=== PATIENT | female | born 1930 | race Caucasian/White ===

== ENCOUNTER 2017-06-03 09:17 | Observation (INO) | payer OTHER ==
[2017-06-03 09:20] VITALS: BMI 24.6
[2017-06-03] MEDS ORDERED: ONDANSETRON 4 MG/2 ML VIAL ONE (09:37)
[2017-06-03] MEDS ORDERED: SODIUM CHLORIDE 500 ML IV STA ×2 (09:49→12:35)
[2017-06-03] MEDS ORDERED: MECLIZINE HCL 25 MG TABLET (FP) PO ONE ×2 (09:49→12:35)
[2017-06-03] MEDS ORDERED: MECLIZINE HCL 25 MG TABLET (FP) ONE (09:54)
[2017-06-03 10:14] LABS: URINE APPEARANCE CLEAR; URINE BILIRUBIN NEGATIVE (NEGATIVE); URINE BLOOD 1+ (NEGATIVE); URINE COLOR STRAW; URINE GLUCOSE (UA) NEGATIVE (NEGATIVE); URINE KETONE NEGATIVE (NEGATIVE); URINE LEUK ESTERASE TRACE (NEGATIVE); URINE NITRITE NEGATIVE (NEGATIVE); URINE PROTEIN NEGATIVE (NEGATIVE); URINE UROBILINOGEN NEGATIVE mg/dL (0.2-1.0)
--- NOTE | 2017-06-03 10:23 | PDOC ---
History of Present Illness - General Chief Complaint: Lightheaded Stated Complaint: DIZZINESS Time Seen by Provider: 06/03/17 09:21 History Source: Patient Exam Limitations: No Limitations - History of Present Illness Initial Comments: 06/03/17 10:07 86-year-old female presents to the ED with complaints of dizziness upon awakening this morning. Patient states when she woke up she felt as if the room was spinning causing her to hold onto the wall while making it to the kitchen. Patient states found her son there who saw her in distress and immediately went to her side. as per son patient then almost fell and he assisted her to the ground and called EMS who arrived within 15 minutes. Patient has no complaints of visual changes, headache, chest pain or shortness of breath but does complain of nausea and states was given medication in the ambulance. Patient does have history of aortic valve replacement, pacemaker, hypertension, and dyslipidemia.Patient denies history of vertigo and denies any recent dental work recent ear infection or recent change in medications. Presenting Symptoms: Dizziness Timing/Duration: reports: intermittent Severity/Quality: reports: moderate Chest Pain Radiation: reports: no radiation Activities at Onset: reports: none Prior Chest Pain/Cardiac Workup: reports: No prior chest pain Past History - Travel Traveled outside of the country in the last 30 days: Yes - Past Medical History Allergies/Adverse Reactions: Allergies Allergy/AdvReac Type Severity Reaction Status Date / Time Iodinated Contrast- Oral and Allergy Severe Difficulty Verified 06/03/17 09:18 IV Dye Breathing [IV Dye, Iodine Containing Contrast ] iodine Allergy Severe Difficulty Verified 06/03/17 09:18 Breathing Home Medications: Ambulatory Orders Acetaminophen [Tylenol -] 1,000 mg PO Q6H PRN 06/01/16 Aspirin [ASA -] 81 mg PO DAILY 06/01/16 Clonazepam [Klonopin -] 0.5 mg PO BID 06/01/16 Escitalopram Oxalate [Lexapro -] 10 mg PO DAILY 06/01/16 Furosemide [Lasix -] 20 mg PO DAILY 06/01/16 Lisinopril [Prinivil] 20 mg PO BID 06/01/16 Mirtazapine [Remeron -] 15 mg PO DAILY 06/01/16 Omeprazole [Prilosec] 40 mg PO DAILY 06/01/16 Ondansetron [Zofran -] 4 mg PO TID PRN 06/01/16 Oxybutynin Chloride [Ditropan -] 10 mg PO DAILY 06/01/16 Anemia: No Asthma: No 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.) Cardiac Disorders: Yes (SOB,) CVA: No COPD: No Dementia: No Diabetes: No GI Disorders: No Disorders: No HTN: Yes Hypercholesterolemia: Yes Liver Disease: No Seizures: No Thyroid Disease: No Other medical history: vertigo - Surgical History Abdominal Surgery: No Appendectomy: Yes Cardiac Surgery: Yes (MECHANICAL AORTIC VALVE REPLACEMENT,Pacemaker) Cholecystectomy: Yes Lung Surgery: No Neurologic Surgery: No - Immunization History Immunization Up to Date: No - Psycho/Social/Smoking Cessation Hx Anxiety: Yes Suicidal Ideation: No Smoking Status: No Smoking History: Smoker current status UNK Have you smoked in the past 12 months: No Number of Cigarettes Smoked Daily: 0 Information on smoking cessation initiated: No Hx Alcohol Use: No Drug/Substance Use Hx: No Substance Use Type: None Hx Substance Use Treatment: No Patient Lives Alone: No Lives with/in: son Cardiac Specific PMH - Complaint Specific PMHX Pacemaker: Yes ([place]) Review of Systems - Review of Systems Able to Perform ROS?: Yes Constitutional: Yes: Weakness HEENTM: No: Symptoms Reported Respiratory: No: Symptoms reported Cardiac (ROS): Yes: Lightheadedness. No: Syncope, Chest Tightness ABD/GI: Yes: Nausea : No: Symptoms Reported Musculoskeletal: No: Symptoms Reported Integumentary: No: Symptoms Reported Neurological: Yes: Dizziness Hematologic/Lymphatic: No: Symptoms Reported *Physical Exam - Vital Signs Last Vital Signs Temp Pulse Resp BP Pulse Ox 98.7 F 80 16 170/70 96 06/03/17 14:40 06/03/17 15:26 06/03/17 15:26 06/03/17 15:26 06/03/17 15:26 - Physical Exam General Appearance: Yes: Nourished, Appropriately Dressed. No: Apparent Distress HEENT: positive: EOMI, JIM, Pharynx Normal (dry). negative: Pale Conjunctivae Neck: positive: Supple Respiratory/Chest: positive: Lungs Clear, Normal Breath Sounds. negative: Respiratory Distress, Accessory Muscle Use Cardiovascular: positive: Regular Rhythm, Regular Rate. negative: Murmur Gastrointestinal/Abdominal: positive: Soft. negative: Tenderness Extremity: positive: Normal Capillary Refill. negative: Pedal Edema Integumentary: positive: Normal Color, Warm, Moist Neurologic: positive: Normal Mood/Affect, Motor Strength 5/5, Other (+ hallpikes left/right) Heart Score/ECG Review - History History: Slightly suspicious - Electrocardiogram EKG: Normal - Age Age: >/= 65 - Risk Factors Risk Factors Heart Score: Yes Hx Hypercholesterolemia, Yes Hx Hypertension, Yes Positive family hx of cardiac disease Based on the list above the patient has:: >/=3 risk factors or Hx atherosclerotic disease - Troponin Troponin: </= normal limit - Score Heart Score - Total: 4 - ECG Intrepretation Rhythm: Regular Rhythm (rate 65. prolonged av conduction with prolonged a conduction w/ pvc) ED Treatment Course - LABORATORY CBC & Chemistry Diagram: 06/03/17 10:17 06/03/17 10:17 - ADDITIONAL ORDERS Additional order review: Laboratory Results 06/03/17 06/03/17 06/03/17 10:17 10:17 10:00 PT with INR 11.10 INR 1.01 D Sodium 144 Potassium 5.0 D Chloride 111 H Carbon Dioxide 24 Anion Gap 9 BUN 28 H Creatinine 1.1 H D Creat Clearance w eGFR 47.32 Random Glucose 105 Calcium 8.6 Total Bilirubin 0.4 AST 23 D ALT 20 Alkaline Phosphatase 88 Creatine Kinase 81 Troponin I 0.03 Total Protein 6.7 Albumin 3.3 L Urine Color Straw Urine Appearance Clear Urine pH 5.0 Ur Specific [place] 1.015 Urine Protein Negative Urine Glucose (UA) Negative Urine Ketones Negative Urine Blood 1+ H Urine Nitrite Negative Urine Bilirubin Negative Urine Urobilinogen Negative Urine RBC 1 Urine WBC 4 Hyaline Casts 1 Urine Mucus Rare 06/03/17 10:17 RBC 4.60 D MCV 89.0 MCHC 33.3 RDW 14.2 MPV 8.6 Neutrophils % 72.7 D Lymphocytes % 20.0 D Monocytes % 6.3 Eosinophils % 0.5 Basophils % 0.5 - RADIOLOGY Radiology Studies Ordered: Category Date Time Status HEAD CT WITHOUT CONTRAST [CT] Stat CT Scan 06/03/17 10:35 Completed - Medications Given in the ED: ED Medications Discontinued Medications Generic Name Dose Route Start Last Admin Trade Name Freq PRN Reason Stop Dose Admin Sodium Chloride 500 mls @ 500 mls/hr 06/03/17 09:49 06/03/17 10:19 Normal Saline - IV 06/03/17 10:48 500 mls/hr ASDIR STA Administration Sodium Chloride 500 mls @ 500 mls/hr 06/03/17 12:35 06/03/17 12:50 Normal Saline - IV 06/03/17 13:34 500 mls/hr ASDIR STA Administration Meclizine HCl 25 mg 06/03/17 09:49 06/03/17 10:19 Antivert - PO 06/03/17 09:50 25 mg ONCE ONE Administration Meclizine HCl 12.5 mg 06/03/17 12:35 06/03/17 12:50 Antivert - PO 06/03/17 12:36 12.5 mg ONCE ONE Administration Medical Decision Making - Medical Decision Making 06/03/17 10:07 Patient with episodic dizziness worsened with standing. Patient also complaint of nausea and weakness. Patient denies history of vertigo patient on exam was Hallpike's positive and was unable to perform orthostatic vital signs due to the complaint of the room spinning while sitting up. Patient ordered for cardiac workup, head CT, labs, urine, meclizine and IV fluids. Patient also ordered to be placed on machine coremaker 06/03/17 12:37 Laboratory Tests 06/03/17 06/03/17 06/03/17 10:00 10:17 10:17 WBC 7.9 Hgb 13.6 D Hct 40.9 D Neutrophils % 72.7 D Chloride 111 H Carbon Dioxide 24 Anion Gap 9 BUN 28 H Creatinine 1.1 H D ALT 20 Alkaline Phosphatase 88 Troponin I 0.03 Albumin 3.3 L Urine Blood 1+ H Urine Nitrite Negative Urine Urobilinogen Negative Urine WBC [address] negative for acute findings. Went to evaluate patient and states dizziness has return and unable to sit upright on the stretcher. Patient lowered to supine position, ordered meclizine 12.5 along with 500 mL of normal saline. Will consult neurologist on-call. 06/03/17 13:31 Case discussed with neurologist Dr. Wheat who will consult on patient. Case discussed with Dr. Brock. Dr. Bandar Raza to be notified of admission. 06/03/17 13:[address] Raza and states patient to be admitted to telemetry observation. Patient will also be seen by Dr. Rivers , patient's radio installer. *DC/Admit/Observation/Transfer Diagnosis at time of Disposition: Positional vertigo Qualifiers: Laterality: unspecified laterality Qualified Code(s): H81.10 - Benign paroxysmal vertigo, unspecified ear - Discharge Dispostion Admit: Yes
[2017-06-03 10:25] LABS: BASOPHIL 0.5 % (0-2.0); EOSINOPHIL 0.5 % (0-4.5); MCH 29.6 pg (25.7-33.7); MCHC 33.3 g/dl (32.0-36.0); MEAN PLT VOLUME 8.6 fl (7.5-11.1); NEUTROPHILS 72.7 % (42.8-82.8); PLATELET COUNT 234 K/MM3 (134-434); RDW 14.2 % (11.6-15.6); WHITE BLOOD COUNT 7.9 K/mm3 (4.0-10.0)
[2017-06-03 10:36] LABS: URINE HYALINE CAST 1 /lpf; URINE MUCUS RARE; URINE RBC 1 /hpf (0-3); URINE WBC 4 /hpf (3-5)
[2017-06-03 10:42] LABS: INR 1.01 (0.82-1.09); PROTHROMBIN TIME (PATIENT) 11.1 SEC (9.98-11.88)
[2017-06-03 10:44] LABS: ALBUMIN 3.3 g/dl (3.4-5.0); ANION GAP 9 (8-16); BILIRUBIN,TOTAL 0.4 mg/dL (0.2-1.0); CALCIUM 8.6 mg/dL (8.5-10.1); CO2 24 mmol/L (21-32); CREATININE 1.1 mg/dL (0.55-1.02); GLUCOSE,RANDOM 105 mg/dL (74-106); SGOT/AST 23 U/L (15-37); SGPT/ALT 20 U/L (12-78); TOT PROT 6.7 g/dl (6.4-8.2)
[2017-06-03 10:47] LABS: ALK PHOS 88 U/L (45-117); CPK 81 IU/L (26-192); TROPONIN I 0.03 ng/ml (0.00-0.05)
[2017-06-03] MEDS ORDERED: MECLIZINE HCL 12.5 MG TABLET ONE (12:37)
[2017-06-03] MEDS ORDERED: ACETAMINOPHEN 325 MG TABLET (FP) PO PRN (14:27)
[2017-06-03] MEDS ORDERED: MECLIZINE HCL 25 MG TABLET (FP) PO PRN (14:33)
--- NOTE | 2017-06-03 14:34 | HP ---
Admitting History and Physical - Primary Care Physician PCP: Javi Brock - Admission Chief Complaint: dizziness History of Present Illness: Pt 86-year-old female presents to the ED with complaints of dizziness upon awakening this morning. Patient states when she woke up she felt as if the room was spinning causing her to hold onto the wall while making it to the kitchen. Patient states found her son there who saw her in distress and immediately went to her side. as per son patient then almost fell and he assisted her to the ground and called EMS who arrived within 15 minutes. Patient has no complaints of visual changes, headache, chest pain or shortness of breath but does complain of nausea and states was given medication in the ambulance. Patient has -- history of aortic valve replacement---metallic --changed to bio in 2014-- now on asa , pacemaker, hypertension, and dyslipidemia. Patient denies history of vertigo and denies any recent dental work recent ear infection or recent change in medications. pts work up in er essentially -ve. including ct head ekg- paced. pt given zofron/ antivert and fluids in er. pt to admitted to [facility] for observation. pt seen in er by pr-- chart reviewed case discussed with ER physician . still feels dizzy. son at bedside. denies cp/sob/abd pain. no u/bowel trouble. History Source: Patient, Family Member Limitations to Obtaining History: No Limitations - Past Medical History Cardiovascular: Yes: Aortic Stenosis, CAD, HTN, Hyperlipdemia Psych: Yes: Depression - Past Surgical History Past Surgical History: Yes: Permanent Pacemaker, Valve Replacement - Smoking History Smoking history: Smoker current status UNK Have you smoked in the past 12 months: No Aproximately how many cigarettes per day: 0 - Alcohol/Substance Use Hx Alcohol Use: No Home Medications - Allergies Allergies/Adverse Reactions: Allergies Allergy/AdvReac Type Severity Reaction Status Date / Time Iodinated Contrast- Oral and Allergy Severe Difficulty Verified 06/03/17 09:18 IV Dye Breathing [IV Dye, Iodine Containing Contrast ] iodine Allergy Severe Difficulty Verified 06/03/17 09:18 Breathing - Home Medications Home Medications: Ambulatory Orders Acetaminophen [Tylenol -] 1,000 mg PO Q6H PRN 06/01/16 Aspirin [ASA -] 81 mg PO DAILY 06/01/16 Clonazepam [Klonopin -] 0.5 mg PO BID 06/01/16 Escitalopram Oxalate [Lexapro -] 10 mg PO DAILY 06/01/16 Furosemide [Lasix -] 20 mg PO DAILY 06/01/16 Lisinopril [Prinivil] 20 mg PO BID 06/01/16 Mirtazapine [Remeron -] 15 mg PO DAILY 06/01/16 Omeprazole [Prilosec] 40 mg PO DAILY 06/01/16 Ondansetron [Zofran -] 4 mg PO TID PRN 06/01/16 Oxybutynin Chloride [Ditropan -] 10 mg PO DAILY 06/01/16 Review of Systems - Review of Systems Constitutional: reports: Weakness Eyes: reports: No Symptoms HENT: reports: No Symptoms Neck: reports: No Symptoms Cardiovascular: reports: No Symptoms Respiratory: reports: No Symptoms Gastrointestinal: reports: Nausea Genitourinary: reports: No Symptoms Integumentary: reports: No Symptoms Neurological: reports: Dizziness Psychiatric: reports: Anxiety Physical Examination Vital Signs: Vital Signs Temperature 98.2 F 06/03/17 09:18 Pulse Rate 82 06/03/17 09:18 Respiratory Rate 20 06/03/17 09:18 Blood Pressure 179/84 06/03/17 09:18 O2 Sat by Pulse Oximetry (%) 94 L 06/03/17 09:18 Constitutional: Yes: No Distress, Anxious Eyes: Yes: Conjunctiva Clear, PERRL HENT: Yes: WNL Neck: Yes: Supple, Trachea Midline Cardiovascular: Yes: Regular Rate and Rhythm, Other (paced) Respiratory: Yes: CTA Bilaterally Gastrointestinal: Yes: Normal Bowel Sounds, Soft Edema: No Neurological: Yes: Alert, Cran Nerves II-XII Intact Psychiatric: Yes: Alert Labs: CBC, BMP 06/03/17 10:17 06/03/17 10:17 Imaging - Results Cat Scan: Report Reviewed EKG: Report Reviewed Problem List - Problems (1) Dizziness Assessment/Plan: monitor on tele due to extensive cardiac history cardiolgy/ neurology consults. u/s carotid. check tsh level. Code(s): R42 - DIZZINESS AND GIDDINESS (2) H/O aortic valve replacement Assessment/Plan: on asa Code(s): Z95.2 - PRESENCE OF PROSTHETIC HEART VALVE (3) CAD (coronary artery disease) Assessment/Plan: denies cp. echo if not done recently cardiology to follow Code(s): I25.10 - ATHSCL HEART DISEASE OF [place] CORONARY ARTERY W/O ANG PCTRS (4) Pacemaker Assessment/Plan: no active issues Code(s): Z95.0 - PRESENCE OF CARDIAC PACEMAKER (5) Hypertension Code(s): I10 - ESSENTIAL (PRIMARY) HYPERTENSION (6) Depression Assessment/Plan: on lexapro/clonipine Code(s): F32.9 - MAJOR DEPRESSIVE DISORDER, SINGLE EPISODE, UNSPECIFIED Assessment/Plan discussed with pts son/ pts pmd will follow. time spend 40 min in examining/ documenting and coordating care
--- NOTE | 2017-06-03 14:38 | PDOC ---
*Physical Exam - Vital Signs Last Vital Signs Temp Pulse Resp BP Pulse Ox 98.2 F 82 20 179/84 94 L 06/03/17 09:18 06/03/17 09:18 06/03/17 09:18 06/03/17 09:18 06/03/17 09:18 ED Treatment Course - LABORATORY CBC & Chemistry Diagram: 06/03/17 10:17 06/03/17 10:17 - ADDITIONAL ORDERS Additional order review: Laboratory Results 06/03/17 06/03/17 06/03/17 10:17 10:17 10:00 PT with INR 11.10 INR 1.01 D Sodium 144 Potassium 5.0 D Chloride 111 H Carbon Dioxide 24 Anion Gap 9 BUN 28 H Creatinine 1.1 H D Creat Clearance w eGFR 47.32 Random Glucose 105 Calcium 8.6 Total Bilirubin 0.4 AST 23 D ALT 20 Alkaline Phosphatase 88 Creatine Kinase 81 Troponin I 0.03 Total Protein 6.7 Albumin 3.3 L Urine Color Straw Urine Appearance Clear Urine pH 5.0 Urine Protein Negative Urine Glucose (UA) Negative Urine Ketones Negative Urine Blood 1+ H Urine Nitrite Negative Urine Bilirubin Negative Urine Urobilinogen Negative Urine RBC 1 Urine WBC 4 Hyaline Casts 1 Urine Mucus Rare 06/03/17 10:17 RBC 4.60 D MCV 89.0 MCHC 33.3 RDW 14.2 MPV 8.6 Neutrophils % 72.7 D Lymphocytes % 20.0 D Monocytes % 6.3 Eosinophils % 0.5 Basophils % 0.5 - Medications Given in the ED: ED Medications Discontinued Medications Generic Name Dose Route Start Last Admin Trade Name Freq PRN Reason Stop Dose Admin Sodium Chloride 500 mls @ 500 mls/hr 06/03/17 09:49 06/03/17 10:19 Normal Saline - IV 06/03/17 10:48 500 mls/hr ASDIR STA Administration Sodium Chloride 500 mls @ 500 mls/hr 06/03/17 12:35 06/03/17 12:50 Normal Saline - IV 06/03/17 13:34 500 mls/hr ASDIR STA Administration Meclizine HCl 25 mg 06/03/17 09:49 06/03/17 10:19 Antivert - PO 06/03/17 09:50 25 mg ONCE ONE Administration Meclizine HCl 12.5 mg 06/03/17 12:35 06/03/17 12:50 Antivert - PO 06/03/17 12:36 12.5 mg ONCE ONE Administration Medical Decision Making - Medical Decision Making 06/03/17 14:38 Pt seen by the Advanced Practice Provider under my direct supervision Ancillary studies reviewed I agree with plan as outlined by the Advanced Practice Provider *DC/Admit/Observation/Transfer Diagnosis at time of Disposition: Positional vertigo Qualifiers: Laterality: unspecified laterality Qualified Code(s): H81.10 - Benign paroxysmal vertigo, unspecified ear
[2017-06-03] MEDS: LISINOPRIL 20 MG TABLET (FP) PO SCH ×2 (16:13→23:04)
[2017-06-03] MEDS ORDERED: ONDANSETRON 4 MG/2 ML VIAL IVPB PRN (16:27)
[2017-06-03] MEDS ORDERED: FLU VACCINE QUAD 60 MCG/0.5 ML (MDV 17-18) IM ONE (17:06)
[2017-06-03] MEDS: clonazePAM 0.5 MG TABLET PO SCH ×2 (17:09→22:45)
[2017-06-03] MEDS: PANTOPRAZOLE 40 MG TABLET (FP) PO SCH (17:09)
[2017-06-03] MEDS: ASPIRIN 81 MG CHEWABLE TABLETS PO SCH (17:09)
[2017-06-03] MEDS: ESCITALOPRAM OXALATE 10 MG TABLET (FP) PO SCH (17:09)
[2017-06-03] MEDS: FUROSEMIDE 20 MG TABLET (FP) PO SCH (17:09)
[2017-06-03] MEDS ORDERED: NIFEdipine E.R. 30 MG TABLET (FP) PO ONE (19:30)
[2017-06-03] MEDS ORDERED: clonazePAM 0.5 MG TABLET PO SCH (22:00)
[2017-06-03] MEDS ORDERED: LISINOPRIL 20 MG TABLET (FP) PO SCH (22:00)
[2017-06-03] MEDS: HEPARIN NA (PORCINE) 5,000 UNITS/ML 1ML VIAL SQ SCH (22:43)
[2017-06-03] MEDS: MIRTAZAPINE 15 MG TABLET (FP) PO SCH (22:45)
[2017-06-04 07:32] LABS: BASOPHIL 0.7 % (0-2.0); EOSINOPHIL 1.4 % (0-4.5); MCH 29.9 pg (25.7-33.7); MCHC 33.6 g/dl (32.0-36.0); MEAN CELL VOLUME 88.9 fl (80-96); PLATELET COUNT 243 K/MM3 (134-434); RDW 14.3 % (11.6-15.6); WHITE BLOOD COUNT 8.7 K/mm3 (4.0-10.0)
[2017-06-04 07:57] LABS: ALBUMIN 3.2 g/dl (3.4-5.0); ANION GAP 6 (8-16); BILIRUBIN,TOTAL 0.6 mg/dL (0.2-1.0); CALCIUM 8.4 mg/dL (8.5-10.1); CO2 27 mmol/L (21-32); CREATININE 0.9 mg/dL (0.55-1.02); GLUCOSE,RANDOM 104 mg/dL (74-106); MAGNESIUM 2.3 mg/dL (1.8-2.4); SGOT/AST 29 U/L (15-37); SGPT/ALT 25 U/L (12-78); TOT PROT 6.7 g/dl (6.4-8.2)
[2017-06-04 07:58] LABS: ALK PHOS 84 U/L (45-117)
--- NOTE | 2017-06-04 08:26 | CON.CARD ---
Consult Consult Specialty:: cardio Referred by:: karon/nona Reason for Consultation:: dizzy - History of Present Illness Chief Complaint: same History of Present Illness: 86 yo female presented with dizziness. pt noted dizziness upon awakening on morning of DOA. Patient states when she woke up she felt as if the room was spinning causing her to hold onto the wall while trying to walk to the kitchen. Patient states found her son there who saw her in distress and immediately went to her side. as per son patient then almost fell and he assisted her to the ground and called EMS still feeling dizzy had similar "vertigo" years ago, given a pill and it went away admits to sob on 2-3 blocks walking outside--says chronic and stable since 2nd valve surgery 2014. denies orthopnea/PND denies cp last saw alex 05/05 and had echo then PMH: afib syst chf s/p AVR - Past Medical History Cardio/Vascular: Yes: Aortic Stenosis, CAD, HTN, Hyperlipdemia Psych: Yes: Depression - Past Surgical History Past Surgical History: Yes: Permanent Pacemaker, Valve Replacement - Alcohol/Substance Use Hx Alcohol Use: No - Smoking History Smoking history: Smoker current status UNK Have you smoked in the past 12 months: No Aproximately how many cigarettes per day: 0 Home Medications - Allergies Allergies/Adverse Reactions: Allergies Allergy/AdvReac Type Severity Reaction Status Date / Time Iodinated Contrast- Oral and Allergy Severe Difficulty Verified 06/03/17 09:18 IV Dye Breathing [IV Dye, Iodine Containing Contrast ] iodine Allergy Severe Difficulty Verified 06/03/17 09:18 Breathing - Home Medications Home Medications: Ambulatory Orders Acetaminophen [Tylenol -] 1,000 mg PO Q6H PRN 06/01/16 Aspirin [ASA -] 81 mg PO DAILY 06/01/16 Clonazepam [Klonopin -] 0.5 mg PO BID 06/01/16 Escitalopram Oxalate [Lexapro -] 10 mg PO DAILY 06/01/16 Furosemide [Lasix -] 20 mg PO DAILY 06/01/16 Lisinopril [Prinivil] 20 mg PO BID 06/01/16 Mirtazapine [Remeron -] 15 mg PO DAILY 06/01/16 Omeprazole [Prilosec] 40 mg PO DAILY 06/01/16 Ondansetron [Zofran -] 4 mg PO TID PRN 06/01/16 Oxybutynin Chloride [Ditropan -] 10 mg PO DAILY 06/01/16 Family Disease History - Family Disease History Family History: Denies (no cmp) Review of Systems - Review of Systems Constitutional: denies: Chills, Fever Eyes: denies: Eye Pain HENT: denies: Nasal Congestion Neck: denies: Stiffness Cardiovascular: denies: Palpitations Respiratory: denies: Orthopnea, PND Gastrointestinal: denies: Diarrhea, Rectal Bleeding Genitourinary: denies: Burning, Hematuria Musculoskeletal: denies: Muscle Pain Integumentary: denies: Rash Neurological: denies: Numbness, Seizure, Syncope Endocrine: denies: Excessive Sweating Hematology/Lymphatic: denies: Excessive Bleeding Vital Signs: Vital Signs Temperature 98.8 F 06/04/17 05:47 Pulse Rate 78 06/04/17 05:47 Respiratory Rate 20 06/04/17 05:47 Blood Pressure 142/74 06/04/17 05:47 O2 Sat by Pulse Oximetry (%) 95 06/04/17 05:47 Constitutional: Yes: Well Nourished, No Distress Eyes: No: Sclera Icterus HENT: No: Nasal Congestion Neck: No: Decreased ROM Respiratory: Yes: CTA Bilaterally. No: Accessory Muscle Use, Rales, Wheezes Gastrointestinal: Yes: Normal Bowel Sounds. No: Distention, Hepatomegaly, Palpable Mass, Tenderness Cardiovascular: Yes: Regular Rate and Rhythm JVD: No Carotid Bruit: No PMI: Non-Displaced Heart Sounds: Yes: S1, S2. No: Gallop Murmur: No: Systolic Murmur, Diastolic Murmur Musculoskeletal: Yes: Other (No kyphosis) Extremities: No: Cold, Cyanosis Edema: No Peripheral Pulses: 2+ Left Carotid, 2+ Right Carotid, 2+ Left Doralis Pedis, 2+ Right Dorsalis Pedis Integumentary: No: Jaundice Neurological: Yes: Alert, Oriented (x3) Psychiatric: No: Agitated - Other Data Labs, Other Data: CBC, BMP 06/04/17 05:48 06/04/17 05:48 INR, PTT INR 1.01 (0.82-1.09) D 06/03/17 10:17 Laboratory Tests 09/16/17 09/16/17 05:48 05:48 WBC 8.7 Hgb 14.7 Plt Count 243 Sodium 142 Potassium 4.3 BUN 18 D Creatinine 0.9 AST 29 D ALT 25 D Assessment/Plan Echo 07/2015: normal lv size, low nl lvef, septal WMA c/w prior open heart surgery, nl rv, mild mr, [facility] avr with mod-sev AR, no sig change from 07/2014 echo Echo 06/03/17: mod-sev decr LVSF, mild LVH; nl RVSF. TDS AVR--mod AI,no . mod- severe MR. mild TR. RVSP 30-40 CT head: chronic bilateral cerebellar infarcts, no acute path, no change vs 2012 ECG: NSR, V-paced, PVC (no change vs 06/04) dizziness: -description c/w vertigo--acute, sudden onset -? if prior h/o--of note are bilateral chronic cerebellar infarcts on CT--? central etiology vs BPPV -plan per neuro h/o valvular heart dz with prior [facility] avr failure s/p reop 2014, chronic syst CHF, mod to severe MR: -? type of reop AVR in 2014--will check office records -marked LV dysfunction here, ? post AVR reop baseline LVEF--will review office records -mod to severe MR here--? if new, will review office records--no murmur appreciated on exam -BNP 4K (2K in 2015) -CXR pending -chronic ARMAS sx's at home, stable--no volume on exam -says only rx'd lasix prn at home for swelling, hasn't needed--defer for now h/o rectal bleed 2015: -rpt FOC benign then; per GI etiology felt likely 2/2 retained blood post recent prior FOC -cleared to resume AC at that time per GI rec.s pafib: -in sinus -continue coreg -was on AC as of 2014 admit here ([facility] AVR then too)--no AC agent currently on home med list--will check office records CKD: -creat ranged 1.2-1.8 ppm: -routine office checks with alex as doing htn: -bp's very variable on HD #1, currently controlled this am -cont home meds, observe bp trend hld: -cont home statin
[2017-06-04] MEDS: ASPIRIN 81 MG CHEWABLE TABLETS PO SCH (09:37)
[2017-06-04] MEDS: LISINOPRIL 20 MG TABLET (FP) PO SCH ×2 (09:37→21:14)
[2017-06-04] MEDS: PANTOPRAZOLE 40 MG TABLET (FP) PO SCH (09:37)
[2017-06-04] MEDS: ESCITALOPRAM OXALATE 10 MG TABLET (FP) PO SCH (09:37)
[2017-06-04] MEDS: OXYBUTYNIN CHLORIDE 5 MG TABLET PO SCH (09:37)
[2017-06-04] MEDS: FUROSEMIDE 20 MG TABLET (FP) PO SCH (09:38)
[2017-06-04] MEDS: clonazePAM 0.5 MG TABLET PO SCH ×2 (09:38→21:14)
[2017-06-04] MEDS: HEPARIN NA (PORCINE) 5,000 UNITS/ML 1ML VIAL SQ SCH ×2 (09:38→21:15)
--- NOTE | 2017-06-04 09:40 | CONSULT ---
Consult - text type - Consultation Consultation Note: Neurology History of Present Illness 86-year-old female presents to the ED with complaints of dizziness and states when she woke up she felt as if the room was spinning causing her to hold onto the wall while making it to the kitchen. Reportedly, her son witnessed this and that she almost fell and he assisted her to the ground and called EMS who arrived within 15 minutes. Patient has no complaints of visual changes, headache , chest pain or shortness of breath but does complain of nausea and states was given medication in the ambulance. Patient does have history of aortic valve replacement, pacemaker, hypertension, and dyslipidemia.Patient denies history of vertigo and denies any recent dental work recent ear infection or recent change in medications. She completed CT head which demonstrated B/L cerebellar chronic infarcts. Cardiology consulted as well. Past History - Travel Traveled outside of the country in the last 30 days: Yes - Past Medical History Allergies/Adverse Reactions: Allergies Allergy/AdvReac Type Severity Reaction Status Date / Time Iodinated Contrast- Oral and Allergy Severe Difficulty Verified 06/03/17 09:18 IV Dye Breathing [IV Dye, Iodine Containing Contrast ] iodine Allergy Severe Difficulty Verified 06/03/17 09:18 Breathing Home Medications: Ambulatory Orders Acetaminophen [Tylenol -] 1,000 mg PO Q6H PRN 06/01/16 Aspirin [ASA -] 81 mg PO DAILY 06/01/16 Clonazepam [Klonopin -] 0.5 mg PO BID 06/01/16 Escitalopram Oxalate [Lexapro -] 10 mg PO DAILY 06/01/16 Furosemide [Lasix -] 20 mg PO DAILY 06/01/16 Lisinopril [Prinivil] 20 mg PO BID 06/01/16 Mirtazapine [Remeron -] 15 mg PO DAILY 06/01/16 Omeprazole [Prilosec] 40 mg PO DAILY 06/01/16 Ondansetron [Zofran -] 4 mg PO TID PRN 06/01/16 Oxybutynin Chloride [Ditropan -] 10 mg PO DAILY 06/01/16 Anemia: No Asthma: No Cardiac Disorders: Yes (SOB,) CVA: No COPD: No Dementia: No Diabetes: No GI Disorders: No Disorders: No HTN: Yes Hypercholesterolemia: Yes Liver Disease: No Seizures: No Thyroid Disease: No Other medical history: vertigo - Surgical History Abdominal Surgery: No Appendectomy: Yes Cardiac Surgery: Yes (MECHANICAL AORTIC VALVE REPLACEMENT,Pacemaker) Cholecystectomy: Yes Lung Surgery: No Neurologic Surgery: No - Immunization History Immunization Up to Date: No - Psycho/Social/Smoking Cessation Hx Anxiety: Yes Suicidal Ideation: No Smoking Status: No Smoking History: Smoker current status UNK Have you smoked in the past 12 months: No Number of Cigarettes Smoked Daily: 0 Information on smoking cessation initiated: No Hx Alcohol Use: No Drug/Substance Use Hx: No Substance Use Type: None Hx Substance Use Treatment: No Patient Lives Alone: No Lives with/in: son Cardiac Specific PMH - Complaint Specific PMHX Pacemaker: Yes ([email or web address]) Review of Systems - Review of Systems Able to Perform ROS?: Yes Constitutional: Yes: Weakness HEENTM: No: Symptoms Reported Respiratory: No: Symptoms reported Cardiac (ROS): Yes: Lightheadedness. No: Syncope, Chest Tightness ABD/GI: Yes: Nausea : No: Symptoms Reported Musculoskeletal: No: Symptoms Reported Integumentary: No: Symptoms Reported Neurological: Yes: Dizziness Hematologic/Lymphatic: No: Symptoms Reported *Physical Exam - Vital Signs Last Vital Signs Temp Pulse Resp BP Pulse Ox 98.7 F 80 16 170/70 96 06/03/17 14:40 06/03/17 15:26 06/03/17 15:26 06/03/17 15:26 06/03/17 15:26 - Physical Exam General Appearance: Yes: Nourished, Appropriately Dressed. No: Apparent Distress HEENT: positive: EOMI, JIM, Pharynx Normal (dry). negative: Pale Conjunctivae Neck: positive: Supple Respiratory/Chest: positive: Lungs Clear, Normal Breath Sounds. negative: Respiratory Distress, Accessory Muscle Use Cardiovascular: positive: Regular Rhythm, Regular Rate. negative: Murmur Gastrointestinal/Abdominal: positive: Soft. negative: Tenderness Extremity: positive: Normal Capillary Refill. negative: Pedal Edema Integumentary: positive: Normal Color, Warm, Moist Neurologic: CN intact, finger to nose without dysmetria, strength grossly symetric, sensory intact, gait deferred CBCD WBC 8.7 K/mm3 (4.0-10.0) 06/04/17 05:48 RBC 4.91 M/mm3 (3.60-5.2) 06/04/17 05:48 Hgb 14.7 GM/dL (10.7-15.3) 06/04/17 05:48 Hct 43.6 % (32.4-45.2) 06/04/17 05:48 MCV 88.9 fl (80-96) 06/04/17 05:48 MCHC 33.6 g/dl (32.0-36.0) 06/04/17 05:48 RDW 14.3 % (11.6-15.6) 06/04/17 05:48 Plt Count 243 K/MM3 (134-434) 06/04/17 05:48 MPV 9.0 fl (7.5-11.1) 06/04/17 05:48 CMP Sodium 142 mmol/L (136-145) 06/04/17 05:48 Potassium 4.3 mmol/L (3.5-5.1) 06/04/17 05:48 Chloride 109 mmol/L (98-107) H 06/04/17 05:48 Carbon Dioxide 27 mmol/L (21-32) 06/04/17 05:48 Anion Gap 6 (8-16) L 06/04/17 05:48 BUN 18 mg/dL (7-18) D 06/04/17 05:48 Creatinine 0.9 mg/dL (0.55-1.02) 06/04/17 05:48 Creat Clearance w eGFR 59.65 (>60) 06/04/17 05:48 Calcium 8.4 mg/dL (8.5-10.1) L 06/04/17 05:48 Total Bilirubin 0.6 mg/dL (0.2-1.0) D 06/04/17 05:48 AST 29 U/L (15-37) D 06/04/17 05:48 ALT 25 U/L (12-78) D 06/04/17 05:48 Alkaline Phosphatase 84 U/L (45-117) 06/04/17 05:48 Total Protein 6.7 g/dl (6.4-8.2) 06/04/17 05:48 Albumin 3.2 g/dl (3.4-5.0) L 06/04/17 05:48 Medical Decision Making 86-year-old female presents to the ED with complaints of dizziness and states when she woke up she felt as if the room was spinning causing her to hold onto the wall while making it to the kitchen. Reportedly, her son witnessed this and that she almost fell and he assisted her to the ground and called EMS who arrived within 15 minutes. Patient has no complaints of visual changes, headache , chest pain or shortness of breath but does complain of nausea and states was given medication in the ambulance. Patient does have history of aortic valve replacement, pacemaker, hypertension, and dyslipidemia.Patient denies history of vertigo and denies any recent dental work recent ear infection or recent change in medications. She completed CT head which demonstrated B/L cerebellar chronic infarcts. Some improvement this AM but given her history of cerebellar CVA and risk factor of HTN, would recommend rechecking imaging Has a PPM so cannot get MRI, will order repeat CT head for today On ASA 81mg and can continue On Lasix, continue BP control, ideally < 140/90 Meclezine PRN Hydration No sudden head movements Physical therapy Cardiology consulted as well, follow up rec'd
[2017-06-04] MEDS ORDERED: PANTOPRAZOLE 40 MG TABLET (FP) PO SCH (10:00)
[2017-06-04] MEDS ORDERED: ASPIRIN 81 MG CHEWABLE TABLETS PO SCH (10:00)
[2017-06-04] MEDS ORDERED: FUROSEMIDE 20 MG TABLET (FP) PO SCH (10:00)
--- NOTE | 2017-06-04 12:04 | PN ---
Progress Note (short form) - Note Progress Note: pt continue to feel dizzy anxious all f/u noted echo noted- moderate- sever lv dysfunction. denies cp. bp much better today. Vital Signs Temp 98.7 F 06/04/17 10:00 Pulse 70 06/04/17 10:00 Resp 20 06/04/17 10:00 BP 128/64 06/04/17 10:00 Pulse Ox 98 06/04/17 10:00 Intake & Output 06/03/17 06/04/17 06/04/17 23:59 11:59 23:59 Intake Total 200 200 Balance 200 200 Weight 122 lb Intake: Oral 200 200 Other: Voiding Method Bedpan Bedpan # Unmeasured Voids Void 3 3 Height 4 ft 11 in Body Mass Index (BMI) 24.6 Weight Measurement Method Stated by Patient Active Medications Acetaminophen (Tylenol -) 650 mg PO Q4H PRN PRN Reason: FEVER OR PAIN Last Admin: 06/03/17 17:08 Dose: 650 mg Aspirin (Asa -) 81 mg PO DAILY [facility] Last Admin: 06/04/17 09:37 Dose: 81 mg Clonazepam (Klonopin -) 0.5 mg PO BID [facility] Last Admin: 06/04/17 09:38 Dose: 0.5 mg Escitalopram Oxalate (Lexapro -) 10 mg PO DAILY [facility] Last Admin: 06/04/17 09:37 Dose: 10 mg Furosemide (Lasix -) 20 mg PO DAILY [facility] Last Admin: 06/04/17 09:38 Dose: 20 mg Heparin Sodium (Porcine) (Heparin -) 5,000 unit SQ BID [facility] Last Admin: 06/04/17 09:38 Dose: 5,000 unit Lisinopril (Prinivil) 20 mg PO BID [facility] Last Admin: 06/04/17 09:37 Dose: 20 mg Meclizine HCl (Antivert -) 25 mg PO Q6H PRN PRN Reason: NAUSEA Last Admin: 06/03/17 22:52 Dose: 25 mg Mirtazapine (Remeron -) 15 mg PO HS [facility] Last Admin: 06/03/17 22:45 Dose: 15 mg Ondansetron HCl (Zofran Injection) 4 mg IVPB Q8H PRN PRN Reason: NAUSEA AND/OR VOMITING Last Admin: 06/03/17 16:33 Dose: 4 mg Oxybutynin Chloride (Ditropan -) 10 mg PO DAILY [facility] Last Admin: 06/04/17 09:37 Dose: 10 mg Pantoprazole Sodium (Protonix -) 40 mg PO DAILY [facility] Last Admin: 06/04/17 09:37 Dose: 40 mg CBC, BMP 06/04/17 05:48 06/04/17 05:48 Microbiology 06/03/17 10:00 Urine Culture - Preliminary Urine - Urine Clean Catch Lactose Fermenting Neg Bacilli Physical Examination Constitutional: Yes: No Distress, Anxious. Eyes: Yes: Conjunctiva Clear, PERRL HEENT: Yes: WNL Neck: Yes: Supple, Trachea Midline Cardiovascular: Yes: Regular Rate and Rhythm, Other (paced) Respiratory: Yes: CTA Bilaterally Gastrointestinal: Yes: Normal Bowel Sounds, Soft, non tender. Edema: No Neurological: Yes: Alert, Cran Nerves II-XII Intact Psychiatric: Yes: Alert Imaging - Results Cat Scan: Report Reviewed EKG: Report Reviewed A/P still dizzy u/c +e-- start on abx. check u/s carotid. monitor bp. will follow. monitor on tele Problem List - Problems (1) Dizziness Code(s): R42 - DIZZINESS AND GIDDINESS (2) H/O aortic valve replacement Code(s): Z95.2 - PRESENCE OF PROSTHETIC HEART VALVE (3) CAD (coronary artery disease) Code(s): I25.10 - ATHSCL HEART DISEASE OF [place] CORONARY ARTERY W/O ANG PCTRS (4) Pacemaker Code(s): Z95.0 - PRESENCE OF CARDIAC PACEMAKER (5) Hypertension Code(s): I10 - ESSENTIAL (PRIMARY) HYPERTENSION (6) Depression Code(s): F32.9 - MAJOR DEPRESSIVE DISORDER, SINGLE EPISODE, UNSPECIFIED
[2017-06-04] MEDS: CEFTRIAXONE 1 GM in DEXTROSE 5%-WATER - 50 ML IVPB SCH (14:30)
[2017-06-04] MEDS ORDERED: cefTRIAXone SODIUM 1 GM VIAL ONE (14:43)
[2017-06-04] MEDS ORDERED: DEXTROSE 5%-WATER - 50 ML IVPB ONE (14:43)
[2017-06-04] MEDS: MIRTAZAPINE 15 MG TABLET (FP) PO SCH (21:15)
[2017-06-05] MEDS ORDERED: FUROSEMIDE 40 MG/4 ML INJECTABLE VIAL IVPUSH ONE (08:14)
--- NOTE | 2017-06-05 08:14 | PN ---
Progress Note, Physician Chief Complaint: dizzy History of Present Illness: dizziness much better after meclizine (resolved). seated comfortably in chair this am denies sob, orthopnea/PND no cp, palpit, leg swelling - Current Medication List Current Medications: Active Medications Acetaminophen (Tylenol -) 650 mg PO Q4H PRN PRN Reason: FEVER OR PAIN Last Admin: 06/03/17 17:08 Dose: 650 mg Aspirin (Asa -) 81 mg PO DAILY [facility] Last Admin: 06/04/17 09:37 Dose: 81 mg Clonazepam (Klonopin -) 0.5 mg PO BID [facility] Last Admin: 06/04/17 21:14 Dose: 0.5 mg Escitalopram Oxalate (Lexapro -) 10 mg PO DAILY [facility] Last Admin: 06/04/17 09:37 Dose: 10 mg Furosemide (Lasix -) 20 mg PO DAILY [facility] Last Admin: 06/04/17 09:38 Dose: 20 mg Heparin Sodium (Porcine) (Heparin -) 5,000 unit SQ BID [facility] Last Admin: 06/04/17 21:15 Dose: 5,000 unit Ceftriaxone Sodium 1 gm/ (Dextrose) 50 mls @ 100 mls/hr IVPB DAILY [facility] Last Admin: 06/04/17 14:30 Dose: 100 mls/hr Lisinopril (Prinivil) 20 mg PO BID [facility] Last Admin: 06/04/17 21:14 Dose: 20 mg Meclizine HCl (Antivert -) 25 mg PO Q6H PRN PRN Reason: NAUSEA Last Admin: 06/03/17 22:52 Dose: 25 mg Mirtazapine (Remeron -) 15 mg PO HS [facility] Last Admin: 06/04/17 21:15 Dose: 15 mg Ondansetron HCl (Zofran Injection) 4 mg IVPB Q8H PRN PRN Reason: NAUSEA AND/OR VOMITING Last Admin: 06/03/17 16:33 Dose: 4 mg Oxybutynin Chloride (Ditropan -) 10 mg PO DAILY [facility] Last Admin: 06/04/17 09:37 Dose: 10 mg Pantoprazole Sodium (Protonix -) 40 mg PO DAILY [facility] Last Admin: 06/04/17 09:37 Dose: 40 mg - Objective Vital Signs: Vital Signs Temperature 98.2 F 06/05/17 05:35 Pulse Rate 75 06/05/17 05:35 Respiratory Rate 18 06/05/17 05:35 Blood Pressure 127/67 06/05/17 05:35 O2 Sat by Pulse Oximetry (%) 95 06/05/17 05:31 Constitutional: Yes: Well Nourished, No Distress, Calm Cardiovascular: Yes: Regular Rate and Rhythm, S1, S2. No: Gallop, Murmur Respiratory: Yes: Regular, CTA Bilaterally. No: Accessory Muscle Use, Rales, Wheezes Extremities: No: Cold Edema: No Neurological: Yes: Alert, Oriented Psychiatric: No: Agitated Labs: CBC, BMP 06/04/17 05:48 06/04/17 05:48 INR, PTT INR 1.01 (0.82-1.09) D 06/03/17 10:17 - ....Imaging EKG: Other (tele: NSR, v-paced) Assessment/Plan Echo 04/04 (office): nl LV size, low-nl EF (50-55%). nl RV. nl bioAVR (trivial margy-prosthetic AI). trace MR Echo 06/03/17: mod-sev decr LVSF, mild LVH; nl RVSF. TDS AVR--mod AI,no . mod- severe MR. mild TR. RVSP 30-40 CT head: chronic bilateral cerebellar infarcts, no acute path, no change vs 2012 Carotids: mild, nonob plq ECG: NSR, V-paced, PVC (no change vs 06/04) dizziness: -description c/w vertigo--acute, sudden onset -? if prior h/o--of note are bilateral chronic cerebellar infarcts on CT--? 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 on at home)--6.25 bid -decr lisin to 10 bid to allow bp room for carvedilol -will need reassessment of echo as outpt once diuresed, and further w/u of worsening LV fxn with dr johnson--hope no hemodynamically significant AI from reop valve failure--this can be followed up as outpatient (will ask office to call her for f/u appt 2-4 wks) h/o rectal bleed 2014: -rpt FOC benign then; per GI etiology felt likely 2/2 retained blood post recent prior FOC -cleared to resume AC at that time per GI rec.s pafib: -in sinus here -dr johnson notes reviewed--pt with transient AF noted occasionally on prior PM checks, AC being deferred -continue coreg, ASA per home regimen ppm: -routine office checks with alex as doing htn: -bp's very variable on HD #1, currently controlled this am -cont home meds, observe bp trend hld: -cont home statin
[2017-06-05] MEDS ORDERED: DEXTROSE 5%-WATER - 50 ML IVPB ONE (08:39)
[2017-06-05] MEDS ORDERED: cefTRIAXone SODIUM 1 GM VIAL ONE (08:39)
[2017-06-05] MEDS: ESCITALOPRAM OXALATE 10 MG TABLET (FP) PO SCH (09:30)
[2017-06-05] MEDS: CARVEDILOL 6.25 MG TABLET (FP) PO SCH ×2 (09:30→21:40)
[2017-06-05] MEDS: clonazePAM 0.5 MG TABLET PO SCH ×2 (09:30→21:40)
[2017-06-05] MEDS: OXYBUTYNIN CHLORIDE 5 MG TABLET PO SCH (09:30)
[2017-06-05] MEDS: CEFTRIAXONE 1 GM in DEXTROSE 5%-WATER - 50 ML IVPB SCH (09:30)
[2017-06-05] MEDS: ASPIRIN 81 MG CHEWABLE TABLETS PO SCH (09:30)
[2017-06-05] MEDS: PANTOPRAZOLE 40 MG TABLET (FP) PO SCH (09:30)
[2017-06-05] MEDS: FUROSEMIDE 20 MG TABLET (FP) PO SCH (09:30)
[2017-06-05] MEDS: HEPARIN NA (PORCINE) 5,000 UNITS/ML 1ML VIAL SQ SCH ×2 (09:39→21:40)
[2017-06-05] MEDS: LISINOPRIL 20 MG TABLET (FP) PO SCH ×2 (09:39→21:39)
--- NOTE | 2017-06-05 11:06 | PN ---
Progress Note (short form) - Note Progress Note: Neurology History of Present Illness 86-year-old female presented to the ED with complaints of dizziness and states when she woke up she felt as if the room was spinning causing her to hold onto the wall while making it to the kitchen. Reportedly, her son witnessed this and that she almost fell and he assisted her to the ground and called EMS who arrived within [address] head which demonstrated B/L cerebellar chronic infarcts. Has a PPM and therefore could not have MRI, CT head repeated and again did not show acute changes. Meclezine started as needed for dizzyness and symptoms improved. Active Medications Acetaminophen (Tylenol -) 650 mg PO Q4H PRN PRN Reason: FEVER OR PAIN Last Admin: 06/03/17 17:08 Dose: 650 mg Aspirin (Asa -) 81 mg PO DAILY [facility] Last Admin: 06/05/17 09:30 Dose: 81 mg Carvedilol (Coreg -) 6.25 mg PO BID [facility] Last Admin: 06/05/17 09:30 Dose: 6.25 mg Clonazepam (Klonopin -) 0.5 mg PO BID [facility] Last Admin: 06/05/17 09:30 Dose: 0.5 mg Escitalopram Oxalate (Lexapro -) 10 mg PO DAILY [facility] Last Admin: 06/05/17 09:30 Dose: 10 mg Furosemide (Lasix -) 20 mg PO DAILY [facility] Last Admin: 06/05/17 09:30 Dose: 20 mg Heparin Sodium (Porcine) (Heparin -) 5,000 unit SQ BID [facility] Last Admin: 06/05/17 09:39 Dose: 5,000 unit Ceftriaxone Sodium 1 gm/ (Dextrose) 50 mls @ 100 mls/hr IVPB DAILY [facility] Last Admin: 06/05/17 09:30 Dose: 100 mls/hr Lisinopril (Prinivil) 10 mg PO BID [facility] Last Admin: 06/05/17 09:39 Dose: 10 mg Meclizine HCl (Antivert -) 25 mg PO Q6H PRN PRN Reason: NAUSEA Last Admin: 06/03/17 22:52 Dose: 25 mg Mirtazapine (Remeron -) 15 mg PO HS [facility] Last Admin: 06/04/17 21:15 Dose: 15 mg Ondansetron HCl (Zofran Injection) 4 mg IVPB Q8H PRN PRN Reason: NAUSEA AND/OR VOMITING Last Admin: 06/03/17 16:33 Dose: 4 mg Oxybutynin Chloride (Ditropan -) 10 mg PO DAILY [facility] Last Admin: 06/05/17 09:30 Dose: 10 mg Pantoprazole Sodium (Protonix -) 40 mg PO DAILY [facility] Last Admin: 06/05/17 09:30 Dose: 40 mg *Physical Exam Vital Signs Period Temp Pulse Resp BP Sys/Castro Pulse Ox Last 24 Hr 97.8 F-98.8 F 62-75 18-20 117-134/63-70 94-95 - Physical Exam General Appearance: Yes: Nourished, Appropriately Dressed. No: Apparent Distress HEENT: positive: EOMI, JIM, Pharynx Normal (dry). negative: Pale Conjunctivae Neck: positive: Supple Respiratory/Chest: positive: Lungs Clear, Normal Breath Sounds. negative: Respiratory Distress, Accessory Muscle Use Cardiovascular: positive: Regular Rhythm, Regular Rate. negative: Murmur Gastrointestinal/Abdominal: positive: Soft. negative: Tenderness Extremity: positive: Normal Capillary Refill. negative: Pedal Edema Integumentary: positive: Normal Color, Warm, Moist Neurologic: CN intact, finger to nose without dysmetria, strength grossly symetric, sensory intact, gait deferred Medical Decision Making 86-year-old female presents to the ED with complaints of dizziness and states when she woke up she felt as if the room was spinning causing her to hold onto the wall while making it to the kitchen. Reportedly, her son witnessed this and that she almost fell and he assisted her to the ground and called EMS who arrived within [address] head which demonstrated B/L cerebellar chronic infarcts. Repeat CT did not show acute changes On ASA 81mg and can continue On Lasix, continue BP control, ideally < 140/90 Meclezine PRN started and symptoms much improved Hydration as needed No sudden head movements Cardiology follow up
--- NOTE | 2017-06-05 12:51 | PN ---
Progress Note (short form) - Note Progress Note: Overall feels much better says dizziness decreased denies pain. feels weak but better Vital Signs Temp 98.2 F 06/05/17 05:35 Pulse 75 06/05/17 05:35 Resp 18 06/05/17 05:35 BP 127/67 06/05/17 05:35 Pulse Ox 95 06/05/17 05:31 Intake & Output 06/04/17 06/05/17 06/05/17 23:59 11:59 23:59 Intake Total 490 200 Balance 490 200 Intake: Oral 490 200 Other: Voiding Method Toilet Incontinent # Unmeasured Voids Void 1 2 Active Medications Acetaminophen (Tylenol -) 650 mg PO Q4H PRN PRN Reason: FEVER OR PAIN Last Admin: 06/03/17 17:08 Dose: 650 mg Aspirin (Asa -) 81 mg PO DAILY [facility] Last Admin: 06/05/17 09:30 Dose: 81 mg Carvedilol (Coreg -) 6.25 mg PO BID [facility] Last Admin: 06/05/17 09:30 Dose: 6.25 mg Clonazepam (Klonopin -) 0.5 mg PO BID [facility] Last Admin: 06/05/17 09:30 Dose: 0.5 mg Escitalopram Oxalate (Lexapro -) 10 mg PO DAILY [facility] Last Admin: 06/05/17 09:30 Dose: 10 mg Furosemide (Lasix -) 20 mg PO DAILY [facility] Last Admin: 06/05/17 09:30 Dose: 20 mg Heparin Sodium (Porcine) (Heparin -) 5,000 unit SQ BID [facility] Last Admin: 06/05/17 09:39 Dose: 5,000 unit Ceftriaxone Sodium 1 gm/ (Dextrose) 50 mls @ 100 mls/hr IVPB DAILY [facility] Last Admin: 06/05/17 09:30 Dose: 100 mls/hr Lisinopril (Prinivil) 10 mg PO BID [facility] Last Admin: 06/05/17 09:39 Dose: 10 mg Meclizine HCl (Antivert -) 25 mg PO Q6H PRN PRN Reason: NAUSEA Last Admin: 06/03/17 22:52 Dose: 25 mg Mirtazapine (Remeron -) 15 mg PO HS [facility] Last Admin: 06/04/17 21:15 Dose: 15 mg Ondansetron HCl (Zofran Injection) 4 mg IVPB Q8H PRN PRN Reason: NAUSEA AND/OR VOMITING Last Admin: 06/03/17 16:33 Dose: 4 mg Oxybutynin Chloride (Ditropan -) 10 mg PO DAILY [facility] Last Admin: 06/05/17 09:30 Dose: 10 mg Pantoprazole Sodium (Protonix -) 40 mg PO DAILY [facility] Last Admin: 06/05/17 09:30 Dose: 40 mg CBC, BMP 06/04/17 05:48 06/04/17 05:48 Microbiology 06/03/17 10:00 Urine Culture - Final Urine - Urine Clean Catch Escherichia Coli Physical Examination Constitutional: Yes: No Distress,comfortable. Eyes: Yes: Conjunctiva Clear, [place] HEENT: Yes: WNL Neck: Yes: Supple, Trachea Midline Cardiovascular: Yes: Regular Rate and Rhythm, Other (paced) Respiratory: Yes: CTA Bilaterally Gastrointestinal: Yes: Normal Bowel Sounds, Soft, non tender. Edema: No Neurological: Yes: Alert, Cran Nerves II-XII Intact Psychiatric: Yes: Alert Imaging - Results Cat Scan: Report Reviewed EKG: Report Reviewed A/P better u/s carotid ok abx d/c tele d/c planning -- likely tomorrow. Discussed with pts son-- who is at bedside. Problem List - Problems (1) Dizziness Code(s): R42 - DIZZINESS AND GIDDINESS (2) H/O aortic valve replacement Code(s): Z95.2 - PRESENCE OF PROSTHETIC HEART VALVE (3) CAD (coronary artery disease) Code(s): I25.10 - ATHSCL HEART DISEASE OF [place] CORONARY ARTERY W/O ANG PCTRS (4) Pacemaker Code(s): Z95.0 - PRESENCE OF CARDIAC PACEMAKER (5) Hypertension Code(s): I10 - ESSENTIAL (PRIMARY) HYPERTENSION (6) Depression Code(s): F32.9 - MAJOR DEPRESSIVE DISORDER, SINGLE EPISODE, UNSPECIFIED
[2017-06-05] MEDS: MIRTAZAPINE 15 MG TABLET (FP) PO SCH (21:40)
--- NOTE | 2017-06-06 08:20 | PN ---
Progress Note, Physician Chief Complaint: dizzy History of Present Illness: no more dizziness; no cp, sob/orthopnea, palpit, leg swelling no cigs - Current Medication List Current Medications: Active Medications Acetaminophen (Tylenol -) 650 mg PO Q4H PRN PRN Reason: FEVER OR PAIN Last Admin: 06/03/17 17:08 Dose: 650 mg Aspirin (Asa -) 81 mg PO DAILY [facility] Last Admin: 06/05/17 09:30 Dose: 81 mg Carvedilol (Coreg -) 6.25 mg PO BID [facility] Last Admin: 06/05/17 21:40 Dose: 6.25 mg Clonazepam (Klonopin -) 0.5 mg PO BID [facility] Last Admin: 06/05/17 21:40 Dose: 0.5 mg Escitalopram Oxalate (Lexapro -) 10 mg PO DAILY [facility] Last Admin: 06/05/17 09:30 Dose: 10 mg Furosemide (Lasix -) 20 mg PO DAILY [facility] Last Admin: 06/05/17 09:30 Dose: 20 mg Heparin Sodium (Porcine) (Heparin -) 5,000 unit SQ BID [facility] Last Admin: 06/05/17 21:40 Dose: 5,000 unit Ceftriaxone Sodium 1 gm/ (Dextrose) 50 mls @ 100 mls/hr IVPB DAILY [facility] Last Admin: 06/05/17 09:30 Dose: 100 mls/hr Lisinopril (Prinivil) 10 mg PO BID [facility] Last Admin: 06/05/17 21:39 Dose: 10 mg Meclizine HCl (Antivert -) 25 mg PO Q6H PRN PRN Reason: NAUSEA Last Admin: 06/03/17 22:52 Dose: 25 mg Mirtazapine (Remeron -) 15 mg PO HS [facility] Last Admin: 06/05/17 21:40 Dose: 15 mg Ondansetron HCl (Zofran Injection) 4 mg IVPB Q8H PRN PRN Reason: NAUSEA AND/OR VOMITING Last Admin: 06/03/17 16:33 Dose: 4 mg Oxybutynin Chloride (Ditropan -) 10 mg PO DAILY [facility] Last Admin: 06/05/17 09:30 Dose: 10 mg Pantoprazole Sodium (Protonix -) 40 mg PO DAILY [facility] Last Admin: 06/05/17 09:30 Dose: 40 mg - Objective Vital Signs: Vital Signs Temperature 97.2 F L 06/06/17 05:00 Pulse Rate 68 06/06/17 05:00 Respiratory Rate 18 06/06/17 05:00 Blood Pressure 127/52 06/06/17 05:00 O2 Sat by Pulse Oximetry (%) 96 06/06/17 05:55 Constitutional: Yes: Well Nourished, No Distress, Calm Cardiovascular: Yes: Regular Rate and Rhythm, S1, S2. No: Gallop, Murmur Respiratory: Yes: Regular, CTA Bilaterally. No: Accessory Muscle Use, Rales, Wheezes Extremities: No: Cold Edema: No Neurological: Yes: Alert, Oriented Labs: CBC, BMP 06/04/17 05:48 06/04/17 05:48 INR, PTT INR 1.01 (0.82-1.09) D 06/03/17 10:17 - ....Imaging EKG: Other (tele: NSR, v-paced; 9 beats NSVT) Assessment/Plan Echo 04/04 (office): nl LV size, low-nl EF (50-55%). nl RV. nl bioAVR (trivial margy-prosthetic AI). trace MR Echo 06/03/17: mod-sev decr LVSF, mild LVH; nl RVSF. TDS AVR--mod AI,no . mod- severe MR. mild TR. RVSP 30-40 CT head: chronic bilateral cerebellar infarcts, no acute path, no change vs 2012 Carotids: mild, nonob plq ECG: NSR, V-paced, PVC (no change vs 06/04) CXR: clear lungs/pleura dizziness: -description c/w vertigo--acute, sudden onset -? if prior h/o--of note are bilateral chronic cerebellar infarcts on CT--? 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 on at home)--6.25 bid -decr lisin to 10 bid to allow bp room for carvedilol -will need reassessment of echo as outpt once diuresed, and further w/u of worsening LV fxn with dr johnson--hope no hemodynamically significant AI from reop valve failure--this can be followed up as outpatient (will ask office to call her for f/u appt 2-4 wks) VTach: -NSVT on tele today -carvedilol started yesterday--cont same -EF mod-severely reduced on echo here, acute change vs 04/04 -d/w'd dr johnson--pt to have f/u with him in 2 wks -check K and Mag today and replete h/o rectal bleed 2014: -rpt FOC benign then; per GI etiology felt likely 2/2 retained blood post recent prior FOC -cleared to resume AC at that time per GI rec.s pafib: -in sinus here -dr johnson notes reviewed--pt with transient AF noted occasionally on prior PM checks, AC being deferred -continue coreg, ASA per home regimen ppm: -routine office checks with alex as doing htn: -bp's very variable on HD #1, currently controlled this am -cont home meds, observe bp trend hld: -cont home statin
[2017-06-06] MEDS ORDERED: cefTRIAXone SODIUM 1 GM VIAL ONE (09:37)
[2017-06-06] MEDS ORDERED: DEXTROSE 5%-WATER - 50 ML IVPB ONE (09:37)
--- NOTE | 2017-06-06 09:55 | PN ---
Progress Note (short form) - Note Progress Note: Neurology History of Present Illness 86-year-old female presented to the ED with complaints of dizziness and states when she woke up she felt as if the room was spinning causing her to hold onto the wall while making it to the kitchen. Reportedly, her son witnessed this and that she almost fell and he assisted her to the ground and called EMS who arrived within [address] head which demonstrated B/L cerebellar chronic infarcts. Has a PPM and therefore could not have MRI, CT head repeated to confirm no CVA and did not show acute changes. Meclezine started as needed for dizzyness and symptoms improved. She is ambulating with therapist on floor today. Doing well and had cardiac evaluation as well. Possible discharge planning today. Active Medications Acetaminophen (Tylenol -) 650 mg PO Q4H PRN PRN Reason: FEVER OR PAIN Last Admin: 06/03/17 17:08 Dose: 650 mg Aspirin (Asa -) 81 mg PO DAILY [facility] Last Admin: 06/05/17 09:30 Dose: 81 mg Carvedilol (Coreg -) 6.25 mg PO BID [facility] Last Admin: 06/05/17 21:40 Dose: 6.25 mg Clonazepam (Klonopin -) 0.5 mg PO BID [facility] Last Admin: 06/05/17 21:40 Dose: 0.5 mg Escitalopram Oxalate (Lexapro -) 10 mg PO DAILY [facility] Last Admin: 06/05/17 09:30 Dose: 10 mg Furosemide (Lasix -) 20 mg PO DAILY [facility] Last Admin: 06/05/17 09:30 Dose: 20 mg Heparin Sodium (Porcine) (Heparin -) 5,000 unit SQ BID [facility] Last Admin: 06/05/17 21:40 Dose: 5,000 unit Ceftriaxone Sodium 1 gm/ (Dextrose) 50 mls @ 100 mls/hr IVPB DAILY [facility] Last Admin: 06/05/17 09:30 Dose: 100 mls/hr Lisinopril (Prinivil) 10 mg PO BID [facility] Last Admin: 06/05/17 21:39 Dose: 10 mg Meclizine HCl (Antivert -) 25 mg PO Q6H PRN PRN Reason: NAUSEA Last Admin: 06/03/17 22:52 Dose: 25 mg Mirtazapine (Remeron -) 15 mg PO HS [facility] Last Admin: 06/05/17 21:40 Dose: 15 mg Ondansetron HCl (Zofran Injection) 4 mg IVPB Q8H PRN PRN Reason: NAUSEA AND/OR VOMITING Last Admin: 06/03/17 16:33 Dose: 4 mg Oxybutynin Chloride (Ditropan -) 10 mg PO DAILY [facility] Last Admin: 06/05/17 09:30 Dose: 10 mg Pantoprazole Sodium (Protonix -) 40 mg PO DAILY [facility] Last Admin: 06/05/17 09:30 Dose: 40 mg *Physical Exam Vital Signs Period Temp Pulse Resp BP Sys/Castro Pulse Ox Last 24 Hr 97.2 F-98.7 F 68-85 14-20 103-127/46-66 95-96 - Physical Exam General Appearance: Yes: Nourished, Appropriately Dressed. No: Apparent Distress HEENT: positive: EOMI, JIM, Pharynx Normal (dry). negative: Pale Conjunctivae Neck: positive: Supple Respiratory/Chest: positive: Lungs Clear, Normal Breath Sounds. negative: Respiratory Distress, Accessory Muscle Use Cardiovascular: positive: Regular Rhythm, Regular Rate. negative: Murmur Gastrointestinal/Abdominal: positive: Soft. negative: Tenderness Extremity: positive: Normal Capillary Refill. negative: Pedal Edema Integumentary: positive: Normal Color, Warm, Moist Neurologic: CN intact, finger to nose without dysmetria, strength grossly symetric, sensory intact, gait deferred Medical Decision Making 86-year-old female presents to the ED with complaints of dizziness and states when she woke up she felt as if the room was spinning causing her to hold onto the wall while making it to the kitchen. Reportedly, her son witnessed this and that she almost fell and he assisted her to the ground and called EMS who arrived within [address] head which demonstrated B/L cerebellar chronic infarcts. Repeat CT did not show acute changes On ASA 81mg and can continue On Lasix, continue BP control, ideally < 140/90 Meclezine PRN started and symptoms much improved Hydration as needed No sudden head movements Cardiology follow up Likely for discharge today
[2017-06-06] MEDS: LISINOPRIL 20 MG TABLET (FP) PO SCH (10:04)
[2017-06-06] MEDS: CEFTRIAXONE 1 GM in DEXTROSE 5%-WATER - 50 ML IVPB SCH (10:04)
[2017-06-06] MEDS: ESCITALOPRAM OXALATE 10 MG TABLET (FP) PO SCH (10:05)
[2017-06-06] MEDS: OXYBUTYNIN CHLORIDE 5 MG TABLET PO SCH (10:05)
[2017-06-06] MEDS: CARVEDILOL 6.25 MG TABLET (FP) PO SCH (10:05)
[2017-06-06] MEDS: PANTOPRAZOLE 40 MG TABLET (FP) PO SCH (10:05)
[2017-06-06] MEDS: ASPIRIN 81 MG CHEWABLE TABLETS PO SCH (10:05)
[2017-06-06] MEDS: FUROSEMIDE 20 MG TABLET (FP) PO SCH (10:05)
[2017-06-06] MEDS: HEPARIN NA (PORCINE) 5,000 UNITS/ML 1ML VIAL SQ SCH (10:09)
[2017-06-06] MEDS: clonazePAM 0.5 MG TABLET PO SCH (10:09)
[2017-06-06 10:34] LABS: ANION GAP 9 (8-16); CALCIUM 8.8 mg/dL (8.5-10.1); CO2 28 mmol/L (21-32); CREATININE 1.6 mg/dL (0.55-1.02); GLUCOSE,RANDOM 98 mg/dL (74-106); MAGNESIUM 2.5 mg/dL (1.8-2.4)
--- NOTE | 2017-06-06 10:49 | DS ---
Physical Examination Vital Signs: Vital Signs Temperature 98.2 F 06/06/17 09:00 Pulse Rate 74 06/06/17 09:00 Respiratory Rate 14 06/06/17 09:00 Blood Pressure 116/62 06/06/17 09:00 O2 Sat by Pulse Oximetry (%) 96 06/06/17 05:55 Findings/Remarks: pt feels well. no complains says much better walking in [place] denies cp/sob/abd pain no headche\ dizziness resolved Constitutional: Yes: No Distress, Calm Eyes: Yes: Conjunctiva Clear Neck: Yes: Supple Cardiovascular: Yes: Regular Rate and Rhythm Respiratory: Yes: CTA Bilaterally Gastrointestinal: Yes: Soft Edema: No Neurological: Yes: Alert Psychiatric: Yes: Alert Labs: CBC, BMP 06/04/17 05:48 06/06/17 09:39 Discharge Summary Reason For Visit: DIZZINESS Current Active Problems CAD (coronary artery disease) (Acute) Depression (Acute) Dizziness (Acute) Hypertension (Acute) Pacemaker (Acute) Positional vertigo (Acute) Rectal bleed (Acute) Hospital Course: admitted for dizziness/ vertigo much better work up -ve. +ve for uti noted run of non - sustained vf electrolytes to be checked today overall stable for discharge cleared for d/c by cardiology and neurology. will give 3 more days of abx and send with k. pt to follow with his pmd - in one week. Pt in agreement Also had discussed with pts son in detail yesterday discussed with nursing staff also. Time spend in preparing discharge/examining/ coordating care-- 40 min. Condition: Improved - Instructions Disposition: HOME - Home Medications Comprehensive Discharge Medication List: Ambulatory Orders Aspirin [ASA -] 81 mg PO DAILY 06/01/16 Clonazepam [Klonopin -] 0.5 mg PO BID 06/01/16 Escitalopram Oxalate [Lexapro -] 10 mg PO DAILY 06/01/16 Lisinopril [Prinivil] 20 mg PO BID 06/01/16 Mirtazapine [Remeron -] 15 mg PO DAILY 06/01/16 Omeprazole [Prilosec] 40 mg PO DAILY 06/01/16 Oxybutynin Chloride [Ditropan -] 10 mg PO DAILY 06/01/16 Acetaminophen [Tylenol .Regular Strength -] 650 mg PO Q4H PRN #0 tablet Carvedilol [Coreg -] 6.25 mg PO BID tablet 06/06/17 Furosemide [Lasix -] 20 mg PO DAILY tablet 06/06/17 Meclizine HCl [Antivert -] 25 mg PO Q6H PRN #30 tablet 06/06/17 Nitrofurantoin Monohyd/M-Cryst [Macrobid -] 100 mg PO BID #6 capsule 06/06/17 Potassium Chloride [K-Dur -] 10 meq PO DAILY #30 tab 06/06/17
[2017-06-06 15:47] VITALS: BP 97/56; PULSE 63; TEMP 98.3
--- NOTE | 2017-06-06 16:59 | EKG ---
Test Reason : Blood Pressure : / mmHG Vent. Rate : 065 BPM Atrial Rate : 065 BPM P-R Int : 232 ms QRS Dur : 190 ms QT Int : 504 ms P-R-T Axes : 090 -58 119 degrees QTc Int : 524 ms Atrial-sensed ventricular-paced rhythm with prolonged AV conduction WITH OCCASIONAL PREMATURE VENTRICULAR COMPLEXES ABNORMAL ECG WHEN COMPARED WITH ECG OF 01-JUN-2016 09:58, NO SIGNIFICANT CHANGE WAS FOUND Confirmed by JOAO VARMA, GEO ([id number]) on 06/06/2017 4:59:30 PM Referred By: Confirmed By:GEO SHEPHERD MD
[2017-06-07] MEDS ORDERED: POTASSIUM CHLORIDE TABS 10 MEQ TABLET.ER (FP) PO SCH (10:00)
== END 2017-06-06 14:05 | disposition home or self-care (01) ==
LOC: JER 09:17 → JERBED 13:49 → UNDOADMOB 14:40 → JERBED 14:40 → J4W 15:50
PROVIDERS: ADMIT Internal Medicine; ATTEND Internal Medicine
PROC: 3E0337Z Introduction of Electrolytic and Water Balance Substance into Peripheral Vein, Percutaneous Approach (ICD-10-PCS; principal; 2017-06-03)
PROC: 3E03329 Introduction of Other Anti-infective into Peripheral Vein, Percutaneous Approach (ICD-10-PCS; 2017-06-03)
PROC: 3E033GC Introduction of Other Therapeutic Substance into Peripheral Vein, Percutaneous Approach (ICD-10-PCS; 2017-06-03)
DX: H81.10 Benign paroxysmal vertigo, unspecified ear (principal); N39.0 Urinary tract infection, site not specified; I25.10 Atherosclerotic heart disease of native coronary artery without angina pectoris; I48.91 Unspecified atrial fibrillation; I50.22 Chronic systolic (congestive) heart failure; I10 Essential (primary) hypertension; E78.00 Pure hypercholesterolemia, unspecified; F32.9 Major depressive disorder, single episode, unspecified; K62.5 Hemorrhage of anus and rectum; Z95.2 Presence of prosthetic heart valve; Z95.0 Presence of cardiac pacemaker; Z90.49 Acquired absence of other specified parts of digestive tract
CPT/HCPCS: 36415; 70450-TC; 71010-TC; 80048; 80053; 81003; 81015; 83735; 83880; 84443; 84484; 85025; 85610; 87086; 87186; 93005; 93010; 93306-TC; 93880-TC; 97116-GP; 97161-GP; 99284-25; G0378; J1644

== ENCOUNTER 2017-06-30 10:26 | Inpatient (IN) | payer OTHER ==
[2017-06-30] MEDS ORDERED: MECLIZINE HCL 25 MG TABLET (FP) PO ONE (10:44)
[2017-06-30] MEDS ORDERED: ONDANSETRON 4 MG/2 ML VIAL IVPUSH ONE (10:45)
[2017-06-30 10:52] VITALS: BMI 24.4
--- NOTE | 2017-06-30 11:18 | PDOC ---
History of Present Illness - General Chief Complaint: Lightheaded Stated Complaint: DIZZY History Source: Patient Exam Limitations: No Limitations - History of Present Illness Initial Comments: 06/30/17 11:12 86 yo F with h/o vertigo. old cerebellar infarcts, afib, aortic valve replacement , pacer chf here wtih sudden onset vertigo today at 9 am. severe, also describes feeling lightheaded. did have nauseau , no vomiting. was unable to walk due to dizzines. no focal weakness, no speech change. described as spining sensation. no cp no sob. no f/c no other complaint. tPA Exclusion Checklist 0-3hr - Time Elapsed Date last known well: 06/30/17 Time last known well: 09:00 Elaspsed time: Day(s) and 5 Hour(s) and 27 Minutes - Thrombolytic Therapy Candidate Is the patient eligible for Thrombolytic Therapy?: No - Exclusion Criteria 0-3hr SBP greater than 185 or DBP greater than 110mmHg despite tx: No Recent IC/spinal surgery,head trauma or stroke w/in last 3mo: No Hx of previous IC hemorrhage, IC neoplasm, AVM or aneurysm: No Active internal bleeding: No Blding diathesis(low plt ct, inc PTT,INR>1.7 or use of NOAC): No Symptoms suggest subarachnoid hemorrhage: No CT demonstrates multilobar infarct(>1/3 cerebral hemiphere): No Arterial puncture at noncompressible site in previous 7 days: No Blood glucose concentration less than 50mg/dL (2.7mmol/L): No - Relative Exclusion Criteria 0-3h Life expectancy <1yr/severe co-morbid illness/[employer] INSURANCE on admit: No : No Patient/family refused: No Rapid improvement: No Stroke severity too mild: No Recent acute IN (w/in previous 3 months): No Seizure at onset with postictal residual neuro impairments: No Major surgery or serious trauma w/in previous 14 days: No Recent GI or hemorrhage (w/in previous 21 days): No - Ineligibility reason(s) Reasons No tPA given: See reason(s) noted above (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 evidnt on ?CT.) NIH Stroke Scale - Initial Evaluation Level of consciousness: Alert Ask patient the month and their age: Answers both correctly Ask patient to open & close eyes; make fist and let go: Obeys both correctly Best gaze (horizontal eye movement): Normal Visual field testing: No visual field loss Facial paresis (Show teeth/raise eyebrows/close eyes tight): Normal symmetrical movement Motor Function: Left Arm: Normal Motor Function: Right Arm: Normal (extends arm 90 (or 45) degrees for 10 seconds without drift Motor Function: Left Leg: Normal (extends leg 30 degrees for 5 seconds without drift) Motor Function: Right Leg: Normal (extends leg 30 degrees for 5 seconds without drift) Limb Ataxia: No ataxia Sensory(Use pinprick test arms,legs,trunk,face/side to side): Normal Best language (Describe picture, name items, read sentences): No Aphasia Dysarthria (read several words): Normal articulation Extinction and Inattention: No abnormality - Total Score NIH Stroke Scale Score: 0 Past History - Past Medical History Allergies/Adverse Reactions: Allergies Allergy/AdvReac Type Severity Reaction Status Date / Time Iodinated Contrast- Oral and Allergy Severe Difficulty Verified 06/30/17 10:27 IV Dye Breathing [IV Dye, Iodine Containing Contrast ] iodine Allergy Severe Difficulty Verified 06/30/17 10:27 Breathing lactose AdvReac Verified 06/30/17 10:27 Home Medications: Ambulatory Orders Aspirin [ASA -] 81 mg PO DAILY 06/01/16 Clonazepam [Klonopin -] 0.5 mg PO BID 06/01/16 Escitalopram Oxalate [Lexapro -] 10 mg PO DAILY 06/01/16 Mirtazapine [Remeron -] 15 mg PO DAILY 06/01/16 Omeprazole [Prilosec] 40 mg PO DAILY 06/01/16 Oxybutynin Chloride [Ditropan -] 10 mg PO DAILY 06/01/16 Furosemide [Lasix -] 20 mg PO DAILY tablet 06/06/17 Meclizine HCl [Antivert -] 25 mg PO Q6H PRN #30 tablet 06/06/17 Acetaminophen [Tylenol .Regular Strength -] 1,000 mg PO Q4H PRN 06/30/17 Lipase/Protease/Amylase [Creon Dr 36,000 Units Capsule] 1 each PO TID 06/30/17 Triamterene/Hydrochlorothiazid [Triamterene-Hctz 37.5-25 mg Tb] 1 each PO Valsartan 320 mg PO 06/30/17 Anemia: No Asthma: No Cancer: Yes (Tammy 09/2015.) Cardiac Disorders: Yes (SOB,) CVA: No COPD: No Dementia: No Diabetes: No GI Disorders: No Disorders: No HTN: Yes Hypercholesterolemia: Yes Liver Disease: No Seizures: No Thyroid Disease: No Other medical history: vertigo - Surgical History Abdominal Surgery: No Appendectomy: Yes Cardiac Surgery: Yes (MECHANICAL AORTIC VALVE REPLACEMENT,Pacemaker) Cholecystectomy: Yes Lung Surgery: No Neurologic Surgery: No - Immunization History Immunization Up to Date: No - Suicide/Smoking/Psychosocial Hx Smoking Status: No Smoking History: Former smoker Have you smoked in the past 12 months: No Number of Cigarettes Smoked Daily: 0 Information on smoking cessation initiated: No 'Breaking Loose' booklet given: 06/03/17 Hx Alcohol Use: No Drug/Substance Use Hx: No Substance Use Type: None Hx Substance Use Treatment: No Review of Systems - Review of Systems Constitutional: No: Chills, Diaphoresis, Fever HEENTM: No: Eye Pain, Blurred Vision Respiratory: No: Cough, Orthopnea, Shortness of Breath Cardiac (ROS): No: Chest Pain, Edema : No: Burning, Dysuria Musculoskeletal: No: Back Pain Neurological: Yes: Unsteady Gait, Ataxia, Dizziness Psychiatric: No: Frequent Crying, Stressors All Other Systems: Reviewed and Negative *Physical Exam - Vital Signs Last Vital Signs Temp Pulse Resp BP Pulse Ox 98.9 F 70 201 H 172/94 100 06/30/17 10:33 06/30/17 10:33 06/30/17 10:33 06/30/17 10:33 06/30/17 10:33 - Physical Exam General Appearance: Yes: Nourished, Appropriately Dressed HEENT: positive: Normal ENT Inspection Neck: positive: Trachea midline Respiratory/Chest: positive: Lungs Clear, Normal Breath Sounds. negative: Chest Tender Cardiovascular: positive: Regular Rhythm, Regular Rate, S1, S2 Gastrointestinal/Abdominal: positive: Normal Bowel Sounds, Flat, Soft. negative : Tender Extremity: positive: Normal Capillary Refill Integumentary: positive: Normal Color, Dry, Warm Neurologic: positive: Fully Oriented, Alert, Normal Mood/Affect, Motor Strength 5/5, Finger to Nose, Other (finger to nose,alt handmovement intact. visual field intact, strenth 5/5 all four ext. gait not tested unsteady). negative: EOM Palsy, Facial Droop Heart Score/ECG Review #1 General ECG Interpretation: Normal Rate, No acute ischemic changes Compared to previous ECG there are: Other 06/30/17 11:37 TwI I, AVL, paced , left axis - Vidalia Vidalia: Left Vidalia Deviation - QRS Widened: IVCD ED Treatment Course - LABORATORY CBC & Chemistry Diagram: 06/30/17 11:15 06/30/17 11:15 - RADIOLOGY Radiology Studies Ordered: Category Date Time Status HEAD CT (STROKE) [CT] Stat CT Scan 06/30/17 11:03 Ordered CHEST X-RAY PORTABLE* [RAD] Stat Radiology 06/30/17 11:04 Ordered Medical Decision Making - Medical Decision Making 06/30/17 11:38 86 yo F with multiple medical problems here with prior cerebellar stroke present with acute onset vertigo. differential cerebellar cva, recurrent sxs from prior cva, infection such as uti, hypoglemia ruled out sugar 127. plan ct head. code stroke initiated due to acuity of sxs. although pt not a tpa candidate likley due to chronicity of recurrent vertigo. plan valium, jessica d/w professional nursing assistant neurology who knows patient. 06/30/17 13:38 pt still with severe vertigo. unable to ambulate. d/w nuerology willl admit for repeat ct head. not tpa candidate as known vertigo. old cerebellar stroke. d/w dr. pinzon ( pcp ) updated. will admit to dr qureshi/ karon. *DC/Admit/Observation/Transfer Diagnosis at time of Disposition: Vertigo - Discharge Dispostion Admit: Yes
[2017-06-30] MEDS ORDERED: ONDANSETRON 4 MG/2 ML VIAL ONE (11:19)
[2017-06-30] MEDS ORDERED: diazePAM 2 MG TABLET PO ONE (11:21)
[2017-06-30 11:25] LABS: BASOPHIL 0.7 % (0-2.0); MCH 29.3 pg (25.7-33.7); MCHC 32.4 g/dl (32.0-36.0); MEAN CELL VOLUME 90.5 fl (80-96); MEAN PLT VOLUME 8.6 fl (7.5-11.1); NEUTROPHILS 68.3 % (42.8-82.8); PLATELET COUNT 254 K/MM3 (134-434); RDW 14.9 % (11.6-15.6)
[2017-06-30] MEDS ORDERED: diazePAM 2 MG TABLET ONE (11:25)
[2017-06-30 11:38] LABS: INR 1.02 (0.82-1.09); PROTHROMBIN TIME (PATIENT) 11.5 SEC (9.98-11.88)
[2017-06-30 11:55] LABS: ALBUMIN 3.7 g/dl (3.4-5.0); ANION GAP 9 (8-16); BILIRUBIN,TOTAL 0.3 mg/dL (0.2-1.0); CO2 22 mmol/L (21-32); CREATININE 1.6 mg/dL (0.55-1.02); GLUCOSE,RANDOM 129 mg/dL (74-106); SGOT/AST 22 U/L (15-37); SGPT/ALT 21 U/L (12-78); TOT PROT 7.5 g/dl (6.4-8.2)
[2017-06-30 11:58] LABS: ALK PHOS 91 U/L (45-117); CPK 96 IU/L (26-192); TROPONIN I 0.02 ng/ml (0.00-0.05)
[2017-06-30 12:50] LABS: URINE APPEARANCE CLEAR; URINE BILIRUBIN NEGATIVE (NEGATIVE); URINE BLOOD 1+ (NEGATIVE); URINE COLOR STRAW; URINE GLUCOSE (UA) NEGATIVE (NEGATIVE); URINE KETONE NEGATIVE (NEGATIVE); URINE NITRITE NEGATIVE (NEGATIVE); URINE PROTEIN NEGATIVE (NEGATIVE); URINE UROBILINOGEN NEGATIVE mg/dL (0.2-1.0)
[2017-06-30] MEDS ORDERED: SODIUM CHLORIDE 0.9% 1000 ML INFUS.BAG IV ONE (12:58)
[2017-06-30 13:21] LABS: URINE BACTERIA RARE /hpf (NONE SEEN); URINE MUCUS RARE; URINE RBC 1 /hpf (0-3); URINE WBC 1 /hpf (3-5)
[2017-06-30] MEDS ORDERED: SODIUM CHLORIDE 0.45% 1,000 ML IV SCH (14:00)
[2017-06-30 17:09] LABS: URINE LEUK ESTERASE Negative (NEGATIVE)
--- NOTE | 2017-06-30 17:25 | CONSULT ---
Consult - text type - Consultation Consultation Note: Neurology History of Present Illness 86 yo F with h/o vertigo, chronic bilateral cerebellar infarcts, afib, aortic valve replacement , pacer chf presented for sudden onset vertigo today at 9 am. She reported that her symptoms were severe, with room spinning sensation. She felt lightheaded and nauseous but no vomiting. No focal weakness, no speech change. CT head was completed and did not show acute change. Patient initally called as priscilla santana, contacted by ER, spoke to ER attending who reviewed prior admission and noted same presentation approximately 1 month ago and likely vertigo in context of underlying b/l cerebellar infarcts. Patient not a TPA candidate as out of window as well as NIHSS was 0. Admitted for further evaluation, seen by me, and continues to have symptoms. Was given Valium in the ER. Spoke to son at bedside in detail who was not aware of prior cerebellar CVA' s and explained to him in detail this was noted on prior admission. He verbalized understanding. Discussed getting repeat CT head in tomorrow to confirm no acute or new infarcts as initial CT may not demonstrate CVA, he was in agreement. Past History - Past Medical History Allergies/Adverse Reactions: Allergies Allergy/AdvReac Type Severity Reaction Status Date / Time Iodinated Contrast- Oral and Allergy Severe Difficulty Verified 06/30/17 10:27 IV Dye Breathing [IV Dye, Iodine Containing Contrast ] iodine Allergy Severe Difficulty Verified 06/30/17 10:27 Breathing lactose AdvReac Verified 06/30/17 10:27 Home Medications: Ambulatory Orders Aspirin [ASA -] 81 mg PO DAILY 06/01/16 Clonazepam [Klonopin -] 0.5 mg PO BID 06/01/16 Escitalopram Oxalate [Lexapro -] 10 mg PO DAILY 06/01/16 Mirtazapine [Remeron -] 15 mg PO DAILY 06/01/16 Omeprazole [Prilosec] 40 mg PO DAILY 06/01/16 Oxybutynin Chloride [Ditropan -] 10 mg PO DAILY 06/01/16 Furosemide [Lasix -] 20 mg PO DAILY tablet 06/06/17 Meclizine HCl [Antivert -] 25 mg PO Q6H PRN #30 tablet 06/06/17 Acetaminophen [Tylenol .Regular Strength -] 1,000 mg PO Q4H PRN 06/30/17 Lipase/Protease/Amylase [Creon Dr 36,000 Units Capsule] 1 each PO TID 06/30/17 Triamterene/Hydrochlorothiazid [Triamterene-Hctz 37.5-25 mg Tb] 1 each PO Valsartan 320 mg PO 06/30/17 Anemia: No Asthma: No Cancer: Yes ([place] 09/2015.) Cardiac Disorders: Yes (SOB,) CVA: No COPD: No Dementia: No Diabetes: No GI Disorders: No Disorders: No HTN: Yes Hypercholesterolemia: Yes Liver Disease: No Seizures: No Thyroid Disease: No Other medical history: vertigo - Surgical History Abdominal Surgery: No Appendectomy: Yes Cardiac Surgery: Yes (MECHANICAL AORTIC VALVE REPLACEMENT,Pacemaker) Cholecystectomy: Yes Lung Surgery: No Neurologic Surgery: No - Immunization History Immunization Up to Date: No - Suicide/Smoking/Psychosocial Hx Smoking Status: No Smoking History: Former smoker Have you smoked in the past 12 months: No Number of Cigarettes Smoked Daily: 0 Information on smoking cessation initiated: No 'Breaking Loose' booklet given: 06/03/17 Hx Alcohol Use: No Drug/Substance Use Hx: No Substance Use Type: None Hx Substance Use Treatment: No Review of Systems - Review of Systems Constitutional: No: Chills, Diaphoresis, Fever HEENTM: No: Eye Pain, Blurred Vision Respiratory: No: Cough, Orthopnea, Shortness of Breath Cardiac (ROS): No: Chest Pain, Edema : No: Burning, Dysuria Musculoskeletal: No: Back Pain Neurological: Yes: Unsteady Gait, Ataxia, Dizziness Psychiatric: No: Frequent Crying, Stressors All Other Systems: Reviewed and Negative *Physical Exam - Vital Signs Last Vital Signs Temp Pulse Resp BP Pulse Ox 98.9 F 70 201 H 172/94 100 06/30/17 10:33 06/30/17 10:33 06/30/17 10:33 06/30/17 10:33 06/30/17 10:33 - Physical Exam General Appearance: Yes: Nourished, Appropriately Dressed HEENT: positive: Normal ENT Inspection Neck: positive: Trachea midline Respiratory/Chest: positive: Lungs Clear, Normal Breath Sounds. negative: Chest Tender Cardiovascular: positive: Regular Rhythm, Regular Rate, S1, S2 Gastrointestinal/Abdominal: positive: Normal Bowel Sounds, Flat, Soft. negative : Tender Extremity: positive: Normal Capillary Refill Integumentary: positive: Normal Color, Dry, Warm Neurologic: positive: Fully Oriented, Alert, Normal Mood/Affect, CN intact, Motor Strength 5/5, Finger to Nose, gait deferred CBCD WBC 8.0 K/mm3 (4.0-10.0) 06/30/17 11:15 RBC 4.78 M/mm3 (3.60-5.2) 06/30/17 11:15 Hgb 14.0 GM/dL (10.7-15.3) 06/30/17 11:15 Hct 43.3 % (32.4-45.2) 06/30/17 11:15 MCV 90.5 fl (80-96) 06/30/17 11:15 MCHC 32.4 g/dl (32.0-36.0) 06/30/17 11:15 RDW 14.9 % (11.6-15.6) 06/30/17 11:15 Plt Count 254 K/MM3 (134-434) 06/30/17 11:15 MPV 8.6 fl (7.5-11.1) 06/30/17 11:15 CMP Sodium 141 mmol/L (136-145) 06/30/17 11:15 Potassium 5.0 mmol/L (3.5-5.1) D 06/30/17 11:15 Chloride 110 mmol/L (98-107) H 06/30/17 11:15 Carbon Dioxide 22 mmol/L (21-32) D 06/30/17 11:15 Anion Gap 9 (8-16) 06/30/17 11:15 BUN 54 mg/dL (7-18) H D 06/30/17 11:15 Creatinine 1.6 mg/dL (0.55-1.02) H 06/30/17 11:15 Creat Clearance w eGFR 30.71 (>60) 06/30/17 11:15 Calcium 9.0 mg/dL (8.5-10.1) 06/30/17 11:15 Total Bilirubin 0.3 mg/dL (0.2-1.0) D 06/30/17 11:15 AST 22 U/L (15-37) D 06/30/17 11:15 ALT 21 U/L (12-78) 06/30/17 11:15 Alkaline Phosphatase 91 U/L (45-117) 06/30/17 11:15 Total Protein 7.5 g/dl (6.4-8.2) 06/30/17 11:15 Albumin 3.7 g/dl (3.4-5.0) 06/30/17 11:15 - RADIOLOGY CT head reviewed Medical Decision Making 86 yo F with h/o vertigo, chronic bilateral cerebellar infarcts, afib, aortic valve replacement , pacer chf presented for sudden onset vertigo today at 9 am. She reported that her symptoms were severe, with room spinning sensation. She felt lightheaded and nauseous but no vomiting. No focal weakness, no speech change. CT head was completed and did not show acute change. Patient initally called as priscilla santana, contacted by ER, spoke to ER attending who reviewed prior admission and noted same presentation approximately 1 month ago and likely vertigo in context of underlying b/l cerebellar infarcts. Patient not a TPA candidate as out of window as well as NIHSS was 0. Admitted for further evaluation, seen by me, and continues to have symptoms. Was given Valium in the ER. Spoke to son at bedside in detail who was not aware of prior cerebellar CVA' s and explained to him in detail this was noted on prior admission. He verbalized understanding. Discussed getting repeat CT head in tomorrow to confirm no acute or new infarcts as initial CT may not demonstrate CVA, he was in agreement. -Continue Meclezine PRN -Can give low dose valium 2mg if needed -Will order repeat CT head for AM to confirm no acute changes -BP control, goal range <140/90, can continue valsartan -Continue ASA 81mg -IV/Po hydration -Avoid sudden head movements -Pt/OT/vestibular therapy -Fall precautions
[2017-06-30] MEDS: LIPASE/PROTEASE/AMYLASE 36,000 UNIT CAPSULE PO SCH (18:00)
[2017-06-30] MEDS: MECLIZINE HCL 25 MG TABLET (FP) PO PRN (18:00)
[2017-06-30] MEDS: MIRTAZAPINE 15 MG TABLET (FP) PO SCH (22:34)
[2017-06-30] MEDS: clonazePAM 0.5 MG TABLET PO SCH (22:34)
[2017-07-01] MEDS: LIPASE/PROTEASE/AMYLASE 36,000 UNIT CAPSULE PO SCH ×3 (09:06→16:52)
[2017-07-01] MEDS: VALSARTAN 160 MG TABLET (UD) PO SCH (09:07)
[2017-07-01] MEDS: OXYBUTYNIN CHLORIDE 5 MG TABLET PO SCH (09:07)
[2017-07-01] MEDS: PANTOPRAZOLE 40 MG TABLET (FP) PO SCH (09:08)
[2017-07-01] MEDS: clonazePAM 0.5 MG TABLET PO SCH ×2 (09:08→22:31)
[2017-07-01] MEDS: ESCITALOPRAM OXALATE 10 MG TABLET (FP) PO SCH (09:08)
[2017-07-01] MEDS: ASPIRIN 81 MG CHEWABLE TABLETS PO SCH (09:08)
--- NOTE | 2017-07-01 09:15 | EKG ---
Test Reason : Blood Pressure : / mmHG Vent. Rate : 068 BPM Atrial Rate : 068 BPM P-R Int : 260 ms QRS Dur : 194 ms QT Int : 488 ms P-R-T Axes : 044 -63 109 degrees QTc Int : 518 ms POOR DATA QUALITY, INTERPRETATION MAY BE ADVERSELY AFFECTED Atrial-sensed ventricular-paced rhythm with prolonged AV conduction ABNORMAL ECG WHEN COMPARED WITH ECG OF 03-JUN-2017 10:05, PREMATURE VENTRICULAR COMPLEXES ARE NO LONGER PRESENT VENT. RATE HAS INCREASED BY 3 BPM Confirmed by GINETTE GAGNON MD ([id number]) on 07/01/2017 9:14:59 AM Referred By: Confirmed By:GINETTE GAGNON MD
--- NOTE | 2017-07-01 09:49 | PN ---
Progress Note (short form) - Note Progress Note: [facility] *LIVE* Neurology History of Present Illness 86 yo F with h/o vertigo, chronic bilateral cerebellar infarcts, afib, aortic valve replacement , pacer chf presented for sudden onset vertigo. She reported that her symptoms were severe, with room spinning sensation. She felt lightheaded and nauseous but no vomiting. No focal weakness, no speech change. CT head was completed and did not show acute change. Patient initally called as priscilla santana, contacted by ER, spoke to ER attending who reviewed prior admission and noted same presentation approximately 1 month ago and likely vertigo in context of underlying b/l cerebellar infarcts. Patient not a TPA candidate as out of window as well as NIHSS was 0. Admitted for further evaluation, seen by me, and continues to have symptoms. Was given Valium in the ER. Spoke to son at bedside in detail on day of admission who was not aware of prior cerebellar CVA' s and explained to him in detail. He verbalized understanding. Discussed getting repeat CT head today to confirm no acute or new infarcts as initial CT may not demonstrate CVA, he was in agreement. Awaiting CT head today, no significant change. Patient emotional and reassurance provided. Active Medications Aspirin (Asa -) 81 mg PO DAILY [facility] Last Admin: 07/01/17 09:08 Dose: 81 mg Clonazepam (Klonopin -) 0.5 mg PO BID [facility] Last Admin: 07/01/17 09:08 Dose: 0.5 mg Escitalopram Oxalate (Lexapro -) 10 mg PO DAILY [facility] Last Admin: 07/01/17 09:08 Dose: 10 mg Sodium Chloride (1/2 Normal Saline) 1,000 mls @ 75 mls/hr IV ASDIR [facility] Last Admin: 06/30/17 16:54 Dose: Not Given Meclizine HCl (Antivert -) 25 mg PO Q6H PRN PRN Reason: NAUSEA Last Admin: 06/30/17 18:00 Dose: 25 mg Mirtazapine (Remeron -) 15 mg PO HS [facility] Last Admin: 06/30/17 22:34 Dose: 15 mg Oxybutynin Chloride (Ditropan -) 10 mg PO DAILY [facility] Last Admin: 07/01/17 09:07 Dose: 10 mg Pancrelipase (Creon Dr 36,000 Units Capsule) 1 cap PO TIDCM [facility] Last Admin: 07/01/17 09:06 Dose: 1 cap Pantoprazole Sodium (Protonix -) 40 mg PO DAILY [facility] Last Admin: 07/01/17 09:08 Dose: 40 mg Valsartan (Diovan -) 320 mg PO DAILY [facility] Last Admin: 07/01/17 09:07 Dose: 320 mg *Physical Exam Vital Signs Temperature 98.2 F 07/01/17 06:00 Pulse Rate 57 L 07/01/17 06:00 Respiratory Rate 20 07/01/17 06:00 Blood Pressure 136/59 07/01/17 06:00 O2 Sat by Pulse Oximetry (%) 96 06/30/17 21:00 - Physical Exam General Appearance: Yes: Nourished, Appropriately Dressed HEENT: positive: Normal ENT Inspection Neck: positive: Trachea midline Respiratory/Chest: positive: Lungs Clear, Normal Breath Sounds. negative: Chest Tender Cardiovascular: positive: Regular Rhythm, Regular Rate, S1, S2 Gastrointestinal/Abdominal: positive: Normal Bowel Sounds, Flat, Soft. negative : Tender Extremity: positive: Normal Capillary Refill Integumentary: positive: Normal Color, Dry, Warm Neurologic: positive: Fully Oriented, Alert, Normal Mood/Affect, CN intact, Motor Strength 5/5, Finger to Nose, gait deferred CBCD WBC 8.0 K/mm3 (4.0-10.0) 06/30/17 11:15 RBC 4.78 M/mm3 (3.60-5.2) 06/30/17 11:15 Hgb 14.0 GM/dL (10.7-15.3) 06/30/17 11:15 Hct 43.3 % (32.4-45.2) 06/30/17 11:15 MCV 90.5 fl (80-96) 06/30/17 11:15 MCHC 32.4 g/dl (32.0-36.0) 06/30/17 11:15 RDW 14.9 % (11.6-15.6) 06/30/17 11:15 Plt Count 254 K/MM3 (134-434) 06/30/17 11:15 MPV 8.6 fl (7.5-11.1) 06/30/17 11:15 CMP Sodium 141 mmol/L (136-145) 06/30/17 11:15 Potassium 5.0 mmol/L (3.5-5.1) D 06/30/17 11:15 Chloride 110 mmol/L (98-107) H 06/30/17 11:15 Carbon Dioxide 22 mmol/L (21-32) D 06/30/17 11:15 Anion Gap 9 (8-16) 06/30/17 11:15 BUN 54 mg/dL (7-18) H D 06/30/17 11:15 Creatinine 1.6 mg/dL (0.55-1.02) H 06/30/17 11:15 Creat Clearance w eGFR 30.71 (>60) 06/30/17 11:15 Calcium 9.0 mg/dL (8.5-10.1) 06/30/17 11:15 Total Bilirubin 0.3 mg/dL (0.2-1.0) D 06/30/17 11:15 AST 22 U/L (15-37) D 06/30/17 11:15 ALT 21 U/L (12-78) 06/30/17 11:15 Alkaline Phosphatase 91 U/L (45-117) 06/30/17 11:15 Total Protein 7.5 g/dl (6.4-8.2) 06/30/17 11:15 Albumin 3.7 g/dl (3.4-5.0) 06/30/17 11:15 - RADIOLOGY CT head reviewed Medical Decision Making 86 yo F with h/o vertigo, chronic bilateral cerebellar infarcts, afib, aortic valve replacement , pacer chf presented for sudden onset vertigo today at 9 am. She reported that her symptoms were severe, with room spinning sensation. She felt lightheaded and nauseous but no vomiting. No focal weakness, no speech change. CT head was completed and did not show acute change. Patient initally called as code esther, contacted by ER, spoke to ER attending who reviewed prior admission and noted same presentation approximately 1 month ago and likely vertigo in context of underlying b/l cerebellar infarcts. Patient not a TPA candidate as out of window as well as NIHSS was 0. Admitted for further evaluation, seen by me, and continues to have symptoms. Was given Valium in the ER. Spoke to son at bedside in detail who was not aware of prior cerebellar CVA' s and explained to him in detail this was noted on prior admission. He verbalized understanding. Discussed getting repeat CT head in tomorrow to confirm no acute or new infarcts as initial CT may not demonstrate CVA, he was in agreement. -Continue Meclezine PRN -Can give low dose valium 2mg if needed -Repeat CT head today confirm no acute changes -BP control, goal range <140/90, can continue valsartan -Continue ASA 81mg -IV/Po hydration -Avoid sudden head movements -Pt/OT/vestibular therapy -Fall precautions
[2017-07-01 12:11] LABS: BASOPHIL 0.5 % (0-2.0); EOSINOPHIL 0.6 % (0-4.5); MCH 29.6 pg (25.7-33.7); MCHC 32.7 g/dl (32.0-36.0); MEAN CELL VOLUME 90.3 fl (80-96); MEAN PLT VOLUME 8.4 fl (7.5-11.1); NEUTROPHILS 63.6 % (42.8-82.8); PLATELET COUNT 235 K/MM3 (134-434); RDW 14.9 % (11.6-15.6); WHITE BLOOD COUNT 8.2 K/mm3 (4.0-10.0)
[2017-07-01 12:40] LABS: ALBUMIN 3.2 g/dl (3.4-5.0); ALK PHOS 80 U/L (45-117); ANION GAP 9 (8-16); BILIRUBIN,TOTAL 0.3 mg/dL (0.2-1.0); CALCIUM 8.8 mg/dL (8.5-10.1); CO2 25 mmol/L (21-32); CREATININE 1.2 mg/dL (0.55-1.02); GLUCOSE,RANDOM 94 mg/dL (74-106); SGOT/AST 22 U/L (15-37); SGPT/ALT 19 U/L (12-78); TOT PROT 6.7 g/dl (6.4-8.2)
[2017-07-01] MEDS ORDERED: ACETAMINOPHEN 325 MG TABLET (FP) ONE (13:32)
[2017-07-01] MEDS: MECLIZINE HCL 25 MG TABLET (FP) PO PRN (16:52)
--- NOTE | 2017-07-01 17:29 | HP ---
Admitting History and Physical - Primary Care Physician PCP: Javi Brock - Admission Chief Complaint: dizziness History of Present Illness: 86 yo F with h/o vertigo. old cerebellar infarcts, afib, aortic valve replacement , pacer chf here wtih sudden onset vertigo today at 9 am. severe, also describes feeling lightheaded. did have nauseau , no vomiting. was unable to walk due to dizzines. no focal weakness, no speech change. described as spining sensation. pt well known to me from last admission recently for similar reasons admitted to tele work up -ve so far - except ct head - chronic infarcts- cerebellar regions chart reviewed pt seen / examined. still feels same denies cp/sob/abd pain. no headche denies loc no u/b trouble History Source: Patient Limitations to Obtaining History: No Limitations - Past Medical History Cardiovascular: Yes: Aortic Stenosis, CAD, HTN, Hyperlipdemia Psych: Yes: Depression - Past Surgical History Past Surgical History: Yes: Permanent Pacemaker, Valve Replacement - Smoking History Smoking history: Former smoker Have you smoked in the past 12 months: No Aproximately how many cigarettes per day: 0 - Alcohol/Substance Use Hx Alcohol Use: No Home Medications - Allergies Allergies/Adverse Reactions: Allergies Allergy/AdvReac Type Severity Reaction Status Date / Time Iodinated Contrast- Oral and Allergy Severe Difficulty Verified 06/30/17 10:27 IV Dye Breathing [IV Dye, Iodine Containing Contrast ] iodine Allergy Severe Difficulty Verified 06/30/17 10:27 Breathing lactose AdvReac Verified 06/30/17 10:27 - Home Medications Home Medications: Ambulatory Orders Aspirin [ASA -] 81 mg PO DAILY 06/01/16 Clonazepam [Klonopin -] 0.5 mg PO BID 06/01/16 Escitalopram Oxalate [Lexapro -] 10 mg PO DAILY 06/01/16 Mirtazapine [Remeron -] 15 mg PO DAILY 06/01/16 Omeprazole [Prilosec] 40 mg PO DAILY 06/01/16 Oxybutynin Chloride [Ditropan -] 10 mg PO DAILY 06/01/16 Furosemide [Lasix -] 20 mg PO DAILY tablet 06/06/17 Meclizine HCl [Antivert -] 25 mg PO Q6H PRN #30 tablet 06/06/17 Acetaminophen [Tylenol .Regular Strength -] 1,000 mg PO Q4H PRN 10/12/17 Lipase/Protease/Amylase [Creon Dr 36,000 Units Capsule] 1 each PO TID 06/30/17 Triamterene/Hydrochlorothiazid [Triamterene-Hctz 37.5-25 mg Tb] 1 each PO Valsartan 320 mg PO 06/30/17 Review of Systems - Review of Systems Constitutional: reports: No Symptoms Eyes: reports: No Symptoms HENT: reports: No Symptoms Neck: reports: No Symptoms Cardiovascular: reports: No Symptoms Respiratory: reports: No Symptoms Gastrointestinal: reports: No Symptoms Genitourinary: reports: No Symptoms Neurological: reports: Dizziness Psychiatric: reports: Anxiety Physical Examination Vital Signs: Vital Signs Temperature 99.1 F 07/01/17 15:00 Pulse Rate 64 07/01/17 15:00 Respiratory Rate 20 07/01/17 15:00 Blood Pressure 134/70 07/01/17 15:00 O2 Sat by Pulse Oximetry (%) 95 07/01/17 09:00 Constitutional: Yes: No Distress Eyes: Yes: WNL HENT: Yes: WNL Neck: Yes: WNL Cardiovascular: Yes: Regular Rate and Rhythm Respiratory: Yes: CTA Bilaterally Gastrointestinal: Yes: Normal Bowel Sounds, Soft Edema: No Neurological: Yes: WNL, Alert, Cran Nerves II-XII Intact Psychiatric: Yes: Alert Labs: CBC, BMP 07/01/17 11:55 07/01/17 12:01 Imaging - Results Chest X-ray: Report Reviewed Cat Scan: Report Reviewed EKG: Report Reviewed Problem List - Problems (1) Vertigo Code(s): R42 - DIZZINESS AND GIDDINESS (2) Afib Code(s): I48.91 - UNSPECIFIED ATRIAL FIBRILLATION (3) CAD (coronary artery disease) Code(s): I25.10 - ATHSCL HEART DISEASE OF [place] CORONARY ARTERY W/O ANG PCTRS (4) Dizziness Code(s): R42 - DIZZINESS AND GIDDINESS (5) H/O aortic valve replacement Code(s): Z95.2 - PRESENCE OF PROSTHETIC HEART VALVE (6) Hypertension Code(s): I10 - ESSENTIAL (PRIMARY) HYPERTENSION (7) Pacemaker Code(s): Z95.0 - PRESENCE OF CARDIAC PACEMAKER (8) CVA (cerebral vascular accident) Code(s): I63.9 - CEREBRAL INFARCTION, UNSPECIFIED Assessment/Plan monitor tele meds reviewed neurology consult antivert will follow.
[2017-07-01] MEDS: MIRTAZAPINE 15 MG TABLET (FP) PO SCH (22:31)
[2017-07-01] MEDS: HEPARIN NA (PORCINE) 5,000 UNITS/ML 1ML VIAL SQ SCH (22:32)
[2017-07-02] MEDS: LIPASE/PROTEASE/AMYLASE 36,000 UNIT CAPSULE PO SCH ×3 (08:00→18:29)
[2017-07-02] MEDS: PANTOPRAZOLE 40 MG TABLET (FP) PO SCH (09:37)
[2017-07-02] MEDS: ASPIRIN 81 MG CHEWABLE TABLETS PO SCH (09:37)
[2017-07-02] MEDS: OXYBUTYNIN CHLORIDE 5 MG TABLET PO SCH (09:37)
[2017-07-02] MEDS: HEPARIN NA (PORCINE) 5,000 UNITS/ML 1ML VIAL SQ SCH ×2 (09:38→22:10)
[2017-07-02] MEDS: clonazePAM 0.5 MG TABLET PO SCH ×2 (09:38→22:10)
[2017-07-02] MEDS: MECLIZINE HCL 25 MG TABLET (FP) PO PRN (09:38)
[2017-07-02] MEDS: VALSARTAN 160 MG TABLET (UD) PO SCH (09:38)
[2017-07-02] MEDS: ESCITALOPRAM OXALATE 10 MG TABLET (FP) PO SCH (09:38)
--- NOTE | 2017-07-02 13:19 | PN ---
Progress Note (short form) - Note Progress Note: Neurology History of Present Illness 86 yo F with h/o vertigo, chronic bilateral cerebellar infarcts, afib, aortic valve replacement , pacer chf presented for sudden onset vertigo. She reported that her symptoms were severe, with room spinning sensation. She felt lightheaded and nauseous but no vomiting. No focal weakness, no speech change. CT head was completed and did not show acute change. Patient initally called as priscilla santana, contacted by ER, spoke to ER attending who reviewed prior admission and noted same presentation approximately 1 month ago and likely vertigo in context of underlying b/l cerebellar infarcts. Patient not a TPA candidate as out of window as well as NIHSS was 0. Admitted for further evaluation, seen by me, and continues to have symptoms. Was given Valium in the ER. REpeat CT head reviewed and without acute changes. Patient reports feeling better today. No new events overnight and says she's less dizzy but can have episodes with head movements. Active Medications Aspirin (Asa -) 81 mg PO DAILY [facility] Last Admin: 07/02/17 09:37 Dose: 81 mg Clonazepam (Klonopin -) 0.5 mg PO BID [facility] Last Admin: 07/02/17 09:38 Dose: 0.5 mg Escitalopram Oxalate (Lexapro -) 10 mg PO DAILY [facility] Last Admin: 07/02/17 09:38 Dose: 10 mg Heparin Sodium (Porcine) (Heparin -) 5,000 unit SQ BID [facility] Last Admin: 07/02/17 09:38 Dose: Not Given Sodium Chloride (1/2 Normal Saline) 1,000 mls @ 75 mls/hr IV ASDIR [facility] Last Admin: 06/30/17 16:54 Dose: Not Given Meclizine HCl (Antivert -) 25 mg PO Q6H PRN PRN Reason: NAUSEA Last Admin: 07/02/17 09:38 Dose: 25 mg Mirtazapine (Remeron -) 15 mg PO HS [facility] Last Admin: 07/01/17 22:31 Dose: 15 mg Oxybutynin Chloride (Ditropan -) 10 mg PO DAILY [facility] Last Admin: 07/02/17 09:37 Dose: 10 mg Pancrelipase (Creon Dr 36,000 Units Capsule) 1 cap PO TIDCM [facility] Last Admin: 07/02/17 12:01 Dose: 1 cap Pantoprazole Sodium (Protonix -) 40 mg PO DAILY [facility] Last Admin: 07/02/17 09:37 Dose: 40 mg Valsartan (Diovan -) 320 mg PO DAILY [facility] Last Admin: 07/02/17 09:38 Dose: 320 mg *Physical Exam Vital Signs Temperature 98.3 F 07/02/17 10:00 Pulse Rate 70 07/02/17 10:00 Respiratory Rate 18 07/02/17 10:00 Blood Pressure 113/70 07/02/17 10:00 O2 Sat by Pulse Oximetry (%) 95 07/01/17 21:00 - Physical Exam General Appearance: Yes: Nourished, Appropriately Dressed HEENT: positive: Normal ENT Inspection Neck: positive: Trachea midline Respiratory/Chest: positive: Lungs Clear, Normal Breath Sounds. negative: Chest Tender Cardiovascular: positive: Regular Rhythm, Regular Rate, S1, S2 Gastrointestinal/Abdominal: positive: Normal Bowel Sounds, Flat, Soft. negative : Tender Extremity: positive: Normal Capillary Refill Integumentary: positive: Normal Color, Dry, Warm Neurologic: positive: Fully Oriented, Alert, Normal Mood/Affect, CN intact, Motor Strength 5/5, Finger to Nose, gait deferred CBCD WBC 8.2 K/mm3 (4.0-10.0) 07/01/17 11:55 RBC 4.55 M/mm3 (3.60-5.2) 07/01/17 11:55 Hgb 13.4 GM/dL (10.7-15.3) 07/01/17 11:55 Hct 41.0 % (32.4-45.2) 07/01/17 11:55 MCV 90.3 fl (80-96) 07/01/17 11:55 MCHC 32.7 g/dl (32.0-36.0) 07/01/17 11:55 RDW 14.9 % (11.6-15.6) 07/01/17 11:55 Plt Count 235 K/MM3 (134-434) 07/01/17 11:55 MPV 8.4 fl (7.5-11.1) 07/01/17 11:55 CMP Sodium 143 mmol/L (136-145) 07/01/17 11:55 Potassium 5.5 mmol/L (3.5-5.1) H 07/01/17 11:55 Chloride 109 mmol/L (98-107) H 07/01/17 11:55 Carbon Dioxide 25 mmol/L (21-32) 07/01/17 11:55 Anion Gap 9 (8-16) 07/01/17 11:55 BUN 35 mg/dL (7-18) H D 07/01/17 11:55 Creatinine 1.2 mg/dL (0.55-1.02) H D 07/01/17 11:55 Creat Clearance w eGFR 42.80 (>60) 07/01/17 11:55 Calcium 8.8 mg/dL (8.5-10.1) 07/01/17 11:55 Total Bilirubin 0.3 mg/dL (0.2-1.0) 07/01/17 11:55 AST 22 U/L (15-37) 07/01/17 11:55 ALT 19 U/L (12-78) 07/01/17 11:55 Alkaline Phosphatase 80 U/L (45-117) 07/01/17 11:55 Total Protein 6.7 g/dl (6.4-8.2) 07/01/17 11:55 Albumin 3.2 g/dl (3.4-5.0) L 07/01/17 11:55 - RADIOLOGY CT head reviewed Medical Decision Making 86 yo F with h/o vertigo, chronic bilateral cerebellar infarcts, afib, aortic valve replacement , pacer chf presented for sudden onset vertigo today at 9 am. She reported that her symptoms were severe, with room spinning sensation. She felt lightheaded and nauseous but no vomiting. No focal weakness, no speech change. CT head was completed and did not show acute change. Patient initally called as priscilla esther, contacted by ER, spoke to ER attending who reviewed prior admission and noted same presentation approximately 1 month ago and likely vertigo in context of underlying b/l cerebellar infarcts. Patient not a TPA candidate as out of window as well as NIHSS was 0. Admitted for further evaluation, seen by me, and continues to have symptoms. Was given Valium in the ER. Spoke to son at bedside in detail who was not aware of prior cerebellar CVA' s and explained to him in detail this was noted on prior admission. He verbalized understanding. Discussed getting repeat CT head in tomorrow to confirm no acute or new infarcts as initial CT may not demonstrate CVA, he was in agreement. -Continue Meclezine PRN -Can give low dose valium 2mg if needed -Repeat CT head stable -BP control, goal range <140/90, can continue valsartan -Continue ASA 81mg -IV/Po hydration -Avoid sudden head movements, improvement dizzyness today -Pt/OT/vestibular therapy -Fall precautions
--- NOTE | 2017-07-02 14:15 | PN ---
Progress Note (short form) - Note Progress Note: continue to feel same daughter at bedside dizziness + denies cp/sob/abd pain no headche denies ear ache Vital Signs Temp 98.3 F 07/02/17 10:00 Pulse 70 07/02/17 10:00 Resp 18 07/02/17 10:00 BP 113/70 07/02/17 10:00 Pulse Ox 95 07/01/17 21:00 Intake & Output 07/01/17 07/02/17 07/02/17 23:59 11:59 23:59 Intake Total 500 Output Total 200 Balance 500 -200 Weight 121 lb Intake: Oral 500 Output: Urine 200 Void 200 Other: Voiding Method Bedpan Bedpan Bowel Movement No Weight Measurement Method Standing Scale Active Medications Aspirin (Asa -) 81 mg PO DAILY [facility] Last Admin: 07/02/17 09:37 Dose: 81 mg Clonazepam (Klonopin -) 0.5 mg PO BID [facility] Last Admin: 07/02/17 09:38 Dose: 0.5 mg Escitalopram Oxalate (Lexapro -) 10 mg PO DAILY [facility] Last Admin: 07/02/17 09:38 Dose: 10 mg Heparin Sodium (Porcine) (Heparin -) 5,000 unit SQ BID [facility] Last Admin: 07/02/17 09:38 Dose: Not Given Meclizine HCl (Antivert -) 25 mg PO TID [facility] Mirtazapine (Remeron -) 15 mg PO HS [facility] Last Admin: 07/01/17 22:31 Dose: 15 mg Oxybutynin Chloride (Ditropan -) 10 mg PO DAILY [facility] Last Admin: 07/02/17 09:37 Dose: 10 mg Pancrelipase (Creon Dr 36,000 Units Capsule) 1 cap PO TIDCM [facility] Last Admin: 07/02/17 12:01 Dose: 1 cap Pantoprazole Sodium (Protonix -) 40 mg PO DAILY [facility] Last Admin: 07/02/17 09:37 Dose: 40 mg Valsartan (Diovan -) 320 mg PO DAILY [facility] Last Admin: 07/02/17 09:38 Dose: 320 mg CBC, BMP 07/01/17 11:55 07/01/17 12:01 Physical Examination Constitutional: Yes: No Distress/ anxious Eyes: Yes: WNL HENT: Yes: WNL Neck: Yes: WNL Cardiovascular: Yes: Regular Rate and Rhythm Respiratory: Yes: CTA Bilaterally Gastrointestinal: Yes: Normal Bowel Sounds, Soft Edema: No Neurological: Yes: WNL, Alert, Cran Nerves II-XII Intact Psychiatric: Yes: Alert Assessment/Plan monitor tele meds reviewed neurology consult noted possible due to old strokes/ anxiety contributing. antivert cardiology consult pt daily oob- chair fall precautions. discussed will follow.
[2017-07-02] MEDS: MECLIZINE HCL 25 MG TABLET (FP) PO SCH ×2 (15:22→22:10)
[2017-07-02] MEDS ORDERED: PT OWN MED DRAWER 7, Y5N ONE (18:45)
[2017-07-02] MEDS: MIRTAZAPINE 15 MG TABLET (FP) PO SCH (22:10)
[2017-07-03] MEDS: MECLIZINE HCL 25 MG TABLET (FP) PO SCH ×3 (06:54→21:50)
[2017-07-03] MEDS: LIPASE/PROTEASE/AMYLASE 36,000 UNIT CAPSULE PO SCH ×3 (08:28→18:12)
--- NOTE | 2017-07-03 10:30 | CON.CARD ---
Cardiology Consult (text) - Consultation Consultation Note: Chief Complaint: same History of Present Illness: 86 yo female presented with dizziness. Recent admit here for the same, thought to be vertigo then. Same type sxs now. Was taking meclizine prn but still had frequent episodes of room spinning sensation that occurred when changing positions in bed or if she were to turn her head quickly. Some episodes were severe and caused her to fall. No cp, sob, palps, loc, pnd, orthopnea le edema. PMH: afib syst chf s/p AVR - Past Medical History Cardio/Vascular: Yes: Aortic Stenosis, CAD, HTN, Hyperlipdemia Psych: Yes: Depression - Past Surgical History Past Surgical History: Yes: Permanent Pacemaker, Valve Replacement - Alcohol/Substance Use Hx Alcohol Use: No - Smoking History no tob Home Medications - Allergies Allergies/Adverse Reactions: Allergies Allergy/AdvReac Type Severity Reaction Status Date / Time Iodinated Contrast- Oral and Allergy Severe Difficulty Verified 06/30/17 10:27 IV Dye Breathing [IV Dye, Iodine Containing Contrast ] iodine Allergy Severe Difficulty Verified 06/30/17 10:27 Breathing lactose AdvReac Verified 06/30/17 10:27 - Home Medications Home Medications: Ambulatory Orders Home Medications Medication Instructions Recorded Aspirin [ASA -] 81 mg PO DAILY 06/01/16 Clonazepam [Klonopin -] 0.5 mg PO BID 06/01/16 Escitalopram Oxalate [Lexapro -] 10 mg PO DAILY 06/01/16 Mirtazapine [Remeron -] 15 mg PO DAILY 06/01/16 Omeprazole [Prilosec] 40 mg PO DAILY 06/01/16 Oxybutynin Chloride [Ditropan -] 10 mg PO DAILY 06/01/16 Furosemide [Lasix -] 20 mg PO DAILY tablet 06/06/17 Meclizine HCl [Antivert -] 25 mg PO Q6H PRN #30 tablet 06/06/17 Acetaminophen [Tylenol .Regular 1,000 mg PO Q4H PRN 06/30/17 Strength -] Lipase/Protease/Amylase [Creon Dr 1 each PO TID 06/30/17 36,000 Units Capsule] Triamterene/Hydrochlorothiazid 1 each PO 06/30/17 [Triamterene-Hctz 37.5-25 mg Tb] Valsartan 320 mg PO 06/30/17 Family Disease History - Family Disease History Family History: Denies (no cmp) Review of Systems - Review of Systems Constitutional: denies: Chills, Fever Eyes: denies: Eye Pain HENT: denies: Nasal Congestion Neck: denies: Stiffness Cardiovascular: denies: Palpitations Respiratory: denies: Orthopnea, PND Gastrointestinal: denies: Diarrhea, Rectal Bleeding Genitourinary: denies: Burning, Hematuria Musculoskeletal: denies: Muscle Pain Integumentary: denies: Rash Neurological: denies: Numbness, Seizure, Syncope Endocrine: denies: Excessive Sweating Hematology/Lymphatic: denies: Excessive Bleeding Vital Signs: Vital Signs Period Temp Pulse Resp BP Sys/Castro Pulse Ox Last 24 Hr 97.9 F-99.2 F 64-73 16-20 96-129/56-72 95 Constitutional: Yes: Well Nourished, No Distress Eyes: No: Sclera Icterus HENT: No: Nasal Congestion Neck: No: Decreased ROM Respiratory: Yes: CTA Bilaterally. No: Accessory Muscle Use, Rales, Wheezes Gastrointestinal: Yes: Normal Bowel Sounds. No: Distention, Hepatomegaly, Palpable Mass, Tenderness Cardiovascular: Yes: Regular Rate and Rhythm JVD: No Carotid Bruit: No PMI: Non-Displaced Heart Sounds: Yes: S1, S2. No: Gallop Murmur: No: Systolic Murmur, Diastolic Murmur Extremities: No: Cold, Cyanosis Edema: No Peripheral Pulses: 2+ Left Carotid, 2+ Right Carotid, 2+ Left Doralis Pedis, 2+ Right Dorsalis Pedis Integumentary: No: Jaundice diaphoresis Neurological: Yes: Alert, Oriented (x3) Psychiatric: No: Agitated - Other Data Labs, Other Data: Laboratory Last Values WBC 8.2 K/mm3 (4.0-10.0) 07/01/17 11:55 RBC 4.55 M/mm3 (3.60-5.2) 07/01/17 11:55 Hgb 13.4 GM/dL (10.7-15.3) 07/01/17 11:55 Hct 41.0 % (32.4-45.2) 07/01/17 11:55 MCV 90.3 fl (80-96) 07/01/17 11:55 MCH 29.6 pg (25.7-33.7) 07/01/17 11:55 MCHC 32.7 g/dl (32.0-36.0) 07/01/17 11:55 RDW 14.9 % (11.6-15.6) 07/01/17 11:55 Plt Count 235 K/MM3 (134-434) 07/01/17 11:55 MPV 8.4 fl (7.5-11.1) 07/01/17 11:55 Neutrophils % 63.6 % (42.8-82.8) 07/01/17 11:55 Lymphocytes % 28.3 % (8-40) 07/01/17 11:55 Monocytes % 7.0 % (3.8-10.2) 07/01/17 11:55 Eosinophils % 0.6 % (0-4.5) 07/01/17 11:55 Basophils % 0.5 % (0-2.0) 07/01/17 11:55 PT with INR 11.50 SEC (9.98-11.88) 06/30/17 11:15 INR 1.02 (0.82-1.09) 06/30/17 11:15 Sodium 143 mmol/L (136-145) 07/01/17 11:55 Potassium 5.5 mmol/L (3.5-5.1) H 07/01/17 11:55 Chloride 109 mmol/L (98-107) H 07/01/17 11:55 Carbon Dioxide 25 mmol/L (21-32) 07/01/17 11:55 Anion Gap 9 (8-16) 07/01/17 11:55 BUN 35 mg/dL (7-18) H D 07/01/17 11:55 Creatinine 1.2 mg/dL (0.55-1.02) H D 07/01/17 11:55 Creat Clearance w eGFR 42.80 (>60) 07/01/17 11:55 POC Glucometer 127.77544 UNITS (()) 06/30/17 11:06 Random Glucose 94 mg/dL (74-106) D 07/01/17 11:55 Calcium 8.8 mg/dL (8.5-10.1) 07/01/17 11:55 Total Bilirubin 0.3 mg/dL (0.2-1.0) 07/01/17 11:55 AST 22 U/L (15-37) 07/01/17 11:55 ALT 19 U/L (12-78) 07/01/17 11:55 Alkaline Phosphatase 80 U/L (45-117) 07/01/17 11:55 Creatine Kinase 96 IU/L (26-192) 06/30/17 11:15 Troponin I 0.02 ng/ml (0.00-0.05) 06/30/17 11:15 Total Protein 6.7 g/dl (6.4-8.2) 07/01/17 11:55 Albumin 3.2 g/dl (3.4-5.0) L 07/01/17 11:55 Urine Color Straw 06/30/17 12:36 Urine Appearance Clear 06/30/17 12:36 Urine pH 5.0 (5.0-8.0) 06/30/17 12:36 Ur Specific [place] 1.010 (1.005-1.025) 06/30/17 12:36 Urine Protein Negative (NEGATIVE) 06/30/17 12:36 Urine Glucose (UA) Negative (NEGATIVE) 06/30/17 12:36 Urine Ketones Negative (NEGATIVE) 06/30/17 12:36 Urine Blood 1+ (NEGATIVE) H 06/30/17 12:36 Urine Nitrite Negative (NEGATIVE) 06/30/17 12:36 Urine Bilirubin Negative (NEGATIVE) 06/30/17 12:36 Urine Urobilinogen Negative mg/dL (0.2-1.0) 06/30/17 12:36 Ur Leukocyte Esterase Negative (NEGATIVE) 06/30/17 12:36 Urine RBC 1 /hpf (0-3) 06/30/17 12:36 Urine WBC 1 /hpf (3-5) 06/30/17 12:36 Ur Epithelial Cells Rare /hpf (FEW) 06/30/17 12:36 Urine Bacteria Rare /hpf (NONE SEEN) 06/30/17 12:36 Urine Mucus Rare 06/30/17 12:36 Blood Type O POSITIVE 06/30/17 10:55 Antibody Screen Positive H 06/30/17 10:55 Antibody Identification TNP Anti-K 06/30/17 10:55 Antibody Identification TNP Anti-K 06/30/17 10:55 Antigen Identification E Antigen - NEGATIVE K Antigen - NEGATIVE c Antigen - NEGATIVE 06/30/17 10:55 Antigen Identification E Antigen - NEGATIVE K Antigen - NEGATIVE c Antigen - NEGATIVE 06/30/17 10:55 Antigen Identification E Antigen - NEGATIVE K Antigen - NEGATIVE c Antigen - NEGATIVE 06/30/17 10:55 Echo 04/04 (office): nl LV size, low-nl EF (50-55%). nl RV. nl bioAVR (trivial margy-prosthetic AI). trace MR Echo 06/03/17: mod-sev decr LVSF, mild LVH; nl RVSF. TDS AVR--mod AI,no . mod- severe MR. mild TR. RVSP 30-40 Carotids: mild, nonob plq ecg 06/30/17: sr, [employer] tele: sr, [employer] CXR: clear lungs a/p: dizziness, vertigo: -description c/w vertigo, no suggestion of cardiac etiology -of note are bilateral chronic cerebellar infarcts on CT--? central etiology vs BPPV -sx improved with standing meclizine -plan per neuro jose enrique: -cr a little above baseline on admit, improved with ivfs -was on lasix 20 at home, can dc for now h/o valvular heart dz with prior [facility] avr failure s/p reop 2014, chronic syst CHF, mod to severe MR: -prior [facility] AVR which failed, then bioAVR 2014 -echo here 05/2017 with several marked changes from office study 2 mo ago: mod- sev LV dysfunction, prosthetic AV regurg (was trivial), mod-severe MR (was trivial) -CXR clear, no signs chf -will need reassessment of echo and further w/u if worsening LV fxn persists, will order echo now while here VTach: -NSVT on tele on admit 05/2017 -no vt seen here thus far -EF mod-severely reduced on echo here 05/2017, acute change vs 04/04 -will check updated here h/o rectal bleed 2014: -rpt FOC benign then; per GI etiology felt likely 2/2 retained blood post recent prior FOC -cleared to resume AC at that time per GI recs pafib: -in sinus here -pt with transient AF noted occasionally on prior PM checks, AC being deferred -continue ASA per home regimen ppm: -nl fcn on tele here, continue routine office checks htn: -cont current meds hld: -cont home statin
[2017-07-03] MEDS: ASPIRIN 81 MG CHEWABLE TABLETS PO SCH (10:59)
[2017-07-03] MEDS: HEPARIN NA (PORCINE) 5,000 UNITS/ML 1ML VIAL SQ SCH ×2 (10:59→21:50)
[2017-07-03] MEDS: OXYBUTYNIN CHLORIDE 5 MG TABLET PO SCH (10:59)
[2017-07-03] MEDS: VALSARTAN 160 MG TABLET (UD) PO SCH (10:59)
[2017-07-03] MEDS: ESCITALOPRAM OXALATE 10 MG TABLET (FP) PO SCH (10:59)
[2017-07-03] MEDS: clonazePAM 0.5 MG TABLET PO SCH ×2 (10:59→21:50)
[2017-07-03] MEDS: PANTOPRAZOLE 40 MG TABLET (FP) PO SCH (10:59)
[2017-07-03 11:38] LABS: ALBUMIN 3.3 g/dl (3.4-5.0); ALK PHOS 80 U/L (45-117); ANION GAP 7 (8-16); BILIRUBIN,TOTAL 0.3 mg/dL (0.2-1.0); CALCIUM 8.6 mg/dL (8.5-10.1); CO2 24 mmol/L (21-32); CREATININE 1.5 mg/dL (0.55-1.02); GLUCOSE,RANDOM 139 mg/dL (74-106); SGOT/AST 29 U/L (15-37); SGPT/ALT 20 U/L (12-78); TOT PROT 6.7 g/dl (6.4-8.2)
--- NOTE | 2017-07-03 13:08 | PN ---
Progress Note (short form) - Note Progress Note: feels better today - after taking antivert on regular basis cardiology consult noted / appreciated walked a little today denies cp/sob/abd pain no headche no u/b trouble Vital Signs Temp 98.3 F 07/03/17 10:00 Pulse 72 07/03/17 10:00 Resp 18 07/03/17 10:00 BP 108/72 07/03/17 10:00 Pulse Ox 95 07/03/17 09:00 Intake & Output 07/02/17 07/03/17 07/03/17 23:59 11:59 23:59 Intake Total 300 Balance 300 Weight 121 lb 6.4 oz Intake: Oral 300 Other: Voiding Method Bedpan Toilet # Unmeasured Voids Void 1 1 Weight Measurement Method Standing Scale Active Medications Aspirin (Asa -) 81 mg PO DAILY [facility] Last Admin: 07/03/17 10:59 Dose: 81 mg Clonazepam (Klonopin -) 0.5 mg PO BID [facility] Last Admin: 07/03/17 10:59 Dose: 0.5 mg Escitalopram Oxalate (Lexapro -) 10 mg PO DAILY [facility] Last Admin: 07/03/17 10:59 Dose: 10 mg Heparin Sodium (Porcine) (Heparin -) 5,000 unit SQ BID [facility] Last Admin: 07/03/17 10:59 Dose: Not Given Meclizine HCl (Antivert -) 25 mg PO TID [facility] Last Admin: 07/03/17 06:54 Dose: 25 mg Mirtazapine (Remeron -) 15 mg PO HS [facility] Last Admin: 07/02/17 22:10 Dose: 15 mg Oxybutynin Chloride (Ditropan -) 10 mg PO DAILY [facility] Last Admin: 07/03/17 10:59 Dose: 10 mg Pancrelipase (Creon Dr 36,000 Units Capsule) 1 cap PO TIDCM [facility] Last Admin: 07/03/17 12:17 Dose: 1 cap Pantoprazole Sodium (Protonix -) 40 mg PO DAILY [facility] Last Admin: 07/03/17 10:59 Dose: 40 mg Valsartan (Diovan -) 320 mg PO DAILY [facility] Last Admin: 07/03/17 10:59 Dose: 320 mg CBC, BMP 07/01/17 11:55 07/03/17 10:55 Physical Examination Constitutional: Yes: No Distress/ calm. Eyes: Yes: WNL HENT: Yes: WNL Neck: Yes: WNL Cardiovascular: Yes: Regular Rate and Rhythm Respiratory: Yes: CTA Bilaterally Gastrointestinal: Yes: Normal Bowel Sounds, Soft Edema: No Neurological: Yes: WNL, Alert, Cran Nerves II-XII Intact Psychiatric: Yes: Alert. Problem List - Problems (1) Vertigo Code(s): R42 - DIZZINESS AND GIDDINESS (2) Afib Code(s): I48.91 - UNSPECIFIED ATRIAL FIBRILLATION (3) CAD (coronary artery disease) Code(s): I25.10 - ATHSCL HEART DISEASE OF [place] CORONARY ARTERY W/O ANG PCTRS (4) Dizziness Code(s): R42 - DIZZINESS AND GIDDINESS (5) H/O aortic valve replacement Code(s): Z95.2 - PRESENCE OF PROSTHETIC HEART VALVE (6) Hypertension Code(s): I10 - ESSENTIAL (PRIMARY) HYPERTENSION (7) Pacemaker Code(s): Z95.0 - PRESENCE OF CARDIAC PACEMAKER (8) CVA (cerebral vascular accident) Code(s): I63.9 - CEREBRAL INFARCTION, UNSPECIFIED Assessment/Plan better antivert pt daily oob- chair fall precautions. d/c tele- if ok with cardio d/c planing- if better- likely tomorrow. will follow
[2017-07-03] MEDS: MIRTAZAPINE 15 MG TABLET (FP) PO SCH (21:50)
[2017-07-04] MEDS: MECLIZINE HCL 25 MG TABLET (FP) PO SCH ×3 (06:16→21:46)
--- NOTE | 2017-07-04 09:04 | PN ---
Progress Note, Physician Chief Complaint: dizzy History of Present Illness: no more dizzy/vertigo, thinks the med changes are working no sob, orthopnea/PND no leg swelling no palpitations/cp ex cigs - Current Medication List Current Medications: Active Medications Aspirin (Asa -) 81 mg PO DAILY [facility] Last Admin: 07/03/17 10:59 Dose: 81 mg Clonazepam (Klonopin -) 0.5 mg PO BID [facility] Last Admin: 07/03/17 21:50 Dose: 0.5 mg Escitalopram Oxalate (Lexapro -) 10 mg PO DAILY [facility] Last Admin: 07/03/17 10:59 Dose: 10 mg Heparin Sodium (Porcine) (Heparin -) 5,000 unit SQ BID [facility] Last Admin: 07/03/17 21:50 Dose: Not Given Meclizine HCl (Antivert -) 25 mg PO TID [facility] Last Admin: 07/04/17 06:16 Dose: 25 mg Mirtazapine (Remeron -) 15 mg PO HS [facility] Last Admin: 07/03/17 21:50 Dose: 15 mg Oxybutynin Chloride (Ditropan -) 10 mg PO DAILY [facility] Last Admin: 07/03/17 10:59 Dose: 10 mg Pancrelipase (Creon Dr 36,000 Units Capsule) 1 cap PO TIDCM [facility] Last Admin: 07/03/17 18:12 Dose: 1 cap Pantoprazole Sodium (Protonix -) 40 mg PO DAILY [facility] Last Admin: 07/03/17 10:59 Dose: 40 mg Valsartan (Diovan -) 320 mg PO DAILY [facility] Last Admin: 07/03/17 10:59 Dose: 320 mg - Objective Vital Signs: Vital Signs Temperature 98.4 F 07/04/17 06:00 Pulse Rate 72 07/04/17 06:00 Respiratory Rate 18 07/04/17 06:00 Blood Pressure 120/67 07/04/17 06:00 O2 Sat by Pulse Oximetry (%) 96 07/03/17 21:00 Constitutional: Yes: No Distress, Calm Eyes: No: Sclera Icterus HENT: No: Nasal Congestion Cardiovascular: Yes: Regular Rate and Rhythm, Murmur (2/6 early peak JOSE lusb, no diast murmur), S1, S2, Other (PMI non diplaced). No: Gallop Respiratory: Yes: CTA Bilaterally. No: Accessory Muscle Use, Rales, Wheezes Gastrointestinal: Yes: Normal Bowel Sounds, Soft. No: Tenderness Musculoskeletal: Yes: Other (No kyphosis) Extremities: No: Cold Edema: No Integumentary: No: Jaundice Neurological: Yes: Alert, Oriented (x3) Psychiatric: No: Agitated Labs: CBC, BMP 07/03/17 10:55 INR, PTT INR 1.02 (0.82-1.09) 06/30/17 11:15 - ....Imaging EKG: Other (tele: NSR, V-p (no VT)) Assessment/Plan Echo 04/04 (office): nl LV size, low-nl EF (50-55%). nl RV. nl bioAVR (trivial margy-prosthetic AI). trace MR Echo 06/03/17: mod-sev decr LVSF, mild LVH; nl RVSF. TDS AVR--mod AI,no . mod- severe MR. mild TR. RVSP 30-40 Carotids: mild, nonob plq ecg 06/30/17: sr, [employer] tele: sr, [employer] CXR: clear lungs a/p: dizziness, vertigo: -description c/w vertigo, no suggestion of cardiac etiology -of note are bilateral chronic cerebellar infarcts on CT--? central etiology vs BPPV -sx improved markedly with standing meclizine when here 06/05 -plan per neuro (following) -sx's not suggestive of arrhythmic etiology h/o valvular heart dz [facility], chronic syst CHF, mod to severe MR: -[facility], then bioAVR 2014 -echo here 05/2017 with several marked changes from office study 2 mo ago: mod- sev LV dysfunction, moderate prosthetic AV regurg (was trivial on prior study), mod-severe MR (was trivial) -CXR clear, no signs chf -doubt severe AI underestimated visually, given normal pulse pressure -repeat echo ordered here--if at least moderate AI again seen and this is confirmed new vs 04/04 office study, will need to consider that her bioAVR is now failing and consider echo/[facility] at [facility] to more accurately assess AI severity (+/- w/u for other causes of nonisch CMP) -last time here carvedilol 6.25 bid started (also for NSVT) and lisin decr'd 20 bid to 10 bid for bp room for B-B--meds corrected here to return to that regimen VTach: -NSVT on tele during 06/05 admit -no vt seen here thus far -EF mod-severely reduced on echo here 05/2017, acute change vs 04/04 -will check updated EF while here -cont coreg as above pafib: -in sinus here -pt with brief, transient AF noted occasionally on prior PM checks, AC being deferred per dr johnson office notes -continue ASA per home regimen ppm: -nl fcn on tele here, continue routine office checks CKD: -prior creatinines range 0.9-1.6 -states she has not been taking lasix at home b/c it is prn only for edema which she has not had -renal fxn stable here, observe trend h/o rectal bleed 2014: -rpt FOC benign then; per GI etiology felt likely 2/2 retained blood post recent prior FOC (felt safe for anti-thrombotic meds per GI at that time) htn: -cont current meds hld: -cont home statin
[2017-07-04] MEDS: OXYBUTYNIN CHLORIDE 5 MG TABLET PO SCH (09:30)
[2017-07-04] MEDS: LIPASE/PROTEASE/AMYLASE 36,000 UNIT CAPSULE PO SCH ×3 (09:30→17:09)
[2017-07-04] MEDS: clonazePAM 0.5 MG TABLET PO SCH ×2 (09:31→21:47)
[2017-07-04] MEDS: PANTOPRAZOLE 40 MG TABLET (FP) PO SCH (09:31)
[2017-07-04] MEDS: ESCITALOPRAM OXALATE 10 MG TABLET (FP) PO SCH (09:31)
[2017-07-04] MEDS: VALSARTAN 160 MG TABLET (UD) PO SCH (09:31)
[2017-07-04] MEDS: ASPIRIN 81 MG CHEWABLE TABLETS PO SCH (09:31)
[2017-07-04] MEDS: HEPARIN NA (PORCINE) 5,000 UNITS/ML 1ML VIAL SQ SCH ×2 (09:32→21:47)
--- NOTE | 2017-07-04 09:57 | PN ---
Progress Note (short form) - Note Progress Note: Neurology History of Present Illness 86 yo F with h/o vertigo, chronic bilateral cerebellar infarcts, afib, aortic valve replacement , pacer chf presented for sudden onset vertigo. She reported that her symptoms were severe, with room spinning sensation. She felt lightheaded and nauseous but no vomiting. No focal weakness, no speech change. CT head was completed and did not show acute change. Patient initally called as priscilla santana, contacted by ER, spoke to ER attending who reviewed prior admission and noted same presentation approximately 1 month ago and likely vertigo in context of underlying b/l cerebellar infarcts. Patient not a TPA candidate as out of window as well as NIHSS was 0. Admitted for further evaluation, seen by me, and continues to have symptoms. Was given Valium in the ER. REpeat CT head reviewed and without acute changes. Is doing better, out of bed in chair and not dizzy. Has been getting therapy with relief. Meclezine also has been helpful. Active Medications Aspirin (Asa -) 81 mg PO DAILY [facility] Last Admin: 07/04/17 09:31 Dose: 81 mg Clonazepam (Klonopin -) 0.5 mg PO BID [facility] Last Admin: 07/04/17 09:31 Dose: 0.5 mg Escitalopram Oxalate (Lexapro -) 10 mg PO DAILY [facility] Last Admin: 07/04/17 09:31 Dose: 10 mg Heparin Sodium (Porcine) (Heparin -) 5,000 unit SQ BID [facility] Last Admin: 07/04/17 09:32 Dose: Not Given Meclizine HCl (Antivert -) 25 mg PO TID [facility] Last Admin: 07/04/17 06:16 Dose: 25 mg Mirtazapine (Remeron -) 15 mg PO HS [facility] Last Admin: 07/03/17 21:50 Dose: 15 mg Oxybutynin Chloride (Ditropan -) 10 mg PO DAILY [facility] Last Admin: 07/04/17 09:30 Dose: 10 mg Pancrelipase (Creon Dr 36,000 Units Capsule) 1 cap PO TIDCM [facility] Last Admin: 07/04/17 09:30 Dose: 1 cap Pantoprazole Sodium (Protonix -) 40 mg PO DAILY [facility] Last Admin: 07/04/17 09:31 Dose: 40 mg Valsartan (Diovan -) 320 mg PO DAILY [facility] Last Admin: 07/04/17 09:31 Dose: 320 mg *Physical Exam Vital Signs Period Temp Pulse Resp BP Sys/Castro Pulse Ox Last 24 Hr 97.8 F-98.7 F 70-77 18-20 106-130/52-72 96 - Physical Exam General Appearance: Yes: Nourished, Appropriately Dressed HEENT: positive: Normal ENT Inspection Neck: positive: Trachea midline Respiratory/Chest: positive: Lungs Clear, Normal Breath Sounds. negative: Chest Tender Cardiovascular: positive: Regular Rhythm, Regular Rate, S1, S2 Gastrointestinal/Abdominal: positive: Normal Bowel Sounds, Flat, Soft. negative : Tender Extremity: positive: Normal Capillary Refill Integumentary: positive: Normal Color, Dry, Warm Neurologic: positive: Fully Oriented, Alert, Normal Mood/Affect, CN intact, Motor Strength 5/5, Finger to Nose, gait deferred CBCD WBC 8.2 K/mm3 (4.0-10.0) 07/01/17 11:55 RBC 4.55 M/mm3 (3.60-5.2) 07/01/17 11:55 Hgb 13.4 GM/dL (10.7-15.3) 07/01/17 11:55 Hct 41.0 % (32.4-45.2) 07/01/17 11:55 MCV 90.3 fl (80-96) 07/01/17 11:55 MCHC 32.7 g/dl (32.0-36.0) 07/01/17 11:55 RDW 14.9 % (11.6-15.6) 07/01/17 11:55 Plt Count 235 K/MM3 (134-434) 07/01/17 11:55 MPV 8.4 fl (7.5-11.1) 07/01/17 11:55 CMP Sodium 140 mmol/L (136-145) 07/03/17 10:55 Potassium 5.1 mmol/L (3.5-5.1) 07/03/17 10:55 Chloride 109 mmol/L (98-107) H 07/03/17 10:55 Carbon Dioxide 24 mmol/L (21-32) 07/03/17 10:55 Anion Gap 7 (8-16) L 07/03/17 10:55 BUN 36 mg/dL (7-18) H 07/03/17 10:55 Creatinine 1.5 mg/dL (0.55-1.02) H D 07/03/17 10:55 Creat Clearance w eGFR 33.08 (>60) 07/03/17 10:55 Calcium 8.6 mg/dL (8.5-10.1) 07/03/17 10:55 Total Bilirubin 0.3 mg/dL (0.2-1.0) 07/03/17 10:55 AST 29 U/L (15-37) D 07/03/17 10:55 ALT 20 U/L (12-78) 07/03/17 10:55 Alkaline Phosphatase 80 U/L (45-117) 07/03/17 10:55 Total Protein 6.7 g/dl (6.4-8.2) 07/03/17 10:55 Albumin 3.3 g/dl (3.4-5.0) L 07/03/17 10:55 - RADIOLOGY CT head reviewed X 2 Medical Decision Making 86 yo F with h/o vertigo, chronic bilateral cerebellar infarcts, afib, aortic valve replacement , pacer chf presented for sudden onset vertigo today at 9 am. She reported that her symptoms were severe, with room spinning sensation. She felt lightheaded and nauseous but no vomiting. No focal weakness, no speech change. CT head was completed and did not show acute change. Patient initally called as priscilla santana, contacted by ER, spoke to ER attending who reviewed prior admission and noted same presentation approximately 1 month ago and likely vertigo in context of underlying b/l cerebellar infarcts. -Continue Meclezine, has been getting three times daily with good relief. -Can give low dose valium 2mg if needed -Repeat CT head stable -BP control, goal range <140/90, can continue valsartan -Continue ASA 81mg -IV/Po hydration -Avoid sudden head movements, improvement dizzyness today -Pt/OT/vestibular therapy -Fall precautions
[2017-07-04] MEDS ORDERED: CARVEDILOL 3.125 MG TABLET (FP) PO SCH (11:30)
[2017-07-04] MEDS: CARVEDILOL 6.25 MG TABLET (FP) PO SCH ×2 (11:57→21:47)
--- NOTE | 2017-07-04 13:04 | PN ---
Progress Note (short form) - Note Progress Note: feels better today continue to improve sitting in chair cardiology f/u noted denies cp/sob/abd pain no headche no u/b trouble Vital Signs Temp 98 F 07/04/17 10:00 Pulse 74 07/04/17 10:00 Resp 20 07/04/17 10:00 BP 133/70 07/04/17 10:00 Pulse Ox 98 07/04/17 09:00 Intake & Output 07/03/17 07/04/17 07/04/17 23:59 11:59 23:59 Intake Total 610 310 Balance 610 310 Weight 120 lb 6.4 oz Intake: IV 10 10 right hand 10 10 Oral 600 300 Other: Voiding Method Toilet Toilet # Unmeasured Voids Void 2 2 Bowel Movement No No Weight Measurement Method Standing Scale Active Medications Aspirin (Asa -) [address] [facility] Last Admin: 07/04/17 09:31 Dose: 81 mg Carvedilol (Coreg -) 6.[address] [facility] Last Admin: 07/04/17 11:57 Dose: 6.25 mg Clonazepam (Klonopin -) 0.[address] [facility] Last Admin: 07/04/17 09:31 Dose: 0.5 mg Escitalopram Oxalate (Lexapro -) [address] [facility] Last Admin: 07/04/17 09:31 Dose: 10 mg Heparin Sodium (Porcine) (Heparin -) 5,[address] [facility] Last Admin: 07/04/17 09:32 Dose: Not Given Lisinopril (Prinivil) [address] [facility] Meclizine HCl (Antivert -) [address] [facility] Last Admin: 07/04/17 06:16 Dose: 25 mg Mirtazapine (Remeron -) [address] [facility] Last Admin: 07/03/17 21:50 Dose: 15 mg Oxybutynin Chloride (Ditropan -) [address] [facility] Last Admin: 07/04/17 09:30 Dose: 10 mg Pancrelipase (Creon Dr 36,000 Units Capsule) [address] [facility] Last Admin: 07/04/17 11:57 Dose: 1 cap Pantoprazole Sodium (Protonix -) [address] [facility] Last Admin: 07/04/17 09:31 Dose: 40 mg CBC, BMP 07/01/17 11:55 07/03/17 10:55 Physical Examination Constitutional: Yes: No Distress/ calm. Eyes: Yes: WNL HENT: Yes: WNL Neck: Yes: WNL Cardiovascular: Yes: Regular Rate and Rhythm Respiratory: Yes: CTA Bilaterally Gastrointestinal: Yes: Normal Bowel Sounds, Soft Edema: No Neurological: Yes: WNL, Alert, Cran Nerves II-XII Intact Psychiatric: Yes: Alert. Problem List - Problems (1) Vertigo Code(s): R42 - DIZZINESS AND GIDDINESS (2) Afib Code(s): I48.91 - UNSPECIFIED ATRIAL FIBRILLATION (3) CAD (coronary artery disease) Code(s): I25.10 - ATHSCL HEART DISEASE OF [place] CORONARY ARTERY W/O ANG PCTRS (4) Dizziness Code(s): R42 - DIZZINESS AND GIDDINESS (5) H/O aortic valve replacement Code(s): Z95.2 - PRESENCE OF PROSTHETIC HEART VALVE (6) Hypertension Code(s): I10 - ESSENTIAL (PRIMARY) HYPERTENSION (7) Pacemaker Code(s): Z95.0 - PRESENCE OF CARDIAC PACEMAKER (8) CVA (cerebral vascular accident) Code(s): I63.9 - CEREBRAL INFARCTION, UNSPECIFIED Assessment/Plan better antivert pt daily oob- chair fall precautions. echo today-- d/c planing- if better- likely tomorrow. will follow. Problem List - Problems (1) Vertigo Code(s): R42 - DIZZINESS AND GIDDINESS (2) Afib Code(s): I48.91 - UNSPECIFIED ATRIAL FIBRILLATION (3) CAD (coronary artery disease) Code(s): I25.10 - ATHSCL HEART DISEASE OF [place] CORONARY ARTERY W/O ANG PCTRS (4) Dizziness Code(s): R42 - DIZZINESS AND GIDDINESS (5) H/O aortic valve replacement Code(s): Z95.2 - PRESENCE OF PROSTHETIC HEART VALVE (6) Hypertension Code(s): I10 - ESSENTIAL (PRIMARY) HYPERTENSION (7) Pacemaker Code(s): Z95.0 - PRESENCE OF CARDIAC PACEMAKER (8) CVA (cerebral vascular accident) Code(s): I63.9 - CEREBRAL INFARCTION, UNSPECIFIED
[2017-07-04] MEDS: MIRTAZAPINE 15 MG TABLET (FP) PO SCH (21:47)
[2017-07-05] MEDS: MECLIZINE HCL 25 MG TABLET (FP) PO SCH ×3 (06:45→21:57)
[2017-07-05] MEDS: LIPASE/PROTEASE/AMYLASE 36,000 UNIT CAPSULE PO SCH ×3 (08:07→17:30)
[2017-07-05] MEDS: CARVEDILOL 6.25 MG TABLET (FP) PO SCH ×2 (09:37→21:57)
[2017-07-05] MEDS: ESCITALOPRAM OXALATE 10 MG TABLET (FP) PO SCH (09:37)
[2017-07-05] MEDS: PANTOPRAZOLE 40 MG TABLET (FP) PO SCH (09:37)
[2017-07-05] MEDS: OXYBUTYNIN CHLORIDE 5 MG TABLET PO SCH (09:37)
[2017-07-05] MEDS: ASPIRIN 81 MG CHEWABLE TABLETS PO SCH (09:37)
[2017-07-05] MEDS: clonazePAM 0.5 MG TABLET PO SCH ×2 (09:37→21:57)
[2017-07-05] MEDS: HEPARIN NA (PORCINE) 5,000 UNITS/ML 1ML VIAL SQ SCH ×2 (09:37→22:02)
[2017-07-05] MEDS: LISINOPRIL 10 MG TABLET (FP) PO SCH ×2 (09:38→21:57)
--- NOTE | 2017-07-05 09:56 | PN ---
Progress Note (short form) - Note Progress Note: Neurology History of Present Illness 86 yo F with h/o vertigo, chronic bilateral cerebellar infarcts, afib, aortic valve replacement , pacer chf presented for sudden onset vertigo. She reported that her symptoms were severe, with room spinning sensation. She felt lightheaded and nauseous but no vomiting. No focal weakness, no speech change. CT head was completed and did not show acute change. Patient initally called as priscilla santana, contacted by ER, spoke to ER attending who reviewed prior admission and noted same presentation approximately 1 month ago and likely vertigo in context of underlying b/l cerebellar infarcts. Patient not a TPA candidate as out of window as well as NIHSS was 0. Admitted for further evaluation, seen by me, and continues to have symptoms. Was given Valium in the ER. REpeat CT head reviewed and without acute changes. This morning was complaining of dizzyness, lying in bed. Developed on waking. Meclezine also has been helpful but she does have episodes. Active Medications Aspirin (Asa -) 81 mg PO DAILY [facility] Last Admin: 07/05/17 09:37 Dose: 81 mg Carvedilol (Coreg -) 6.25 mg PO BID [facility] Last Admin: 07/05/17 09:37 Dose: 6.25 mg Clonazepam (Klonopin -) 0.5 mg PO BID [facility] Last Admin: 07/05/17 09:37 Dose: 0.5 mg Escitalopram Oxalate (Lexapro -) 10 mg PO DAILY [facility] Last Admin: 07/05/17 09:37 Dose: 10 mg Heparin Sodium (Porcine) (Heparin -) 5,000 unit SQ BID [facility] Last Admin: 07/05/17 09:37 Dose: 5,000 unit Lisinopril (Prinivil) 10 mg PO BID [facility] Last Admin: 07/05/17 09:38 Dose: 10 mg Meclizine HCl (Antivert -) 25 mg PO TID [facility] Last Admin: 07/05/17 06:45 Dose: 25 mg Mirtazapine (Remeron -) 15 mg PO HS [facility] Last Admin: 07/04/17 21:47 Dose: 15 mg Oxybutynin Chloride (Ditropan -) 10 mg PO DAILY [facility] Last Admin: 07/05/17 09:37 Dose: 10 mg Pancrelipase (Creon Dr 36,000 Units Capsule) 1 cap PO TIDCM [facility] Last Admin: 07/05/17 08:07 Dose: 1 cap Pantoprazole Sodium (Protonix -) 40 mg PO DAILY [facility] Last Admin: 07/05/17 09:37 Dose: 40 mg *Physical Exam Vital Signs Temperature 98.3 F 07/05/17 06:00 Pulse Rate 60 07/05/17 06:00 Respiratory Rate 18 07/05/17 06:00 Blood Pressure 117/59 07/05/17 06:00 O2 Sat by Pulse Oximetry (%) 97 07/04/17 21:00 - Physical Exam General Appearance: Yes: Nourished, Appropriately Dressed HEENT: positive: Normal ENT Inspection Neck: positive: Trachea midline Respiratory/Chest: positive: Lungs Clear, Normal Breath Sounds. negative: Chest Tender Cardiovascular: positive: Regular Rhythm, Regular Rate, S1, S2 Gastrointestinal/Abdominal: positive: Normal Bowel Sounds, Flat, Soft. negative : Tender Extremity: positive: Normal Capillary Refill Integumentary: positive: Normal Color, Dry, Warm Neurologic: positive: Fully Oriented, Alert, Normal Mood/Affect, CN intact, Motor Strength 5/5, Finger to Nose, gait deferred CBCD WBC 8.2 K/mm3 (4.0-10.0) 07/01/17 11:55 RBC 4.55 M/mm3 (3.60-5.2) 07/01/17 11:55 Hgb 13.4 GM/dL (10.7-15.3) 07/01/17 11:55 Hct 41.0 % (32.4-45.2) 07/01/17 11:55 MCV 90.3 fl (80-96) 07/01/17 11:55 MCHC 32.7 g/dl (32.0-36.0) 07/01/17 11:55 RDW 14.9 % (11.6-15.6) 07/01/17 11:55 Plt Count 235 K/MM3 (134-434) 07/01/17 11:55 MPV 8.4 fl (7.5-11.1) 07/01/17 11:55 CMP Sodium 140 mmol/L (136-145) 07/03/17 10:55 Potassium 5.1 mmol/L (3.5-5.1) 07/03/17 10:55 Chloride 109 mmol/L (98-107) H 07/03/17 10:55 Carbon Dioxide 24 mmol/L (21-32) 07/03/17 10:55 Anion Gap 7 (8-16) L 07/03/17 10:55 BUN 36 mg/dL (7-18) H 07/03/17 10:55 Creatinine 1.5 mg/dL (0.55-1.02) H D 07/03/17 10:55 Creat Clearance w eGFR 33.08 (>60) 07/03/17 10:55 Calcium 8.6 mg/dL (8.5-10.1) 07/03/17 10:55 Total Bilirubin 0.3 mg/dL (0.2-1.0) 07/03/17 10:55 AST 29 U/L (15-37) D 07/03/17 10:55 ALT 20 U/L (12-78) 07/03/17 10:55 Alkaline Phosphatase 80 U/L (45-117) 07/03/17 10:55 Total Protein 6.7 g/dl (6.4-8.2) 07/03/17 10:55 Albumin 3.3 g/dl (3.4-5.0) L 07/03/17 10:55 - RADIOLOGY CT head reviewed X 2 Medical Decision Making 86 yo F with h/o vertigo, chronic bilateral cerebellar infarcts, afib, aortic valve replacement , pacer chf presented for sudden onset vertigo today at 9 am. She reported that her symptoms were severe, with room spinning sensation. She felt lightheaded and nauseous but no vomiting. No focal weakness, no speech change. CT head was completed and did not show acute change. Patient initally called as priscilla santana, contacted by ER, spoke to ER attending who reviewed prior admission and noted same presentation approximately 1 month ago and likely vertigo in context of underlying b/l cerebellar infarcts. -Continue Meclezine, has been getting three times daily with good relief. -Can give low dose valium 2mg if needed -Repeat CT head stable -BP control, goal range <140/90, can continue valsartan -Continue ASA 81mg -IV/Po hydration -Avoid sudden head movements, improvement dizzyness today -Pt/OT/vestibular therapy -Fall precautions
--- NOTE | 2017-07-05 10:22 | PN ---
Progress Note (short form) - Note Progress Note: Chief Complaint: dizzy History of Present Illness: turned her head this morning --> onset of severe vertigo symptoms. no sob, orthopnea/PND no leg swelling no palpitations/cp ex cigs Current Medications Aspirin (Asa -) 81 mg PO DAILY [facility] Last Admin: 07/05/17 09:37 Dose: 81 mg Carvedilol (Coreg -) 6.25 mg PO BID [facility] Last Admin: 07/05/17 09:37 Dose: 6.25 mg Clonazepam (Klonopin -) 0.5 mg PO BID [facility] Last Admin: 07/05/17 09:37 Dose: 0.5 mg Escitalopram Oxalate (Lexapro -) 10 mg PO DAILY [facility] Last Admin: 07/05/17 09:37 Dose: 10 mg Heparin Sodium (Porcine) (Heparin -) 5,000 unit SQ BID [facility] Last Admin: 07/05/17 09:37 Dose: 5,000 unit Lisinopril (Prinivil) 10 mg PO BID [facility] Last Admin: 07/05/17 09:38 Dose: 10 mg Meclizine HCl (Antivert -) 25 mg PO TID [facility] Last Admin: 07/05/17 06:45 Dose: 25 mg Mirtazapine (Remeron -) 15 mg PO HS [facility] Last Admin: 07/04/17 21:47 Dose: 15 mg Oxybutynin Chloride (Ditropan -) 10 mg PO DAILY [facility] Last Admin: 07/05/17 09:37 Dose: 10 mg Pancrelipase (Creon Dr 36,000 Units Capsule) 1 cap PO TIDCM [facility] Last Admin: 07/05/17 08:07 Dose: 1 cap Pantoprazole Sodium (Protonix -) 40 mg PO DAILY [facility] Last Admin: 07/05/17 09:37 Dose: 40 mg Vital Signs - 24 hr 07/04/17 07/04/17 07/05/17 14:03 21:00 02:00 Temperature 97.9 F 98.6 F 97.1 F L Pulse Rate 90 61 71 Respiratory 20 18 20 Rate Blood Pressure 127/72 115/69 129/70 O2 Sat by Pulse 97 Oximetry (%) 07/05/17 06:00 Temperature 98.3 F Pulse Rate 60 Respiratory 18 Rate Blood Pressure 117/59 O2 Sat by Pulse Oximetry (%) Intake & Output 07/03/17 07/04/17 07/05/17 07/06/17 07:59 07:59 07:59 07:59 Intake Total 300 920 250 Balance 300 920 250 Weight 121 lb 6.4 oz 120 lb 6.4 oz 120 lb 8 oz Constitutional: Yes: No Distress, Calm Eyes: No: Sclera Icterus HENT: No: Nasal Congestion Cardiovascular: Yes: Regular Rate and Rhythm, Murmur (2/6 early peak JOSE lusb, no diast murmur), S1, S2, Other (PMI non diplaced). No: Gallop Respiratory: Yes: CTA Bilaterally. No: Accessory Muscle Use, Rales, Wheezes Gastrointestinal: Yes: Normal Bowel Sounds, Soft. No: Tenderness Musculoskeletal: Yes: Other (No kyphosis) Extremities: No: Cold Edema: No Integumentary: No: Jaundice Neurological: Yes: Alert, Oriented (x3) Psychiatric: No: Agitated Labs: no CBC, BMP - ....Imaging EKG: Other (tele: NSR, V-p (no VT)) Assessment/Plan Echo 06/2017: nl lv/rv. 1+ mac. mild-mod mr. bio AVR well seated. MG 5.5. trace-mild AR. Echo 04/04 (office): nl LV size, low-nl EF (50-55%). nl RV. nl bioAVR (trivial margy-prosthetic AI). trace MR Echo 06/03/17: mod-sev decr LVSF, mild LVH; nl RVSF. TDS AVR--mod AI,no . mod- severe MR. mild TR. RVSP 30-40 Carotids: mild, nonob plq ecg 06/30/17: sr, [employer] tele: sr, [employer] marketing with intermittent wrangell beats vs. pvc's. HR 50s-60s CXR: clear lungs a/p: dizziness, vertigo: -description c/w vertigo, no suggestion of cardiac etiology -of note are bilateral chronic cerebellar infarcts on CT--? central etiology vs BPPV -sx improved markedly with standing meclizine when here 06/05, but today 07/05 with recurrence despite receiving meclizine. -plan per neuro (following) -sx's not suggestive of arrhythmic etiology. tele unremarkable thus far. 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, chronic syst CHF, mod to severe MR: -prior [facility] AVR which failed, then bioAVR 2014 -echo here 05/2017 with several marked changes from office study 2 mo ago: mod- sev LV dysfunction, moderate prosthetic AV regurg (was trivial on prior study), mod-severe MR (was trivial) --> no sig valvular ab on repeat 07/04 -CXR clear, no signs chf -last time here carvedilol 6.25 bid started (also for NSVT) and lisin decr'd 20 bid to 10 bid for bp room for B-B--meds corrected here to return to that regimen VTach: -NSVT on tele during 06/05 admit -no vt seen here thus far -EF mod-severely reduced on echo here 05/2017, now normalized. -cont coreg as above pafib: -in sinus here -pt with brief, transient AF noted occasionally on prior PM checks, AC being deferred per dr johnson office notes -continue ASA per home regimen ppm: -nl fcn on tele here, continue routine office checks CKD: -prior creatinines range 0.9-1.6 -states she has not been taking lasix at home b/c it is prn only for edema which she has not had -renal fxn stable here, observe trend. h/o rectal bleed 2015: -rpt FOC benign then; per GI etiology felt likely 2/2 retained blood post recent prior FOC (felt safe for anti-thrombotic meds per GI at that time) htn: -monitor with med changes above. Today bp running on low end. may need to downtitrate regimen and decrease lisinopril dose from 10 mg bid to 5 mg bid hld: -cont home statin
--- NOTE | 2017-07-05 13:08 | PN ---
Progress Note (short form) - Note Progress Note: has dizziness this AM no chest pain no palpitations Vital Signs - 24 hr 07/04/17 07/04/17 07/05/17 14:03 21:00 02:00 Temperature 97.9 F 98.6 F 97.1 F L Pulse Rate 90 61 71 Respiratory 20 18 20 Rate Blood Pressure 127/72 115/69 129/70 O2 Sat by Pulse 97 Oximetry (%) 07/05/17 07/05/17 07/05/17 06:00 09:00 10:00 Temperature 98.3 F 98 F Pulse Rate 60 64 Respiratory 18 18 Rate Blood Pressure 117/59 174/80 O2 Sat by Pulse 100 Oximetry (%) Current Medications Generic Name Dose Route Start Last Admin Trade Name Freq PRN Reason Stop Dose Admin Aspirin 81 mg 07/01/17 10:00 07/05/17 09:37 Asa - PO 81 mg DAILY [facility] Administration Carvedilol 6.25 mg 07/04/17 11:45 07/05/17 09:37 Coreg - PO 6.25 mg BID [facility] Administration Clonazepam 0.5 mg 06/30/17 22:00 07/05/17 09:37 Klonopin - PO 0.5 mg BID [facility] Administration Escitalopram Oxalate 10 mg 07/01/17 10:00 07/05/17 09:37 Lexapro - PO 10 mg DAILY [facility] Administration Heparin Sodium (Porcine) 5,000 unit 07/01/17 22:00 07/05/17 09:37 Heparin - SQ 5,000 unit BID [facility] Administration Lisinopril 10 mg 07/05/17 10:00 07/05/17 09:38 Prinivil PO 10 mg BID [facility] Administration Meclizine HCl 25 mg 07/02/17 14:00 07/05/17 06:45 Antivert - PO 25 mg TID [facility] Administration Mirtazapine 15 mg 06/30/17 22:00 07/04/17 21:47 Remeron - PO 15 mg HS [facility] Administration Oxybutynin Chloride 10 mg 07/01/17 10:00 07/05/17 09:37 Ditropan - PO 10 mg DAILY [facility] Administration Pancrelipase 1 cap 06/30/17 17:30 07/05/17 12:[address] 36,000 Units Capsule PO 1 cap TIDCM [facility] Administration Pantoprazole Sodium 40 mg 07/01/17 10:00 07/05/17 09:37 Protonix - PO 40 mg DAILY [facility] Administration S1 S2 RRR Lungs clear Abd- soft, NT No edema PLAN Meclizine as needed PT eval will need VNS, home PT upon discharge CT head - negative Cardiac gross ok dc planning for AM Problem List - Problems (1) Vertigo Code(s): R42 - DIZZINESS AND GIDDINESS (2) Afib Code(s): I48.91 - UNSPECIFIED ATRIAL FIBRILLATION (3) H/O aortic valve replacement Code(s): Z95.2 - PRESENCE OF PROSTHETIC HEART VALVE
[2017-07-05] MEDS: MIRTAZAPINE 15 MG TABLET (FP) PO SCH (21:57)
[2017-07-06] MEDS: MECLIZINE HCL 25 MG TABLET (FP) PO SCH ×2 (05:51→13:03)
[2017-07-06] MEDS: LIPASE/PROTEASE/AMYLASE 36,000 UNIT CAPSULE PO SCH ×2 (09:58→12:45)
[2017-07-06] MEDS: ESCITALOPRAM OXALATE 10 MG TABLET (FP) PO SCH (09:58)
[2017-07-06] MEDS: clonazePAM 0.5 MG TABLET PO SCH (09:58)
[2017-07-06] MEDS: ASPIRIN 81 MG CHEWABLE TABLETS PO SCH (09:58)
[2017-07-06] MEDS: OXYBUTYNIN CHLORIDE 5 MG TABLET PO SCH (09:59)
[2017-07-06] MEDS: CARVEDILOL 6.25 MG TABLET (FP) PO SCH (09:59)
[2017-07-06] MEDS: PANTOPRAZOLE 40 MG TABLET (FP) PO SCH (09:59)
[2017-07-06] MEDS ORDERED: LISINOPRIL 5 MG TABLET (FP) PO SCH (10:00)
[2017-07-06] MEDS: HEPARIN NA (PORCINE) 5,000 UNITS/ML 1ML VIAL SQ SCH (10:03)
--- NOTE | 2017-07-06 10:06 | PN ---
Progress Note (short form) - Note Progress Note: Neurology History of Present Illness 86 yo F with h/o vertigo, chronic bilateral cerebellar infarcts, afib, aortic valve replacement , pacer chf presented for sudden onset vertigo. She reported that her symptoms were severe, with room spinning sensation. She felt lightheaded and nauseous but no vomiting. No focal weakness, no speech change. CT head was completed and did not show acute change. Patient initally called as priscilla santana, contacted by ER, spoke to ER attending who reviewed prior admission and noted same presentation approximately 1 month ago and likely vertigo in context of underlying b/l cerebellar infarcts. Patient not a TPA candidate as out of window as well as NIHSS was 0. Admitted for further evaluation, seen by me, and continues to have symptoms. Repeat CT head reviewed and without acute changes. Feels better this AM, is anxious about going home. Explained to her she may have recurrence but not to be nervous. Limit head movements, bed rest, medications would likely help. Explained she does have cerebellar chronic CVA therefore dizzyness may occur. May be for discharge today. Active Medications Aspirin (Asa -) 81 mg PO DAILY [facility] Last Admin: 07/06/17 09:58 Dose: 81 mg Carvedilol (Coreg -) 6.25 mg PO BID [facility] Last Admin: 07/06/17 09:59 Dose: 6.25 mg Clonazepam (Klonopin -) 0.5 mg PO BID [facility] Last Admin: 07/06/17 09:58 Dose: 0.5 mg Escitalopram Oxalate (Lexapro -) 10 mg PO DAILY [facility] Last Admin: 07/06/17 09:58 Dose: 10 mg Heparin Sodium (Porcine) (Heparin -) 5,000 unit SQ BID [facility] Last Admin: 07/06/17 10:03 Dose: Not Given Lisinopril (Prinivil) 5 mg PO BID [facility] Last Admin: 07/06/17 09:59 Dose: 5 mg Meclizine HCl (Antivert -) 25 mg PO TID [facility] Last Admin: 07/06/17 05:51 Dose: 25 mg Mirtazapine (Remeron -) 15 mg PO HS [facility] Last Admin: 07/05/17 21:57 Dose: 15 mg Oxybutynin Chloride (Ditropan -) 10 mg PO DAILY [facility] Last Admin: 07/06/17 09:59 Dose: 10 mg Pancrelipase (Scott Jc 36,000 Units Capsule) 1 cap PO TIDCM [facility] Last Admin: 07/06/17 09:58 Dose: 1 cap Pantoprazole Sodium (Protonix -) 40 mg PO DAILY [facility] Last Admin: 07/06/17 09:59 Dose: 40 mg *Physical Exam Vital Signs Temperature 98.2 F 07/06/17 09:00 Pulse Rate 62 07/06/17 09:00 Respiratory Rate 14 07/06/17 09:00 Blood Pressure 136/64 07/06/17 09:00 O2 Sat by Pulse Oximetry (%) 96 07/05/17 21:00 - Physical Exam General Appearance: Yes: Nourished, Appropriately Dressed HEENT: positive: Normal ENT Inspection Neck: positive: Trachea midline Respiratory/Chest: positive: Lungs Clear, Normal Breath Sounds. negative: Chest Tender Cardiovascular: positive: Regular Rhythm, Regular Rate, S1, S2 Gastrointestinal/Abdominal: positive: Normal Bowel Sounds, Flat, Soft. negative : Tender Extremity: positive: Normal Capillary Refill Integumentary: positive: Normal Color, Dry, Warm Neurologic: positive: Fully Oriented, Alert, Normal Mood/Affect, CN intact, Motor Strength 5/5, Finger to Nose, gait deferred CBCD WBC 8.2 K/mm3 (4.0-10.0) 07/01/17 11:55 RBC 4.55 M/mm3 (3.60-5.2) 07/01/17 11:55 Hgb 13.4 GM/dL (10.7-15.3) 07/01/17 11:55 Hct 41.0 % (32.4-45.2) 07/01/17 11:55 MCV 90.3 fl (80-96) 07/01/17 11:55 MCHC 32.7 g/dl (32.0-36.0) 07/01/17 11:55 RDW 14.9 % (11.6-15.6) 07/01/17 11:55 Plt Count 235 K/MM3 (134-434) 07/01/17 11:55 MPV 8.4 fl (7.5-11.1) 07/01/17 11:55 CMP Sodium 140 mmol/L (136-145) 07/03/17 10:55 Potassium 5.1 mmol/L (3.5-5.1) 07/03/17 10:55 Chloride 109 mmol/L (98-107) H 07/03/17 10:55 Carbon Dioxide 24 mmol/L (21-32) 07/03/17 10:55 Anion Gap 7 (8-16) L 07/03/17 10:55 BUN 36 mg/dL (7-18) H 07/03/17 10:55 Creatinine 1.5 mg/dL (0.55-1.02) H D 07/03/17 10:55 Creat Clearance w eGFR 33.08 (>60) 07/03/17 10:55 Calcium 8.6 mg/dL (8.5-10.1) 07/03/17 10:55 Total Bilirubin 0.3 mg/dL (0.2-1.0) 07/03/17 10:55 AST 29 U/L (15-37) D 07/03/17 10:55 ALT 20 U/L (12-78) 07/03/17 10:55 Alkaline Phosphatase 80 U/L (45-117) 07/03/17 10:55 Total Protein 6.7 g/dl (6.4-8.2) 07/03/17 10:55 Albumin 3.3 g/dl (3.4-5.0) L 07/03/17 10:55 - RADIOLOGY CT head reviewed X 2 Medical Decision Making 86 yo F with h/o vertigo, chronic bilateral cerebellar infarcts, afib, aortic valve replacement , pacer chf presented for sudden onset vertigo today at 9 am. She reported that her symptoms were severe, with room spinning sensation. She felt lightheaded and nauseous but no vomiting. No focal weakness, no speech change. CT head was completed and did not show acute change. Patient initally called as priscilla santana, contacted by ER, spoke to ER attending who reviewed prior admission and noted same presentation approximately 1 month ago and likely vertigo in context of underlying b/l cerebellar infarcts. -Continue Meclezine, has been getting three times daily with good relief. -Can give low dose valium 2mg if needed -Repeat CT head stable -BP control, goal range <140/90, can continue valsartan -Continue ASA 81mg -IV/Po hydration -Avoid sudden head movements, improvement dizzyness today -Extensive conversation about condition and care occured in anticipation of discharge -Neurologically stable
--- NOTE | 2017-07-06 10:33 | PN ---
Progress Note (short form) - Note Progress Note: s: no cp sob palps; no dizzy/vertigo this AM o: Vital Signs Period Temp Pulse Resp BP Sys/Castro Pulse Ox Last 24 Hr 98.1 F-98.6 F 56-71 14-20 94-136/41-78 96 Constitutional: Yes: Well Nourished, No Distress Eyes: No: Sclera Icterus HENT: No: Nasal Congestion Neck: No: Decreased ROM Respiratory: Yes: CTA Bilaterally. No: Accessory Muscle Use, Rales, Wheezes Gastrointestinal: Yes: Normal Bowel Sounds. No: Distention, Hepatomegaly, Palpable Mass, Tenderness Cardiovascular: Yes: Regular Rate and Rhythm JVD: No Heart Sounds: Yes: S1, S2. No: Gallop Murmur: No: Systolic Murmur, Diastolic Murmur Extremities: No: Cold, Cyanosis Edema: No Integumentary: No: Jaundice diaphoresis Neurological: Yes: Alert, Oriented (x3) Psychiatric: No: Agitated Current Medications Generic Name Dose Route Start Last Admin Trade Name Mayo PRN Reason Stop Dose Admin Aspirin 81 mg 07/01/17 10:00 07/06/17 09:58 Asa - PO 81 mg DAILY ANITRA Administration Carvedilol 6.25 mg 07/04/17 11:45 07/06/17 09:59 Coreg - PO 6.25 mg BID ANITRA Administration Clonazepam 0.5 mg 06/30/17 22:00 07/06/17 09:58 Klonopin - PO 0.5 mg BID ANITRA Administration Escitalopram Oxalate 10 mg 07/01/17 10:00 07/06/17 09:58 Lexapro - PO 10 mg DAILY ANITRA Administration Heparin Sodium (Porcine) 5,000 unit 07/01/17 22:00 07/06/17 10:03 Heparin - SQ Not Given BID ANITRA Lisinopril 5 mg 07/06/17 10:00 07/06/17 09:59 Prinivil PO 5 mg BID ANITRA Administration Meclizine HCl 25 mg 07/02/17 14:00 07/06/17 05:51 Antivert - PO 25 mg TID ANITRA Administration Mirtazapine 15 mg 06/30/17 22:00 07/05/17 21:57 Remeron - PO 15 mg HS ANITRA Administration Oxybutynin Chloride 10 mg 07/01/17 10:00 07/06/17 09:59 Ditropan - PO 10 mg DAILY ANITRA Administration Pancrelipase 1 cap 06/30/17 17:30 07/06/17 09:58 Scott Jc 36,000 Units Capsule PO 1 cap TIDCM ANITRA Administration Pantoprazole Sodium 40 mg 07/01/17 10:00 07/06/17 09:59 Protonix - PO 40 mg DAILY ANITRA Administration CBC, BMP 07/01/17 11:55 07/03/17 10:55 Echo 06/2017: nl lv/rv. 1+ mac. mild-mod mr. bio AVR well seated. MG 5.5. trace-mild AR. Echo 04/04 (office): nl LV size, low-nl EF (50-55%). nl RV. nl bioAVR (trivial margy-prosthetic AI). trace MR Echo 06/03/17: mod-sev decr LVSF, mild LVH; nl RVSF. TDS AVR--mod AI,no . mod- severe MR. mild TR. RVSP 30-40 Carotids: mild, nonob plq ecg 06/30/17: sr, as-svp of digital tele: sr, as-svp of digital CXR: clear lungs a/p: dizziness, vertigo: -description c/w vertigo, no suggestion of cardiac etiology -of note are bilateral chronic cerebellar infarcts on CT--? central etiology vs BPPV -sx improved markedly with standing meclizine when here 06/05, but today 07/05 with recurrence despite receiving meclizine. -plan per neuro (following) -sx's not suggestive of arrhythmic etiology. 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, chronic syst CHF, mod to severe MR: -prior mech AVR which failed, then bioAVR 2014 -echo here 05/2017 with several marked changes from office study 2 mo ago: mod- sev LV dysfunction, moderate prosthetic AV regurg (was trivial on prior study), mod-severe MR (was trivial) --> no sig valvular ab on repeat 07/04/17 -CXR clear, no signs chf -last time here carvedilol 6.25 bid started (also for NSVT) and lisin decr'd 20 bid to 10 bid for bp room for B-B--meds corrected here to return to that regimen VTach: -NSVT on tele during 06/05 admit -no vt seen here thus far -EF mod-severely reduced on echo here 05/2017, now normalized. -cont coreg as above pafib: -in sinus here -pt with brief, transient AF noted occasionally on prior PM checks, AC being deferred per dr johnson office notes -continue ASA per home regimen ppm: -nl fcn on tele here, continue routine office checks CKD: -prior creatinines range 0.9-1.6 -states she has not been taking lasix at home b/c it is prn only for edema which she has not had -renal fxn stable here, observe trend. h/o rectal bleed 2014: -rpt FOC benign then; per GI etiology felt likely 2/2 retained blood post recent prior FOC (felt safe for anti-thrombotic meds per GI at that time) htn: -monitor with med changes above. Today bp running on low end. may need to downtitrate regimen and decrease lisinopril dose from 10 mg bid to 5 mg bid hld: -cont home statin cardiac gross stable for dc
--- NOTE | 2017-07-06 11:23 | DS ---
Physical Examination Vital Signs: Vital Signs Temperature 98.2 F 07/06/17 09:00 Pulse Rate 62 07/06/17 09:00 Respiratory Rate 14 07/06/17 09:00 Blood Pressure 136/64 07/06/17 09:00 O2 Sat by Pulse Oximetry (%) 96 07/05/17 21:00 Constitutional: Yes: No Distress, Calm Cardiovascular: Yes: Regular Rate and Rhythm Respiratory: Yes: CTA Bilaterally Gastrointestinal: Yes: Normal Bowel Sounds, Soft. No: Tenderness Edema: No Labs: CBC, BMP 07/03/17 10:55 Discharge Summary Reason For Visit: VERTIGO Current Active Problems CVA (cerebral vascular accident) (Acute) Rectal bleed (Acute) Vertigo (Acute) Hospital Course: admitted for dizziness Pt lives alone and is a rsik for fall-- she was admitted for severe dizziness Seen by CArdiology and Neurology CT head x 2 -- unremarkable Cardiac enzymes negative Telemetry normal continue with meds including Antivert VNS ordered as she is a fall risk mental health case manager on the case to ensure safe discharge stable for dc home Condition: Good - Instructions Referrals: Javi Brock MD [Staff Physician] - Disposition: HOME - Home Medications Comprehensive Discharge Medication List: Ambulatory Orders Aspirin [ASA -] 81 mg PO DAILY 06/01/16 Clonazepam [Klonopin -] 0.5 mg PO BID 06/01/16 Escitalopram Oxalate [Lexapro -] 10 mg PO DAILY 06/01/16 Mirtazapine [Remeron -] 15 mg PO DAILY 06/01/16 Omeprazole [Prilosec] 40 mg PO DAILY 06/01/16 Oxybutynin Chloride [Ditropan -] 10 mg PO DAILY 06/01/16 Meclizine HCl [Antivert -] 25 mg PO Q6H PRN #30 tablet 06/06/17 Acetaminophen [Tylenol .Regular Strength -] 1,000 mg PO Q4H PRN 06/30/17 Lipase/Protease/Amylase [Creon Dr 36,000 Units Capsule] 1 each PO TID 06/30/17 Valsartan 320 mg PO 06/30/17 Carvedilol [Coreg -] 6.25 mg PO BID #60 tablet 07/05/17
[2017-07-06 15:13] VITALS: BP 90/47; PULSE 56; TEMP 98.4
== END 2017-07-06 17:45 | disposition home or self-care (01) | DRG 149 ==
LOC: JER 10:26 → JERBED 14:28 → J4W 16:15 → OBSVTOIN 07-01 17:31
PROVIDERS: ADMIT Internal Medicine; ATTEND Internal Medicine
DX: R42 Dizziness and giddiness (principal); I50.22 Chronic systolic (congestive) heart failure; I47.2 Ventricular tachycardia; N17.9 Acute kidney failure, unspecified; I13.0 Hypertensive heart and chronic kidney disease with heart failure and stage 1 through stage 4 chronic kidney disease, or unspecified chronic kidney disease; I48.0 Paroxysmal atrial fibrillation; N18.9 Chronic kidney disease, unspecified; Z79.01 Long term (current) use of anticoagulants; Z95.0 Presence of cardiac pacemaker; I25.10 Atherosclerotic heart disease of native coronary artery without angina pectoris; Z86.73 Personal history of transient ischemic attack (TIA), and cerebral infarction without residual deficits; E78.00 Pure hypercholesterolemia, unspecified; Z87.891 Personal history of nicotine dependence; F32.9 Major depressive disorder, single episode, unspecified; I34.0 Nonrheumatic mitral (valve) insufficiency; Z95.2 Presence of prosthetic heart valve
CPT/HCPCS: 36415; 70450-TC; 71010-TC; 80053; 81003; 81015; 82550; 84484; 85025; 85610; 86850; 86870; 86900; 86901; 86902; 93005; 93010; 93306-TC; 97116-GP; 97161-GP; 99285-25; G0378; J1644

== ENCOUNTER 2017-09-13 12:28 | Observation (INO) | payer OTHER ==
[2017-09-13 12:55] VITALS: BMI 23.0
--- NOTE | 2017-09-13 12:58 | PDOC ---
History of Present Illness - General Chief Complaint: Lightheaded Stated Complaint: headache Time Seen by Provider: 09/13/17 12:52 History Source: Patient, Family Exam Limitations: No Limitations - History of Present Illness Initial Comments: 87 yo F history vertigo, TIA presents with vertiginous symptoms x1 day. She has had the same symptoms in the past, but today they did not respond to her meclizine. No CARLSON, fever, LOC, weakness, numbness. She has been vomiting. She notes that she is having crampy muscle pains. NIH Stroke Scale - Last Known Well Date/Time & Onset Date Last Known Well: 09/13/17 Time Last Known Well: 09:00 - Initial Evaluation Level of consciousness: Alert Ask patient the month and their age: Answers both correctly Ask patient to open & close eyes; make fist and let go: Obeys both correctly Best gaze (horizontal eye movement): Normal Visual field testing: No visual field loss Facial paresis (Show teeth/raise eyebrows/close eyes tight): Normal symmetrical movement Motor Function: Left Arm: Normal Motor Function: Right Arm: Normal (extends arm 90 (or 45) degrees for 10 seconds without drift Motor Function: Left Leg: Normal (extends leg 30 degrees for 5 seconds without drift) Motor Function: Right Leg: Normal (extends leg 30 degrees for 5 seconds without drift) Limb Ataxia: Present in one limb Sensory(Use pinprick test arms,legs,trunk,face/side to side): Normal Best language (Describe picture, name items, read sentences): No Aphasia Dysarthria (read several words): Normal articulation Extinction and Inattention: No abnormality - Total Score NIH Stroke Scale Score: 1 Past History - Past Medical History Allergies/Adverse Reactions: Allergies Allergy/AdvReac Type Severity Reaction Status Date / Time Iodinated Contrast- Oral and Allergy Severe Difficulty Verified 09/13/17 12:45 IV Dye Breathing [IV Dye, Iodine Containing Contrast ] iodine Allergy Severe Difficulty Verified 09/13/17 12:45 Breathing lactose AdvReac Verified 09/13/17 12:45 Home Medications: Ambulatory Orders Aspirin [ASA -] 81 mg PO DAILY 06/01/16 Escitalopram Oxalate [Lexapro -] 10 mg PO DAILY 06/01/16 Mirtazapine [Remeron -] 15 mg PO HS 06/01/16 Omeprazole [Prilosec] 40 mg PO DAILY PRN 06/01/16 Oxybutynin Chloride [Ditropan -] 10 mg PO DAILY 06/01/16 Valsartan 320 mg PO DAILY 06/30/17 Clonazepam [Klonopin -] 0.5 mg PO BID #20 tab MDD 2 07/06/17 Lipase/Protease/Amylase [Scott Jc 36,000 Units Capsule] 1 cap PO TIDCM 09/13/17 Triamterene/Hydrochlorothiazid [Triamterene-Hctz 37.5-25 mg Cp] 1 each PO DAILY 09/13/17 Acetaminophen [Pain Relief] 500 mg PO Q4H PRN 09/14/17 Furosemide [Lasix] 20 mg PO DAILY PRN 09/14/17 Meclizine HCl 25 mg PO Q8H PRN 09/14/17 Anemia: No Asthma: No Cancer: Yes (Ventricular Pacemaker - 2016, MAV replacement) Cardiac Disorders: Yes (SOB,) CVA: No COPD: No Dementia: No Diabetes: No GI Disorders: No Disorders: No HTN: Yes Hypercholesterolemia: Yes Liver Disease: No Seizures: No Thyroid Disease: No Other medical history: vertigo - Surgical History Abdominal Surgery: No Appendectomy: Yes Cardiac Surgery: Yes (MAV replacement, Ventricular Pacemaker) Cholecystectomy: Yes Lung Surgery: No Neurologic Surgery: No - Immunization History Immunization Up to Date: No - Suicide/Smoking/Psychosocial Hx Smoking Status: No Smoking History: Former smoker Have you smoked in the past 12 months: No Number of Cigarettes Smoked Daily: 0 Information on smoking cessation initiated: No 'Breaking Loose' booklet given: 06/03/17 Hx Alcohol Use: No Drug/Substance Use Hx: No Substance Use Type: None Hx Substance Use Treatment: No Review of Systems - Review of Systems Able to Perform ROS?: Yes Comments:: GENERAL/CONSTITUTIONAL: No fever or chills. No weakness. HEAD, EYES, EARS, NOSE AND THROAT: No change in vision. No ear pain or discharge. No sore throat. CARDIOVASCULAR: No chest pain or shortness of breath. RESPIRATORY: No cough, wheezing, or hemoptysis. GASTROINTESTINAL: No nausea, vomiting, diarrhea or constipation. GENITOURINARY: No dysuria, frequency, or change in urination. MUSCULOSKELETAL: No joint or muscle swelling or pain. No neck or back pain. SKIN: No rash NEUROLOGIC: No headache, loss of consciousness, or change in strength/ sensation. +Vertigo ENDOCRINE: No increased thirst. No abnormal weight change. HEMATOLOGIC/LYMPHATIC: No anemia, easy bleeding, or history of blood clots. ALLERGIC/IMMUNOLOGIC: No hives or skin allergy. *Physical Exam - Vital Signs Last Vital Signs Temp Pulse Resp BP Pulse Ox 98.3 F 63 20 157/75 100 09/13/17 12:45 09/13/17 12:45 09/13/17 12:45 09/13/17 12:45 09/13/17 12:45 - Physical Exam Comments: GENERAL: Awake, alert, and fully oriented, in no acute distress HEAD: No signs of trauma EYES: PERRLA, EOMI, sclera anicteric, conjunctiva clear ENT: Auricles normal inspection, hearing grossly normal, nares patent, oropharynx clear without exudates. Moist mucosa NECK: Normal ROM, supple, no lymphadenopathy, JVD, or masses LUNGS: Breath sounds equal, clear to auscultation bilaterally. No wheezes, and no crackles HEART: Regular rate and rhythm, normal S1 and S2, no murmurs, rubs or gallops ABDOMEN: Soft, nontender, normoactive bowel sounds. No guarding, no rebound. No masses EXTREMITIES: Normal range of motion, no edema. No clubbing or cyanosis. No cords, erythema, or tenderness NEUROLOGICAL: Cranial nerves II through XII grossly intact. Normal speech, normal gait. Motor and sensation intact. SKIN: Warm, Dry, normal turgor, no rashes or lesions noted. ED Treatment Course - LABORATORY CBC & Chemistry Diagram: 09/14/17 06:55 09/14/17 06:55 Medical Decision Making - Medical Decision Making I discussed with Dr. Raza. I do not suspect CVA at this time, as she has the same symptoms as residual from previous stroke. She did not respond to meclizine at home, and did not improve with valium in ED (was unable to sit up in stretcher without dizziness). Will admit for further management. *DC/Admit/Observation/Transfer Diagnosis at time of Disposition: Vertigo - Discharge Dispostion Condition at time of disposition: Stable Admit: Yes - Referrals - Patient Instructions - Post Discharge Activity
[2017-09-13] MEDS ORDERED: SODIUM CHLORIDE 1,000 ML IV STA (13:03)
[2017-09-13 13:19] LABS: BASO % 0.4 % (0-2.0); EOS % 0.5 % (0-4.5); LYMPH # 2.6 (8-40); MCH 29.1 pg (25.7-33.7); MCHC 32.1 g/dl (32.0-36.0); MEAN CELL VOLUME 90.6 fl (80-96); MEAN PLT VOLUME 8.7 fl (7.5-11.1); MONO # 0.6 # (3.8-10.2); NEUT # 6.8 # (42.8-82.8); PLATELET COUNT 234 K/MM3 (134-434); RDW 14.3 % (11.6-15.6); WHITE BLOOD COUNT 10.1 K/mm3 (4.0-10.0)
[2017-09-13 13:49] LABS: ALBUMIN 3.8 g/dl (3.4-5.0); ALK PHOS 90 U/L (45-117); ANION GAP 10 (8-16); BILIRUBIN,TOTAL 0.3 mg/dL (0.2-1.0); CALCIUM 9.3 mg/dL (8.5-10.1); CO2 20 mmol/L (21-32); CREATININE 1.9 mg/dL (0.55-1.02); GLUCOSE,RANDOM 90 mg/dL (74-106); SGOT/AST 35 U/L (15-37); SGPT/ALT 39 U/L (12-78); TOT PROT 7.5 g/dl (6.4-8.2)
[2017-09-13] MEDS ORDERED: SODIUM CHLORIDE 2,000 ML IV STA (14:28)
[2017-09-13] MEDS ORDERED: diazePAM 5 MG TABLET PO ONE (15:15)
[2017-09-13] MEDS ORDERED: diazePAM 5 MG TABLET ONE (15:45)
--- NOTE | 2017-09-13 17:30 | HP ---
CHIEF COMPLAINT: worsening dizziness, PCP: Ry Hayden MD HISTORY OF PRESENT ILLNESS: Patient is an 87 year old female with a significant past medical history of vertigo, TIA, hypertension, hyperlipidemia, aortic insufficiency ( s/p mechanical aortic valve replacement 1988 ), CHF, atrial fibrillation and rectal bleeding. She presents to the ED today with worsening dizziness for 1 day. She reports that she has had these symptoms in the past but responded to meclazine which she takes around the clock, but this time the dizziness dis not resolved. She denies any headaches, fever, loss of consiousness or falls. States she has been vomiting at home but this has since resolved. She denies any chest pain, shortness of breath, fever or chills. ER course was notable for: (1) K. 5.3 (2) bun/creat 61/1.9 (3) head ct: generalized age volume loss with mild microvascular isch. changes Recent Travel: PAST MEDICAL HISTORY: vertigo, TIA, hypertension, hyperlipidemia, aortic insufficiency ( s/p mechanical aortic valve replacement 1988 ), CHF, atrial fibrillation and rectal bleeding PAST SURGICAL HISTORY: Social History: Smoking: none Alcohol: none Drugs: none Family History: Allergies Iodinated Contrast- Oral and IV Dye [IV Dye, Iodine Containing Contrast ] Allergy (Severe, Verified 09/13/17 12:45) Difficulty Breathing DIFFICULTY BREATHING/HTN iodine Allergy (Severe, Verified 09/13/17 12:45) Difficulty Breathing THROAT CLOSES, HTN lactose Adverse Reaction (Verified 09/13/17 12:45) HOME MEDICATIONS: Home Medications Medication Instructions Recorded Aspirin [ASA -] 81 mg PO DAILY 06/01/16 Escitalopram Oxalate [Lexapro -] 10 mg PO DAILY 06/01/16 Mirtazapine [Remeron -] 15 mg PO DAILY 06/01/16 Omeprazole [Prilosec] 40 mg PO DAILY 06/01/16 Oxybutynin Chloride [Ditropan -] 10 mg PO DAILY 06/01/16 Acetaminophen [Tylenol .Regular 1,000 mg PO Q4H PRN 06/30/17 Strength -] Lipase/Protease/Amylase [Creon Dr 1 each PO TID 06/30/17 36,000 Units Capsule] Valsartan 320 mg PO 06/30/17 Carvedilol [Coreg -] 6.25 mg PO BID #60 tablet 07/05/17 Clonazepam [Klonopin -] 0.5 mg PO BID #20 tab MDD 2 07/06/17 Meclizine HCl [Antivert -] 25 mg PO TID PRN #90 tablet 07/06/17 Lipase/Protease/Amylase [Creon Dr 1 cap PO TID 09/13/17 36,000 Units Capsule] Triamterene/Hydrochlorothiazid 1 each PO DAILY 09/13/17 [Triamterene-Hctz 37.5-25 mg Cp] REVIEW OF SYSTEMS CONSTITUTIONAL: Absent: fever, chills, diaphoresis, generalized weakness, malaise, loss of appetite, weight change HEENT: Absent: rhinorrhea, throat pain, throat swelling, difficulty swallowing, mouth swelling, ear pain, eye pain, visual changes CARDIOVASCULAR: Absent: chest pain, syncope, palpitations, irregular heart rate, peripheral edema RESPIRATORY: Absent: cough, shortness of breath, dyspnea with exertion, orthopnea, wheezing, stridor, hemoptysis GASTROINTESTINAL: Absent: abdominal pain, abdominal distension, nausea, vomiting, diarrhea, constipation, melena, hematochezia GENITOURINARY: Absent: dysuria, frequency, urgency, hesitancy, hematuria, flank pain, genital pain MUSCULOSKELETAL: Absent: myalgia, arthralgia, joint swelling, back pain, neck pain SKIN: Absent: rash, itching, pallor HEMATOLOGIC/IMMUNOLOGIC: Absent: easy bleeding, easy bruising, lymphadenopathy, frequent infections ENDOCRINE: Absent: unexplained weight gain, unexplained weight loss, heat intolerance, cold intolerance NEUROLOGIC: Absent: headache, focal weakness or paresthesias, dizziness, unsteady gait, seizure, mental status changes, bladder or bowel incontinence PSYCHIATRIC: Absent: anxiety, depression, suicidal or homicidal ideation, hallucinations. PHYSICAL EXAMINATION Vital Signs - 24 hr 09/13/17 12:45 Temperature 98.3 F Pulse Rate 63 Respiratory 20 Rate Blood Pressure 157/75 O2 Sat by Pulse 100 Oximetry (%) GENERAL: Awake, alert, and fully oriented, in no acute distress. HEAD: Normal with no signs of trauma. EYES: Pupils equal, round and reactive to light, extraocular movements intact, sclera anicteric, conjunctiva clear. No lid lag. EARS, NOSE, THROAT: + congestions, nasal dripping, sinus congestion for a few days NECK: Normal range of motion, supple without lymphadenopathy, JVD, or masses. LUNGS: Breath sounds equal, clear to auscultation bilaterally. No wheezes, and no crackles. No accessory muscle use. HEART: rrr ABDOMEN: Soft, nontender, MUSCULOSKELETAL: Normal range of motion at all joints. No bony deformities or tenderness. No CVA tenderness. UPPER EXTREMITIES: 2+ pulses, warm, well-perfused. No cyanosis. No clubbing. No peripheral edema. LOWER EXTREMITIES: 2+ pulses, warm, well-perfused. No calf tenderness. No peripheral edema. NEUROLOGICAL: Normal speech. PSYCHIATRIC: Cooperative. Good eye contact. Appropriate mood and affect. SKIN: Warm, dry, normal turgor, no rashes or lesions noted, normal capillary refill. Laboratory Results - last 24 hr 09/13/17 09/13/17 13:05 13:05 WBC 10.1 H RBC 4.62 Hgb 13.5 Hct 41.9 MCV 90.6 MCH 29.1 MCHC 32.1 RDW 14.3 Plt Count 234 MPV 8.7 Neutrophils % 67.0 Lymphocytes % 26.0 Monocytes % 6.1 Eosinophils % 0.5 Basophils % 0.4 Sodium 142 Potassium 5.3 H Chloride 112 H Carbon Dioxide 20 L Anion Gap 10 BUN 61 H D Creatinine 1.9 H D Creat Clearance w eGFR 25.12 Random Glucose 90 D Calcium 9.3 Total Bilirubin 0.3 AST 35 D ALT 39 D Alkaline Phosphatase 90 Total Protein 7.5 Albumin 3.8 ASSESSMENT/PLAN: Patient is an 87 year old female with a significant past medical history of vertigo, TIA, hypertension, hyperlipidemia, aortic insufficiency ( s/p mechanical aortic valve replacement 1988 ), CHF, atrial fibrillation and rectal bleeding. She presents to the ED today with worsening dizziness for 1 day. She reports that she has had these symptoms in the past but responded to meclazine which she takes around the clock, but this time the dizziness dis not resolved. She denies any headaches, fever, loss of consiousness or falls. States she has been vomiting at home but this has since resolved. She denies any sick contacts, or recent travel. She denies any chest pain, shortness of breath, fever or chills. Neurology Dizziness/Vertigo: TIA vs. cardiac component Ct scan no acute process On Antivert without relief at home Fall precautions Neurology consult Cardiology Rule out ACS/cardiac cause of dizziness Trend troponins, cardiac history noted above, therefore should be monitored on tele Monitor on telemonitoring EKG now Denies any chest pain, shortness of breath Cardiology consult Atrial fibrillation, chronic Monitor on tele On Xarelto Cardiology consult Renal ROLANDO, creat 1.9 on NS x 1 bag with caution for fluid overload Monitor kidney function F.E.N. Fluids: gentle hydration with NS x 1 Electrolytes: monitor Nutrition: sodium controlled Prophylaxis: DVT: Xarelton GI: Protonix
[2017-09-13] MEDS ORDERED: MECLIZINE HCL 25 MG TABLET (FP) PO PRN (18:21)
[2017-09-13] MEDS ORDERED: ACETAMINOPHEN 325 MG TABLET (FP) PO PRN (18:21)
[2017-09-13] MEDS ORDERED: ACETAMINOPHEN 500 MG TABLET (FP) PO PRN (18:28)
[2017-09-13] MEDS ORDERED: LIPASE/PROTEASE/AMYLASE 36,000 UNIT CAPSULE PO SCH ×2 (18:45→22:00)
[2017-09-13] MEDS ORDERED: MECLIZINE HCL 25 MG TABLET (FP) PO STA (19:27)
[2017-09-13] MEDS ORDERED: MECLIZINE HCL 25 MG TABLET (FP) ONE (20:20)
[2017-09-13] MEDS: MECLIZINE HCL 25 MG TABLET (FP) PO SCH (22:34)
[2017-09-13] MEDS: CARVEDILOL 6.25 MG TABLET (FP) PO SCH (23:39)
[2017-09-13] MEDS: clonazePAM 0.5 MG TABLET PO SCH (23:39)
[2017-09-13] MEDS: MIRTAZAPINE 15 MG TABLET (FP) PO SCH (23:40)
[2017-09-14] MEDS ORDERED: MECLIZINE HCL 25 MG TABLET (FP) ONE ×2 (06:41→14:08)
[2017-09-14] MEDS: MECLIZINE HCL 25 MG TABLET (FP) PO SCH ×3 (06:44→21:43)
[2017-09-14 07:37] LABS: BASO % 0.3 % (0-2.0); EOS # 0.1 # (0-4.5); EOS % 0.7 % (0-4.5); LYMPH # 1.8 (8-40); MCH 29.3 pg (25.7-33.7); MEAN CELL VOLUME 91.4 fl (80-96); MEAN PLT VOLUME 9.2 fl (7.5-11.1); MONO # 0.5 # (3.8-10.2); NEUT # 6.9 # (42.8-82.8); NEUT % 74.1 % (42.8-82.8); PLATELET COUNT 220 K/MM3 (134-434); RDW 14.1 % (11.6-15.6); WHITE BLOOD COUNT 9.4 K/mm3 (4.0-10.0)
[2017-09-14 08:05] LABS: ALBUMIN 3.2 g/dl (3.4-5.0); ANION GAP 9 (8-16); CALCIUM 8.7 mg/dL (8.5-10.1); CO2 21 mmol/L (21-32); GLUCOSE,RANDOM 105 mg/dL (74-106); MAGNESIUM 2.5 mg/dL (1.8-2.4); SGOT/AST 29 U/L (15-37); SGPT/ALT 35 U/L (12-78)
[2017-09-14 08:07] LABS: ALK PHOS 73 U/L (45-117); BILIRUBIN,TOTAL 0.4 mg/dL (0.2-1.0); CREATININE 1.6 mg/dL (0.55-1.02); TOT PROT 6.6 g/dl (6.4-8.2)
[2017-09-14 08:27] LABS: CHOLESTEROL 169 mg/dL (50-200)
[2017-09-14] MEDS: LIPASE/PROTEASE/AMYLASE 36,000 UNIT CAPSULE PO SCH ×3 (09:00→18:00)
[2017-09-14 10:09] LABS: URINE APPEARANCE CLOUDY; URINE BILIRUBIN NEGATIVE (NEGATIVE); URINE BLOOD 2+ (NEGATIVE); URINE COLOR YELLOW; URINE GLUCOSE (UA) NEGATIVE (NEGATIVE); URINE KETONE NEGATIVE (NEGATIVE); URINE NITRITE NEGATIVE (NEGATIVE); URINE PROTEIN NEGATIVE (NEGATIVE); URINE UROBILINOGEN NEGATIVE mg/dL (0.2-1.0)
[2017-09-14] MEDS ORDERED: clonazePAM 0.5 MG TABLET ONE (10:16)
[2017-09-14 10:29] LABS: URINE LEUK ESTERASE 2+ (NEGATIVE)
[2017-09-14] MEDS: clonazePAM 0.5 MG TABLET PO SCH ×2 (10:30→21:43)
[2017-09-14] MEDS: VALSARTAN 160 MG TABLET (UD) PO SCH (10:30)
[2017-09-14] MEDS: CARVEDILOL 6.25 MG TABLET (FP) PO SCH ×2 (10:30→21:43)
[2017-09-14] MEDS: ASPIRIN 81 MG CHEWABLE TABLETS PO SCH (10:30)
[2017-09-14] MEDS: OXYBUTYNIN CHLORIDE 5 MG TABLET PO SCH (10:30)
[2017-09-14] MEDS: ESCITALOPRAM OXALATE 10 MG TABLET (FP) PO SCH (10:30)
[2017-09-14 11:32] LABS: URINE BACTERIA MANY /hpf (NONE SEEN); URINE HYALINE CAST 4 /lpf; URINE RBC 13 /hpf (0-3); URINE WBC 6 /hpf (3-5)
--- NOTE | 2017-09-14 11:42 | CONSULT ---
Consult - text type - Consultation Consultation Note: Went to see and examine the patient in the ER. Patient and patient son stating dr. Ocampo is her nut cracker. Please change the consultation to dr. Rivers
--- NOTE | 2017-09-14 13:24 | EKG ---
Test Reason : Blood Pressure : / mmHG Vent. Rate : 061 BPM Atrial Rate : 061 BPM P-R Int : 266 ms QRS Dur : 194 ms QT Int : 516 ms P-R-T Axes : 039 -57 111 degrees QTc Int : 519 ms Atrial-sensed ventricular-paced rhythm with prolonged AV conduction ABNORMAL ECG WHEN COMPARED WITH ECG OF 30-JUN-2017 11:06, VENT. RATE HAS DECREASED BY 7 BPM Confirmed by JOHN VARMA, CLYDE ([id number]) on 09/14/2017 1:23:54 PM Referred By: Confirmed By:CLYDE LOPEZ MD
--- NOTE | 2017-09-14 17:36 | PN ---
Progress Note (short form) - Note Progress Note: patient with extensive past medical history--admitted again due to dizziness Chart reviewed Patient of Dr. Brock. Past medical history includes 87 yo h/o mild systolic chf, mech avr (1988) with severe AR requiring re-op with bio avr 08/2015, cad, htn, hl, s/p ppm ([employer] for [place]), per report - rare episodes of afib seen, prior chronic bilateral cerebellar infarcts with residual vertigo sx's, ckd who p/w dizziness refractory to meclizine. recently admitted for same also. Seen by me in the emergency room--- still waiting for bed Anxious. Reports gets dizzy when he gets out of bed Denies chest pain or shortness of breath no abdominal pain Denies headache Denies blurring of vision Vital Signs 98.6 F 09/14/17 03:23 Pulse 57 L 09/14/17 10:30 Resp 16 09/14/17 10:30 BP 144/67 09/14/17 10:30 Pulse Ox 98 09/14/17 10:30 Intake & Output 09/13/17 09/14/17 09/14/17 23:59 11:59 23:59 Weight 114 lb 114 lb Other: Height 4 ft 11 in 4 ft 11 in Body Mass Index (BMI) 23.0 23.0 Weight Measurement Method Stated by Patient Weight Measurement Method Est/Stated by Patient Active Medications Acetaminophen (Tylenol -) 1,000 mg PO Q4H PRN PRN Reason: FEVER OR PAIN Aspirin (Asa -) 81 mg PO DAILY [facility] Last Admin: 09/14/17 10:30 Dose: 81 mg Carvedilol (Coreg -) 6.25 mg PO BID [facility] Last Admin: 09/14/17 10:30 Dose: 6.25 mg Clonazepam (Klonopin -) 0.5 mg PO BID [facility] Last Admin: 09/14/17 10:30 Dose: 0.5 mg Escitalopram Oxalate (Lexapro -) 10 mg PO DAILY [facility] Last Admin: 09/14/17 10:30 Dose: 10 mg Meclizine HCl (Antivert -) 25 mg PO TID [facility] Last Admin: 09/14/17 14:00 Dose: 25 mg Mirtazapine (Remeron -) 15 mg PO HS [facility] Last Admin: 09/13/17 23:40 Dose: 15 mg Oxybutynin Chloride (Ditropan -) 10 mg PO DAILY [facility] Last Admin: 09/14/17 10:30 Dose: 10 mg Pancrelipase (Creon Dr 36,000 Units Capsule) 1 cap PO TIDCM [facility] Last Admin: 09/14/17 13:13 Dose: 1 cap Valsartan (Diovan -) 320 mg PO DAILY [facility] Last Admin: 09/14/17 10:30 Dose: 320 mg CBC, BMP 09/14/17 06:55 09/14/17 06:55 physical exam Alert and awake--- Lungs--clear Mucosa--slightly dry CVS--S1 and S2 regular scar present in midline Neck--- supple--- no carotid bruit Trachea midline Abdomen--soft Extremities--no edema neuro--alert and oriented 3--- nonfocal exam Psych--anxiety present Assessment and plan Chronic dizziness--- recent worsening of symptoms--- with extensive past medical history as above Discussed with patient Medications reviewed Continue same Drink fluids Hold diuretics Kayexalate Monitor lites Monitor on telemetry Cardiology as well as neurology eval Will follow. Problem List - Problems (1) CAD (coronary artery disease) Code(s): I25.10 - ATHSCL HEART DISEASE OF [place] CORONARY ARTERY W/O ANG PCTRS (2) Dizziness Code(s): R42 - DIZZINESS AND GIDDINESS (3) H/O aortic valve replacement Code(s): Z95.2 - PRESENCE OF PROSTHETIC HEART VALVE (4) Hypertension Code(s): I10 - ESSENTIAL (PRIMARY) HYPERTENSION (5) Pacemaker Code(s): Z95.0 - PRESENCE OF CARDIAC PACEMAKER
[2017-09-14] MEDS ORDERED: SODIUM POLYSTYRENE SULFONATE 15 GM/60 ML BOTTLE PO ONE (17:45)
--- NOTE | 2017-09-14 18:13 | CON.CARD ---
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 Recent admit here for the same, thought to be vertigo then. Same type sxs now. Was taking meclizine prn but still had frequent episodes of room spinning and nausea/vomiting. States she is unable to walk. States she was recently started on triamterene-hctz about one month ago. Has not been taking prn lasix. + progressive decreased po intake for the past 1-2 months with associated weight loss. Was scheduled to see Dr. Perez this week. No cp, sob, palps, loc, pnd, orthopnea le edema. + nasal congestion noted have jose enrique and hyperkalemia here. s/p IVF. PMH/pshx: per hpi, also Depression Social hx: no Hx Alcohol Use . no tob Family History: Denies (no cmp) ROS: per hpi. no f/c/s, runny nose, cough, h/a, rash, visual disturbances. Ambulatory Orders Aspirin [ASA -] 81 mg PO DAILY 06/01/16 Escitalopram Oxalate [Lexapro -] 10 mg PO DAILY 06/01/16 Mirtazapine [Remeron -] 15 mg PO HS 06/01/16 Omeprazole [Prilosec] 40 mg PO DAILY PRN 06/01/16 Oxybutynin Chloride [Ditropan -] 10 mg PO DAILY 06/01/16 Valsartan 320 mg PO DAILY 06/30/17 Clonazepam [Klonopin -] 0.5 mg PO BID #20 tab MDD 2 07/06/17 Lipase/Protease/Amylase [Scott Jc 36,000 Units Capsule] 1 cap PO TIDCM 09/13/17 Triamterene/Hydrochlorothiazid [Triamterene-Hctz 37.5-25 mg Cp] 1 each PO DAILY 09/13/17 Acetaminophen [Pain Relief] 500 mg PO Q4H PRN 09/14/17 Furosemide [Lasix] 20 mg PO DAILY PRN 09/14/17 Meclizine HCl 25 mg PO Q8H PRN 09/14/17 Current Medications Acetaminophen (Tylenol -) 1,000 mg PO Q4H PRN PRN Reason: FEVER OR PAIN Aspirin (Asa -) 81 mg PO DAILY [facility] Last Admin: 09/14/17 10:30 Dose: 81 mg Carvedilol (Coreg -) 6.25 mg PO BID [facility] Last Admin: 09/14/17 10:30 Dose: 6.25 mg Clonazepam (Klonopin -) 0.5 mg PO BID [facility] Last Admin: 09/14/17 10:30 Dose: 0.5 mg Escitalopram Oxalate (Lexapro -) 10 mg PO DAILY [facility] Last Admin: 09/14/17 10:30 Dose: 10 mg Heparin Sodium (Porcine) (Heparin -) 5,000 unit SQ BID [facility] Meclizine HCl (Antivert -) 25 mg PO TID [facility] Last Admin: 09/14/17 14:00 Dose: 25 mg Mirtazapine (Remeron -) 15 mg PO HS [facility] Last Admin: 09/13/17 23:40 Dose: 15 mg Oxybutynin Chloride (Ditropan -) 10 mg PO DAILY [facility] Last Admin: 09/14/17 10:30 Dose: 10 mg Pancrelipase (Creon Dr 36,000 Units Capsule) 1 cap PO TIDCM [facility] Last Admin: 09/14/17 13:13 Dose: 1 cap Valsartan (Diovan -) 320 mg PO DAILY [facility] Last Admin: 09/14/17 10:30 Dose: 320 mg Vital Signs - 24 hr 09/14/17 09/14/17 03:23 10:30 Temperature 98.6 F Pulse Rate [ 70 57 L Apical] Respiratory 18 16 Rate Blood Pressure 112/55 144/67 [Left] O2 Sat by Pulse 95 98 Oximetry (%) Intake & Output 09/12/17 09/13/17 09/14/17 09/15/17 07:59 07:59 07:59 07:59 Weight 114 lb 114 lb Constitutional: Yes: Well Nourished, uncomfortable Eyes: No: Sclera Icterus HENT: No: Nasal Congestion Neck: No: Decreased ROM Respiratory: Yes: CTA Bilaterally. No: Accessory Muscle Use, Rales, Wheezes Gastrointestinal: Yes: Normal Bowel Sounds. No: Distention, Hepatomegaly, Palpable Mass, Tenderness Cardiovascular: Yes: Regular Rate and Rhythm JVD: No Carotid Bruit: No PMI: Non-Displaced Heart Sounds: Yes: S1, S2. No: Gallop Murmur: No: Systolic Murmur, Diastolic Murmur Extremities: No: Cold, Cyanosis Edema: No Peripheral Pulses: 2+ Left Carotid, 2+ Right Carotid, 2+ Left Doralis Pedis, 2+ Right Dorsalis Pedis Integumentary: No: Jaundice diaphoresis Neurological: Yes: Alert, Oriented (x3) Psychiatric: No: Agitated CBC, BMP 09/14/17 06:55 09/14/17 06:55 Laboratory Tests 09/13/17 09/13/17 09/14/17 13:05 21:55 06:03 Potassium 5.3 H Creatinine 1.9 H D Hemoglobin A1c % Magnesium Total Bilirubin AST ALT Alkaline Phosphatase Troponin I 0.03 0.03 Albumin Triglycerides Cholesterol Total LDL Cholesterol HDL Cholesterol 09/14/17 09/14/17 09/14/17 06:55 06:55 06:55 Potassium Creatinine Hemoglobin A1c % Magnesium 2.5 H Total Bilirubin 0.4 D AST 29 ALT 35 Alkaline Phosphatase 73 Troponin I 0.03 Albumin 3.2 L Triglycerides 147 Cholesterol 169 Total LDL Cholesterol 100 HDL Cholesterol 44 D 09/14/17 06:55 Potassium Creatinine Hemoglobin A1c % 6.3 H Magnesium Total Bilirubin AST ALT Alkaline Phosphatase Troponin I Albumin Triglycerides Cholesterol Total LDL Cholesterol HDL Cholesterol ekg: a-sensed, v-paced tele: a-sensed, v-paced echo 08/2017: mildly reduced lv fn. tds for rwma. rv not well seen. severe mr. 1+ tr. poorly visualized bioavr. mild perivalvular ar. echo 06/2017 ([facility]): nl lv/rv. 1+ mac. mild-mod mr. bio AVR well seated. MG 5.5. trace-mild AR. preop cath 08/2015: normal cors.eg 08/[address]: report reveiwed. no sig change from priors. + chronic sinusitis. 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 dizziness, vertigo: -description c/w vertigo, no suggestion of cardiac etiology -on past admits vertigo thought to be residual sx 2/2 bilateral chronic cerebellar infarcts. managed with meclizine. - patient with poor po intake recently may be exacerbating sx's. would hold diuretics. - also with chronic sinusitis, defer to pmd regarding whether this could be contributing to vertigo sx's. - tele monitoring. h/o valvular heart dz with prior mech avr failure s/p reop 2014, chronic syst CHF, mod to severe MR: -prior mech AVR which failed, then bioAVR 2014 -echo here 05/2017 with several marked changes from office study 2 mo ago: mod- sev LV dysfunction, moderate prosthetic AV regurg (was trivial on prior study), mod-severe MR (was trivial) --> no sig valvular ab on repeat 07/04/17. Here again with report of severe MR --> will have to review images. - no signs chf -con't coreg. consider decreasing dose of diovan while hyperkalemic. h/o nsvt -cont coreg as above - no recurrence on tele thus far. correction of lyte abnormalities as doing. pafib: -in sinus here -pt with brief, transient AF noted occasionally on prior PM checks, AC being deferred per dr johnson office notes -continue ASA per home regimen. If concern for recurrent infarct can readdress need for AC. Will check most recent remote monitoring for any AF burden. 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 Will clarify with outpatient jar capper. CKD with jose enrique: -prior creatinines range 0.9-1.6 -improved s/p IVF. hold diuretics for now. s/p kayexalate for hyperkalemia. diovan dosing as above. h/o rectal bleed 2014: -rpt FOC benign then; per GI etiology felt likely 2/2 retained blood post recent prior FOC (felt safe for anti-thrombotic meds per GI at that time) htn: -monitor with med changes above. hld: -cont home statin
[2017-09-14] MEDS ORDERED: SODIUM POLYSTYRENE SULFONATE 15 GM/60 ML BOTTLE ONE (18:15)
[2017-09-14 18:50] LABS: URINE LEUK ESTERASE 1+ (NEGATIVE)
[2017-09-14] MEDS: MIRTAZAPINE 15 MG TABLET (FP) PO SCH (21:43)
[2017-09-14] MEDS: HEPARIN NA (PORCINE) 5,000 UNITS/ML 1ML VIAL SQ SCH (21:43)
[2017-09-15] MEDS: MECLIZINE HCL 25 MG TABLET (FP) PO SCH ×3 (05:23→22:14)
[2017-09-15 07:22] LABS: BASO % 0.5 % (0-2.0); EOS # 0.1 #; EOS % 0.8 % (0-4.5); LYMPH # 2.3; MCH 29.7 pg (25.7-33.7); MCHC 32.9 g/dl (32.0-36.0); MEAN CELL VOLUME 90.2 fl (80-96); MEAN PLT VOLUME 9.6 fl (7.5-11.1); MONO # 0.5 #; NEUT # 5.3 #; NEUT % 64.4 % (42.8-82.8); PLATELET COUNT 218 K/MM3 (134-434); RDW 13.9 % (11.6-15.6); WHITE BLOOD COUNT 8.3 K/mm3 (4.0-10.0)
[2017-09-15 07:24] LABS: ALK PHOS 78 U/L (45-117); ANION GAP 7 (8-16); BILIRUBIN,TOTAL 0.5 mg/dL (0.2-1.0); CALCIUM 8.1 mg/dL (8.5-10.1); CO2 20 mmol/L (21-32); CREATININE 1.5 mg/dL (0.55-1.02); GLUCOSE,RANDOM 105 mg/dL (74-106); SGPT/ALT 36 U/L (12-78); TOT PROT 6.4 g/dl (6.4-8.2)
[2017-09-15 07:28] LABS: SGOT/AST 34 U/L (15-37)
[2017-09-15] MEDS ORDERED: PT OWN MED DRAWER 7, Y5N ONE (08:09)
[2017-09-15] MEDS: OXYBUTYNIN CHLORIDE 5 MG TABLET PO SCH (09:47)
[2017-09-15] MEDS: ASPIRIN 81 MG CHEWABLE TABLETS PO SCH (09:47)
[2017-09-15] MEDS: HEPARIN NA (PORCINE) 5,000 UNITS/ML 1ML VIAL SQ SCH ×2 (09:47→22:14)
[2017-09-15] MEDS: VALSARTAN 160 MG TABLET (UD) PO SCH (09:47)
[2017-09-15] MEDS: CARVEDILOL 6.25 MG TABLET (FP) PO SCH ×2 (09:48→22:14)
[2017-09-15] MEDS: ESCITALOPRAM OXALATE 10 MG TABLET (FP) PO SCH (09:48)
[2017-09-15] MEDS: clonazePAM 0.5 MG TABLET PO SCH ×2 (09:48→22:14)
[2017-09-15] MEDS: LIPASE/PROTEASE/AMYLASE 36,000 UNIT CAPSULE PO SCH ×3 (09:52→18:06)
--- NOTE | 2017-09-15 11:06 | PN ---
Progress Note (short form) - Note Progress Note: patient seen and examined in telemetry. Feels much better Sitting in chair Son at bedside All the follow-ups are noted Dizziness is much improved. Vital Signs Temp 99.0 F 09/15/17 08:16 Pulse 85 09/15/17 08:16 Resp 18 09/15/17 08:19 BP 139/85 09/15/17 08:16 Pulse Ox 99 09/15/17 08:19 Intake & Output 09/14/17 09/14/17 09/15/17 11:59 23:59 11:59 Intake Total 240 120 Balance 240 120 Weight 114 lb Intake: Oral 240 120 Other: Voiding Method Bedpan Bedpan # Unmeasured Voids Void 2 2 Height 4 ft 11 in Body Mass Index (BMI) 23.0 Weight Measurement Method Stated by Patient Active Medications Acetaminophen (Tylenol -) 1,000 mg PO Q4H PRN PRN Reason: FEVER OR PAIN Aspirin (Asa -) 81 mg PO DAILY [facility] Last Admin: 09/15/17 09:47 Dose: 81 mg Carvedilol (Coreg -) 6.25 mg PO BID [facility] Last Admin: 09/15/17 09:48 Dose: 6.25 mg Clonazepam (Klonopin -) 0.5 mg PO BID [facility] Last Admin: 09/15/17 09:48 Dose: 0.5 mg Escitalopram Oxalate (Lexapro -) 10 mg PO DAILY [facility] Last Admin: 09/15/17 09:48 Dose: 10 mg Heparin Sodium (Porcine) (Heparin -) 5,000 unit SQ BID [facility] Last Admin: 09/15/17 09:47 Dose: 5,000 unit Meclizine HCl (Antivert -) 25 mg PO TID [facility] Last Admin: 09/15/17 05:23 Dose: 25 mg Mirtazapine (Remeron -) 15 mg PO HS [facility] Last Admin: 09/14/17 21:43 Dose: 15 mg Oxybutynin Chloride (Ditropan -) 10 mg PO DAILY [facility] Last Admin: 09/15/17 09:47 Dose: 10 mg Pancrelipase (Creon Dr 36,000 Units Capsule) 1 cap PO TIDCM [facility] Last Admin: 09/15/17 09:52 Dose: 1 cap Valsartan (Diovan -) 320 mg PO DAILY [facility] Last Admin: 09/15/17 09:47 Dose: 320 mg CBC, BMP 09/15/17 05:05 09/15/17 05:05 physical exam Alert and awake Lungs--clear Mucosa--moist CVS--S1 and S2 regular scar present in midline Neck--- supple--- no carotid bruit Trachea midline Abdomen--soft Extremities--no edema neuro--alert and oriented 3--- non focal exam Psych--calm Assessment and plan Chronic dizziness--- recent worsening of symptoms--- with extensive past medical history as above Discussed with patient Medications reviewed Continue same Drink fluids Hold diuretics continue present care Neurology to follow cardiology consult noted and appreciated Physical therapy Will follow. Discussed with patient's son also.
--- NOTE | 2017-09-15 11:57 | PN ---
Progress Note (short form) - Note Progress Note: s: no cp sob palps dizzy o: Vital Signs Period Temp Pulse Resp BP Sys/Castro Pulse Ox Last 24 Hr 97.6 F-99.3 F 54-86 16-20 133-158/78-85 99-100 Constitutional: Yes: Well Nourished, uncomfortable Eyes: No: Sclera Icterus Respiratory: Yes: CTA Bilaterally. No: Accessory Muscle Use, Rales, Wheezes Gastrointestinal: Yes: Normal Bowel Sounds. No: Distention, Hepatomegaly, Palpable Mass, Tenderness Cardiovascular: Yes: Regular Rate and Rhythm JVD: No Heart Sounds: Yes: S1, S2. No: Gallop Murmur: No: Systolic Murmur, Diastolic Murmur Extremities: No: Cold, Cyanosis Edema: No Peripheral Pulses: 2+ Left Carotid, 2+ Right Carotid, 2+ Left Doralis Pedis, 2+ Right Dorsalis Pedis Integumentary: No: Jaundice diaphoresis Neurological: Yes: Alert, Oriented (x3) Psychiatric: No: Agitated Current Medications Generic Name Dose Route Start Last Admin Trade Name Freq PRN Reason Stop Dose Admin Acetaminophen 1,000 mg 09/13/17 18:28 Tylenol - PO Q4H PRN FEVER OR PAIN Aspirin 81 mg 09/14/17 10:00 09/15/17 09:47 Asa - PO 81 mg DAILY [facility] Administration Carvedilol 6.25 mg 09/13/17 22:00 09/15/17 09:48 Coreg - PO 6.25 mg BID [facility] Administration Clonazepam 0.5 mg 09/13/17 22:00 09/15/17 09:48 Klonopin - PO 0.5 mg BID [facility] Administration Escitalopram Oxalate 10 mg 09/14/17 10:00 09/15/17 09:48 Lexapro - PO 10 mg DAILY [facility] Administration Heparin Sodium (Porcine) 5,000 unit 09/14/17 22:00 09/15/17 09:47 Heparin - SQ 5,000 unit BID [facility] Administration Meclizine HCl 25 mg 09/13/17 19:04 09/15/17 05:23 Antivert - PO 25 mg TID [facility] Administration Mirtazapine 15 mg 09/13/17 22:00 09/14/17 21:43 Remeron - PO 15 mg HS [facility] Administration Oxybutynin Chloride 10 mg 09/14/17 10:00 09/15/17 09:47 Ditropan - PO 10 mg DAILY [facility] Administration Pancrelipase 1 cap 09/14/17 08:00 09/15/17 09:52 Scott Jc 36,000 Units Capsule PO 1 cap TIDCM [facility] Administration Valsartan 320 mg 09/14/17 10:00 09/15/17 09:47 Diovan - PO 320 mg DAILY [facility] Administration CBC, BMP 09/15/17 05:05 09/15/17 05:05 ekg: a-sensed, v-paced tele: sr, a-sensed, v-paced echo 08/2017: mildly reduced lv fn. tds for rwma. rv not well seen. severe mr. 1+ tr. poorly visualized bioavr. mild perivalvular ar. echo 06/2017 ([facility]): nl lv/rv. 1+ mac. mild-mod mr. bio AVR well seated. MG 5.5. trace-mild AR. preop cath 08/2015: normal cors.eg 08/[address]: report reveiwed. no sig change from priors. + chronic sinusitis. 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 dizziness, vertigo: -description c/w vertigo, no suggestion of cardiac etiology -on past admits vertigo thought to be residual sx 2/2 bilateral chronic cerebellar infarcts. managed with meclizine. -patient with poor po intake recently may be exacerbating sx's. -also with chronic sinusitis, defer to pmd regarding whether this could be contributing to vertigo sx's. -tele benign h/o valvular heart dz with prior mech avr failure s/p reop 2014, chronic syst CHF, mod to severe MR: -prior mech AVR which failed, then bioAVR 2014 -echo here 05/2017 with several marked changes from office study 2 mo ago: mod- sev LV dysfunction, moderate prosthetic AV regurg (was trivial on prior study), mod-severe MR (was trivial) --> no sig valvular ab on repeat 07/04/17. Here again with report of severe MR --> will have to review images. - no signs chf -con't coreg. consider decreasing dose of diovan while hyperkalemic. h/o nsvt -cont coreg as above -no recurrence on tele thus far. correction of lyte abnormalities as doing. pafib: -in sinus here -pt with brief, transient AF noted occasionally on prior PM checks, AC being deferred per dr johnson office notes -continue ASA per home regimen. If concern for recurrent infarct can readdress need for AC. Will check most recent remote monitoring for any AF burden. ppm: -nl fcn on tele here, continue routine office checks CKD with jose enrique: -prior creatinines range 0.9-1.6 -improved s/p IVF. h/o rectal bleed 2015: -rpt FOC benign then; per GI etiology felt likely 2/2 retained blood post recent prior FOC (felt safe for anti-thrombotic meds per GI at that time) htn: -monitor with med changes above. hld: -cont home statin
[2017-09-15] MEDS: MIRTAZAPINE 15 MG TABLET (FP) PO SCH (22:14)
[2017-09-16] MEDS: MECLIZINE HCL 25 MG TABLET (FP) PO SCH ×2 (05:46→13:42)
[2017-09-16] MEDS ORDERED: PT OWN MED DRAWER 7, Y5N ONE (09:13)
[2017-09-16] MEDS: ASPIRIN 81 MG CHEWABLE TABLETS PO SCH (09:25)
[2017-09-16] MEDS: clonazePAM 0.5 MG TABLET PO SCH (09:25)
[2017-09-16] MEDS: OXYBUTYNIN CHLORIDE 5 MG TABLET PO SCH (09:25)
[2017-09-16] MEDS: CARVEDILOL 6.25 MG TABLET (FP) PO SCH (09:25)
[2017-09-16] MEDS: VALSARTAN 160 MG TABLET (UD) PO SCH (09:25)
[2017-09-16] MEDS: LIPASE/PROTEASE/AMYLASE 36,000 UNIT CAPSULE PO SCH ×2 (09:26→13:42)
[2017-09-16] MEDS: HEPARIN NA (PORCINE) 5,000 UNITS/ML 1ML VIAL SQ SCH (09:26)
[2017-09-16] MEDS: ESCITALOPRAM OXALATE 10 MG TABLET (FP) PO SCH (09:26)
--- NOTE | 2017-09-16 10:30 | DS ---
Physical Examination Vital Signs: Vital Signs Temperature 98.5 F 09/16/17 02:00 Pulse Rate 60 09/16/17 02:00 Respiratory Rate 20 09/16/17 02:00 Blood Pressure 94/54 09/16/17 02:00 O2 Sat by Pulse Oximetry (%) 99 09/15/17 16:15 Findings/Remarks: feels well. no complains wants to go home denies cp/sob/ abd pain no headche patient reports dizziness is resolved Constitutional: Yes: No Distress Eyes: Yes: Conjunctiva Clear Neck: Yes: Supple, Trachea Midline Cardiovascular: Yes: Regular Rate and Rhythm Respiratory: Yes: CTA Bilaterally Gastrointestinal: Yes: Normal Bowel Sounds, Soft Edema: No Neurological: Yes: WNL, Cran Nerves II-XII Intact Psychiatric: Yes: Alert Labs: CBC, BMP 09/15/17 05:05 09/15/17 05:05 Discharge Summary Reason For Visit: POSTURAL VERTIGO Current Active Problems Vertigo (Acute) Hospital Course: Patient is an 87 year old female with a significant past medical history of vertigo, TIA, hypertension, hyperlipidemia, aortic insufficiency ( s/p mechanical aortic valve replacement 1988 ), CHF, atrial fibrillation and rectal bleeding. She presents to the ED today with worsening dizziness for 1 day. She reports that she has had these symptoms in the past but responded to meclazine which she takes around the clock, but this time the dizziness dis not resolved. She denies any headaches, fever, loss of consiousness or falls. States she has been vomiting at home but this has since resolved. She denies any chest pain, shortness of breath, fever or chills. ER course was notable for: (1) K. 5.3 (2) bun/creat 61/1.9 (3) head ct: generalized age volume loss with mild microvascular isch. changes patient admitted to telemetry Patient appeared dry Diuretics held Patient now much better blood pressure running on the low side We will decrease Diovan to 160 mg dose urine culture also shows Escherichia coli will treat pt advised to drink fluids' stable for discharge Medications reconciled/updated and prescribed as needed Discussed with nursing staff also. Patient to follow with PMD next week Patient in agreement Discharge time--- 30 minutes--- documenting examining as well as coordinating care. Condition: Stable - Instructions Referrals: Javi Brock MD [Primary Care Provider] - Disposition: HOME - Home Medications Comprehensive Discharge Medication List: Ambulatory Orders Aspirin [ASA -] 81 mg PO DAILY 06/01/16 Escitalopram Oxalate [Lexapro -] 10 mg PO DAILY 06/01/16 Mirtazapine [Remeron -] 15 mg PO HS 06/01/16 Omeprazole [Prilosec] 40 mg PO DAILY PRN 06/01/16 Oxybutynin Chloride [Ditropan -] 10 mg PO DAILY 06/01/16 Clonazepam [Klonopin -] 0.5 mg PO BID #20 tab MDD 2 07/06/17 Lipase/Protease/Amylase [Scott Jc 36,000 Units Capsule] 1 cap PO TIDCM 09/13/17 Acetaminophen [Pain Relief] 500 mg PO Q4H PRN 09/14/17 Meclizine HCl 25 mg PO Q8H PRN 09/14/17 Carvedilol [Coreg -] 6.25 mg PO BID tablet 09/16/17 Nitrofurantoin Macrocrystal [Macrodantin -] 50 mg PO Q6HPO 5 Days #20 capsule Valsartan [Diovan] 160 mg PO DAILY 30 Days #30 tablet 09/16/17
[2017-09-16 11:55] VITALS: BP 112/64; PULSE 65; TEMP 99
[2017-09-16] MEDS ORDERED: NITROFURANTOIN MACROCRYSTAL 50 MG CAPSULE (FP) PO ONE (13:00)
--- NOTE | 2017-09-16 13:03 | PN ---
Progress Note (short form) - Note Progress Note: s: no cp sob palps dizzy o: Vital Signs Period Temp Pulse Resp BP Sys/Castro Pulse Ox Last 24 Hr 97.9 F-99.0 F 60-65 18-20 94-112/43-64 99-99 Constitutional: Yes: Well Nourished, uncomfortable Eyes: No: Sclera Icterus Respiratory: Yes: CTA Bilaterally. No: Accessory Muscle Use, Rales, Wheezes Gastrointestinal: Yes: Normal Bowel Sounds. No: Distention, Hepatomegaly, Palpable Mass, Tenderness Cardiovascular: Yes: Regular Rate and Rhythm JVD: No Heart Sounds: Yes: S1, S2. No: Gallop Murmur: No: Systolic Murmur, Diastolic Murmur Extremities: No: Cold, Cyanosis Edema: No Peripheral Pulses: 2+ Left Carotid, 2+ Right Carotid, 2+ Left Doralis Pedis, 2+ Right Dorsalis Pedis Integumentary: No: Jaundice diaphoresis Neurological: Yes: Alert, Oriented (x3) Psychiatric: No: Agitated Current Medications Acetaminophen (Tylenol -) 1,000 mg PO Q4H PRN PRN Reason: FEVER OR PAIN Aspirin (Asa -) 81 mg PO DAILY [facility] Last Admin: 09/16/17 09:25 Dose: 81 mg Carvedilol (Coreg -) 6.25 mg PO BID [facility] Last Admin: 09/16/17 09:25 Dose: 6.25 mg Clonazepam (Klonopin -) 0.5 mg PO BID [facility] Last Admin: 09/16/17 09:25 Dose: 0.5 mg Escitalopram Oxalate (Lexapro -) 10 mg PO DAILY [facility] Last Admin: 09/16/17 09:26 Dose: 10 mg Heparin Sodium (Porcine) (Heparin -) 5,000 unit SQ BID [facility] Last Admin: 09/16/17 09:26 Dose: 5,000 unit Meclizine HCl (Antivert -) 25 mg PO TID [facility] Last Admin: 09/16/17 05:46 Dose: 25 mg Mirtazapine (Remeron -) 15 mg PO HS [facility] Last Admin: 09/15/17 22:14 Dose: 15 mg Oxybutynin Chloride (Ditropan -) 10 mg PO DAILY [facility] Last Admin: 09/16/17 09:25 Dose: 10 mg Pancrelipase (Creon Dr 36,000 Units Capsule) 1 cap PO TIDCM [facility] Last Admin: 09/16/17 09:26 Dose: 1 cap Valsartan (Diovan -) 320 mg PO DAILY [facility] Last Admin: 09/16/17 09:25 Dose: 320 mg CBC, BMP 09/15/17 05:05 09/15/17 05:05 ekg: a-sensed, v-paced tele: sr, a-sensed, v-paced echo 08/2017: mildly reduced lv fn. tds for rwma. rv not well seen. severe mr. 1+ tr. poorly visualized bioavr. mild perivalvular ar. echo 06/2017 ([facility]): nl lv/rv. 1+ mac. mild-mod mr. bio AVR well seated. MG 5.5. trace-mild AR. preop cath 08/2015: normal cors.eg 08/[address]: report reveiwed. no sig change from priors. + chronic sinusitis. 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 dizziness, vertigo: -description c/w vertigo, no suggestion of cardiac etiology -on past admits vertigo thought to be residual sx 2/2 bilateral chronic cerebellar infarcts. managed with meclizine. -patient with poor po intake recently may be exacerbating sx's. -also with chronic sinusitis, defer to pmd regarding whether this could be contributing to vertigo sx's. -tele benign h/o valvular heart dz with prior mech avr failure s/p reop 2014, chronic syst CHF, mod to severe MR: -prior mech AVR which failed, then bioAVR 2014 -echo here 05/2017 with several marked changes from office study 2 mo ago: mod- sev LV dysfunction, moderate prosthetic AV regurg (was trivial on prior study), mod-severe MR (was trivial) --> no sig valvular ab on repeat 07/04/17. Here again with report of severe MR --> will have to review images. - no signs chf -con't coreg. consider decreasing dose of diovan while hyperkalemic. h/o nsvt -cont coreg as above -no recurrence on tele thus far. correction of lyte abnormalities as doing. pafib: -in sinus here -pt with brief, transient AF noted occasionally on prior PM checks, AC being deferred per dr johnson office notes -continue ASA per home regimen. If concern for recurrent infarct can readdress need for AC. Will check most recent remote monitoring for any AF burden. ppm: -nl fcn on tele here, continue routine office checks CKD with jose enrique: -prior creatinines range 0.9-1.6 -improved s/p IVF. h/o rectal bleed 2015: -rpt FOC benign then; per GI etiology felt likely 2/2 retained blood post recent prior FOC (felt safe for anti-thrombotic meds per GI at that time) htn: -monitor with med changes above. hld: -cont home statin cardiac gross stable for dc
== END 2017-09-16 14:04 | disposition home or self-care (01) ==
LOC: JER 12:28 → JERBED 16:37 → INTOOBSV 16:37 → J4W 09-14 18:30
PROVIDERS: ADMIT Internal Medicine; ATTEND Internal Medicine
PROC: 3E0337Z Introduction of Electrolytic and Water Balance Substance into Peripheral Vein, Percutaneous Approach (ICD-10-PCS; principal; 2017-09-13)
PROC: 3E013GC Introduction of Other Therapeutic Substance into Subcutaneous Tissue, Percutaneous Approach (ICD-10-PCS; 2017-09-13)
DX: H81.10 Benign paroxysmal vertigo, unspecified ear (principal); I12.9 Hypertensive chronic kidney disease with stage 1 through stage 4 chronic kidney disease, or unspecified chronic kidney disease; N18.9 Chronic kidney disease, unspecified; I50.22 Chronic systolic (congestive) heart failure; I48.0 Paroxysmal atrial fibrillation; E78.5 Hyperlipidemia, unspecified; N17.9 Acute kidney failure, unspecified; Z95.2 Presence of prosthetic heart valve; Z95.0 Presence of cardiac pacemaker; Z86.73 Personal history of transient ischemic attack (TIA), and cerebral infarction without residual deficits; Z79.82 Long term (current) use of aspirin; Z91.048 Other nonmedicinal substance allergy status; Z91.041 Radiographic dye allergy status; Z87.891 Personal history of nicotine dependence
CPT/HCPCS: 36415; 70450-TC; 80053; 80061; 81003; 81015; 83036; 83721; 83735; 84484; 85025; 87040; 87086; 87186; 87804; 93005; 93010; 93306-TC; 97116-GP; 97161-GP; 99283-25; G0378; J1644

== ENCOUNTER 2017-09-20 13:20 | Observation (INO) | payer OTHER ==
[2017-09-20 13:36] VITALS: BMI 22.6
--- NOTE | 2017-09-20 14:24 | PDOC ---
History of Present Illness - General History Source: Patient Exam Limitations: No Limitations - History of Present Illness Initial Comments: 09/20/17 15:00 The patient is a 87 year old female, with a significant past medical history of vertigo, TIA, HTN, and hypercholesterolemia who presents to the emergency department s/p mechanical fall. The patient reports standing up feeling dizzy/ lightheaded, and as a result she reports tripping and hitting the back of head on her coffee table. She arrives with complaints of headaches. The patient reports being admitted about 3 days ago, and reports never feeling her baseline since being discharged. She denies recent fevers, chills, or dizziness. She denies recent nausea, vomit, diarrhea or constipation. Allergies: NKDA Past surgical history: See HPI Social history: Nonsmoker. Denies EtOH use and recreational drug use. Primary Care Physician: <Selvin Ramirez - Last Filed: 09/20/17 15:06> <Grazyna Owen - Last Filed: 09/24/17 10:39> - General Chief Complaint: Injury Stated Complaint: DIZZINESS Time Seen by Provider: 09/20/17 14:24 Past History <Selvin Ramirez - Last Filed: 09/20/17 15:06> - Past Medical History Anemia: No Asthma: No Cancer: Yes (Ventricular Pacemaker - 2016, MAV replacement) Cardiac Disorders: Yes (SOB,) CVA: No COPD: No Dementia: No Diabetes: No GI Disorders: No Disorders: No HTN: Yes Hypercholesterolemia: Yes Liver Disease: No Seizures: No Thyroid Disease: No - Surgical History Abdominal Surgery: No Appendectomy: Yes Cardiac Surgery: Yes (MAV replacement, Ventricular Pacemaker) Cholecystectomy: Yes Lung Surgery: No Neurologic Surgery: No - Immunization History Immunization Up to Date: No - Suicide/Smoking/Psychosocial Hx Smoking Status: No Smoking History: Former smoker Have you smoked in the past 12 months: No Number of Cigarettes Smoked Daily: 0 Information on smoking cessation initiated: No 'Breaking Loose' booklet given: 06/03/17 Hx Alcohol Use: No Drug/Substance Use Hx: No Substance Use Type: None Hx Substance Use Treatment: No <Grazyna Owen - Last Filed: 09/24/17 10:39> - Past Medical History Allergies/Adverse Reactions: Allergies Allergy/AdvReac Type Severity Reaction Status Date / Time Iodinated Contrast- Oral and Allergy Severe Difficulty Verified 09/20/17 13:27 IV Dye Breathing [IV Dye, Iodine Containing Contrast ] iodine Allergy Severe Difficulty Verified 09/20/17 13:27 Breathing lactose AdvReac Verified 09/20/17 13:27 Home Medications: Ambulatory Orders Aspirin [ASA -] 81 mg PO DAILY 06/01/16 Escitalopram Oxalate [Lexapro -] 10 mg PO DAILY 06/01/16 Mirtazapine [Remeron -] 15 mg PO HS 06/01/16 Omeprazole [Prilosec] 40 mg PO DAILY PRN 06/01/16 Oxybutynin Chloride [Ditropan -] 10 mg PO DAILY 06/01/16 Lipase/Protease/Amylase [Scott Jc 36,000 Units Capsule] 1 cap PO TIDCM 09/13/17 Acetaminophen [Pain Relief] 500 mg PO Q4H PRN 09/14/17 Meclizine HCl 25 mg PO Q8H PRN 09/14/17 Carvedilol [Coreg -] 3.125 mg PO BID tablet 09/23/17 Diazepam [Valium] 2 mg PO BID PRN #0 tablet MDD 2 09/23/17 Enoxaparin [Lovenox -] 30 mg SQ DAILY disp.syrin 09/23/17 Review of Systems - Review of Systems Able to Perform ROS?: Yes Comments:: 09/20/17 15:00 GENERAL/CONSTITUTIONAL: No fever or chills. No weakness. HEAD, EYES, EARS, NOSE AND THROAT: No change in vision. No ear pain or discharge. No sore throat. CARDIOVASCULAR: No chest pain or shortness of breath. RESPIRATORY: No cough, wheezing, or hemoptysis. GASTROINTESTINAL: No nausea, vomiting, diarrhea or constipation. GENITOURINARY: No dysuria, frequency, or change in urination. MUSCULOSKELETAL: +head trauma. No joint or muscle swelling or pain. No neck or back pain. SKIN: No rash NEUROLOGIC: +vertigo. No loss of consciousness, or change in strength/sensation. ENDOCRINE: No increased thirst. No abnormal weight change. HEMATOLOGIC/LYMPHATIC: No anemia, easy bleeding, or history of blood clots. ALLERGIC/IMMUNOLOGIC: No hives or skin allergy. <Selvin Ramirez - Last Filed: 09/20/17 15:06> *Physical Exam - Vital Signs Last Vital Signs Temp Pulse Resp BP Pulse Ox 97.9 F 74 18 138/76 100 09/20/17 13:27 09/20/17 13:27 09/20/17 13:27 09/20/17 13:27 09/20/17 13:27 - Physical Exam Comments: 09/20/17 15:06 GENERAL: Awake, alert, and fully oriented, in no acute distress HEAD: No signs of trauma EYES: PERRLA, EOMI, sclera anicteric, conjunctiva clear ENT: Auricles normal inspection, hearing grossly normal, nares patent, oropharynx clear without exudates. Dry mucosa NECK: Normal ROM, supple, no lymphadenopathy, JVD, or masses LUNGS: Breath sounds equal, clear to auscultation bilaterally. No wheezes, and no crackles HEART: Regular rate and rhythm, normal S1 and S2, no murmurs, rubs or gallops ABDOMEN: Soft, nontender, normoactive bowel sounds. No guarding, no rebound. No masses EXTREMITIES: Normal range of motion, no edema. No clubbing or cyanosis. No cords, erythema, or tenderness NEUROLOGICAL: Cranial nerves II through XII grossly intact. Normal speech, normal gait SKIN: Warm, Dry, normal turgor, no rashes or lesions noted. <Selvin Ramirez - Last Filed: 09/20/17 15:06> - Vital Signs Last Vital Signs Temp Pulse Resp BP Pulse Ox 97.9 F 74 18 138/76 100 09/20/17 13:27 09/20/17 13:27 09/20/17 13:27 09/20/17 13:27 09/20/17 13:27 <Grazyna Owen - Last Filed: 09/24/17 10:39> ED Treatment Course - LABORATORY CBC & Chemistry Diagram: 09/22/17 06:05 09/22/17 06:05 <Grazyna Owen - Last Filed: 09/24/17 10:39> Medical Decision Making - Medical Decision Making 09/20/17 19:[address] Galindo at shift change. No acute findings on CTH. However , patient was not responding to meclizine at home for vertigo. She was recently admitted for the same. Pending labs, then admit to hospitalist service, covering for Dr. Raza this evening. Attempted to contact Dr. Wheat for more information, as he has seen this patient in the past, however, he is being covered by Dr. Hernandez, who is not familiar with the patient. <Grazyna Owen - Last Filed: 09/24/17 10:39> *DC/Admit/Observation/Transfer - Attestations Scribe Attestion: 09/20/17 15:01 Documentation prepared by Selvin Ramirez, acting as manager medical device for Grazyna Owen MD. <Selvin Ramirez - Last Filed: 09/20/17 15:06> <Grazyna Owen - Last Filed: 09/24/17 10:39> Diagnosis at time of Disposition: Vertigo, Status post fall - Discharge Dispostion Disposition: ALF FACILITY Condition at time of disposition: Improved
[2017-09-20] MEDS ORDERED: SODIUM CHLORIDE 1,000 ML IV STA (17:20)
[2017-09-20] MEDS ORDERED: MECLIZINE HCL 25 MG TABLET (FP) PO ONE (18:12)
[2017-09-20] MEDS ORDERED: MECLIZINE HCL 25 MG TABLET (FP) ONE (19:17)
[2017-09-20 19:32] LABS: BASO % 0.5 % (0-2.0); EOS % 0.8 % (0-4.5); HEMATOCRIT 40.2 % (32.4-45.2); HEMOGLOBIN 13.1 GM/dL (10.7-15.3); LYMPH % 24.9 % (8-40); MCH 29.6 pg (25.7-33.7); MCHC 32.6 g/dl (32.0-36.0); MEAN CELL VOLUME 90.8 fl (80-96); MONO % 6.7 % (3.8-10.2); NEUT % 67.1 % (42.8-82.8); PLATELET COUNT 279 K/MM3 (134-434); RBC 4.42 M/mm3 (3.60-5.2); RDW 13.3 % (11.6-15.6); WHITE BLOOD COUNT 13.3 K/mm3 (4.0-10.0)
[2017-09-20 19:56] LABS: ALBUMIN 3.6 g/dl (3.4-5.0); ANION GAP 11 (8-16); BILIRUBIN,TOTAL 0.5 mg/dL (0.2-1.0); BLOOD UREA NITROGEN 45 mg/dL (7-18); CALCIUM 9.1 mg/dL (8.5-10.1); CHLORIDE 108 mmol/L (98-107); CO2 22 mmol/L (21-32); CREATININE 1.9 mg/dL (0.55-1.02); GLUCOSE,RANDOM 151 mg/dL (74-106); POTASSIUM 4.2 mmol/L (3.5-5.1); SGOT/AST 36 U/L (15-37); SGPT/ALT 36 U/L (12-78); SODIUM 141 mmol/L (136-145); TOT PROT 7.5 g/dl (6.4-8.2)
[2017-09-20 19:59] LABS: ALK PHOS 94 U/L (45-117)
--- NOTE | 2017-09-20 20:35 | PDOC ---
*Physical Exam - Vital Signs Last Vital Signs Temp Pulse Resp BP Pulse Ox 97.9 F 74 18 138/76 100 09/20/17 13:27 09/20/17 13:27 09/20/17 13:27 09/20/17 13:27 09/20/17 14:59 ED Treatment Course - LABORATORY CBC & Chemistry Diagram: 09/20/17 19:15 09/20/17 19:15 - ADDITIONAL ORDERS Additional order review: Laboratory Results 09/20/17 19:15 Sodium 141 Potassium 4.2 Chloride 108 H Carbon Dioxide 22 Anion Gap 11 BUN 45 H Creatinine 1.9 H D Creat Clearance w eGFR 25.12 Random Glucose 151 H D Calcium 9.1 Total Bilirubin 0.5 AST 36 ALT 36 Alkaline Phosphatase 94 D Creatine Kinase 116 Troponin I 0.05 Total Protein 7.5 Albumin 3.6 09/20/17 19:15 RBC 4.42 MCV 90.8 MCHC 32.6 RDW 13.3 MPV 9.0 Neutrophils % 67.1 Lymphocytes % 24.9 Monocytes % 6.7 Eosinophils % 0.8 Basophils % 0.5 - RADIOLOGY Radiology Studies Ordered: Category Date Time Status CHEST X-RAY PORTABLE* [RAD] Stat Radiology 09/20/17 20:25 Ordered - Medications Given in the ED: ED Medications Discontinued Medications Generic Name Dose Route Start Last Admin Trade Name Freq PRN Reason Stop Dose Admin Sodium Chloride 1,000 mls @ 1,000 mls/hr 09/20/17 17:20 09/20/17 19:17 Normal Saline - IV 09/20/17 18:19 1,000 mls/hr ASDIR STA Administration Meclizine HCl 25 mg 09/20/17 18:12 09/20/17 19:17 Antivert - PO 09/20/17 18:13 25 mg ONCE ONE Administration Medical Decision Making - Medical Decision Making 09/20/17 20:44 Pt to be admitted to Obs Tele as pt is still unsteady and has difficulty walking *DC/Admit/Observation/Transfer Diagnosis at time of Disposition: Vertigo, Status post fall - Discharge Dispostion Condition at time of disposition: Stable Admit: Yes - Referrals Referrals: Javi Brock MD [Primary Care Provider] - - Patient Instructions - Post Discharge Activity
--- NOTE | 2017-09-20 20:45 | PN ---
Teaching Attending Note Name of Resident: Gerardo Sullivan ATTENDING PHYSICIAN STATEMENT I saw and evaluated the patient. I reviewed the resident's note and discussed the case with the resident. I agree with the resident's findings and plan as documented. SUBJECTIVE: 87 yo F with pmhx of Vertigo, TIA, HTN, HLD, and AI (s/p [facility]. 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 When she stood up she felt lightheaded and notes she tripped and hit back of her on hter coffee table. No fevers or chills. OBJECTIVE: Physical: VS: Vital Signs Period Temp Pulse Resp BP Sys/Castro Pulse Ox Last 24 Hr 97.9 F 74 18 138/76 100-100 GEN:NAD, Resting in bed, AA0X3 HEENT: NCAT, PERRL, Throat without erythema or exudates CARD: RRR S1, S2 RESP: CTAB ABD: BSx4, NTD to palpation EXT: - C/C/E CBCD WBC 13.3 K/mm3 (4.0-10.0) H D 09/20/17 19:15 RBC 4.42 M/mm3 (3.60-5.2) 09/20/17 19:15 Hgb 13.1 GM/dL (10.7-15.3) 09/20/17 19:15 Hct 40.2 % (32.4-45.2) 09/20/17 19:15 MCV 90.8 fl (80-96) 09/20/17 19:15 MCHC 32.6 g/dl (32.0-36.0) 09/20/17 19:15 RDW 13.3 % (11.6-15.6) 09/20/17 19:15 Plt Count 279 K/MM3 (134-434) D 09/20/17 19:15 MPV 9.0 fl (7.5-11.1) 09/20/17 19:15 CMP Sodium 141 mmol/L (136-145) 09/20/17 19:15 Potassium 4.2 mmol/L (3.5-5.1) 09/20/17 19:15 Chloride 108 mmol/L (98-107) H 09/20/17 19:15 Carbon Dioxide 22 mmol/L (21-32) 09/20/17 19:15 Anion Gap 11 (8-16) 09/20/17 19:15 BUN 45 mg/dL (7-18) H 09/20/17 19:15 Creatinine 1.9 mg/dL (0.55-1.02) H D 09/20/17 19:15 Creat Clearance w eGFR 25.12 (>60) 09/20/17 19:15 Random Glucose 151 mg/dL (74-106) H D 09/20/17 19:15 Calcium 9.1 mg/dL (8.5-10.1) 09/20/17 19:15 Total Bilirubin 0.5 mg/dL (0.2-1.0) 09/20/17 19:15 AST 36 U/L (15-37) 09/20/17 19:15 ALT 36 U/L (12-78) 09/20/17 19:15 Alkaline Phosphatase 94 U/L (45-117) D 09/20/17 19:15 Total Protein 7.5 g/dl (6.4-8.2) 09/20/17 19:15 Albumin 3.6 g/dl (3.4-5.0) 09/20/17 19:15 CARDIAC ENZYMES Creatine Kinase 116 IU/L (26-192) 09/20/17 19:15 Troponin I 0.05 ng/ml (0.00-0.05) 09/20/17 19:15 EKG:NSR CXR- No acute process ASSESSMENT AND PLAN: 87 yo F with pmhx of Vertigo, TIA, HTN, HLD, and AI (s/p mech. 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 orthostatic hypotension vs. cardiac etiology - Possibly residual from chronic cerebellar infarcts - C/W Meclizine - Orhtostatic VS - Trend Trop/EKG - Recent Echo 09/04- with EF 48 %, Sev MR, mild TR, Bio AVR, mild AR, - gentle Ivf 2.) CAD/ - RO ACS- Trend Trop/Ekg - Hx. of Valv. Heart dx - Bio AVR - Sev. MR - C/W home meds - Trend Trop/ekg 3.) Hx. Of Afib -C/W COreg - Not on A/C as per last d/c meds- And cardio notes - C/W ASA 4.) ROLANDO on CKD - Base Cr - 1.6 - Chk. U lytes - Gentle IVF avoid Nephrotoxins 5.) Leukocytosis - May be reactive - Chk. UA, Ucx, CXR 6.) Dvt Ppx - Heparin 5000 q 8 Obs Tele
--- NOTE | 2017-09-20 21:00 | HP ---
CHIEF COMPLAINT: fall down and hit her head. PCP: DR.Ranjan Godfrey HISTORY OF PRESENT ILLNESS: 87 year old female with PMH of vertigo, HTN, HLD, S CHF, AFIB, ,AI (s/p [facility]. 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 patient was preparing her food around 12.30 when she felt dizzy(the room spinning ), lightheaded and fell down on her back and hit her head with coffee machine, patient denies any loss of consciousness, or any seizure symptoms, she call her daughter who call the ambulance. patient reports headache / , radiating to her neck, she denies any fever, chills, N/V/D/C. She denies any chest pain , palpitation, sob, abdominal pain. she reports recent UTI last week treated with Nitrofurantoin as out patient. she was recently discharged from the hospital for same symptoms. patient live by her self at first floor and her son live in 2nd floor. ER course was notable for: (1) Head CT negative for intracranial bleeding or Fx (2) CBC, CMP significant for Leucocytosis and ROLANDO (wbc 13.3, BUN/Cr 45/1.9) (3) IV fluids 1L NS bolus , orthostatics BP negative Recent Travel:denies PAST MEDICAL HISTORY: Vertigo, TIA, HTN, HLD, MVR,S CHF, AFIB, rectal bleeding, cardiac pacemaker PAST SURGICAL HISTORY: cholecystectomy, appendectomy Social History: Smoking:denies Alcohol:denies Drugs: denies Family History: Allergies Iodinated Contrast- Oral and IV Dye [IV Dye, Iodine Containing Contrast ] Allergy (Severe, Verified 09/20/17 13:27) Difficulty Breathing DIFFICULTY BREATHING/HTN iodine Allergy (Severe, Verified 09/20/17 13:27) Difficulty Breathing THROAT CLOSES, HTN lactose Adverse Reaction (Verified 09/20/17 13:27) HOME MEDICATIONS: Home Medications Medication Instructions Recorded Aspirin [ASA -] 81 mg PO DAILY 06/01/16 Escitalopram Oxalate [Lexapro -] 10 mg PO DAILY 06/01/16 Mirtazapine [Remeron -] 15 mg PO HS 06/01/16 Omeprazole [Prilosec] 40 mg PO DAILY PRN 06/01/16 Oxybutynin Chloride [Ditropan -] 10 mg PO DAILY 06/01/16 Clonazepam [Klonopin -] 0.5 mg PO BID #20 tab MDD 2 07/06/17 Lipase/Protease/Amylase [Creon Dr 1 cap PO TIDCM 09/13/17 36,000 Units Capsule] Acetaminophen [Pain Relief] 500 mg PO Q4H PRN 09/14/17 Meclizine HCl 25 mg PO Q8H PRN 09/14/17 Carvedilol [Coreg -] 6.25 mg PO BID tablet 09/16/17 Nitrofurantoin Macrocrystal 50 mg PO Q6HPO 5 Days #20 capsule 09/16/17 [Macrodantin -] Valsartan [Diovan] 160 mg PO DAILY 30 Days #30 tablet 09/16/17 REVIEW OF SYSTEMS CONSTITUTIONAL: Absent: fever, chills, diaphoresis, generalized weakness, malaise, loss of appetite, weight change HEENT: Absent: rhinorrhea, nasal congestion, throat pain, throat swelling, difficulty swallowing, mouth swelling, ear pain, eye pain, visual changes CARDIOVASCULAR: Absent: chest pain, syncope, palpitations, irregular heart rate, lightheadedness , peripheral edema RESPIRATORY: Absent: cough, shortness of breath, dyspnea with exertion, wheezing, stridor, GASTROINTESTINAL: Absent: abdominal pain, abdominal distension, nausea, vomiting, diarrhea, constipation, melena, hematochezia GENITOURINARY: Absent: dysuria, frequency, urgency, hesitancy, hematuria, flank pain, genital pain MUSCULOSKELETAL: Absent: myalgia, arthralgia, joint swelling, back pain, neck pain SKIN: Absent: rash, itching, pallor HEMATOLOGIC/IMMUNOLOGIC: Absent: easy bleeding, easy bruising, lymphadenopathy, frequent infections ENDOCRINE: Absent: unexplained weight gain, unexplained weight loss, heat intolerance, cold intolerance NEUROLOGIC: Absent: headache, focal weakness or paresthesias, dizziness, unsteady gait, seizure, mental status changes, bladder or bowel incontinence PSYCHIATRIC: Absent: anxiety, depression, suicidal or homicidal ideation, hallucinations. PHYSICAL EXAMINATION Vital Signs - 24 hr 09/20/17 09/20/17 13:27 14:59 Temperature 97.9 F Pulse Rate 74 Respiratory 18 Rate Blood Pressure 138/76 O2 Sat by Pulse 100 100 Oximetry (%) GENERAL: Awake, alert, and fully oriented, in no acute distress. HEAD: Normal with no signs of trauma. EYES: Pupils equal, round and reactive to light, extraocular movements intact, sclera anicteric, conjunctiva clear. EARS, NOSE, THROAT:dry mucous membranes. NECK: Normal range of motion, supple without lymphadenopathy, JVD, LUNGS: Breath sounds equal, clear to auscultation bilaterally. No wheezes, and no crackles. No accessory muscle use. HEART: Regular rate and rhythm, normal S1 and S2 without murmur, rub or gallop. ABDOMEN: Soft, nontender, distended, normoactive bowel sounds, no guarding, no rebound, diffuse echymosis 2/2 heparin injection MUSCULOSKELETAL: Normal range of motion at all joints. No bony deformities or tenderness. No CVA tenderness. LOWER EXTREMITIES: 2+ pulses, warm, well-perfused. No calf tenderness. trace peripheral edema. NEUROLOGICAL: Cranial nerves II-XII intact. Normal speech. gait was not observed PSYCHIATRIC: Cooperative. Good eye contact. Appropriate mood and affect. SKIN: Warm, dry, no rashes or lesions noted, normal capillary refill. Laboratory Results - last 24 hr 09/20/17 09/20/17 19:15 19:15 WBC 13.3 H D RBC 4.42 Hgb 13.1 Hct 40.2 MCV 90.8 MCH 29.6 MCHC 32.6 RDW 13.3 Plt Count 279 D MPV 9.0 Neutrophils % 67.1 Lymphocytes % 24.9 Monocytes % 6.7 Eosinophils % 0.8 Basophils % 0.5 Sodium 141 Potassium 4.2 Chloride 108 H Carbon Dioxide 22 Anion Gap 11 BUN 45 H Creatinine 1.9 H D Creat Clearance w eGFR 25.12 Random Glucose 151 H D Calcium 9.1 Total Bilirubin 0.5 AST 36 ALT 36 Alkaline Phosphatase 94 D Creatine Kinase 116 Troponin I 0.05 Total Protein 7.5 Albumin 3.6 CBC, BMP 09/20/17 19:15 09/20/17 19:15 Active Medications Generic Name Dose Route Start Last Admin Trade Name Freq PRN Reason Stop Dose Admin Acetaminophen 650 mg 09/20/17 23:31 09/21/17 00:47 Tylenol - PO 650 mg Q6H PRN Administration FEVER OR PAIN Aspirin 81 mg 09/21/17 10:00 Asa - PO DAILY [facility] Carvedilol 6.25 mg 09/20/17 22:30 09/21/17 00:45 Coreg - PO 6.25 mg BID ANITRA Administration Escitalopram Oxalate 10 mg 09/21/17 10:00 Lexapro - PO DAILY ANITRA Sodium Chloride 1,000 mls @ 83 mls/hr 09/20/17 22:30 09/21/17 00:47 Normal Saline - IV 83 mls/hr ASDIR ANITRA Administration Meclizine HCl 25 mg 09/20/17 22:23 09/21/17 00:45 Antivert - PO 25 mg Q8H PRN Administration DIZZINESS Mirtazapine 15 mg 09/21/17 22:00 Remeron - PO HS ANITRA Oxybutynin Chloride 10 mg 09/21/17 10:00 Ditropan - PO DAILY ANITRA Pancrelipase 1 cap 09/21/17 08:00 Creon 36,000 Units Capsule PO TIDCM ANITRA Pantoprazole Sodium 40 mg 09/20/17 22:23 Protonix - PO DAILY PRN DYSPEPSIA Valsartan 160 mg 09/21/17 10:00 Diovan - PO DAILY ANITRA ASSESSMENT/PLAN: 87 year old female with PMH of vertigo, HTN, HLD, S CHF, Afib, AI (s/p [facility]. 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 patient was preparing her food around 12.30 when she felt dizzy(the room spinning around her ), lightheaded and fell down on her back and hit her head with coffee table,was admitted for further treatment and evaluation. # Dizziness, likely 2/2 vertigo 2/2 chronic cerebellar infarct vs ACS vs orthostatics vs PPV vs Psyncopy * Continue meclizine 25 mg PO Q 8hr titrate dose if needed , * EKG,Trend Trop * IV fluids NS @ 83 CC/hr * Orthostatics BP negative * PT when stable * fall precautions * Tylenol 650 Q6 hr for pain # Leukocytosis * WBC 13.3 ,Afebrile * R/O infection /UTI * likely REACTION * REPEAT cbc WTH DIFF IN AM # ROLANDO on CKD * likely 2/2 low oral intake * Cr base line 0.9-1.6 * IV fluids * urine lytes * avoid nephrotoxi genic * I&O # AFIB, * stable in no acute episode * continue coreg 6.25 PO BID * ASA 81 mg PO daily # HTN * controlled * continue home meds Valsartan 160 mg PO daily # mild S CHF * Recent Echo 09/04 EF 48% * continue home meds # CAD * R/O ACS :Trend Trop, EKG * Continue home meds * recent carotid US negative * recent echo with EF 48 % # H/O urinary retention * UA, urine cx * Continue Oxybutynin 10 mg PO HS # Depression , chronic * continue Mirtzapin 15 mg PO daily # FEN * F: NS @ 83 CC/hr * E: Monitor * N: low sodium diet # Proph * DVT, SCDs both legs * GI : continue home meds Protonix 40 mg PO daily # Dispo * Admit to obs- tele * Day team please verify home meds (included Valsartan dose) Visit type - Emergency Visit Emergency Visit: Yes ED Registration Date: 09/20/17 Care time: The patient presented to the Emergency Department on the above date and was hospitalized for further evaluation of their emergent condition. - New Patient This patient is new to me today: Yes Date on this admission: 09/20/17 - Critical Care Critical Care patient: No
[2017-09-20 21:23] LABS: URINE APPEARANCE CLEAR; URINE BILIRUBIN NEGATIVE (NEGATIVE); URINE BLOOD NEGATIVE (NEGATIVE); URINE COLOR LTYELLOW; URINE GLUCOSE (UA) NEGATIVE (NEGATIVE); URINE KETONE NEGATIVE (NEGATIVE); URINE LEUK ESTERASE 3+ (NEGATIVE); URINE NITRITE NEGATIVE (NEGATIVE); URINE PROTEIN NEGATIVE (NEGATIVE); URINE UROBILINOGEN NEGATIVE mg/dL (0.2-1.0)
[2017-09-20 21:51] LABS: EPI CELLS RARE /HPF (FEW); URINE BACTERIA RARE /hpf (NONE SEEN); URINE MUCUS RARE
[2017-09-20] MEDS ORDERED: PANTOPRAZOLE 40 MG TABLET (FP) PO PRN (22:23)
[2017-09-20] MEDS ORDERED: ACETAMINOPHEN 325 MG TABLET (FP) PO PRN (23:31)
[2017-09-21] MEDS ORDERED: CARVEDILOL 3.125 MG TABLET (FP) ONE (00:36)
[2017-09-21] MEDS ORDERED: ACETAMINOPHEN 325 MG TABLET (FP) ONE (00:36)
[2017-09-21] MEDS ORDERED: MECLIZINE HCL 25 MG TABLET (FP) ONE ×3 (00:42→15:44)
[2017-09-21] MEDS: MECLIZINE HCL 25 MG TABLET (FP) PO PRN ×2 (00:45→15:42)
[2017-09-21] MEDS: CARVEDILOL 6.25 MG TABLET (FP) PO SCH ×2 (00:45→10:39)
[2017-09-21] MEDS: SODIUM CHLORIDE 1,000 ML IV SCH ×2 (00:47→23:08)
[2017-09-21 08:54] LABS: INR 1.05 (0.82-1.09); PROTHROMBIN TIME (PATIENT) 11.9 SEC (9.98-11.88)
[2017-09-21 08:56] LABS: ACTIVATED PTT 26.4 SECONDS (26.9-34.4)
[2017-09-21 08:59] LABS: CHLORIDE 111 mmol/L (98-107); SODIUM 141 mmol/L (136-145)
[2017-09-21] MEDS ORDERED: NITROFURANTOIN MACROCRYSTAL 50 MG CAPSULE (FP) PO SCH (09:00)
[2017-09-21 09:10] LABS: ALK PHOS 76 U/L (45-117); ANION GAP 10 (8-16); BILIRUBIN,TOTAL 0.4 mg/dL (0.2-1.0); BLOOD UREA NITROGEN 47 mg/dL (7-18); CALCIUM 7.9 mg/dL (8.5-10.1); CO2 20 mmol/L (21-32); GLUCOSE,RANDOM 94 mg/dL (74-106); SGOT/AST 39 U/L (15-37); SGPT/ALT 33 U/L (12-78); TOT PROT 6.2 g/dl (6.4-8.2)
--- NOTE | 2017-09-21 09:16 | EKG ---
Test Reason : Blood Pressure : / mmHG Vent. Rate : 069 BPM Atrial Rate : 069 BPM P-R Int : 252 ms QRS Dur : 190 ms QT Int : 512 ms P-R-T Axes : 050 -70 113 degrees QTc Int : 548 ms Atrial-sensed ventricular-paced rhythm with prolonged AV conduction ABNORMAL ECG WHEN COMPARED WITH ECG OF 13-SEP-2017 13:31, VENT. RATE HAS INCREASED BY 8 BPM Confirmed by MD Jas, Tato ([id number]) on 09/21/2017 9:16:00 AM Referred By: Confirmed By:Tato Mark MD
[2017-09-21] MEDS ORDERED: VALSARTAN 160 MG TABLET (UD) PO SCH ×2 (10:00)
--- NOTE | 2017-09-21 10:05 | PN ---
Progress Note (short form) - Note Progress Note: patient seen and examined in the emergency room well-known to me from recent admission comes with similar Symptoms Patient is anxious Denies chest pain or shortness of breath Denies headache Chart reviewed Vital Signs Temp 98.0 F 09/21/17 07:18 Pulse 70 09/21/17 07:18 Resp 14 09/21/17 07:18 BP 103/56 09/21/17 07:18 Pulse Ox 97 09/21/17 07:18 Intake & Output 09/20/17 09/20/17 09/21/17 11:59 23:59 11:59 Weight 112 lb Other: Voiding Method Toilet Height 4 ft 11 in Body Mass Index (BMI) 22.6 Weight Measurement Method Est/Stated by Patient Active Medications Acetaminophen (Tylenol -) 650 mg PO Q6H PRN PRN Reason: FEVER OR PAIN Last Admin: 09/21/17 00:47 Dose: 650 mg Aspirin (Asa -) 81 mg PO DAILY [facility] Carvedilol (Coreg -) 6.25 mg PO BID [facility] Last Admin: 09/21/17 00:45 Dose: 6.25 mg Escitalopram Oxalate (Lexapro -) 10 mg PO DAILY [facility] Sodium Chloride (Normal Saline -) 1,000 mls @ 83 mls/hr IV ASDIR [facility] Last Admin: 09/21/17 00:47 Dose: 83 mls/hr Ceftriaxone Sodium 1 gm/ (Dextrose) 100 mls @ 200 mls/hr IVPB DAILY [facility] Meclizine HCl (Antivert -) 25 mg PO Q8H PRN PRN Reason: DIZZINESS Last Admin: 09/21/17 00:45 Dose: 25 mg Mirtazapine (Remeron -) 15 mg PO HS [facility] Oxybutynin Chloride (Ditropan -) 10 mg PO DAILY [facility] Pancrelipase (Creon Dr 36,000 Units Capsule) 1 cap PO TIDCM [facility] Pantoprazole Sodium (Protonix -) 40 mg PO DAILY PRN PRN Reason: DYSPEPSIA Valsartan (Diovan -) 80 mg PO DAILY [facility] CBC, BMP 09/21/17 08:00 09/21/17 08:00 u/c - pending physical exam Awake and comfortable Neck supple]/ No JVD Trachea midline No carotid bruit Lungs--clear to auscultation CVS--S1 and S2 regular abdomen--soft, nontender Extremities--- no edema neuro--- Alert and oriented 3[[[-nonfocal exam-- Cranial nerves are intact Moves all extremities PERRLA ' Psych--- anxiety present Assessment and plan Frequent episodes of dizziness Compounded by anxiety Monitor blood pressure Patient lives alone Emperic antibiotics--as urinalysis showed positive UTI Urine culture is pending. decrease dose of Diovan Neurology consult as well as cardiac consult DVT prophylaxis Will follow.
[2017-09-21] MEDS ORDERED: CEFTRIAXONE 1 GM in DEXTROSE 5%-WATER - 100 ML IVPB SCH (10:15)
[2017-09-21] MEDS: LIPASE/PROTEASE/AMYLASE 36,000 UNIT CAPSULE PO SCH ×3 (10:40→23:08)
[2017-09-21] MEDS: ESCITALOPRAM OXALATE 10 MG TABLET (FP) PO SCH (10:40)
[2017-09-21] MEDS: OXYBUTYNIN CHLORIDE 5 MG TABLET PO SCH (10:41)
[2017-09-21] MEDS: ASPIRIN 81 MG CHEWABLE TABLETS PO SCH (10:42)
--- NOTE | 2017-09-21 10:43 | CONSULT ---
Consult - text type - Consultation Consultation Note: Neurology History of Present Illness The patient is a 87 year old female, with a significant past medical history of vertigo, TIA, HTN, and hypercholesterolemia who presents to the emergency department s/p mechanical fall. The patient reports standing up feeling dizzy/ lightheaded, and as a result she reports tripping and hitting the back of head on her coffee table. She arrived with complaints of dizzyness and difficulty with balance. She has presented with similar symptoms in the past. She denies recent nausea, vomit, diarrhea or constipation. 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 Past History - Past Medical History Anemia: No Asthma: No Cancer: Yes (Ventricular Pacemaker - 2016, MAV replacement) Cardiac Disorders: Yes (SOB,) CVA: No COPD: No Dementia: No Diabetes: No GI Disorders: No Disorders: No HTN: Yes Hypercholesterolemia: Yes Liver Disease: No Seizures: No Thyroid Disease: No - Surgical History Abdominal Surgery: No Appendectomy: Yes Cardiac Surgery: Yes (MAV replacement, Ventricular Pacemaker) Cholecystectomy: Yes Lung Surgery: No Neurologic Surgery: No - Immunization History Immunization Up to Date: No - Suicide/Smoking/Psychosocial Hx Smoking Status: No Smoking History: Former smoker Have you smoked in the past 12 months: No Number of Cigarettes Smoked Daily: 0 Information on smoking cessation initiated: No 'Breaking Loose' booklet given: 06/03/17 Hx Alcohol Use: No Drug/Substance Use Hx: No Substance Use Type: None Hx Substance Use Treatment: No - Past Medical History Allergies/Adverse Reactions: Allergies Allergy/AdvReac Type Severity Reaction Status Date / Time Iodinated Contrast- Oral and Allergy Severe Difficulty Verified 09/20/17 13:27 IV Dye Breathing [IV Dye, Iodine Containing Contrast ] iodine Allergy Severe Difficulty Verified 09/20/17 13:27 Breathing lactose AdvReac Verified 09/20/17 13:27 Home Medications: Ambulatory Orders Aspirin [ASA -] 81 mg PO DAILY 06/01/16 Escitalopram Oxalate [Lexapro -] 10 mg PO DAILY 06/01/16 Mirtazapine [Remeron -] 15 mg PO HS 06/01/16 Omeprazole [Prilosec] 40 mg PO DAILY PRN 06/01/16 Oxybutynin Chloride [Ditropan -] 10 mg PO DAILY 06/01/16 Clonazepam [Klonopin -] 0.5 mg PO BID #20 tab MDD 2 07/06/17 Lipase/Protease/Amylase [Scott Jc 36,000 Units Capsule] 1 cap PO TIDCM 09/13/17 Acetaminophen [Pain Relief] 500 mg PO Q4H PRN 09/14/17 Meclizine HCl 25 mg PO Q8H PRN 09/14/17 Carvedilol [Coreg -] 6.25 mg PO BID tablet 09/16/17 Nitrofurantoin Macrocrystal [Macrodantin -] 50 mg PO Q6HPO 5 Days #20 capsule Valsartan [Diovan] 160 mg PO DAILY 30 Days #30 tablet 09/16/17 Review of Systems GENERAL/CONSTITUTIONAL: No fever or chills. No weakness. HEAD, EYES, EARS, NOSE AND THROAT: No change in vision. No ear pain or discharge. No sore throat. CARDIOVASCULAR: No chest pain or shortness of breath. RESPIRATORY: No cough, wheezing, or hemoptysis. GASTROINTESTINAL: No nausea, vomiting, diarrhea or constipation. GENITOURINARY: No dysuria, frequency, or change in urination. MUSCULOSKELETAL: +head trauma. No joint or muscle swelling or pain. No neck or back pain. SKIN: No rash NEUROLOGIC: +vertigo. No loss of consciousness, or change in strength/sensation. ENDOCRINE: No increased thirst. No abnormal weight change. HEMATOLOGIC/LYMPHATIC: No anemia, easy bleeding, or history of blood clots. ALLERGIC/IMMUNOLOGIC: No hives or skin allergy. *Physical Exam Last Vital Signs Temp Pulse Resp BP Pulse Ox 98.0 F 70 14 103/56 97 09/21/17 07:18 09/21/17 07:18 09/21/17 07:18 09/21/17 07:18 09/21/17 07:18 09/20/17 15:06 GENERAL: Awake, alert, and fully oriented, in no acute distress HEAD: No signs of trauma EYES: PERRLA, EOMI, sclera anicteric, conjunctiva clear ENT: Auricles normal inspection, hearing grossly normal, nares patent, oropharynx clear without exudates. Dry mucosa NECK: Normal ROM, supple, no lymphadenopathy, JVD, or masses LUNGS: Breath sounds equal, clear to auscultation bilaterally. No wheezes, and no crackles HEART: Regular rate and rhythm, normal S1 and S2, no murmurs, rubs or gallops ABDOMEN: Soft, nontender, normoactive bowel sounds. No guarding, no rebound. No masses EXTREMITIES: Normal range of motion, no edema. No clubbing or cyanosis. No cords, erythema, or tenderness NEUROLOGICAL: Cranial nerves II through XII grossly intact. Normal speech, strength intact and without deficits, sensory normal, gait deferred SKIN: Warm, Dry, normal turgor, no rashes or lesions noted. CT head reviewed Plan: 87 year old female, with a significant past medical history of vertigo, TIA, HTN , and hypercholesterolemia who presents to the emergency department s/p mechanical fall. The patient reports standing up feeling dizzy/lightheaded, and as a result she reports tripping and hitting the back of head on her coffee table. She arrived with complaints of dizzyness and difficulty with balance. She has presented with similar symptoms in the past. She denies recent nausea, vomit, diarrhea or constipation. 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 IV fluids/hydration recommended. Mecelzine as needed , if not effective valium can be considered at low dose, 2mg. Physcial therapy, may benefit from short term rehab with repeated admissions for similar condition. Monitor bp, maintain normotensive range. Continue Statin for HLD. Continue ASA for CVA prevention. Fall precautions recomended.
[2017-09-21] MEDS ORDERED: CEFTRIAXONE 1 GM/50 ML BAG ONE (10:44)
[2017-09-21] MEDS: ENOXAPARIN NA (PORCINE) 30 MG/0.3 ML DISP.SYRIN SQ SCH (10:45)
[2017-09-21] MEDS ORDERED: CEFTRIAXONE 1 G/50 ML PREMIX 50 ML IVPB SCH (11:02)
--- NOTE | 2017-09-21 14:10 | CON.CARD ---
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 Recent admit here for the same, thought to be vertigo 2/2 cerebellar infarcts. Same type sxs now. Taking meclizine prn but still had frequent episodes of room spinning. Now s/p fall. No LOC. Noted to have UTI here. No recent decreased po intake. No cp, sob, palps, loc, pnd, orthopnea le edema. + nasal congestion PMH/pshx: per hpi, also Depression Social hx: no Hx Alcohol Use . no tob Family History: Denies (no cmp) ROS: per hpi. no f/c/s, runny nose, cough, h/a, rash, visual disturbances. Ambulatory Orders Aspirin [ASA -] 81 mg PO DAILY 06/01/16 Escitalopram Oxalate [Lexapro -] 10 mg PO DAILY 06/01/16 Mirtazapine [Remeron -] 15 mg PO HS 06/01/16 Omeprazole [Prilosec] 40 mg PO DAILY PRN 06/01/16 Oxybutynin Chloride [Ditropan -] 10 mg PO DAILY 06/01/16 Clonazepam [Klonopin -] 0.5 mg PO BID #20 tab MDD 2 07/06/17 Lipase/Protease/Amylase [Scott Jc 36,000 Units Capsule] 1 cap PO TIDCM 09/13/17 Acetaminophen [Pain Relief] 500 mg PO Q4H PRN 09/14/17 Meclizine HCl 25 mg PO Q8H PRN 09/14/17 Carvedilol [Coreg -] 6.25 mg PO BID tablet 09/16/17 Nitrofurantoin Macrocrystal [Macrodantin -] 50 mg PO Q6HPO 5 Days #20 capsule Valsartan [Diovan] 160 mg PO DAILY 30 Days #30 tablet 09/16/17 Current Medications Acetaminophen (Tylenol -) 650 mg PO Q6H PRN PRN Reason: FEVER OR PAIN Last Admin: 09/21/17 00:47 Dose: 650 mg Aspirin (Asa -) 81 mg PO DAILY [facility] Last Admin: 09/21/17 10:42 Dose: 81 mg Carvedilol (Coreg -) 6.25 mg PO BID [facility] Last Admin: 09/21/17 10:39 Dose: 6.25 mg Enoxaparin Sodium (Lovenox -) 30 mg SQ DAILY [facility] Last Admin: 09/21/17 10:45 Dose: 30 mg Escitalopram Oxalate (Lexapro -) 10 mg PO DAILY [facility] Last Admin: 09/21/17 10:40 Dose: 10 mg Sodium Chloride (Normal Saline -) 1,000 mls @ 83 mls/hr IV ASDIR [facility] Last Admin: 09/21/17 00:47 Dose: 83 mls/hr CEFTRIAXONE 1 G/50 ML PREMIX (Ceftriaxone 1 Gm-D5w Bag) 50 mls @ 200 mls/hr IVPB DAILY [facility] Meclizine HCl (Antivert -) 25 mg PO Q8H PRN PRN Reason: DIZZINESS Last Admin: 09/21/17 00:45 Dose: 25 mg Mirtazapine (Remeron -) 15 mg PO HS [facility] Oxybutynin Chloride (Ditropan -) 10 mg PO DAILY [facility] Last Admin: 09/21/17 10:41 Dose: 10 mg Pancrelipase (Creon Dr 36,000 Units Capsule) 1 cap PO TIDCM [facility] Last Admin: 09/21/17 10:40 Dose: 1 cap Pantoprazole Sodium (Protonix -) 40 mg PO DAILY PRN PRN Reason: DYSPEPSIA Valsartan (Diovan -) 80 mg PO DAILY [facility] Vital Signs - 24 hr 09/20/17 09/20/17 09/21/17 14:59 21:27 03:20 Temperature Pulse Rate [ 76 Right side Sitting] Pulse Rate [ 77 Right side Standing] Pulse Rate [ 74 Right side Supine] Pulse Rate [ 77 Right] Respiratory 20 Rate Blood Pressure 110/65 [Right Arm] Blood Pressure 113/67 [Right side Sitting] Blood Pressure 122/76 [Right side Standing] Blood Pressure 110/60 [Right side Supine] O2 Sat by Pulse 100 99 Oximetry (%) 09/21/17 09/21/17 09/21/17 06:58 07:18 08:00 Temperature 98.0 F Pulse Rate [ Right side Sitting] Pulse Rate [ Right side Standing] Pulse Rate [ Right side Supine] Pulse Rate [ 75 70 65 Right] Respiratory 20 14 17 Rate Blood Pressure 112/67 103/56 123/54 [Right Arm] Blood Pressure [Right side Sitting] Blood Pressure [Right side Standing] Blood Pressure [Right side Supine] O2 Sat by Pulse 100 97 95 Oximetry (%) Intake & Output 09/19/17 09/20/17 09/21/17 09/22/17 07:59 07:59 07:59 07:59 Weight 112 lb Constitutional: Yes: Well Nourished, uncomfortable Eyes: No: Sclera Icterus HENT: No: Nasal Congestion Neck: No: Decreased ROM Respiratory: Yes: CTA Bilaterally. No: Accessory Muscle Use, Rales, Wheezes Gastrointestinal: Yes: Normal Bowel Sounds. No: Distention, Hepatomegaly, Palpable Mass, Tenderness Cardiovascular: Yes: Regular Rate and Rhythm JVD: No Carotid Bruit: No PMI: Non-Displaced Heart Sounds: Yes: S1, S2. No: Gallop Murmur: No: Systolic Murmur, Diastolic Murmur Extremities: No: Cold, Cyanosis Edema: No Peripheral Pulses: 2+ Left Carotid, 2+ Right Carotid, 2+ Left Doralis Pedis, 2+ Right Dorsalis Pedis Integumentary: No: Jaundice diaphoresis Neurological: Yes: Alert, Oriented (x3) Psychiatric: No: Agitated CBC, BMP 09/21/17 08:00 09/21/17 08:00 Laboratory Tests 09/20/17 09/20/17 09/21/17 19:15 23:24 08:00 Total Bilirubin AST ALT Alkaline Phosphatase Troponin I 0.05 0.05 Albumin 3.6 TSH 2.08 D 09/21/17 09/21/17 08:00 08:00 Total Bilirubin 0.4 AST 39 H ALT 33 Alkaline Phosphatase 76 Troponin I 0.05 Albumin 3.0 L TSH ekg: a-sensed, v-paced tele: sr, a-sensed, v-paced head ct: report reveiwed. no sig change from priors. cxr: wnl echo 08/2017: mildly reduced lv fn. tds for rwma. rv not well seen. severe mr. 1+ tr. poorly visualized bioavr. mild perivalvular ar. echo 06/2017 ([facility]): nl lv/rv. 1+ mac. mild-mod mr. bio AVR well seated. MG 5.5. trace-mild AR. 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 dizziness, vertigo, prior cerebellar infarct: -description c/w vertigo, no suggestion of cardiac etiology. ce's neg x 3 -on past admits vertigo thought to be residual sx 2/2 bilateral chronic cerebellar infarcts. managed with meclizine. -patientt noted to have uti here with low bp trend, may be exacerbating sx's. -tele benign, con't to monitor h/o valvular heart dz with prior mech avr failure s/p reop 2014, chronic syst CHF, mod to severe MR: -prior mech AVR which failed, then bioAVR 2014 -echo 05/2017 with several changes from office study 2 mo prior: mod-sev LV dysfunction, moderate prosthetic AV regurg (was trivial on prior study), mod- severe MR (was trivial) --> no sig valvular ab on repeat 07/04/17. --> 08/2017 with report of severe MR --> I reviewed images, only moderate MR on my review. - no signs chf. no need for diuretics. -coreg, diovan dosing as mentioned below. htn: -hold diovan in setting of hypotension and ROLANDO. hold evening coreg dose, decreased dose to 3.125 mg for tomorrow, may need to be held if hypotension persists overnight. 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 correction of lyte abnormalities as doing. tele monitoring. pafib: -in sinus here -pt with brief, transient AF noted on prior PM checks, no recent recurrence. -- > not thought to be significant enough to warrant AC per dr johnson office notes -continue ASA per home regimen. If concern for recurrent infarct can readdress need for AC. Will check most recent remote monitoring for any AF burden. ppm: -nl fcn on tele here, continue routine office checks CKD with rolando: -prior creatinines range 0.9-1.6. Monitor on IVF h/o rectal bleed 2015: -rpt FOC benign then; per GI etiology felt likely 2/2 retained blood post recent prior FOC (felt safe for anti-thrombotic meds per GI at that time) hld: -cont home statin
[2017-09-21] MEDS: MIRTAZAPINE 15 MG TABLET (FP) PO SCH (23:08)
[2017-09-22 06:51] LABS: BASO % 0.6 % (0-2.0); EOS % 1.5 % (0-4.5); HEMATOCRIT 34.9 % (32.4-45.2); HEMOGLOBIN 11.3 GM/dL (10.7-15.3); LYMPH % 32.3 % (8-40); MCH 29.5 pg (25.7-33.7); MCHC 32.4 g/dl (32.0-36.0); MEAN CELL VOLUME 91.3 fl (80-96); MEAN PLT VOLUME 9.1 fl (7.5-11.1); MONO % 7.8 % (3.8-10.2); NEUT % 57.8 % (42.8-82.8); PLATELET COUNT 224 K/MM3 (134-434); RBC 3.82 M/mm3 (3.60-5.2); RDW 13.6 % (11.6-15.6)
[2017-09-22 07:09] LABS: ALBUMIN 2.9 g/dl (3.4-5.0); ANION GAP 8 (8-16); BLOOD UREA NITROGEN 37 mg/dL (7-18); CALCIUM 8.3 mg/dL (8.5-10.1); CHLORIDE 113 mmol/L (98-107); CO2 22 mmol/L (21-32); GLUCOSE,RANDOM 90 mg/dL (74-106); POTASSIUM 4.7 mmol/L (3.5-5.1); SGOT/AST 31 U/L (15-37); SGPT/ALT 32 U/L (12-78); SODIUM 143 mmol/L (136-145)
[2017-09-22 07:11] LABS: ALK PHOS 72 U/L (45-117); BILIRUBIN,TOTAL 0.3 mg/dL (0.2-1.0); CREATININE 1.6 mg/dL (0.55-1.02); TOT PROT 5.9 g/dl (6.4-8.2)
[2017-09-22] MEDS: LIPASE/PROTEASE/AMYLASE 36,000 UNIT CAPSULE PO SCH ×3 (08:45→17:59)
--- NOTE | 2017-09-22 09:17 | PN ---
Progress Note (short form) - Note Progress Note: Neurology History of Present Illness The patient is a 87 year old female, with a significant past medical history of vertigo, TIA, HTN, and hypercholesterolemia who presents to the emergency department s/p mechanical fall. The patient reports standing up feeling dizzy/ lightheaded, and as a result she reports tripping and hitting the back of head on her coffee table. She arrived with complaints of dizzyness and difficulty with balance. She has presented with similar symptoms in the past. She denies recent nausea, vomit, diarrhea or constipation. 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 Her dizzyness is better today. She said she does not want to go to rehab but discussed with her that this would provide continued treatment and should help prevent recurrent admissions. Remains hesitant. Active Medications Acetaminophen (Tylenol -) 650 mg PO Q6H PRN PRN Reason: FEVER OR PAIN Last Admin: 09/21/17 00:47 Dose: 650 mg Aspirin (Asa -) 81 mg PO DAILY [facility] Last Admin: 09/21/17 10:42 Dose: 81 mg Carvedilol (Coreg -) 3.125 mg PO BID [facility] Enoxaparin Sodium (Lovenox -) 30 mg SQ DAILY [facility] Last Admin: 09/21/17 10:45 Dose: 30 mg Escitalopram Oxalate (Lexapro -) 10 mg PO DAILY [facility] Last Admin: 09/21/17 10:40 Dose: 10 mg Sodium Chloride (Normal Saline -) 1,000 mls @ 83 mls/hr IV ASDIR [facility] Last Admin: 09/21/17 23:08 Dose: 83 mls/hr CEFTRIAXONE 1 G/50 ML PREMIX (Ceftriaxone 1 Gm-D5w Bag) 50 mls @ 200 mls/hr IVPB DAILY [facility] Meclizine HCl (Antivert -) 25 mg PO Q8H PRN PRN Reason: DIZZINESS Last Admin: 09/21/17 15:42 Dose: 25 mg Mirtazapine (Remeron -) 15 mg PO HS [facility] Last Admin: 09/21/17 23:08 Dose: 15 mg Oxybutynin Chloride (Ditropan -) 10 mg PO DAILY [facility] Last Admin: 09/21/17 10:41 Dose: 10 mg Pancrelipase (Creon Dr 36,000 Units Capsule) 1 cap PO TIDCM [facility] Last Admin: 09/21/17 23:08 Dose: Not Given Pantoprazole Sodium (Protonix -) 40 mg PO DAILY PRN PRN Reason: DYSPEPSIA *Physical Exam Vital Signs Temperature 97.2 F L 09/22/17 02:00 Pulse Rate 72 09/22/17 06:00 Respiratory Rate 20 09/22/17 06:00 Blood Pressure 115/67 09/22/17 06:00 O2 Sat by Pulse Oximetry (%) 94 L 09/21/17 19:30 09/20/17 15:06 GENERAL: Awake, alert, and fully oriented, in no acute distress HEAD: No signs of trauma EYES: PERRLA, EOMI, sclera anicteric, conjunctiva clear ENT: Auricles normal inspection, hearing grossly normal, nares patent, oropharynx clear without exudates. Dry mucosa NECK: Normal ROM, supple, no lymphadenopathy, JVD, or masses LUNGS: Breath sounds equal, clear to auscultation bilaterally. No wheezes, and no crackles HEART: Regular rate and rhythm, normal S1 and S2, no murmurs, rubs or gallops ABDOMEN: Soft, nontender, normoactive bowel sounds. No guarding, no rebound. No masses EXTREMITIES: Normal range of motion, no edema. No clubbing or cyanosis. No cords, erythema, or tenderness NEUROLOGICAL: Cranial nerves II through XII grossly intact. Normal speech, strength intact and without deficits, sensory normal, gait deferred SKIN: Warm, Dry, normal turgor, no rashes or lesions noted. CT head reviewed Plan: 87 year old female, with a significant past medical history of vertigo, TIA, HTN , and hypercholesterolemia who presents to the emergency department s/p mechanical fall. The patient reports standing up feeling dizzy/lightheaded, and as a result she reports tripping and hitting the back of head on her coffee table. She arrived with complaints of dizzyness and difficulty with balance. She has presented with similar symptoms in the past. She denies recent nausea, vomit, diarrhea or constipation. 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 IV fluids/hydration recommended. Mecelzine as needed , if not effective valium can be considered at low dose, 2mg. Physcial therapy, may benefit from short term rehab with repeated admissions for similar condition. Monitor bp, maintain normotensive range. Continue Statin for HLD. Continue ASA for CVA prevention. Fall precautions recomended. Would likely benefit from rehab but is hesitant. Dizzyness is better and encouraged her to think about this option more.
[2017-09-22] MEDS ORDERED: VALSARTAN 80 MG TABLET (UD) PO SCH (10:00)
[2017-09-22] MEDS: ENOXAPARIN NA (PORCINE) 30 MG/0.3 ML DISP.SYRIN SQ SCH (10:43)
[2017-09-22] MEDS: OXYBUTYNIN CHLORIDE 5 MG TABLET PO SCH (10:44)
[2017-09-22] MEDS: CARVEDILOL 3.125 MG TABLET (FP) PO SCH ×2 (10:44→21:39)
[2017-09-22] MEDS: ASPIRIN 81 MG CHEWABLE TABLETS PO SCH (10:44)
[2017-09-22] MEDS: ESCITALOPRAM OXALATE 10 MG TABLET (FP) PO SCH (10:44)
--- NOTE | 2017-09-22 11:29 | PN ---
Progress Note (short form) - Note Progress Note: s: no cp sob palps dizzy Current Medications Generic Name Dose Route Start Last Admin Trade Name Freq PRN Reason Stop Dose Admin Acetaminophen 650 mg 09/20/17 23:31 09/21/17 00:47 Tylenol - PO 650 mg Q6H PRN Administration FEVER OR PAIN Aspirin 81 mg 09/21/17 10:00 09/22/17 10:44 Asa - PO 81 mg DAILY [facility] Administration Carvedilol 3.125 mg 09/22/17 10:00 09/22/17 10:44 Coreg - PO 3.125 mg BID [facility] Administration Enoxaparin Sodium 30 mg 09/21/17 10:15 09/22/17 10:43 Lovenox - SQ 30 mg DAILY [facility] Administration Escitalopram Oxalate 10 mg 09/21/17 10:00 09/22/17 10:44 Lexapro - PO 10 mg DAILY [facility] Administration Sodium Chloride 1,000 mls @ 83 mls/hr 09/20/17 22:30 09/21/17 23:08 Normal Saline - IV 83 mls/hr ASDIR [facility] Administration CEFTRIAXONE 1 G/50 ML PREMIX 50 mls @ 200 mls/hr 09/21/17 11:02 09/22/17 10: 44 Ceftriaxone 1 Gm-D5w Bag IVPB 200 mls/hr DAILY [facility] Administration Meclizine HCl 25 mg 09/20/17 22:23 09/21/17 15:42 Antivert - PO 25 mg Q8H PRN Administration DIZZINESS Mirtazapine 15 mg 09/21/17 22:00 09/21/17 23:08 Remeron - PO 15 mg HS [facility] Administration Oxybutynin Chloride 10 mg 09/21/17 10:00 09/22/17 10:44 Ditropan - PO 10 mg DAILY [facility] Administration Pancrelipase 1 cap 09/21/17 08:00 09/22/17 08:45 Creon 36,000 Units Capsule PO 1 cap TIDCM [facility] Administration Pantoprazole Sodium 40 mg 09/20/17 22:23 Protonix - PO DAILY PRN DYSPEPSIA Vital Signs Period Temp Pulse Resp BP Sys/Castro Pulse Ox Last 24 Hr 97.2 F-98.8 F 65-74 16-20 85-123/49-67 94-96 Constitutional: Yes: Well Nourished, uncomfortable Eyes: No: Sclera Icterus Respiratory: Yes: CTA Bilaterally. No: Accessory Muscle Use, Rales, Wheezes Gastrointestinal: Yes: Normal Bowel Sounds. No: Distention, Hepatomegaly, Palpable Mass, Tenderness Cardiovascular: Yes: Regular Rate and Rhythm JVD: No Heart Sounds: Yes: S1, S2. No: Gallop Murmur: No: Systolic Murmur, Diastolic Murmur Extremities: No: Cold, Cyanosis Edema: No Integumentary: No: Jaundice diaphoresis Neurological: Yes: Alert, Oriented (x3) Psychiatric: No: Agitated CBC, BMP 09/22/17 06:05 09/22/17 06:05 ekg: a-sensed, v-paced tele: sr, a-sensed, v-paced head ct: report reveiwed. no sig change from priors. cxr: wnl echo 08/2017: mildly reduced lv fn. tds for rwma. rv not well seen. severe mr. 1+ tr. poorly visualized bioavr. mild perivalvular ar. echo 06/2017 ([facility]): nl lv/rv. 1+ mac. mild-mod mr. bio AVR well seated. MG 5.5. trace-mild AR. 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 dizziness, vertigo, prior cerebellar infarct: -description c/w vertigo, no suggestion of cardiac etiology. ce's neg -on past admits vertigo thought to be residual sx 2/2 bilateral chronic cerebellar infarcts. managed with meclizine. -patient noted to have uti here with low bp trend, may be exacerbating sx's. -tele benign -per neuro can possibly try valium as well to manage her vertigo sxs h/o valvular heart dz with prior mech avr failure s/p reop 2014, chronic syst CHF, mod to severe MR: -prior mech AVR which failed, then bioAVR 2014 -echo 05/2017 with several changes from office study 2 mo prior: mod-sev LV dysfunction, moderate prosthetic AV regurg (was trivial on prior study), mod- severe MR (was trivial) --> no sig valvular ab on repeat 07/04/17. --> 08/2017 with report of severe MR --> I reviewed images, only moderate MR on my review. - no signs chf. no need for diuretics. -coreg, diovan dosing as mentioned below. htn: -hold diovan in setting of hypotension and ROLANDO. 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 correction of lyte abnormalities as doing. tele monitoring. pafib: -in sinus here -pt with brief, transient AF noted on prior PM checks, no recent recurrence. -- > not thought to be significant enough to warrant AC per dr johnson office notes -continue ASA per home regimen. If concern for recurrent infarct can readdress need for AC. Will check most recent remote monitoring for any AF burden. ppm: -nl fcn on tele here, continue routine office checks CKD with [place]lando: -prior creatinines range 0.9-1.6. Monitor on IVF h/o rectal bleed 2015: -rpt FOC benign then; per GI etiology felt likely 2/2 retained blood post recent prior FOC (felt safe for anti-thrombotic meds per GI at that time) hld: -cont home statin
[2017-09-22] MEDS ORDERED: clonazePAM 0.5 MG TABLET PO PRN (11:36)
--- NOTE | 2017-09-22 12:41 | PN ---
Progress Note (short form) - Note Progress Note: pt seen/ examined all f/u noted pt anxious. Vital Signs Temp 97.8 F 09/22/17 10:00 Pulse 69 09/22/17 10:00 Resp 20 09/22/17 10:00 BP 123/69 09/22/17 10:00 Pulse Ox 94 L 09/21/17 19:30 Intake & Output 09/21/17 09/22/17 09/22/17 23:59 11:59 23:59 Intake Total 50 996 240 Balance 50 996 240 Weight 112 lb Intake: IV 996 Normal Saline - 1,000 ml 996 @ 83 mls/hr IV ASDIR [facility] Rx#:[id number] IVPB 50 Oral 240 Other: Voiding Method Toilet Bedside Commode # Unmeasured Voids Void 2 Bowel Movement Yes: Small # Bowel Movements 1 Height 4 ft 11 in Body Mass Index (BMI) 22.6 Weight Measurement Method Stated by Patient Active Medications Acetaminophen (Tylenol -) 650 mg PO Q6H PRN PRN Reason: FEVER OR PAIN Last Admin: 09/21/17 00:47 Dose: 650 mg Aspirin (Asa -) 81 mg PO DAILY [facility] Last Admin: 09/22/17 10:44 Dose: 81 mg Carvedilol (Coreg -) 3.125 mg PO BID [facility] Last Admin: 09/22/17 10:44 Dose: 3.125 mg Clonazepam (Klonopin -) 0.5 mg PO BID PRN PRN Reason: ANXIETY Enoxaparin Sodium (Lovenox -) 30 mg SQ DAILY [facility] Last Admin: 09/22/17 10:43 Dose: 30 mg Escitalopram Oxalate (Lexapro -) 10 mg PO DAILY [facility] Last Admin: 09/22/17 10:44 Dose: 10 mg Sodium Chloride (Normal Saline -) 1,000 mls @ 83 mls/hr IV ASDIR [facility] Last Admin: 09/21/17 23:08 Dose: 83 mls/hr CEFTRIAXONE 1 G/50 ML PREMIX (Ceftriaxone 1 Gm-D5w Bag) 50 mls @ 200 mls/hr IVPB DAILY [facility] Last Admin: 09/22/17 10:44 Dose: 200 mls/hr Meclizine HCl (Antivert -) 25 mg PO Q8H PRN PRN Reason: DIZZINESS Last Admin: 01/03/18 15:42 Dose: 25 mg Mirtazapine (Remeron -) 15 mg PO HS [facility] Last Admin: 09/21/17 23:08 Dose: 15 mg Oxybutynin Chloride (Ditropan -) 10 mg PO DAILY [facility] Last Admin: 09/22/17 10:44 Dose: 10 mg Pancrelipase (Creon Dr 36,000 Units Capsule) 1 cap PO TIDCM [facility] Last Admin: 09/22/17 08:45 Dose: 1 cap Pantoprazole Sodium (Protonix -) 40 mg PO DAILY PRN PRN Reason: DYSPEPSIA CBC, BMP 09/22/17 06:05 09/22/17 06:05 Microbiology 09/20/17 21:00 Urine Culture - Final Urine - Urine Clean Catch NO GROWTH OBTAINED physical exam Awake, comfortable. anxious Neck supple/No JVD Trachea midline No carotid bruit Lungs--clear to auscultation CVS--S1 and S2 regular abdomen--soft, non tender Extremities--- no edema neuro--- Alert and oriented 3 -nonfocal exam-- Psych--- anxious Assessment and plan Frequent episodes of dizziness Compounded by anxiety discussed should benefit from rehab lives alone pt reluctant Monitor blood pressure continue mild hydration hold diovan u/c -ve pt has no urinary symptoms d/c abx DVT prophylaxis Will follow.
[2017-09-22] MEDS: MECLIZINE HCL 25 MG TABLET (FP) PO PRN (16:03)
[2017-09-22] MEDS: MIRTAZAPINE 15 MG TABLET (FP) PO SCH (21:39)
[2017-09-22] MEDS: diazePAM 2 MG TABLET PO SCH (21:39)
[2017-09-23] MEDS ORDERED: PT OWN MED DRAWER 7, Y5N ONE (08:34)
[2017-09-23] MEDS: LIPASE/PROTEASE/AMYLASE 36,000 UNIT CAPSULE PO SCH ×2 (08:57→12:00)
--- NOTE | 2017-09-23 09:33 | PN ---
Progress Note (short form) - Note Progress Note: Neurology History of Present Illness The patient is a 87 year old female, with a significant past medical history of vertigo, TIA, HTN, and hypercholesterolemia who presents to the emergency department s/p mechanical fall. The patient reports standing up feeling dizzy/ lightheaded, and as a result she reports tripping and hitting the back of head on her coffee table. She arrived with complaints of dizzyness and difficulty with balance. She has presented with similar symptoms in the past. She denies recent nausea, vomit, diarrhea or constipation. 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 Her dizzyness is much better today. This may also be due to her underlying anxiety and reports valium was helpful for her. She is in agreement with rehab placement at this time. Active Medications Acetaminophen (Tylenol -) 650 mg PO Q6H PRN PRN Reason: FEVER OR PAIN Last Admin: 09/21/17 00:47 Dose: 650 mg Aspirin (Asa -) 81 mg PO DAILY [facility] Last Admin: 09/22/17 10:44 Dose: 81 mg Carvedilol (Coreg -) 3.125 mg PO BID [facility] Last Admin: 09/22/17 21:39 Dose: 3.125 mg Diazepam (Valium -) 2 mg PO BID [facility] Last Admin: 09/22/17 21:39 Dose: 2 mg Enoxaparin Sodium (Lovenox -) 30 mg SQ DAILY [facility] Last Admin: 09/22/17 10:43 Dose: 30 mg Escitalopram Oxalate (Lexapro -) 10 mg PO DAILY [facility] Last Admin: 09/22/17 10:44 Dose: 10 mg Sodium Chloride (Normal Saline -) 1,000 mls @ 83 mls/hr IV ASDIR [facility] Last Admin: 09/21/17 23:08 Dose: 83 mls/hr Meclizine HCl (Antivert -) 25 mg PO Q8H PRN PRN Reason: DIZZINESS Last Admin: 09/22/17 16:03 Dose: 25 mg Mirtazapine (Remeron -) 15 mg PO HS [facility] Last Admin: 09/22/17 21:39 Dose: 15 mg Oxybutynin Chloride (Ditropan -) 10 mg PO DAILY [facility] Last Admin: 09/22/17 10:44 Dose: 10 mg Pancrelipase (Creon Dr 36,000 Units Capsule) 1 cap PO TIDCM [facility] Last Admin: 09/23/17 08:57 Dose: 1 cap Pantoprazole Sodium (Protonix -) 40 mg PO DAILY PRN PRN Reason: DYSPEPSIA *Physical Exam Vital Signs Temperature 98.5 F 09/23/17 05:46 Pulse Rate 66 09/23/17 05:46 Respiratory Rate 18 09/23/17 05:46 Blood Pressure 130/70 09/23/17 05:46 O2 Sat by Pulse Oximetry (%) 94 L 09/22/17 20:26 09/20/17 15:06 GENERAL: Awake, alert, and fully oriented, in no acute distress HEAD: No signs of trauma EYES: PERRLA, EOMI, sclera anicteric, conjunctiva clear ENT: Auricles normal inspection, hearing grossly normal, nares patent, oropharynx clear without exudates. Dry mucosa NECK: Normal ROM, supple, no lymphadenopathy, JVD, or masses LUNGS: Breath sounds equal, clear to auscultation bilaterally. No wheezes, and no crackles HEART: Regular rate and rhythm, normal S1 and S2, no murmurs, rubs or gallops ABDOMEN: Soft, nontender, normoactive bowel sounds. No guarding, no rebound. No masses EXTREMITIES: Normal range of motion, no edema. No clubbing or cyanosis. No cords, erythema, or tenderness NEUROLOGICAL: Cranial nerves II through XII grossly intact. Normal speech, strength intact and without deficits, sensory normal, gait deferred SKIN: Warm, Dry, normal turgor, no rashes or lesions noted. CT head reviewed Plan: 87 year old female, with a significant past medical history of vertigo, TIA, HTN , and hypercholesterolemia who presents to the emergency department s/p mechanical fall. The patient reports standing up feeling dizzy/lightheaded, and as a result she reports tripping and hitting the back of head on her coffee table. She arrived with complaints of dizzyness and difficulty with balance. She has presented with similar symptoms in the past. She denies recent nausea, vomit, diarrhea or constipation. 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 IV fluids/hydration recommended. Mecelzine as needed , if not effective valium can be considered at low dose, 2mg. Physcial therapy, may benefit from short term rehab with repeated admissions for similar condition. Monitor bp, maintain normotensive range. Continue Statin for HLD. Continue ASA for CVA prevention. Fall precautions recomended. In agreement for rehab placement. Dizzyness is better and if bed available, no further rec'd at this time. Can take valium, low dose, as needed for acute vertigo if needed
[2017-09-23] MEDS: OXYBUTYNIN CHLORIDE 5 MG TABLET PO SCH (10:33)
[2017-09-23] MEDS: ASPIRIN 81 MG CHEWABLE TABLETS PO SCH (10:33)
[2017-09-23] MEDS: CARVEDILOL 3.125 MG TABLET (FP) PO SCH (10:33)
[2017-09-23] MEDS: ESCITALOPRAM OXALATE 10 MG TABLET (FP) PO SCH (10:33)
[2017-09-23] MEDS: diazePAM 2 MG TABLET PO SCH (10:33)
[2017-09-23] MEDS: ENOXAPARIN NA (PORCINE) 30 MG/0.3 ML DISP.SYRIN SQ SCH (10:35)
--- NOTE | 2017-09-23 10:36 | PN ---
Progress Note (short form) - Note Progress Note: Vital Signs Temp 98.5 F 09/23/17 05:46 Pulse 66 09/23/17 05:46 Resp 18 09/23/17 05:46 BP 130/70 09/23/17 05:46 Pulse Ox 94 L 09/22/17 20:26 Intake & Output 09/22/17 09/22/17 09/23/17 11:59 23:59 11:59 Intake Total 996 1336 581 Output Total 400 Balance 996 936 581 Intake: IV 996 996 581 Normal Saline - 1,000 ml 996 996 581 @ 83 mls/hr IV ASDIR [facility] Rx#:[id number] IVPB 100 Oral 240 Output: Urine 400 Void 400 Other: Voiding Method Bedside Commode # Unmeasured Voids Void 2 2 Active Medications Acetaminophen (Tylenol -) 650 mg PO Q6H PRN PRN Reason: FEVER OR PAIN Last Admin: 09/21/17 00:47 Dose: 650 mg Aspirin (Asa -) 81 mg PO DAILY [facility] Last Admin: 09/22/17 10:44 Dose: 81 mg Carvedilol (Coreg -) 3.125 mg PO BID [facility] Last Admin: 09/22/17 21:39 Dose: 3.125 mg Diazepam (Valium -) 2 mg PO BID [facility] Last Admin: 09/22/17 21:39 Dose: 2 mg Enoxaparin Sodium (Lovenox -) 30 mg SQ DAILY [facility] Last Admin: 09/22/17 10:43 Dose: 30 mg Escitalopram Oxalate (Lexapro -) 10 mg PO DAILY [facility] Last Admin: 09/22/17 10:44 Dose: 10 mg Sodium Chloride (Normal Saline -) 1,000 mls @ 83 mls/hr IV ASDIR [facility] Last Admin: 09/21/17 23:08 Dose: 83 mls/hr Meclizine HCl (Antivert -) 25 mg PO Q8H PRN PRN Reason: DIZZINESS Last Admin: 09/22/17 16:03 Dose: 25 mg Mirtazapine (Remeron -) 15 mg PO [facility] Last Admin: 09/22/17 21:39 Dose: 15 mg Oxybutynin Chloride (Ditropan -) 10 mg PO DAILY [facility] Last Admin: 09/22/17 10:44 Dose: 10 mg Pancrelipase (Creon Dr 36,000 Units Capsule) 1 cap PO TIDCM [facility] Last Admin: 09/23/17 08:57 Dose: 1 cap Pantoprazole Sodium (Protonix -) 40 mg PO DAILY PRN PRN Reason: DYSPEPSIA CBC, BMP 09/22/17 06:05 09/22/17 06:05 Microbiology 09/20/17 21:00 Urine Culture - Final Urine - Urine Clean Catch NO GROWTH OBTAINED
--- NOTE | 2017-09-23 10:55 | DS ---
Physical Examination Vital Signs: Vital Signs Temperature 98.5 F 09/23/17 05:46 Pulse Rate 66 09/23/17 05:46 Respiratory Rate 18 09/23/17 05:46 Blood Pressure 130/70 09/23/17 05:46 O2 Sat by Pulse Oximetry (%) 94 L 09/22/17 20:26 Findings/Remarks: patient seen and examined Comfortable feels better Willing to go to short-term rehabilitation Constitutional: Yes: No Distress Neck: Yes: Supple Cardiovascular: Yes: Regular Rate and Rhythm Respiratory: Yes: CTA Bilaterally Gastrointestinal: Yes: Soft Edema: No Neurological: Yes: Alert Psychiatric: Yes: Other (calm) Labs: CBC, BMP 09/22/17 06:05 09/22/17 06:05 Discharge Summary Reason For Visit: STATUS POST FALL,POSTURAL VERTIGO Current Active Problems Status post fall (Acute) Vertigo (Acute) Hospital Course: year old female with PMH of vertigo, HTN, HLD, S CHF, AFIB, ,AI (s/p [facility]. 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 patient was preparing her food around 12.30 when she felt dizzy (the room spinning ), lightheaded and fell down on her back and hit her head with coffee machine, patient denies any loss of consciousness, or any seizure symptoms, she call her daughter who call the ambulance. patient reports headache 7/10 , radiating to her neck, she denies any fever, chills, N/V/D/C. She denies any chest pain , palpitation, sob, abdominal pain. she reports recent UTI last week treated with Nitrofurantoin as out patient. she was recently discharged from the hospital for same symptoms. patient live by her self at first floor and her son live in 2nd floor. ER course was notable for: (1) Head CT negative for intracranial bleeding or Fx (2) CBC, CMP significant for Leucocytosis and ROLANDO (wbc 13.3, BUN/Cr 45/1.9) (3) IV fluids 1L NS bolus , orthostatics BP negative Recent Travel:denies PAST MEDICAL HISTORY: Vertigo, TIA, HTN, HLD, MVR,S CHF, AFIB, rectal bleeding, cardiac pacemaker PAST SURGICAL HISTORY: cholecystectomy, appendectomy Social History: Smoking:denies Alcohol:denies Drugs: denies patient has recent admissions--for the same Contributed by anxiety patient seen by cardiology as well as neurology Patient placed on Valium instead of clonazepam Patient feels better Overall stable medically stable for discharge--- For short-term rehabilitation Plan discussed with nursing staff as well as manager rn case Medications reconciled Condition: Improved - Instructions Referrals: Javi Brock MD [Primary Care Provider] - [facility]position[facility] - Home Medications Comprehensive Discharge Medication List: Ambulatory Orders Aspirin [ASA -] 81 mg PO DAILY 06/01/16 Escitalopram Oxalate [Lexapro -] 10 mg PO DAILY 06/01/16 Mirtazapine [Remeron -] 15 mg PO HS 06/01/16 Omeprazole [Prilosec] 40 mg PO DAILY PRN 06/01/16 Oxybutynin Chloride [Ditropan -] 10 mg PO DAILY 06/01/16 Lipase/Protease/Amylase [Scott Dr 36,000 Units Capsule] 1 cap PO TIDCM 09/13/17 Acetaminophen [Pain Relief] 500 mg PO Q4H PRN 09/14/17 Meclizine HCl 25 mg PO Q8H PRN 09/14/17 Carvedilol [Coreg -] 3.125 mg PO BID tablet 09/23/17 Diazepam [Valium] 2 mg PO BID PRN #0 tablet MDD 2 09/23/17 Enoxaparin [Lovenox -] 30 mg SQ DAILY disp.syrin 09/23/17
--- NOTE | 2017-09-23 11:50 | PN ---
Progress Note (short form) - Note Progress Note: s: no cp sob palps dizzy Current Medications Generic Name Dose Route Start Last Admin Trade Name Freq PRN Reason Stop Dose Admin Acetaminophen 650 mg 09/20/17 23:31 09/21/17 00:47 Tylenol - PO 650 mg Q6H PRN Administration FEVER OR PAIN Aspirin 81 mg 09/21/17 10:00 09/23/17 10:33 Asa - PO 81 mg DAILY [facility] Administration Carvedilol 3.125 mg 09/22/17 10:00 09/23/17 10:33 Coreg - PO 3.125 mg BID [facility] Administration Diazepam 2 mg 09/22/17 22:00 09/23/17 10:33 Valium - PO 2 mg BID [facility] Administration Enoxaparin Sodium 30 mg 09/21/17 10:15 09/23/17 10:35 Lovenox - SQ 30 mg DAILY [facility] Administration Escitalopram Oxalate 10 mg 09/21/17 10:00 09/23/17 10:33 Lexapro - PO 10 mg DAILY [facility] Administration Sodium Chloride 1,000 mls @ 83 mls/hr 09/20/17 22:30 09/21/17 23:08 Normal Saline - IV 83 mls/hr ASDIR [facility] Administration Meclizine HCl 25 mg 09/20/17 22:23 09/22/17 16:03 Antivert - PO 25 mg Q8H PRN Administration DIZZINESS Mirtazapine 15 mg 09/21/17 22:00 09/22/17 21:39 Remeron - PO 15 mg HS [facility] Administration Oxybutynin Chloride 10 mg 09/21/17 10:00 09/23/17 10:33 Ditropan - PO 10 mg DAILY [facility] Administration Pancrelipase 1 cap 09/21/17 08:00 09/23/17 08:57 Scott Jc 36,000 Units Capsule PO 1 cap TIDCM [facility] Administration Pantoprazole Sodium 40 mg 09/20/17 22:23 09/23/17 10:33 Protonix - PO 40 mg DAILY PRN Administration DYSPEPSIA Vital Signs Period Temp Pulse Resp BP Sys/Castro Pulse Ox Last 24 Hr 97.6 F-98.6 F 58-78 18-20 128-167/61-74 94 Constitutional: Yes: Well Nourished, uncomfortable Eyes: No: Sclera Icterus Respiratory: Yes: CTA Bilaterally. No: Accessory Muscle Use, Rales, Wheezes Gastrointestinal: Yes: Normal Bowel Sounds. No: Distention, Hepatomegaly, Palpable Mass, Tenderness Cardiovascular: Yes: Regular Rate and Rhythm JVD: No Heart Sounds: Yes: S1, S2. No: Gallop Murmur: No: Systolic Murmur, Diastolic Murmur Extremities: No: Cold, Cyanosis Edema: No Integumentary: No: Jaundice diaphoresis Neurological: Yes: Alert, Oriented (x3) Psychiatric: No: Agitated CBC, BMP 09/22/17 06:05 09/22/17 06:05 ekg: a-sensed, v-paced tele: sr, a-sensed, v-paced head ct: report reveiwed. no sig change from priors. cxr: wnl echo 08/2017: mildly reduced lv fn. tds for rwma. rv not well seen. severe mr. 1+ tr. poorly visualized bioavr. mild perivalvular ar. echo 06/2017 ([facility]): nl lv/rv. 1+ mac. mild-mod mr. bio AVR well seated. MG 5.5. trace-mild AR. 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 dizziness, vertigo, prior cerebellar infarct: -description c/w vertigo, no suggestion of cardiac etiology. ce's neg -on past admits vertigo thought to be residual sx 2/2 bilateral chronic cerebellar infarcts. managed with meclizine. -patient noted to have uti here with low bp trend, may be exacerbating sx's. -tele benign -now on valium as well to manage her vertigo sxs. h/o valvular heart dz with prior mech avr failure s/p reop 2014, chronic syst CHF, mod to severe MR: -prior mech AVR which failed, then bioAVR 2014 -echo 05/2017 with several changes from office study 2 mo prior: mod-sev LV dysfunction, moderate prosthetic AV regurg (was trivial on prior study), mod- severe MR (was trivial) --> no sig valvular ab on repeat 07/04/17. --> 08/2017 with report of severe MR --> I reviewed images, only moderate MR on my review. - no signs chf. no need for diuretics. -coreg, diovan dosing as mentioned below. htn: -hold diovan in setting of hypotension and ROLANDO. 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 correction of lyte abnormalities as doing. tele monitoring. pafib: -in sinus here -pt with brief, transient AF noted on prior PM checks, no recent recurrence. -- > not thought to be significant enough to warrant AC per dr johnson office notes -continue ASA per home regimen. If concern for recurrent infarct can readdress need for AC. Will check most recent remote monitoring for any AF burden. ppm: -nl fcn on tele here, continue routine office checks CKD with rolando: -prior creatinines range 0.9-1.6. Monitor on IVF h/o rectal bleed 2015: -rpt FOC benign then; per GI etiology felt likely 2/2 retained blood post recent prior FOC (felt safe for anti-thrombotic meds per GI at that time) hld: -cont home statin stable for snf
[2017-09-23 15:18] VITALS: BP 126/60; PULSE 63; TEMP 99
== END 2017-09-23 15:32 ==
LOC: JER 13:20 → UNDOADMOB 20:35 → JERBED 20:35 → J4W 09-21 19:00
PROVIDERS: ADMIT Internal Medicine; ATTEND Internal Medicine
PROC: 3E0337Z Introduction of Electrolytic and Water Balance Substance into Peripheral Vein, Percutaneous Approach (ICD-10-PCS; principal; 2017-09-20)
PROC: 3E013GC Introduction of Other Therapeutic Substance into Subcutaneous Tissue, Percutaneous Approach (ICD-10-PCS; 2017-09-20)
DX: R42 Dizziness and giddiness (principal); N17.9 Acute kidney failure, unspecified; I12.9 Hypertensive chronic kidney disease with stage 1 through stage 4 chronic kidney disease, or unspecified chronic kidney disease; N18.9 Chronic kidney disease, unspecified; E78.5 Hyperlipidemia, unspecified; I50.20 Unspecified systolic (congestive) heart failure; D72.89 Other specified disorders of white blood cells; I48.0 Paroxysmal atrial fibrillation; I25.10 Atherosclerotic heart disease of native coronary artery without angina pectoris; F32.9 Major depressive disorder, single episode, unspecified; Z86.73 Personal history of transient ischemic attack (TIA), and cerebral infarction without residual deficits; Z95.0 Presence of cardiac pacemaker; Z95.2 Presence of prosthetic heart valve; Z87.891 Personal history of nicotine dependence; Z91.041 Radiographic dye allergy status; Z79.82 Long term (current) use of aspirin; Z91.011 Allergy to milk products; Z91.048 Other nonmedicinal substance allergy status; F41.9 Anxiety disorder, unspecified; W01.190A Fall on same level from slipping, tripping and stumbling with subsequent striking against furniture, initial encounter; Z91.81 History of falling; Y93.89 Activity, other specified; Y92.009 Unspecified place in unspecified non-institutional (private) residence as the place of occurrence of the external cause
CPT/HCPCS: 36415; 70450-TC; 71045-TC; 80053; 81003; 81015; 82436; 82550; 84133; 84300; 84443; 84484; 85025; 85610; 85730; 87086; 93005; 93010; 96360; 96372; 97116-GP; 97161-GP; 99285-25; G0378

== ENCOUNTER 2018-10-06 16:37 | Inpatient (IN) | payer OTHER ==
--- NOTE | 2018-10-06 17:23 | PDOC ---
History of Present Illness - General Stated Complaint: VOMITING Time Seen by Provider: 10/06/18 17:23 - History of Present Illness Initial Comments: 10/06/18 17:26 Ms. 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 Patient is s/p cholecystectomy and appendectomy. Complains of chills today as well as lightheaded feeling. Also complaining of diffuse abdominal pain. The patient denies chest pain, shortness of breath, and headache. Denies fever and constipation. Denies dysuria, frequency, urgency and hematuria. Past History - Past Medical History Allergies/Adverse Reactions: Allergies Allergy/AdvReac Type Severity Reaction Status Date / Time Iodinated Contrast- Oral and Allergy Severe Difficulty Verified 09/20/17 13:27 IV Dye Breathing [IV Dye, Iodine Containing Contrast ] iodine Allergy Severe Difficulty Verified 09/20/17 13:27 Breathing lactose AdvReac Verified 09/20/17 13:27 Home Medications: Ambulatory Orders Acetaminophen [Tylenol -] 500 mg PO Q4H 10/06/18 Aspirin 81 mg PO DAILY 10/06/18 Carvedilol 6.25 mg PO BID 10/06/18 Clonazepam 0.5 mg PO BID 10/06/18 Escitalopram Oxalate [Lexapro -] 10 mg PO DAILY 10/06/18 Furosemide [Lasix] 20 mg PO DAILY 10/06/18 Lipase/Protease/Amylase [[place] 36,000 Units Capsule] 1 each PO DAILY Meclizine HCl 25 mg PO TID 10/06/18 Mirtazapine [Remeron Soltab -] 15 mg PO DAILY 10/06/18 Omeprazole 40 mg PO DAILY 10/06/18 Oxybutynin Chloride [Ditropan Xl] 10 mg PO DAILY 10/06/18 Triamterene/Hydrochlorothiazid [Triamterene-Hctz 37.5-25 mg Cp] 1 each PO DAILY 10/06/18 Anemia: No Asthma: No Cancer: Yes (Ventricular Pacemaker - 2016, MAV replacement) Cardiac Disorders: Yes (SOB,) CVA: No COPD: No Dementia: No Diabetes: No GI Disorders: No Disorders: No HTN: Yes Hypercholesterolemia: Yes Liver Disease: No Seizures: No Thyroid Disease: No - Surgical History Abdominal Surgery: No Appendectomy: Yes Cardiac Surgery: Yes (MAV replacement, Ventricular Pacemaker) Cholecystectomy: Yes Lung Surgery: No Neurologic Surgery: No - Immunization History Immunization Up to Date: No - Suicide/Smoking/Psychosocial Hx Smoking Status: No Smoking History: Former smoker Have you smoked in the past 12 months: No Number of Cigarettes Smoked Daily: 0 'Breaking Loose' booklet given: 06/03/17 Hx Alcohol Use: No Drug/Substance Use Hx: No Substance Use Type: None Hx Substance Use Treatment: No Review of Systems - Review of Systems Comments:: 10/06/18 17:29 GENERAL/CONSTITUTIONAL: +Chills as described. No fever. No weakness. HEAD, EYES, EARS, NOSE AND THROAT: No change in vision. No ear pain or discharge. No sore throat. CARDIOVASCULAR: No chest pain or shortness of breath RESPIRATORY: No cough, wheezing, or hemoptysis. GASTROINTESTINAL: +N/V/D today only. No constipation. GENITOURINARY: No dysuria, frequency, or change in urination. MUSCULOSKELETAL: No joint or muscle swelling or pain. No neck or back pain. SKIN: No rash NEUROLOGIC: +Lightheaded feeling today. No headache, vertigo, loss of consciousness, or change in strength/sensation. ENDOCRINE: No increased thirst. No abnormal weight change HEMATOLOGIC/LYMPHATIC: No anemia, easy bleeding, or history of blood clots. ALLERGIC/IMMUNOLOGIC: No hives or skin allergy. *Physical Exam - Physical Exam Comments: 10/06/18 17:29 GENERAL: Awake, alert, and fully oriented, in no acute distress HEAD: No signs of trauma, normocephalic, atraumatic EYES: PERRLA, EOMI, sclera anicteric, conjunctiva clear ENT: Auricles normal inspection, hearing grossly normal, nares patent, oropharynx clear without exudates. Moist mucosa NECK: Normal ROM, supple, no lymphadenopathy, JVD, or masses LUNGS: No distress, speaks full sentences, clear to auscultation bilaterally HEART: Regular rate and rhythm, normal S1 and S2, no murmurs, rubs or gallops, peripheral pulses normal and equal bilaterally. ABDOMEN: +Diffusely TTP. Soft, normoactive bowel sounds. No guarding, no rebound. No masses EXTREMITIES: Normal inspection, Normal range of motion, no edema. No clubbing or cyanosis. NEUROLOGICAL: Cranial nerves II through XII grossly intact. Normal speech, normal gait, no focal sensorimotor deficits SKIN: Warm, Dry, normal turgor, no rashes or lesions noted. ED Treatment Course - LABORATORY CBC & Chemistry Diagram: 10/06/18 18:10 10/06/18 18:10 Medical Decision Making - Medical Decision Making 10/06/18 22:25 Ms. Raymundo is an 88 yo female w/ pmh as described who presents for evaluation of nausea/vomiting and diarrhea as described. Patient evaluated with labs as below as well as CT abdomen/pelvis with oral contrast. Patient reported allergy to IV dye however discussed oral contrast and patient believes she was allergic to iodinated contrast only (not gastrographin). 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 Patient labs concerning for elevated WBC as below and electrolyte abnormalities. Suspect mild hemoconcentration component of labs given dehydration; will discus repeating in morning with inpatient team. Admitting for intractable nausea/vomiting with leukocytosis, abdominal pain, and dehydration care. Laboratory Results - last 24 hr 10/06/18 10/06/18 10/06/18 18:10 18:10 18:10 WBC 16.6 H RBC 4.44 Hgb 13.9 Hct 41.2 D MCV 92.9 MCH 31.2 MCHC 33.6 RDW 13.6 Plt Count 242 MPV 8.6 Absolute Neuts (auto) 15.5 H Total Counted 100 Neutrophils % 93.4 H D Neutrophils % (Manual) 91.0 H Band Neutrophils % 1.0 Lymphocytes % 4.3 L D Lymphocytes % (Manual) 6.0 L Monocytes % 2.1 L Monocytes % (Manual) 2 L Eosinophils % 0.0 D Basophils % 0.2 Nucleated RBC % 0 Platelet Estimate Adequate Platelet Comment No clumping noted PT with INR INR PTT (Actin FS) Sodium 141 Potassium 5.4 H Chloride 109 H Carbon Dioxide 23 Anion Gap 9 BUN 54 H Creatinine 1.7 H Creat Clearance w eGFR 28.50 Random Glucose 142 H Lactic Acid 1.2 Calcium 9.2 Total Bilirubin 0.4 AST 31 ALT 26 Alkaline Phosphatase 79 Total Protein 7.4 Albumin 3.9 Lipase 187 10/06/18 22:00 WBC RBC Hgb Hct MCV MCH MCHC RDW Plt Count MPV Absolute Neuts (auto) Total Counted Neutrophils % Neutrophils % (Manual) Band Neutrophils % Lymphocytes % Lymphocytes % (Manual) Monocytes % Monocytes % (Manual) Eosinophils % Basophils % Nucleated RBC % Platelet Estimate Platelet Comment PT with INR 11.80 INR 1.00 PTT (Actin FS) 29.5 Sodium Potassium Chloride Carbon Dioxide Anion Gap BUN Creatinine Creat Clearance w eGFR Random Glucose Lactic Acid Calcium Total Bilirubin AST ALT Alkaline Phosphatase Total Protein Albumin Lipase *DC/Admit/Observation/Transfer Diagnosis at time of Disposition: Dehydration Abdominal pain Qualifiers: Abdominal location: unspecified location Qualified Code(s): R10.9 - Unspecified abdominal pain Nausea and vomiting Qualifiers: Vomiting type: unspecified Vomiting Intractability: unspecified Qualified Code( s): R11.2 - Nausea with vomiting, unspecified Leukocytosis Qualifiers: Leukocytosis type: unspecified Qualified Code(s): D72.829 - Elevated white blood cell count, unspecified - Discharge Dispostion Decision to Admit order: Yes - Referrals Referrals: Javi Brock MD [Primary Care Provider] - - Patient Instructions - Post Discharge Activity
[2018-10-06] MEDS ORDERED: ONDANSETRON 4 MG/2 ML VIAL IVPUSH ONE ×2 (17:35→20:54)
[2018-10-06] MEDS ORDERED: SODIUM CHLORIDE 500 ML IV STA (17:35)
[2018-10-06] MEDS ORDERED: ACETAMINOPHEN 1000 MG/100 ML VIAL (NON FORMULARY) IVPB ONE (17:42)
[2018-10-06] MEDS ORDERED: SODIUM CHLORIDE 1,000 ML IV STA (17:42)
[2018-10-06 17:44] VITALS: BMI 27.2
--- NOTE | 2018-10-06 17:52 | PDOC ---
Attending Attestation - Resident Resident Name: Madhu Lay - ED Attending Attestation I have performed the following: I have examined & evaluated the patient, The case was reviewed & discussed with the resident, I agree w/resident's findings & plan - HPI HPI: 10/06/18 17:52 Ms. 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 no other sick contacts. She denies recent fevers, chills, headache or dizziness. She denies recent dysuria, frequency, urgency or hematuria. She denies recent chest pain or shortness of breath. No sick contacts or travel. No new changes in medications. Allergies: Contrast (IV), iodine, lactose Past Medical History: vertigo, HTN, HLD, systolic CHF, afib, aortic insufficiency (s/p mechanical valve replacement in , on Lovenox), diverticulitis, chronic bilateral cerebellar infarcts (residual vertigo) Social history: Lives with family. No smoking. No alcohol. No illicit drugs. Surgical history: valve replacement, cholecystectomy and appendectomy Primary Care Physician: 10/06/18 19:23 - Physicial Exam PE: 10/06/18 18:42 NAD, malaised appearing, PERRL, EOMI, dry mucus membranes, nl conjunctiva, anicteric; neck supple. lungs clear, RRR, abdomen soft +diffuse tenderness, distended and +guarding; no rebound. no CVAT. ABEL x4, no focal neuro deficits. No peripheral edema. normal color for ethnicity, cool dry skin. - Medical Decision Making 10/06/18 18:45 See HPI for details Vital signs reviewed, wnl. mild hypertension, but in pain/nausea DDx abdominal pain: Renal colic, biliary colic, metabolic/electrolyte derangements. GERD, PUD, esophageal spasm, pancreatitis, hepatitis, constipation , colitis, gastroenteritis, cholecystitis, UTI, pyelonephritis, ileus, SBO, medication side effect, hernia, appendicitis, diverticulitis, mesenteric ischemia. Prior notes reviewed, including admissions, discharges and consultations. laboratory results and imaging reviewed, basic labs and lytes notable for + leukocytosis with neutrophilic shift. CKD noted, with baseline Cr 1.7-2; lipase and LFTs normal. lactic_normal UA_neg for infection. EKG atrial paced pattern, increased QTC interval, 530ms. wide QRS, LBBB pattern with the pacemaker, ST and T wave segments with appropriate discordance. Nonspecific T wave abnormalities ED course: IVF hydration, tylenol and zofran. PO contrast only, tolerating. no reglan, as prolonged QTC. CT a/p to r/o colitis/infection. neg for acute pathology; no perf/obstruction or colitis. pancreatic cyst noted. admit for n/v, AP, supportive care and dehydration/leukocytosis. 10/06/18 23:32 10/06/18 23:34 Heart Score/ECG Review - ECG Impressions Normal ECG: No Comment:: 10/06/18 18:46 EKG atrial paced pattern, increased QTC interval, 530ms. wide QRS, LBBB pattern with the pacemaker, ST and T wave segments with appropriate discordance. Nonspecific T wave abnormalities
[2018-10-06] MEDS ORDERED: ONDANSETRON 4 MG/2 ML VIAL ONE ×2 (17:56→21:48)
[2018-10-06] MEDS ORDERED: ACETAMINOPHEN INJECTION 100 ML IVPB ONE (17:56)
[2018-10-06 18:33] LABS: BASO % 0.2 % (0-2.0); HEMATOCRIT 41.2 % (32.4-45.2); HEMOGLOBIN 13.9 GM/dL (10.7-15.3); LYMPH % 4.3 % (8-40); MCH 31.2 pg (25.7-33.7); MCHC 33.6 g/dl (32.0-36.0); MEAN CELL VOLUME 92.9 fl (80-96); MEAN PLT VOLUME 8.6 fl (7.5-11.1); MONO % 2.1 % (3.8-10.2); NEUT % 93.4 % (42.8-82.8); PLATELET COUNT 242 K/MM3 (134-434); RBC 4.44 M/mm3 (3.60-5.2); RDW 13.6 % (11.6-15.6); WHITE BLOOD COUNT 16.6 K/mm3 (4.0-10.0)
[2018-10-06 18:56] LABS: ALBUMIN 3.9 g/dl (3.4-5.0); ALK PHOS 79 U/L (45-117); ANION GAP 9 MMOL/L (8-16); BILIRUBIN,TOTAL 0.4 mg/dL (0.2-1); BLOOD UREA NITROGEN 54 mg/dL (7-18); CALCIUM 9.2 mg/dL (8.5-10.1); CHLORIDE 109 mmol/L (98-107); CO2 23 mmol/L (21-32); CREATININE 1.7 mg/dL (0.55-1.3); GLUCOSE,RANDOM 142 mg/dL (74-106); LIPASE 187 U/L (73-393); POTASSIUM 5.4 mmol/L (3.5-5.1); SGOT/AST 31 U/L (15-37); SGPT/ALT 26 U/L (13-61); SODIUM 141 mmol/L (136-145); TOT PROT 7.4 g/dl (6.4-8.2)
[2018-10-06 19:21] LABS: PLATELET ESTIMATE ADEQUATE
[2018-10-06 22:19] LABS: PROTHROMBIN TIME (PATIENT) 11.8 SEC (9.7-13.0)
[2018-10-06 22:21] LABS: ACTIVATED PTT 29.5 SECONDS (25.2-36.5)
[2018-10-06 23:06] LABS: URINE APPEARANCE CLEAR; URINE BILIRUBIN NEGATIVE (<2.0 mg/dL); URINE COLOR LTYELLOW; URINE GLUCOSE (UA) NEGATIVE (NEGATIVE); URINE KETONE NEGATIVE (NEGATIVE); URINE LEUK ESTERASE TRACE (NEGATIVE); URINE NITRITE NEGATIVE (NEGATIVE); URINE PROTEIN NEGATIVE (NEGATIVE); URINE UROBILINOGEN NEGATIVE mg/dL (0.2-1.0)
[2018-10-06 23:12] LABS: EPI CELLS RARE /HPF (FEW); URINE MUCUS RARE
--- NOTE | 2018-10-07 00:10 | HP ---
Admitting History and Physical - Primary Care Physician PCP: Javi Brock - Admission Chief Complaint: Vomiting, Diarrhea History of Present Illness: This is a 88 y/o woman with a past medical history of Vertigo, HTN, HLD, CKD, Systolic HF, Afib, Aortic Insufficiency s/p mechanical valve replacement (1988) , chronic Cerebellar Infarcts, Diverticulitis. Who presents to the ED with NBNB vomiting x 1 day, watery diarrhea with generalized weakness started today. Patient reports taking Immodium x4 with some relief. Patient reports having a burning sensation to her chest and throat. Patient reports having chills today without fever. Patient denies eating any new foods, spicy, greasy or undercooked pork/chicken. Patient denies any recent sick exposure or recent travel. Patient denies fever, SOB, palpitations, AP, constipation History Source: Patient Limitations to Obtaining History: No Limitations - Past Medical History [employer]: Yes: Other (chronic bilateral Cerebellar Infarcts) Cardiovascular: Yes: AFIB, Aortic Insufficiency, Aortic Stenosis, CAD, CHF, HTN , Hyperlipdemia Gastrointestinal: Yes: Diverticulitis Renal/: Yes: Renal Inusuff, Other (OAB) Psych: Yes: Depression, Panic - Past Surgical History Past Surgical History: Yes: Permanent Pacemaker, Valve Replacement (bovine) - Smoking History Smoking history: Former smoker Have you smoked in the past 12 months: No Aproximately how many cigarettes per day: 0 - Alcohol/Substance Use Hx Alcohol Use: No History of Substance Use: reports: None - Social History Usual Living Arrangement: Yes: With Child 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[facility]) History of Recent Travel: No Home Medications - Allergies Allergies/Adverse Reactions: Allergies Allergy/AdvReac Type Severity Reaction Status Date / Time Iodinated Contrast- Oral and Allergy Severe Difficulty Verified 09/20/17 13:27 IV Dye Breathing [IV Dye, Iodine Containing Contrast ] iodine Allergy Severe Difficulty Verified 09/20/17 13:27 Breathing lactose AdvReac Verified 09/20/17 13:27 - Home Medications Home Medications: Ambulatory Orders Acetaminophen [Tylenol -] 500 mg PO Q4H 10/06/18 Aspirin 81 mg PO DAILY 10/06/18 Carvedilol 6.25 mg PO BID 10/06/18 Clonazepam 0.5 mg PO BID 10/06/18 Escitalopram Oxalate [Lexapro -] 10 mg PO DAILY 10/06/18 Furosemide [Lasix] 20 mg PO DAILY 10/06/18 Lipase/Protease/Amylase [Creon Dr 36,000 Units Capsule] 1 each PO DAILY Meclizine HCl 25 mg PO TID 10/06/18 Mirtazapine [Remeron Soltab -] 15 mg PO DAILY 10/06/18 Omeprazole 40 mg PO DAILY 10/06/18 Oxybutynin Chloride [Ditropan Xl] 10 mg PO DAILY 10/06/18 Triamterene/Hydrochlorothiazid [Triamterene-Hctz 37.5-25 mg Cp] 1 each PO DAILY 10/06/18 Family Disease History - Family Disease History Family History: Unable to Obtain Review of Systems - Review of Systems Constitutional: reports: Chills, Loss of Appetite, Weakness Eyes: reports: No Symptoms HENT: reports: No Symptoms Neck: reports: No Symptoms Cardiovascular: reports: Chest Pain (burning) Respiratory: reports: No Symptoms Gastrointestinal: reports: Abdominal Pain, Diarrhea, Nausea, Vomiting. denies: Melena, Rectal Bleeding, Vomiting Blood Genitourinary: reports: No Symptoms Breasts: reports: No Symptoms Reported Musculoskeletal: reports: No Symptoms Integumentary: reports: No Symptoms Neurological: reports: Dizziness, Weakness Endocrine: reports: No Symptoms Hematology/Lymphatic: reports: No Symptoms Psychiatric: reports: No Symptoms Pain Intensity: 2 Physical Examination Vital Signs: Vital Signs Temperature 97.9 F 10/06/18 17:36 Pulse Rate 77 10/06/18 17:36 Respiratory Rate 16 10/06/18 17:36 Blood Pressure 172/75 H 10/06/18 17:36 O2 Sat by Pulse Oximetry (%) 98 10/06/18 17:36 Constitutional: Yes: Anxious, Mild Distress Eyes: Yes: WNL, Conjunctiva Clear, EOM Intact, PERRL HENT: Yes: WNL, Atraumatic, Normocephalic Neck: Yes: WNL, Supple, Trachea Midline Cardiovascular: Yes: WNL, Regular Rate and Rhythm, S1, S2 Respiratory: Yes: WNL, Regular, CTA Bilaterally Gastrointestinal: Yes: Soft, Hypoactive Bowel Sounds, Tenderness (RLQ TTP) Renal/: Yes: WNL Breast(s): Yes: WNL Musculoskeletal: Yes: WNL Extremities: Yes: WNL Edema: No Peripheral Pulses WNL: No Neurological: Yes: WNL, Alert, Oriented, Cran Nerves II-XII Intact ...Motor Strength: WNL Psychiatric: Yes: WNL, Alert, Oriented Labs: CBC, BMP 10/06/18 18:10 10/06/18 18:10 Laboratory Results - last 24 hr 10/06/18 10/06/18 10/06/18 18:10 18:10 18:10 WBC 16.6 H RBC 4.44 Hgb 13.9 Hct 41.2 D MCV 92.9 MCH 31.2 MCHC 33.6 RDW 13.6 Plt Count 242 MPV 8.6 Absolute Neuts (auto) 15.5 H Total Counted 100 Neutrophils % 93.4 H D Neutrophils % (Manual) 91.0 H Band Neutrophils % 1.0 Lymphocytes % 4.3 L D Lymphocytes % (Manual) 6.0 L Monocytes % 2.1 L Monocytes % (Manual) 2 L Eosinophils % 0.0 D Basophils % 0.2 Nucleated RBC % 0 Platelet Estimate Adequate Platelet Comment No clumping noted PT with INR INR PTT (Actin FS) Sodium 141 Potassium 5.4 H Chloride 109 H Carbon Dioxide 23 Anion Gap 9 BUN 54 H Creatinine 1.7 H Creat Clearance w eGFR 28.50 Random Glucose 142 H Lactic Acid 1.2 Calcium 9.2 Total Bilirubin 0.4 AST 31 ALT 26 Alkaline Phosphatase 79 Total Protein 7.4 Albumin 3.9 Lipase 187 Urine Color Urine Appearance Urine pH Ur Specific [place] Urine Protein Urine Glucose (UA) Urine Ketones Urine Blood Urine Nitrite Urine Bilirubin Urine Urobilinogen Ur Leukocyte Esterase Urine WBC (Auto) Urine RBC (Auto) Ur Epithelial Cells Urine Mucus 10/06/18 10/06/18 22:00 22:50 WBC RBC Hgb Hct MCV MCH MCHC RDW Plt Count MPV Absolute Neuts (auto) Total Counted Neutrophils % Neutrophils % (Manual) Band Neutrophils % Lymphocytes % Lymphocytes % (Manual) Monocytes % Monocytes % (Manual) Eosinophils % Basophils % Nucleated RBC % Platelet Estimate Platelet Comment PT with INR 11.80 INR 1.00 PTT (Actin FS) 29.5 Sodium Potassium Chloride Carbon Dioxide Anion Gap BUN Creatinine Creat Clearance w eGFR Random Glucose Lactic Acid Calcium Total Bilirubin AST ALT Alkaline Phosphatase Total Protein Albumin Lipase Urine Color Ltyellow Urine Appearance Clear Urine pH 5.0 Ur Specific [place] 1.019 Urine Protein Negative Urine Glucose (UA) Negative Urine Ketones Negative Urine Blood Negative Urine Nitrite Negative Urine Bilirubin Negative Urine Urobilinogen Negative Ur Leukocyte Esterase Trace Urine WBC (Auto) 1 Urine RBC (Auto) None Ur Epithelial Cells Rare Urine Mucus Rare Imaging - Results Chest X-ray: Report Reviewed, Image Reviewed Cat Scan: Report Reviewed, Image Reviewed EKG: Image Reviewed (AV- Paced Rhythm prolonged AV Conduction) Problem List - Problems (1) Dehydration Assessment/Plan: Likely secondary to excessive vomiting NS bolus given in ED Hold Lasix Zofran given will hold secondary to prolong QT Compazine prn Monitor BMP Monitor vitals PO fluids as tolerated Code(s): E86.0 - DEHYDRATION (2) Nausea and vomiting Assessment/Plan: See above Code(s): R11.2 - NAUSEA WITH VOMITING, UNSPECIFIED Qualifiers: Vomiting type: unspecified Vomiting Intractability: unspecified Qualified Code(s): R11.2 - Nausea with vomiting, unspecified (3) Abdominal pain Assessment/Plan: CTAP- no acute pathology, cyst on pancreas no change compared to prior study Monitor CBC, BMP Appreciate GI consult Monitor vitals Code(s): R10.9 - UNSPECIFIED ABDOMINAL PAIN Qualifiers: Abdominal location: unspecified location Qualified Code(s): R10.9 - Unspecified abdominal pain (4) CKD (chronic kidney disease) Assessment/Plan: Cr 1.7 at baseline Given NS bolus in ED Will trend BMP Avoid Nephrotoxin drugs Code(s): N18.9 - CHRONIC KIDNEY DISEASE, UNSPECIFIED (5) Afib Assessment/Plan: Stable EKG- AV paced rhythm [id number] Code(s): I48.91 - UNSPECIFIED ATRIAL FIBRILLATION (6) CAD (coronary artery disease) Assessment/Plan: stable Continue home med EKG- AV Paced Rhythm Code(s): I25.10 - ATHSCL HEART DISEASE OF [place] CORONARY ARTERY W/O ANG PCTRS (7) CVA (cerebral vascular accident) Assessment/Plan: Continue home meds Fall precautions Code(s): I63.9 - CEREBRAL INFARCTION, UNSPECIFIED (8) Diarrhea Assessment/Plan: Stool Culture C- Diff Culture Monitor BMP NS bolus 1.5L given in ED Will hold IVF secondary to concern for fluid overload Encourage PO fluids Code(s): R19.7 - DIARRHEA, UNSPECIFIED (9) Depression Assessment/Plan: Continue home med Code(s): F32.9 - MAJOR DEPRESSIVE DISORDER, SINGLE EPISODE, UNSPECIFIED (10) Vertigo Assessment/Plan: Continue Antivert Monitor CBC, BMP Monitor renal function Fall precautions Orthostatics Code(s): R42 - DIZZINESS AND GIDDINESS (11) Hypertension Assessment/Plan: stable continue home meds monitor renal function Code(s): I10 - ESSENTIAL (PRIMARY) HYPERTENSION (12) H/O aortic valve replacement Code(s): Z95.2 - PRESENCE OF PROSTHETIC HEART VALVE (13) Pacemaker Code(s): Z95.0 - PRESENCE OF CARDIAC PACEMAKER Assessment/Plan This is a 88 y/o woman with a PMHx of: Vertigo, HTN, HLD, CKD, Systolic HF, Afib , Aortic Insufficiency (s/p mechanical valve replacement 1988), (Aortic Valve- Bovine, 2015), Diverticulitis, Chronic Bilateral Cerebellar Infarcts. Admitted for Intractable Vomiting, Diarrhea and Dehydration for further evaluation of their emergent condition. Plan: See Problem List FEN PO fluids as tolerated Replete lytes prn Clear Diet ad perez DVT ppx OOB SCDs Heparin SQ Dispo: Requires Inpatient Care Visit type - Emergency Visit Emergency Visit: Yes ED Registration Date: 10/06/18 Care time: The patient presented to the Emergency Department on the above date and was hospitalized for further evaluation of their emergent condition. - New Patient This patient is new to me today: Yes Date on this admission: 10/06/18 - Critical Care Critical Care patient: No
[2018-10-07] MEDS ORDERED: PROCHLORPERAZINE INJECTION 10 MG/2 ML VIAL IVPB ONE (03:54)
[2018-10-07 08:18] LABS: BASO % 0.4 % (0-2.0); HEMATOCRIT 37.7 % (32.4-45.2); HEMOGLOBIN 12.8 GM/dL (10.7-15.3); LYMPH % 8.9 % (8-40); MCH 31.3 pg (25.7-33.7); MCHC 34.1 g/dl (32.0-36.0); MONO % 6.3 % (3.8-10.2); NEUT % 84.4 % (42.8-82.8); PLATELET COUNT 212 K/MM3 (134-434); RBC 4.09 M/mm3 (3.60-5.2); RDW 13.4 % (11.6-15.6)
[2018-10-07 08:39] LABS: AMYLASE 66 U/L (25-115); ANION GAP 9 MMOL/L (8-16); BLOOD UREA NITROGEN 45 mg/dL (7-18); CALCIUM 8.2 mg/dL (8.5-10.1); CHLORIDE 111 mmol/L (98-107); CO2 22 mmol/L (21-32); CREATININE 1.5 mg/dL (0.55-1.3); GLUCOSE,RANDOM 106 mg/dL (74-106); MAGNESIUM 2.2 mg/dL (1.8-2.4); POTASSIUM 4.5 mmol/L (3.5-5.1); SODIUM 141 mmol/L (136-145)
[2018-10-07] MEDS ORDERED: FAMOTIDINE 20 MG/50 ML IVPB 20 MG/50 ML MG IVPB SCH (10:00)
[2018-10-07] MEDS: CARVEDILOL 6.25 MG TABLET (FP) PO SCH ×2 (10:10→21:10)
[2018-10-07] MEDS: ASPIRIN 81 MG CHEWABLE TABLETS PO SCH (10:11)
[2018-10-07] MEDS: clonazePAM 0.5 MG TABLET PO SCH ×2 (10:11→21:10)
[2018-10-07] MEDS: ESCITALOPRAM OXALATE 10 MG TABLET (FP) PO SCH (10:11)
[2018-10-07] MEDS ORDERED: PROCHLORPERAZINE INJECTION 10 MG/2 ML VIAL IVPB PRN (13:07)
--- NOTE | 2018-10-07 13:09 | PN ---
Progress Note (short form) - Note Progress Note: continues to have loose stools, nausea son at bedside has bloating Vital Signs - 24 hr 10/06/18 10/06/18 10/06/18 17:36 21:36 22:42 Temperature 97.9 F 98.8 F Pulse Rate 77 80 Pulse Rate [ Right Apical] Respiratory 16 17 Rate Blood Pressure 172/75 H 152/76 Blood Pressure [Right Arm] O2 Sat by Pulse 98 97 Oximetry (%) 10/07/18 10/07/18 10/07/18 00:45 01:36 05:00 Temperature 99.0 F Pulse Rate Pulse Rate [ 89 Right Apical] Respiratory 18 Rate Blood Pressure Blood Pressure 145/83 [Right Arm] O2 Sat by Pulse 97 97 97 Oximetry (%) 10/07/18 10/07/18 06:06 10:05 Temperature 99.1 F 99.5 F Pulse Rate 72 72 Pulse Rate [ Right Apical] Respiratory 20 20 Rate Blood Pressure 112/62 113/72 Blood Pressure [Right Arm] O2 Sat by Pulse Oximetry (%) Current Medications Generic Name Dose Route Start Last Admin Trade Name Freq PRN Reason Stop Dose Admin Aspirin 81 mg 10/07/18 10:00 10/07/18 10:11 Asa - PO 81 mg DAILY ANITRA Administration Carvedilol 6.25 mg 10/07/18 10:00 10/07/18 10:10 Coreg - PO 6.25 mg BID ANITRA Administration Clonazepam 0.5 mg 10/07/18 10:00 10/07/18 10:11 Klonopin - PO 0.5 mg BID ANITRA Administration Escitalopram Oxalate 10 mg 10/07/18 10:00 10/07/18 10:11 Lexapro - PO 10 mg DAILY ANITRA Administration Potassium Chloride/Dextrose/Sod Cl 20 meq in 1,000 mls @ 70 mls/hr 10/07/18 13 :15 D5-1/2ns+20 Meq Kcl - IV ASDIR ANITRA Meclizine HCl 25 mg 10/07/18 13:08 Antivert - PO TID PRN VERTIGO Pantoprazole Sodium 40 mg 10/07/18 13:15 Protonix Iv IVPUSH DAILY ANITRA Prochlorperazine Edisylate 5 mg 10/07/18 13:07 Compazine Injection - IVPB Q4H PRN NAUSEA AND/OR VOMITING Laboratory Results - last 24 hr 10/06/18 10/06/18 10/06/18 18:10 18:10 18:10 WBC 16.6 H RBC 4.44 Hgb 13.9 Hct 41.2 D MCV 92.9 MCH 31.2 MCHC 33.6 RDW 13.6 Plt Count 242 MPV 8.6 Absolute Neuts (auto) 15.5 H Total Counted 100 Neutrophils % 93.4 H D Neutrophils % (Manual) 91.0 H Band Neutrophils % 1.0 Lymphocytes % 4.3 L D Lymphocytes % (Manual) 6.0 L Monocytes % 2.1 L Monocytes % (Manual) 2 L Eosinophils % 0.0 D Basophils % 0.2 Nucleated RBC % 0 Platelet Estimate Adequate Platelet Comment No clumping noted PT with INR INR PTT (Actin FS) Sodium 141 Potassium 5.4 H Chloride 109 H Carbon Dioxide 23 Anion Gap 9 BUN 54 H Creatinine 1.7 H Creat Clearance w eGFR 28.50 Random Glucose 142 H Lactic Acid 1.2 Calcium 9.2 Magnesium Total Bilirubin 0.4 AST 31 ALT 26 Alkaline Phosphatase 79 Total Protein 7.4 Albumin 3.9 Total Amylase Lipase 187 Urine Color Urine Appearance Urine pH Ur Specific [place] Urine Protein Urine Glucose (UA) Urine Ketones Urine Blood Urine Nitrite Urine Bilirubin Urine Urobilinogen Ur Leukocyte Esterase Urine WBC (Auto) Urine RBC (Auto) Ur Epithelial Cells Urine Mucus 10/06/18 10/06/18 10/07/18 22:00 22:50 07:15 WBC RBC Hgb Hct MCV MCH MCHC RDW Plt Count MPV Absolute Neuts (auto) Total Counted Neutrophils % Neutrophils % (Manual) Band Neutrophils % Lymphocytes % Lymphocytes % (Manual) Monocytes % Monocytes % (Manual) Eosinophils % Basophils % Nucleated RBC % Platelet Estimate Platelet Comment PT with INR 11.80 INR 1.00 PTT (Actin FS) 29.5 Sodium 141 Potassium 4.5 Chloride 111 H Carbon Dioxide 22 Anion Gap 9 BUN 45 H Creatinine 1.5 H Creat Clearance w eGFR 32.92 Random Glucose 106 Lactic Acid Calcium 8.2 L Magnesium 2.2 Total Bilirubin AST ALT Alkaline Phosphatase Total Protein Albumin Total Amylase 66 Lipase Urine Color Ltyellow Urine Appearance Clear Urine pH 5.0 Ur Specific [place] 1.019 Urine Protein Negative Urine Glucose (UA) Negative Urine Ketones Negative Urine Blood Negative Urine Nitrite Negative Urine Bilirubin Negative Urine Urobilinogen Negative Ur Leukocyte Esterase Trace Urine WBC (Auto) 1 Urine RBC (Auto) None Ur Epithelial Cells Rare Urine Mucus Rare 10/07/18 07:30 WBC 11.0 H RBC 4.09 Hgb 12.8 Hct 37.7 MCV 92.0 MCH 31.3 MCHC 34.1 RDW 13.4 Plt Count 212 MPV 9.0 Absolute Neuts (auto) 9.2 H Total Counted Neutrophils % 84.4 H Neutrophils % (Manual) Band Neutrophils % Lymphocytes % 8.9 D Lymphocytes % (Manual) Monocytes % 6.3 D Monocytes % (Manual) Eosinophils % 0.0 Basophils % 0.4 Nucleated RBC % 0 Platelet Estimate Platelet Comment PT with INR INR PTT (Actin FS) Sodium Potassium Chloride Carbon Dioxide Anion Gap BUN Creatinine Creat Clearance w eGFR Random Glucose Lactic Acid Calcium Magnesium Total Bilirubin AST ALT Alkaline Phosphatase Total Protein Albumin Total Amylase Lipase Urine Color Urine Appearance Urine pH Ur Specific [place] Urine Protein Urine Glucose (UA) Urine Ketones Urine Blood Urine Nitrite Urine Bilirubin Urine Urobilinogen Ur Leukocyte Esterase Urine WBC (Auto) Urine RBC (Auto) Ur Epithelial Cells Urine Mucus S1 S2 RRR Lungs - clear Abd- soft, tender diffuse, BS+mild distension Ext- no edema PLAN Start iv fluids- gentle iv fluids GI eval check stool no antibiotics Problem List - Problems (1) Gastroenteritis Code(s): K52.9 - NONINFECTIVE GASTROENTERITIS AND COLITIS, UNSPECIFIED (2) Abdominal pain Code(s): R10.9 - UNSPECIFIED ABDOMINAL PAIN Qualifiers: Abdominal location: unspecified location Qualified Code(s): R10.9 - Unspecified abdominal pain (3) CKD (chronic kidney disease) Code(s): N18.9 - CHRONIC KIDNEY DISEASE, UNSPECIFIED (4) Dehydration Code(s): E86.0 - DEHYDRATION (5) Nausea and vomiting Code(s): R11.2 - NAUSEA WITH VOMITING, UNSPECIFIED Qualifiers: Vomiting type: unspecified Vomiting Intractability: unspecified Qualified Code(s): R11.2 - Nausea with vomiting, unspecified
[2018-10-07] MEDS ORDERED: MECLIZINE HCL 25 MG TABLET (FP) PO SCH (14:00)
[2018-10-07] MEDS: PANTOPRAZOLE SODIUM 40 MG VIAL IVPUSH SCH (14:55)
[2018-10-07] MEDS: D5-1/2NS+20 MEQ KCL - 20 MEQ/1,000 ML INFUS.BAG IV SCH (14:55)
--- NOTE | 2018-10-07 15:29 | CONS ---
DATE OF CONSULTATION: DATE OF DICTATION: 10/07/2018 The patient is a pleasant 88-year-old female with a past medical history of vertigo, hypertension, hyperlipidemia, chronic kidney dysfunction, systolic heart failure , atrial fibrillation, valve replacement, CVAs in the past, diverticulitis, who presents to the hospital with complaints of nausea, vomiting and diarrhea, which began 1 week prior to admission to the hospital. She states she is currently feeling weak and dehydrated. She denies seeing any melena, bright red blood per rectum or hematemesis. She denies travel, sick contacts or recent antibiotic use. Last upper endoscopy and colonoscopy were apparently a couple of years ago, at which time polyps were removed, as per the son. PAST MEDICAL AND SURGICAL HISTORY: As listed in the HPI. ALLERGIES: No known drug allergies. SHE IS ALLERGIC TO IODINE, LACTOSE AND CONTRAST. SOCIAL HISTORY: Smoked in the past, does not currently smoke. Does not drink. No intravenous drug abuse in the past. FAMILY HISTORY: Noncontributory. PHYSICAL EXAMINATION: Vital Signs: Temperature 99, pulse 67, respiratory rate 12, saturation 97% on room air, blood pressure 116/64. General: In no acute distress, pleasant female. HEENT: Anicteric sclerae. Cardiovascular: S1/S2. Regular rate and rhythm. Lungs: Bilaterally clear to auscultation. Abdomen: Soft and nontender. Extremities: No edema. DIAGNOSTIC STUDIES: White blood cell count on admission 16, currently 11; hemoglobin 12, hematocrit 37, MCV 92, platelet count 212, neutrophils 9.2. INR 1. Sodium 141, potassium 4.5, BUN 45, creatinine 1.5, amylase 66, lipase 187, AST 31, ALT 26, alkaline phosphatase 79, total bilirubin 0.4. Urine is negative. Abdomen and pelvis CT scan was performed in the emergency room and revealed: No definitive evidence of acute pathology. In comparison to a prior CT scan in January 2018, a stable approximately 1.4 x 1.4 x 1.1-cm pancreatic cyst is noted at the junction of the body and tail. Six-month followup was indicated. Urine cultures are pending. IMPRESSION: Nausea, vomiting and diarrhea most likely secondary to an infectious etiology. RECOMMENDATION: Advance to clear liquid diet. Obtain stool culture, ova, parasites, leukocytes and C. difficile PCR. Gentle hydration. Repeat labs in the morning. Hold off on any antibiotics at this time. I will follow with you. DO IVETT UGALDE/[id number] MTDD
[2018-10-07] MEDS ORDERED: PT OWN MED DRAWER 7, Y5N ONE (21:13)
[2018-10-08] MEDS: D5-1/2NS+20 MEQ KCL - 20 MEQ/1,000 ML INFUS.BAG IV SCH ×3 (06:23→20:02)
--- NOTE | 2018-10-08 07:25 | PN ---
Progress Note, Physician History of Present Illness: FEELING WEAK BUT BETTER THAN YESTERDAY - SITTING UP EATING LUNCH WITH SON AT THE BEDSIDE. SHE REPORTS THREE BM TODAY SOME CRAMPY ABD PAIN , NO N/V - Current Medication List Current Medications: Active Medications Aspirin (Asa -) 81 mg PO DAILY [facility] Last Admin: 10/07/18 10:11 Dose: 81 mg Carvedilol (Coreg -) 6.25 mg PO BID [facility] Last Admin: 10/07/18 21:10 Dose: 6.25 mg Clonazepam (Klonopin -) 0.5 mg PO BID [facility] Last Admin: 10/07/18 21:10 Dose: 0.5 mg Escitalopram Oxalate (Lexapro -) 10 mg PO DAILY [facility] Last Admin: 10/07/18 10:11 Dose: 10 mg Potassium Chloride/Dextrose/Sod Cl (D5-1/2ns+20 Meq Kcl -) 20 meq in 1,000 mls @ 70 mls/hr IV ASDIR [facility] Last Admin: 10/08/18 06:23 Dose: 70 mls/hr Meclizine HCl (Antivert -) 25 mg PO TID PRN PRN Reason: VERTIGO Pantoprazole Sodium (Protonix Iv) 40 mg IVPUSH DAILY [facility] Last Admin: 10/07/18 14:55 Dose: 40 mg Prochlorperazine Edisylate (Compazine Injection -) 5 mg IVPB Q4H PRN PRN Reason: NAUSEA AND/OR VOMITING Last Admin: 10/07/18 21:15 Dose: 5 mg - Objective Vital Signs: Vital Signs Temperature 99.0 F 10/08/18 05:51 Pulse Rate 74 10/08/18 05:51 Respiratory Rate 20 10/08/18 05:51 Blood Pressure 131/66 10/08/18 05:51 O2 Sat by Pulse Oximetry (%) 98 10/07/18 21:00 Constitutional: Yes: Well Nourished, No Distress, Calm Eyes: Yes: WNL HENT: Yes: WNL Neck: Yes: WNL Cardiovascular: Yes: WNL Respiratory: Yes: WNL, Regular, CTA Bilaterally Gastrointestinal: Yes: WNL, Normal Bowel Sounds, Soft Extremities: Yes: WNL Edema: No Labs: CBC, BMP 10/07/18 07:30 10/07/18 07:15 INR, PTT INR 1.00 (0.83-1.09) 10/06/18 22:00 Problem List - Problems (1) Abdominal pain Assessment/Plan: STOOL CULTURES / C.DIFF STILL PENDING RESULTS - IF C.DIFF NEGATIVE START CHOLESTYRAMINE BID DOSING WILL CHANGE ZOFRAN TO ATC DOSING FOR SYMPTOMATIC RELIEF C/W GENTLE HYDRATION / PPI ADVANCE TO FULL LIQUID DIET TODAY Code(s): R10.9 - UNSPECIFIED ABDOMINAL PAIN Qualifiers: Abdominal location: unspecified location Qualified Code(s): R10.9 - Unspecified abdominal pain (2) CKD (chronic kidney disease) Code(s): N18.9 - CHRONIC KIDNEY DISEASE, UNSPECIFIED (3) Dehydration Code(s): E86.0 - DEHYDRATION (4) Gastroenteritis Code(s): K52.9 - NONINFECTIVE GASTROENTERITIS AND COLITIS, UNSPECIFIED (5) Nausea and vomiting Code(s): R11.2 - NAUSEA WITH VOMITING, UNSPECIFIED Qualifiers: Vomiting type: unspecified Vomiting Intractability: unspecified Qualified Code(s): R11.2 - Nausea with vomiting, unspecified
[2018-10-08 08:19] LABS: BASO % 0.2 % (0-2.0); EOS % 0.2 % (0-4.5); HEMATOCRIT 36.9 % (32.4-45.2); HEMOGLOBIN 12.4 GM/dL (10.7-15.3); LYMPH % 18.5 % (8-40); MCH 31.3 pg (25.7-33.7); MCHC 33.7 g/dl (32.0-36.0); MEAN PLT VOLUME 9.1 fl (7.5-11.1); MONO % 9.7 % (3.8-10.2); NEUT % 71.4 % (42.8-82.8); PLATELET COUNT 196 K/MM3 (134-434); RBC 3.96 M/mm3 (3.60-5.2); RDW 13.5 % (11.6-15.6); WHITE BLOOD COUNT 8.5 K/mm3 (4.0-10.0)
[2018-10-08 08:43] LABS: ALBUMIN 2.9 g/dl (3.4-5.0); ALK PHOS 58 U/L (45-117); ANION GAP 8 MMOL/L (8-16); BILIRUBIN,TOTAL 0.3 mg/dL (0.2-1); BLOOD UREA NITROGEN 37 mg/dL (7-18); CHLORIDE 110 mmol/L (98-107); CO2 22 mmol/L (21-32); CREATININE 1.6 mg/dL (0.55-1.3); GLUCOSE,RANDOM 127 mg/dL (74-106); POTASSIUM 4.1 mmol/L (3.5-5.1); SGOT/AST 32 U/L (15-37); SGPT/ALT 24 U/L (13-61); SODIUM 140 mmol/L (136-145); TOT PROT 5.8 g/dl (6.4-8.2)
[2018-10-08] MEDS: ESCITALOPRAM OXALATE 10 MG TABLET (FP) PO SCH (09:23)
[2018-10-08] MEDS: CARVEDILOL 6.25 MG TABLET (FP) PO SCH ×2 (09:23→21:29)
[2018-10-08] MEDS: ASPIRIN 81 MG CHEWABLE TABLETS PO SCH (09:23)
[2018-10-08] MEDS: clonazePAM 0.5 MG TABLET PO SCH ×2 (09:24→21:30)
[2018-10-08] MEDS: PANTOPRAZOLE SODIUM 40 MG VIAL IVPUSH SCH (09:24)
--- NOTE | 2018-10-08 12:07 | PN ---
Progress Note (short form) - Note Progress Note: continues to have loose stools, nausea son at bedside has bloating Selected Entries 10/08/18 10:03 Temperature 98.9 F Pulse Rate 69 Respiratory 20 Rate Blood Pressure 125/67 Blood Pressure 86 Mean Laboratory Tests 10/08/18 10/08/18 07:00 07:00 WBC 8.5 RBC 3.96 Hgb 12.4 Hct 36.9 MCV 93.0 MCH 31.3 MCHC 33.7 RDW 13.5 Plt Count 196 Sodium 140 Potassium 4.1 Chloride 110 H Carbon Dioxide 22 Anion Gap 8 BUN 37 H Creatinine 1.6 H Creat Clearance w eGFR 30.56 Random Glucose 127 H Calcium 8.0 L Total Bilirubin 0.3 AST 32 ALT 24 Alkaline Phosphatase 58 Total Protein 5.8 L Albumin 2.9 L S1 S2 RRR Lungs - clear Abd- soft, tender diffuse, BS+mild distension Ext- no edema PLAN iv fluids- gentle iv fluids GI eval noted check stool no antibiotics Problem List - Problems (1) Gastroenteritis Code(s): K52.9 - NONINFECTIVE GASTROENTERITIS AND COLITIS, UNSPECIFIED (2) Abdominal pain Code(s): R10.9 - UNSPECIFIED ABDOMINAL PAIN Qualifiers: Abdominal location: unspecified location Qualified Code(s): R10.9 - Unspecified abdominal pain (3) CKD (chronic kidney disease) Code(s): N18.9 - CHRONIC KIDNEY DISEASE, UNSPECIFIED (4) Dehydration Code(s): E86.0 - DEHYDRATION (5) Nausea and vomiting Code(s): R11.2 - NAUSEA WITH VOMITING, UNSPECIFIED Qualifiers: Vomiting type: unspecified Vomiting Intractability: unspecified Qualified Code(s): R11.2 - Nausea with vomiting, unspecified
[2018-10-08] MEDS ORDERED: FAMOTIDINE 20 MG/50 ML IVPB 20 MG/50 ML MG IVPB SCH ×2 (15:00→15:15)
[2018-10-08] MEDS: ONDANSETRON 4 MG/2 ML VIAL IVPUSH SCH ×2 (15:09→17:44)
[2018-10-08] MEDS ORDERED: BENZOCAINE 28 GM HEMORRHOIDAL OINTMENT PR ONE (15:30)
--- NOTE | 2018-10-08 19:31 | EKG ---
Test Reason : Blood Pressure : / mmHG Vent. Rate : 073 BPM Atrial Rate : 073 BPM P-R Int : 258 ms QRS Dur : 176 ms QT Int : 482 ms P-R-T Axes : 066 -59 109 degrees QTc Int : 531 ms Atrial-sensed ventricular-paced rhythm with prolonged AV conduction BASELINE ARTIFACT ABNORMAL ECG WHEN COMPARED WITH ECG OF 20-SEP-2017 18:47, VENT. RATE HAS INCREASED BY 4 BPM Confirmed by JOAO VARMA, GEO ([id number]) on 10/08/2018 7:31:25 PM Referred By: Confirmed By:GEO SHEPHERD MD
[2018-10-09] MEDS: ONDANSETRON 4 MG/2 ML VIAL IVPUSH SCH ×3 (02:30→17:44)
--- NOTE | 2018-10-09 08:38 | PN ---
GI Progress Note Subjective: Patient states she continues to feel weak. States she had 6-7 episodes of diarrhea on 10/08/18. Complains of nausea and having reflux after ingesting food. s/p cardiac valve replacement with cow's valve, s/p CVA recurrent fall - Objective Vital Signs: Vital Signs Temperature 98.8 F 10/09/18 06:00 Pulse Rate 68 10/09/18 06:00 Respiratory Rate 20 10/09/18 06:00 Blood Pressure 131/62 10/09/18 06:00 O2 Sat by Pulse Oximetry (%) 99 10/08/18 20:38 Constitutional: No Distress, Calm Eyes: Yes: Conjunctiva Clear Cardiovascular: Yes: Regular Rate and Rhythm Respiratory: Yes: Regular, CTA Bilaterally Gastrointestinal Inspection: Yes: WNL ...Auscultate: Yes: Normoactive Bowel Sounds ...Palpate: Yes: Soft, Tenderness (generalized) ...Percussion: Yes: Tympanitic Neurological: Yes: Alert Labs: CBC, BMP 10/08/18 07:00 10/08/18 07:00 INR, PTT INR 1.00 (0.83-1.09) 10/06/18 22:00 Home Medications Medication Instructions Recorded Acetaminophen [Tylenol -] 500 mg PO Q4H 10/06/18 Aspirin 81 mg PO DAILY 10/06/18 Carvedilol 6.25 mg PO BID 10/06/18 Clonazepam 0.5 mg PO BID 10/06/18 Escitalopram Oxalate [Lexapro -] 10 mg PO DAILY 10/06/18 Furosemide [Lasix] 20 mg PO DAILY 10/06/18 Lipase/Protease/Amylase [Creon Dr 1 each PO DAILY 10/06/18 36,000 Units Capsule] Meclizine HCl 25 mg PO TID 10/06/18 Mirtazapine [Remeron Soltab -] 15 mg PO DAILY 10/06/18 Omeprazole 40 mg PO DAILY 10/06/18 Oxybutynin Chloride [Ditropan Xl] 10 mg PO DAILY 10/06/18 Triamterene/Hydrochlorothiazid 1 each PO DAILY 10/06/18 [Triamterene-Hctz 37.5-25 mg Cp] Current Medications Generic Name Dose Route Start Last Admin Trade Name Freq PRN Reason Stop Dose Admin Aspirin 81 mg 10/07/18 10:00 10/09/18 10:31 Asa - PO 81 mg DAILY ANITRA Administration Carvedilol 6.25 mg 10/07/18 10:00 10/09/18 10:31 Coreg - PO 6.25 mg BID ANITRA Administration Clonazepam 0.5 mg 10/07/18 10:00 10/09/18 10:31 Klonopin - PO 0.5 mg BID ANITRA Administration Enoxaparin Sodium 30 mg 10/09/18 11:00 10/09/18 12:14 Lovenox - SQ 30 mg DAILY ANITRA Administration Escitalopram Oxalate 10 mg 10/07/18 10:00 10/09/18 10:31 Lexapro - PO 10 mg DAILY ANITRA Administration Potassium Chloride/Dextrose/Sod Cl 20 meq in 1,000 mls @ 70 mls/hr 10/07/18 13 :15 10/09/18 10:32 D5-1/2ns+20 Meq Kcl - IV 70 mls/hr ASDIR ANITRA Administration Ceftriaxone Sodium 1 gm/ 50 mls @ 100 mls/hr 10/09/18 10:00 10/09/18 10:31 Dextrose IVPB 10/15/18 10:00 100 mls/hr DAILY ANITRA Administration Protocol Metronidazole 500 mg in 100 mls @ 100 mls/hr 10/09/18 10:00 10/09/18 17:44 Flagyl 500mg Premixed Ivpb - IVPB 100 mls/hr Q8H-IV ANITRA Administration Meclizine HCl 25 mg 10/07/18 13:08 Antivert - PO TID PRN VERTIGO Ondansetron HCl 4 mg 10/08/18 14:15 10/09/18 17:44 Zofran Injection IVPUSH 4 mg Q8H-IV ANITRA Administration Pantoprazole Sodium 40 mg 10/09/18 10:00 10/09/18 10:31 Protonix Iv IVPUSH 40 mg DAILY ANITRA Administration Prochlorperazine Edisylate 5 mg 10/07/18 13:07 10/07/18 21:15 Compazine Injection - IVPB 5 mg Q4H PRN Administration NAUSEA AND/OR VOMITING Problem List - Problems (1) Nausea and vomiting Assessment/Plan: R>change to pantoprazole 40mg IVPB qd contine with zofran, compazine PRN Code(s): R11.2 - NAUSEA WITH VOMITING, UNSPECIFIED Qualifiers: Vomiting type: unspecified Vomiting Intractability: unspecified Qualified Code(s): R11.2 - Nausea with vomiting, unspecified (2) Diarrhea Assessment/Plan: R>stool analysis pending Ceftraxone 1g IVPB and flagyl IVPB low fiber, lactose free diet Code(s): R19.7 - DIARRHEA, UNSPECIFIED (3) Pancreatic cyst Assessment/Plan: R>CEA and CA 19-9 Code(s): K86.2 - CYST OF PANCREAS
[2018-10-09] MEDS ORDERED: METOCLOPRAMIDE HCL INJECTION 10 MG/2 ML VIAL IVPB SCH (10:00)
[2018-10-09] MEDS ORDERED: PANTOPRAZOLE SODIUM 40 MG in SODIUM CHLORIDE 100 ML IVPB SCH (10:00)
[2018-10-09] MEDS ORDERED: DEXTROSE 5%-WATER - 50 ML IVPB ONE (10:29)
[2018-10-09] MEDS ORDERED: cefTRIAXone SODIUM 1 GM VIAL ONE (10:29)
[2018-10-09] MEDS: ASPIRIN 81 MG CHEWABLE TABLETS PO SCH (10:31)
[2018-10-09] MEDS: clonazePAM 0.5 MG TABLET PO SCH ×2 (10:31→21:15)
[2018-10-09] MEDS: ESCITALOPRAM OXALATE 10 MG TABLET (FP) PO SCH (10:31)
[2018-10-09] MEDS: PANTOPRAZOLE SODIUM 40 MG VIAL IVPUSH SCH (10:31)
[2018-10-09] MEDS: CARVEDILOL 6.25 MG TABLET (FP) PO SCH ×2 (10:31→21:15)
[2018-10-09] MEDS: CEFTRIAXONE 1 GM in DEXTROSE 5%-WATER - 50 ML IVPB SCH (10:31)
[2018-10-09] MEDS: D5-1/2NS+20 MEQ KCL - 20 MEQ/1,000 ML INFUS.BAG IV SCH ×2 (10:32→21:15)
--- NOTE | 2018-10-09 10:59 | PN ---
Progress Note (short form) - Note Progress Note: pt seen/ examined chart reviewed sitting in chair feels better started on abx by gi today. Vital Signs Temp 98.8 F 10/09/18 06:00 Pulse 68 10/09/18 06:00 Resp 20 10/09/18 06:00 BP 131/62 10/09/18 06:00 Pulse Ox 99 10/08/18 20:38 Intake & Output 10/08/18 10/08/18 10/09/18 11:59 23:59 11:59 Intake Total 1040 1450 840 Balance 1040 1450 840 Intake: IV 840 800 840 D5-1/2NS+20 MEQ KCL - 20 840 800 840 meq In 1,000 ml @ 70 mls/ hr IV ASDIR ANITRA Rx#: [id number] IVPB 50 Oral 200 600 Other: Voiding Method Toilet Toilet # Unmeasured Voids Void 2 2 Bowel Movement Yes No # Bowel Movements 1 Active Medications Aspirin (Asa -) 81 mg PO DAILY [facility] Last Admin: 10/09/18 10:31 Dose: 81 mg Carvedilol (Coreg -) 6.25 mg PO BID [facility] Last Admin: 10/09/18 10:31 Dose: 6.25 mg Clonazepam (Klonopin -) 0.5 mg PO BID [facility] Last Admin: 10/09/18 10:31 Dose: 0.5 mg Enoxaparin Sodium (Lovenox -) 30 mg SQ DAILY [facility] Escitalopram Oxalate (Lexapro -) 10 mg PO DAILY [facility] Last Admin: 10/09/18 10:31 Dose: 10 mg Potassium Chloride/Dextrose/Sod Cl (D5-1/2ns+20 Meq Kcl -) 20 meq in 1,000 mls @ 70 mls/hr IV ASDIR ANITRA Last Admin: 10/09/18 10:32 Dose: 70 mls/hr Ceftriaxone Sodium 1 gm/ (Dextrose) 50 mls @ 100 mls/hr IVPB DAILY [facility]; Protocol Stop: 10/15/18 10:00 Last Admin: 10/09/18 10:31 Dose: 100 mls/hr Metronidazole (Flagyl 500mg Premixed Ivpb -) 500 mg in 100 mls @ 100 mls/hr IVPB Q8H-IV [facility] Last Admin: 10/09/18 10:31 Dose: 100 mls/hr Meclizine HCl (Antivert -) 25 mg PO TID PRN PRN Reason: VERTIGO Metoclopramide HCl (Reglan Injection -) 10 mg IVPB Q8H-IV [facility]ITRA Last Admin: 10/09/18 10:31 Dose: 10 mg Ondansetron HCl (Zofran Injection) 4 mg IVPUSH Q8H-IV [facility]ITRA Last Admin: 10/09/18 10:31 Dose: 4 mg Pantoprazole Sodium (Protonix Iv) 40 mg IVPUSH DAILY [facility] Last Admin: 10/09/18 10:31 Dose: 40 mg Prochlorperazine Edisylate (Compazine Injection -) 5 mg IVPB Q4H PRN PRN Reason: NAUSEA AND/OR VOMITING Last Admin: 10/07/18 21:15 Dose: 5 mg CBC, BMP 10/08/18 07:00 10/08/18 07:00 Microbiology 10/06/18 22:50 Urine Culture - Final Urine - Urine Clean Catch Escherichia Coli 10/07/18 15:30 Salmonella/Shigella Culture - Preliminary Stool NO ENTERIC PATHOGENS, 24 HOURS, ON PRIMARY PLATES Yersinia Culture - Preliminary NO ENTERIC PATHOGENS, 24 HOURS, ON PRIMARY PLATES Vibrio Culture - Final NO GROWTH OF VIBRIO SPECIES OBTAINED Escherichia coli 0157 Culture - Final NO GROWTH OF E COLI 0157 OBTAINED 10/07/18 15:30 Clostridium difficile Antigen (JEWEL) - Final Stool Clostridium difficile Toxin Assay - Final Physical exam Awake and comfortable S1 S2 RRR Lungs - clear Abd- soft, nontender. Bowel sounds present Ext- no edema. neuro alert and awake PLAN clinically better iv fluids- gentle iv fluids Started on IV antibiotics by GI- monitor lites dvt prophylaxis Daily out of bed to chair Will follow
[2018-10-09] MEDS: ENOXAPARIN NA (PORCINE) 30 MG/0.3 ML DISP.SYRIN SQ SCH (12:14)
[2018-10-10] MEDS: ONDANSETRON 4 MG/2 ML VIAL IVPUSH SCH ×3 (02:10→18:12)
[2018-10-10] MEDS ORDERED: ACETAMINOPHEN 500 MG TABLET (FP) PO ONE (02:28)
[2018-10-10 08:08] LABS: BASO % 0.2 % (0-2.0); HEMATOCRIT 32.3 % (32.4-45.2); HEMOGLOBIN 10.9 GM/dL (10.7-15.3); LYMPH % 20.5 % (8-40); MCH 31.3 pg (25.7-33.7); MCHC 33.9 g/dl (32.0-36.0); MEAN CELL VOLUME 92.4 fl (80-96); MONO % 7.7 % (3.8-10.2); NEUT % 69.6 % (42.8-82.8); PLATELET COUNT 178 K/MM3 (134-434); RBC 3.49 M/mm3 (3.60-5.2); RDW 13.4 % (11.6-15.6); WHITE BLOOD COUNT 7.7 K/mm3 (4.0-10.0)
[2018-10-10 08:27] LABS: ALBUMIN 2.5 g/dl (3.4-5.0); ALK PHOS 57 U/L (45-117); ANION GAP 9 MMOL/L (8-16); BILIRUBIN,TOTAL 0.3 mg/dL (0.2-1); BLOOD UREA NITROGEN 18 mg/dL (7-18); CALCIUM 7.7 mg/dL (8.5-10.1); CHLORIDE 114 mmol/L (98-107); CO2 23 mmol/L (21-32); CREATININE 1.4 mg/dL (0.55-1.3); GLUCOSE,RANDOM 115 mg/dL (74-106); SGOT/AST 34 U/L (15-37); SGPT/ALT 40 U/L (13-61); SODIUM 145 mmol/L (136-145)
--- NOTE | 2018-10-10 08:50 | PN ---
GI Progress Note Subjective: Patient states feeling worse than yesterday. States that she had 4 episodes of diarrhea yesterday accompanied with minor rectal bleeding, RLQ pain and nausea. Continues to feel weak and this morning complained of chills. - Objective Vital Signs: Vital Signs Temperature 99.0 F 10/10/18 06:00 Pulse Rate 74 10/10/18 06:00 Respiratory Rate 20 10/10/18 06:00 Blood Pressure 108/50 L 10/10/18 06:00 O2 Sat by Pulse Oximetry (%) 95 10/09/18 22:00 Constitutional: Well Nourished, Calm, Mild Distress Eyes: Yes: Conjunctiva Clear Cardiovascular: Yes: Regular Rate and Rhythm Respiratory: Yes: Regular, CTA Bilaterally Gastrointestinal Inspection: No: WNL, Ascites, Distention, Hernia, Scars, Other ...Auscultate: Yes: Normoactive Bowel Sounds ...Palpate: Yes: Tenderness (RLQ). No: Firm/Rigid, Guarding, Hepatomegaly, Mass , Pulsatile Mass, Soft, Splenomegaly, Tenderness, Epigastium, Tenderness, Rebound, Other ...Percussion: Yes: Tympanitic. No: Dullness, Fluid Wave, Other Neurological: Yes: Alert Labs: INR, PTT INR 1.00 (0.83-1.09) 10/06/18 22:00 Home Medication List Medication Instructions Recorded Confirmed Type Acetaminophen [Tylenol -] 500 mg PO Q4H 10/06/18 10/06/18 History Aspirin 81 mg PO DAILY 10/06/18 10/06/18 History Carvedilol 6.25 mg PO BID 10/06/18 10/06/18 History Clonazepam 0.5 mg PO BID 10/06/18 10/06/18 History Escitalopram Oxalate [Lexapro -] 10 mg PO DAILY 10/06/18 10/06/18 History Furosemide [Lasix] 20 mg PO DAILY 10/06/18 10/06/18 History Lipase/Protease/Amylase [Creon Dr 1 each PO DAILY 10/06/18 10/06/18 History 36,000 Units Capsule] Meclizine HCl 25 mg PO TID 10/06/18 10/06/18 History Mirtazapine [Remeron Soltab -] 15 mg PO DAILY 10/06/18 10/06/18 History Omeprazole 40 mg PO DAILY 10/06/18 10/06/18 History Oxybutynin Chloride [Ditropan Xl] 10 mg PO DAILY 10/06/18 10/06/18 History Triamterene/Hydrochlorothiazid 1 each PO DAILY 10/06/18 10/06/18 History [Triamterene-Hctz 37.5-25 mg Cp] Active Medications Generic Name Dose Route Start Last Admin Trade Name Freq PRN Reason Stop Dose Admin Aspirin 81 mg 10/07/18 10:00 10/10/18 09:46 Asa - PO 81 mg DAILY ANITRA Administration Carvedilol 6.25 mg 10/07/18 10:00 10/10/18 09:46 Coreg - PO 6.25 mg BID ANITRA Administration Clonazepam 0.5 mg 10/07/18 10:00 10/10/18 09:46 Klonopin - PO 0.5 mg BID ANITRA Administration Diphenoxylate HCl/Atropine 1 combo 10/10/18 15:05 Lomotil - PO Q8H PRN DIARRHEA Enoxaparin Sodium 30 mg 10/09/18 11:00 10/10/18 09:49 Lovenox - SQ Not Given DAILY ANITRA Escitalopram Oxalate 10 mg 10/07/18 10:00 10/10/18 09:46 Lexapro - PO 10 mg DAILY ANITRA Administration Potassium Chloride/Dextrose/Sod Cl 20 meq in 1,000 mls @ 70 mls/hr 10/07/18 13 :15 10/09/18 21:15 D5-1/2ns+20 Meq Kcl - IV 70 mls/hr ASDIR ANITRA Administration Ceftriaxone Sodium 1 gm/ 50 mls @ 100 mls/hr 10/09/18 10:00 10/10/18 09:45 Dextrose IVPB 10/15/18 10:00 100 mls/hr DAILY ANITRA Administration Protocol Metronidazole 500 mg in 100 mls @ 100 mls/hr 10/09/18 10:00 10/10/18 10:48 Flagyl 500mg Premixed Ivpb - IVPB 100 mls/hr Q8H-IV ANITRA Administration Meclizine HCl 25 mg 10/07/18 13:08 10/10/18 09:52 Antivert - PO 25 mg TID PRN Administration VERTIGO Ondansetron HCl 4 mg 10/08/18 14:15 10/10/18 09:45 Zofran Injection IVPUSH 4 mg Q8H-IV ANITRA Administration Pantoprazole Sodium 40 mg 10/09/18 10:00 10/10/18 09:45 Protonix Iv IVPUSH 40 mg DAILY ANITRA Administration Prochlorperazine Edisylate 5 mg 10/07/18 13:07 10/07/18 21:15 Compazine Injection - IVPB 5 mg Q4H PRN Administration NAUSEA AND/OR VOMITING Home Medications Medication Instructions Recorded Acetaminophen [Tylenol -] 500 mg PO Q4H 10/06/18 Aspirin 81 mg PO DAILY 10/06/18 Carvedilol 6.25 mg PO BID 10/06/18 Clonazepam 0.5 mg PO BID 10/06/18 Escitalopram Oxalate [Lexapro -] 10 mg PO DAILY 10/06/18 Furosemide [Lasix] 20 mg PO DAILY 10/06/18 Lipase/Protease/Amylase [Creon Dr 1 each PO DAILY 10/06/18 36,000 Units Capsule] Meclizine HCl 25 mg PO TID 10/06/18 Mirtazapine [Remeron Soltab -] 15 mg PO DAILY 10/06/18 Omeprazole 40 mg PO DAILY 10/06/18 Oxybutynin Chloride [Ditropan Xl] 10 mg PO DAILY 10/06/18 Triamterene/Hydrochlorothiazid 1 each PO DAILY 10/06/18 [Triamterene-Hctz 37.5-25 mg Cp] Problem List - Problems (1) Nausea and vomiting Assessment/Plan: >FUA STAT Code(s): R11.2 - NAUSEA WITH VOMITING, UNSPECIFIED Qualifiers: Vomiting type: unspecified Vomiting Intractability: unspecified Qualified Code(s): R11.2 - Nausea with vomiting, unspecified (2) Diarrhea Assessment/Plan: > Lomotil TID PRN Flagyl and Ceftriaxone IVPB stool analysis pending Stool OB ordered low fiber, lactose free diet Code(s): R19.7 - DIARRHEA, UNSPECIFIED (3) Pancreatic cyst Assessment/Plan: >CEA and CA 19-9 wnl Code(s): K86.2 - CYST OF PANCREAS
[2018-10-10] MEDS ORDERED: DEXTROSE 5%-WATER - 50 ML IVPB ONE (09:44)
[2018-10-10] MEDS ORDERED: cefTRIAXone SODIUM 1 GM VIAL ONE (09:44)
[2018-10-10] MEDS: CEFTRIAXONE 1 GM in DEXTROSE 5%-WATER - 50 ML IVPB SCH (09:45)
[2018-10-10] MEDS: PANTOPRAZOLE SODIUM 40 MG VIAL IVPUSH SCH (09:45)
[2018-10-10] MEDS: CARVEDILOL 6.25 MG TABLET (FP) PO SCH ×2 (09:46→21:13)
[2018-10-10] MEDS: clonazePAM 0.5 MG TABLET PO SCH ×2 (09:46→21:13)
[2018-10-10] MEDS: ASPIRIN 81 MG CHEWABLE TABLETS PO SCH (09:46)
[2018-10-10] MEDS: ESCITALOPRAM OXALATE 10 MG TABLET (FP) PO SCH (09:46)
[2018-10-10] MEDS: ENOXAPARIN NA (PORCINE) 30 MG/0.3 ML DISP.SYRIN SQ SCH (09:49)
[2018-10-10] MEDS: MECLIZINE HCL 25 MG TABLET (FP) PO PRN ×2 (09:52→18:10)
--- NOTE | 2018-10-10 14:34 | PN ---
Progress Note (short form) - Note Progress Note: continues to have loose stools, nausea Vital Signs - 24 hr 10/09/18 10/09/18 10/10/18 18:00 22:00 02:00 Temperature 99.3 F 98.8 F Pulse Rate 86 69 Respiratory 20 20 Rate Blood Pressure 138/83 130/62 O2 Sat by Pulse 95 Oximetry (%) 10/10/18 10/10/18 10/10/18 06:00 09:00 13:33 Temperature 99.0 F 98.4 F 98.7 F Pulse Rate 74 64 64 Respiratory 20 20 20 Rate Blood Pressure 108/50 L 150/69 110/52 L O2 Sat by Pulse Oximetry (%) Current Medications Generic Name Dose Route Start Last Admin Trade Name Freq PRN Reason Stop Dose Admin Aspirin 81 mg 10/07/18 10:00 10/10/18 09:46 Asa - PO 81 mg DAILY ANITRA Administration Carvedilol 6.25 mg 10/07/18 10:00 10/10/18 09:46 Coreg - PO 6.25 mg BID ANITRA Administration Clonazepam 0.5 mg 10/07/18 10:00 10/10/18 09:46 Klonopin - PO 0.5 mg BID ANITRA Administration Enoxaparin Sodium 30 mg 10/09/18 11:00 10/10/18 09:49 Lovenox - SQ Not Given DAILY ANITRA Escitalopram Oxalate 10 mg 10/07/18 10:00 10/10/18 09:46 Lexapro - PO 10 mg DAILY ANITRA Administration Potassium Chloride/Dextrose/Sod Cl 20 meq in 1,000 mls @ 70 mls/hr 10/07/18 13 :15 10/09/18 21:15 D5-1/2ns+20 Meq Kcl - IV 70 mls/hr ASDIR ANITRA Administration Ceftriaxone Sodium 1 gm/ 50 mls @ 100 mls/hr 10/09/18 10:00 10/10/18 09:45 Dextrose IVPB 10/15/18 10:00 100 mls/hr DAILY ANITRA Administration Protocol Metronidazole 500 mg in 100 mls @ 100 mls/hr 10/09/18 10:00 10/10/18 10:48 Flagyl 500mg Premixed Ivpb - IVPB 100 mls/hr Q8H-IV ANITRA Administration Meclizine HCl 25 mg 10/07/18 13:08 10/10/18 09:52 Antivert - PO 25 mg TID PRN Administration VERTIGO Ondansetron HCl 4 mg 10/08/18 14:15 10/10/18 09:45 Zofran Injection IVPUSH 4 mg Q8H-IV ANITRA Administration Pantoprazole Sodium 40 mg 10/09/18 10:00 10/10/18 09:45 Protonix Iv IVPUSH 40 mg DAILY ANITRA Administration Prochlorperazine Edisylate 5 mg 10/07/18 13:07 10/07/18 21:15 Compazine Injection - IVPB 5 mg Q4H PRN Administration NAUSEA AND/OR VOMITING Laboratory Results - last 24 hr 10/09/18 10/10/18 10/10/18 09:56 07:00 07:00 WBC 7.7 RBC 3.49 L Hgb 10.9 Hct 32.3 L MCV 92.4 MCH 31.3 MCHC 33.9 RDW 13.4 Plt Count 178 MPV 9.0 Absolute Neuts (auto) 5.4 Neutrophils % 69.6 Lymphocytes % 20.5 Monocytes % 7.7 Eosinophils % 2.0 D Basophils % 0.2 Nucleated RBC % 0 Sodium 145 Potassium 4.0 Chloride 114 H Carbon Dioxide 23 Anion Gap 9 BUN 18 Creatinine 1.4 H Creat Clearance w eGFR 35.65 Random Glucose 115 H Calcium 7.7 L Total Bilirubin 0.3 AST 34 ALT 40 Alkaline Phosphatase 57 Total Protein 5.0 L Albumin 2.5 L Carcinoembryonic Ag 2.0 CA 19-9 Antigen 9 Lungs - clear Abd- soft, tender diffuse, BS+mild distension Ext- no edema PLAN iv fluids- gentle iv fluids GI eval noted check stool no antibiotics Problem List - Problems (1) Gastroenteritis Code(s): K52.9 - NONINFECTIVE GASTROENTERITIS AND COLITIS, UNSPECIFIED (2) Abdominal pain Code(s): R10.9 - UNSPECIFIED ABDOMINAL PAIN Qualifiers: Abdominal location: unspecified location Qualified Code(s): R10.9 - Unspecified abdominal pain (3) CKD (chronic kidney disease) Code(s): N18.9 - CHRONIC KIDNEY DISEASE, UNSPECIFIED (4) Dehydration Code(s): E86.0 - DEHYDRATION (5) Nausea and vomiting Code(s): R11.2 - NAUSEA WITH VOMITING, UNSPECIFIED Qualifiers: Vomiting type: unspecified Vomiting Intractability: unspecified Qualified Code(s): R11.2 - Nausea with vomiting, unspecified
[2018-10-10] MEDS ORDERED: DIPHENOXYLATE 2.5/ATROPINE.025 1 COMBO TABLET PO PRN (15:05)
[2018-10-10] MEDS: D5-1/2NS+20 MEQ KCL - 20 MEQ/1,000 ML INFUS.BAG IV SCH (18:19)
[2018-10-11] MEDS: ONDANSETRON 4 MG/2 ML VIAL IVPUSH SCH ×3 (02:17→18:12)
[2018-10-11] MEDS ORDERED: cefTRIAXone SODIUM 1 GM VIAL ONE (10:01)
[2018-10-11] MEDS ORDERED: DEXTROSE 5%-WATER - 50 ML IVPB ONE (10:01)
[2018-10-11] MEDS: ASPIRIN 81 MG CHEWABLE TABLETS PO SCH (10:25)
[2018-10-11] MEDS: ESCITALOPRAM OXALATE 10 MG TABLET (FP) PO SCH (10:25)
[2018-10-11] MEDS: clonazePAM 0.5 MG TABLET PO SCH ×2 (10:25→21:04)
[2018-10-11] MEDS: CARVEDILOL 6.25 MG TABLET (FP) PO SCH ×2 (10:25→21:04)
[2018-10-11] MEDS: ENOXAPARIN NA (PORCINE) 30 MG/0.3 ML DISP.SYRIN SQ SCH (10:26)
[2018-10-11] MEDS: CEFTRIAXONE 1 GM in DEXTROSE 5%-WATER - 50 ML IVPB SCH (10:26)
[2018-10-11] MEDS: PANTOPRAZOLE SODIUM 40 MG VIAL IVPUSH SCH (10:26)
[2018-10-11] MEDS: MECLIZINE HCL 25 MG TABLET (FP) PO PRN (12:49)
--- NOTE | 2018-10-11 15:20 | PN ---
Progress Note (short form) - Note Progress Note: no loose stools She had one bm so far-- formed Has abd soreness Vital Signs - 24 hr 10/10/18 10/10/18 10/11/18 19:00 21:00 07:00 Temperature 98.3 F 99.3 F Pulse Rate 58 L 72 Respiratory 20 20 20 Rate Blood Pressure 124/53 L 132/71 10/11/18 13:17 Temperature 98.7 F Pulse Rate 54 L Respiratory 20 Rate Blood Pressure 130/64 Current Medications Generic Name Dose Route Start Last Admin Trade Name Freq PRN Reason Stop Dose Admin Aspirin 81 mg 10/07/18 10:00 10/11/18 10:25 Asa - PO 81 mg DAILY ANITRA Administration Carvedilol 6.25 mg 10/07/18 10:00 10/11/18 10:25 Coreg - PO 6.25 mg BID ANITRA Administration Clonazepam 0.5 mg 10/07/18 10:00 10/11/18 10:25 Klonopin - PO 0.5 mg BID ANITRA Administration Diphenoxylate HCl/Atropine 1 combo 10/10/18 15:05 Lomotil - PO Q8H PRN DIARRHEA Enoxaparin Sodium 30 mg 10/09/18 11:00 10/11/18 10:26 Lovenox - SQ Not Given DAILY ANITRA Escitalopram Oxalate 10 mg 10/07/18 10:00 10/11/18 10:25 Lexapro - PO 10 mg DAILY ANITRA Administration Ceftriaxone Sodium 1 gm/ 50 mls @ 100 mls/hr 10/09/18 10:00 10/11/18 10:26 Dextrose IVPB 10/15/18 10:00 100 mls/hr DAILY ANITRA Administration Protocol Metronidazole 500 mg in 100 mls @ 100 mls/hr 10/09/18 10:00 10/11/18 10:27 Flagyl 500mg Premixed Ivpb - IVPB 100 mls/hr Q8H-IV ANITRA Administration Meclizine HCl 25 mg 10/07/18 13:08 10/11/18 12:49 Antivert - PO 25 mg TID PRN Administration VERTIGO Ondansetron HCl 4 mg 10/08/18 14:15 10/11/18 10:25 Zofran Injection IVPUSH 4 mg Q8H-IV ANITRA Administration Pantoprazole Sodium 40 mg 10/09/18 10:00 10/11/18 10:26 Protonix Iv IVPUSH 40 mg DAILY ANITRA Administration Prochlorperazine Edisylate 5 mg 10/07/18 13:07 10/07/18 21:15 Compazine Injection - IVPB 5 mg Q4H PRN Administration NAUSEA AND/OR VOMITING oral moist S1 S2 RRR Lungs - clear Abd- soft, tender diffuse, BS+mild distension Ext- no edema PLAN iv fluids-dc GI eval noted-- started on iv antibiotics pt better dc planning on po antibiotics Problem List - Problems (1) Gastroenteritis Code(s): K52.9 - NONINFECTIVE GASTROENTERITIS AND COLITIS, UNSPECIFIED (2) Abdominal pain Code(s): R10.9 - UNSPECIFIED ABDOMINAL PAIN Qualifiers: Abdominal location: unspecified location Qualified Code(s): R10.9 - Unspecified abdominal pain (3) CKD (chronic kidney disease) Code(s): N18.9 - CHRONIC KIDNEY DISEASE, UNSPECIFIED (4) Dehydration Code(s): E86.0 - DEHYDRATION (5) Nausea and vomiting Code(s): R11.2 - NAUSEA WITH VOMITING, UNSPECIFIED Qualifiers: Vomiting type: unspecified Vomiting Intractability: unspecified Qualified Code(s): R11.2 - Nausea with vomiting, unspecified
--- NOTE | 2018-10-11 17:38 | PN ---
GI Progress Note Subjective: diarrhea resolved tolerated solid food - Objective Vital Signs: Vital Signs Temperature 98.7 F 10/11/18 13:17 Pulse Rate 54 L 10/11/18 13:17 Respiratory Rate 20 10/11/18 13:17 Blood Pressure 130/64 10/11/18 13:17 O2 Sat by Pulse Oximetry (%) 95 10/09/18 22:00 Constitutional: Well Nourished Eyes: Yes: Conjunctiva Clear HENT: Yes: Atraumatic Neck: Yes: Supple Cardiovascular: Yes: Regular Rate and Rhythm Respiratory: Yes: CTA Bilaterally ...Palpate: Yes: Soft. No: Firm/Rigid, Guarding, Hepatomegaly, Mass, Pulsatile Mass, Splenomegaly, Tenderness Labs: CBC, BMP 10/10/18 07:00 10/10/18 07:00 INR, PTT INR 1.00 (0.83-1.09) 10/06/18 22:00 Problem List - Problems (1) Nausea and vomiting Assessment/Plan: --resolved Code(s): R11.2 - NAUSEA WITH VOMITING, UNSPECIFIED Qualifiers: Vomiting type: unspecified Vomiting Intractability: unspecified Qualified Code(s): R11.2 - Nausea with vomiting, unspecified (2) Diarrhea Assessment/Plan: R>switch to po meds advance diet Code(s): R19.7 - DIARRHEA, UNSPECIFIED (3) Pancreatic cyst Code(s): K86.2 - CYST OF PANCREAS
[2018-10-11] MEDS: PANTOPRAZOLE SODIUM 40 MG VIAL IVPB SCH (21:03)
[2018-10-11] MEDS: metroNIDAZOLE 250 MG TABLET PO SCH (21:04)
[2018-10-11] MEDS ORDERED: PANTOPRAZOLE SODIUM 40 MG in SODIUM CHLORIDE 100 ML IVPB SCH (22:00)
[2018-10-11] MEDS ORDERED: MIRTAZAPINE 15 MG TABLET (FP) PO SCH (22:00)
[2018-10-12] MEDS: ONDANSETRON 4 MG/2 ML VIAL IVPUSH SCH ×2 (01:29→10:29)
[2018-10-12 05:59] VITALS: TEMP 98.5
[2018-10-12] MEDS: metroNIDAZOLE 250 MG TABLET PO SCH ×2 (06:31→13:08)
[2018-10-12] MEDS ORDERED: PT OWN MED DRAWER 7, Y5N ONE ×2 (10:24→13:04)
[2018-10-12] MEDS: ESCITALOPRAM OXALATE 10 MG TABLET (FP) PO SCH (10:28)
[2018-10-12] MEDS: ASPIRIN 81 MG CHEWABLE TABLETS PO SCH (10:28)
[2018-10-12] MEDS: clonazePAM 0.5 MG TABLET PO SCH (10:28)
[2018-10-12] MEDS: CARVEDILOL 6.25 MG TABLET (FP) PO SCH (10:28)
[2018-10-12] MEDS: PANTOPRAZOLE SODIUM 40 MG VIAL IVPB SCH (10:29)
[2018-10-12] MEDS: LIPASE/PROTEASE/AMYLASE 36,000 UNIT CAPSULE PO SCH ×2 (10:30→13:08)
[2018-10-12] MEDS: ENOXAPARIN NA (PORCINE) 30 MG/0.3 ML DISP.SYRIN SQ SCH (10:30)
--- NOTE | 2018-10-12 10:35 | DS ---
Physical Examination Vital Signs: Vital Signs Temperature 98.5 F 10/12/18 05:58 Pulse Rate 64 10/12/18 05:58 Respiratory Rate 20 10/12/18 05:58 Blood Pressure 125/54 L 10/12/18 05:58 O2 Sat by Pulse Oximetry (%) 95 10/09/18 22:00 Findings/Remarks: patient seen and examined looks And feels much better Diarrhea resolved tolerating diet Afebrile Constitutional: Yes: No Distress, Calm Eyes: Yes: Conjunctiva Clear HENT: Yes: Other (Mucosa moist) Neck: Yes: Supple Cardiovascular: Yes: Regular Rate and Rhythm Respiratory: Yes: CTA Bilaterally Gastrointestinal: Yes: Normal Bowel Sounds, Soft Edema: No Neurological: Yes: Alert Psychiatric: Yes: Alert Labs: CBC, BMP 10/10/18 07:00 10/10/18 07:00 Discharge Summary Reason For Visit: NAUSEA AND VOMITING ABDOMINAL PAIN Current Active Problems Abdominal pain (Acute) CKD (chronic kidney disease) (Acute) Dehydration (Acute) Gastroenteritis (Acute) Leukocytosis (Acute) Nausea and vomiting (Acute) Pancreatic cyst (Acute) Hospital Course: admitted due to acute gastroenteritis Treated with fluids and antibiotics GI followed much better Stable for discharge home will discharged off antiBiotics Cultures negative follow-up with PMD next week advised Medications reconciled Discussed with nursing Staff also patient in agreement Condition: Improved - Instructions Referrals: Javi Brock MD [Primary Care Provider] - Disposition: HOME - Home Medications Comprehensive Discharge Medication List: Ambulatory Orders Acetaminophen [Tylenol .Extra-Strength -] 500 mg PO Q4H 10/06/18 Aspirin 81 mg PO DAILY 10/06/18 Carvedilol 6.25 mg PO BID 10/06/18 Clonazepam 0.5 mg PO BID 10/06/18 Escitalopram Oxalate [Lexapro -] 10 mg PO DAILY 10/06/18 Furosemide [Lasix] 20 mg PO DAILY 10/06/18 Lipase/Protease/Amylase [Creon Dr 36,000 Units Capsule] 1 each PO DAILY Mirtazapine [Remeron Soltab -] 15 mg PO DAILY 10/06/18 Omeprazole 40 mg PO DAILY 10/06/18 Oxybutynin Chloride [Ditropan Xl] 10 mg PO DAILY 10/06/18 Triamterene/Hydrochlorothiazid [Triamterene-Hctz 37.5-25 mg Cp] 1 each PO DAILY 10/06/18 Lipase/Protease/Amylase [Scott Jc 36,000 Units Capsule] 1 cap PO TIDCM capsule. 10/12/18
[2018-10-12 16:22] VITALS: BP 131/65; PULSE 69
== END 2018-10-12 17:25 | disposition home or self-care (01) | DRG 392 ==
LOC: JER 16:37 → JERBED 22:42 → J6S 10-07 01:50
PROVIDERS: ADMIT Internal Medicine; ATTEND Internal Medicine
DX: K52.9 Noninfective gastroenteritis and colitis, unspecified (principal); I13.0 Hypertensive heart and chronic kidney disease with heart failure and stage 1 through stage 4 chronic kidney disease, or unspecified chronic kidney disease; I50.22 Chronic systolic (congestive) heart failure; K86.2 Cyst of pancreas; E86.0 Dehydration; R11.2 Nausea with vomiting, unspecified; N18.9 Chronic kidney disease, unspecified; I48.91 Unspecified atrial fibrillation; E78.5 Hyperlipidemia, unspecified; Z95.4 Presence of other heart-valve replacement; Z87.891 Personal history of nicotine dependence; Z86.73 Personal history of transient ischemic attack (TIA), and cerebral infarction without residual deficits; I35.0 Nonrheumatic aortic (valve) stenosis; Z95.0 Presence of cardiac pacemaker; I45.81 Long QT syndrome; K21.9 Gastro-esophageal reflux disease without esophagitis
CPT/HCPCS: 36415; 71045-TC-FY; 71046-TC-FY; 74019-TC-FY; 74176-TC; 80048; 80053; 81003; 81015; 82150; 82378; 83605; 83690; 83735; 85025; 85610; 85730; 86301; 87045; 87046; 87086; 87177; 87186; 87205; 87209; 87324; 87449; 93005; 93010; 99284-25; J0131; J7030

== ENCOUNTER 2018-11-03 09:46 | Observation (INO) | payer OTHER ==
[2018-11-03] MEDS ORDERED: ONDANSETRON 4 MG/2 ML VIAL ONE ×2 (11:07→13:23)
[2018-11-03 11:09] LABS: BASO % 0.4 % (0-2.0); EOS % 0.4 % (0-4.5); HEMATOCRIT 37.2 % (32.4-45.2); HEMOGLOBIN 12.9 GM/dL (10.7-15.3); LYMPH % 18.1 % (8-40); MCHC 34.5 g/dl (32.0-36.0); MEAN CELL VOLUME 92.7 fl (80-96); MEAN PLT VOLUME 9.7 fl (7.5-11.1); MONO % 5.8 % (3.8-10.2); NEUT % 75.3 % (42.8-82.8); PLATELET COUNT 293 K/MM3 (134-434); RBC 4.02 M/mm3 (3.60-5.2); RDW 13.1 % (11.6-15.6); WHITE BLOOD COUNT 10.7 K/mm3 (4.0-10.0)
[2018-11-03 11:23] LABS: INR 0.98 (0.83-1.09); PROTHROMBIN TIME (PATIENT) 11.6 SEC (9.7-13.0)
[2018-11-03] MEDS ORDERED: ONDANSETRON 4 MG/2 ML VIAL IVPUSH ONE (11:24)
[2018-11-03] MEDS ORDERED: SODIUM CHLORIDE 0.9% 1000 ML INFUS.BAG IV ONE (11:25)
[2018-11-03 11:27] LABS: ACTIVATED PTT 27.2 SECONDS (25.2-36.5)
[2018-11-03] MEDS ORDERED: clonazePAM 0.5 MG TABLET PO ONE (11:35)
--- NOTE | 2018-11-03 11:35 | PDOC ---
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 The patient notes taking aspirin with no relief and also notes no relief with compression. The patient states she did not take all her medications this morning. Patient notes feeling weak and dizzy. The patient denies chest pain, shortness of breath, headache and dizziness. The patient denies fever, chills, vomit, diarrhea and constipation. The patient denies dysuria, frequency, urgency and hematuria. Allergies: Contrast (IV), iodine, lactose Past surgical history: valve replacement, cholecystectomy and appendectomy Social history: None reported PCP: <Som Ro - Last Filed: 11/03/18 12:07> <Mera Sawyer - Last Filed: 11/03/18 12:22> - General Chief Complaint: Nasal Bleeding Stated Complaint: BLEEDING Past History <Som Ro - Last Filed: 11/03/18 12:07> - Past Medical History Anemia: No Asthma: No Cancer: Yes (Ventricular Pacemaker - 2016, MAV replacement) Cardiac Disorders: Yes (SOB,) CVA: No COPD: No Dementia: No Diabetes: No GI Disorders: No Disorders: No HTN: Yes Hypercholesterolemia: Yes Liver Disease: No Seizures: No Thyroid Disease: No - Surgical History Abdominal Surgery: No Appendectomy: Yes Cardiac Surgery: Yes (MAV replacement, Ventricular Pacemaker) Cholecystectomy: Yes Lung Surgery: No Neurologic Surgery: No - Immunization History Immunization Up to Date: No - Suicide/Smoking/Psychosocial Hx Smoking Status: No Smoking History: Never smoked Have you smoked in the past 12 months: No Number of Cigarettes Smoked Daily: 0 'Breaking Loose' booklet given: 10/07/18 Hx Alcohol Use: No Drug/Substance Use Hx: No Substance Use Type: None Hx Substance Use Treatment: No <Mera Sawyer - Last Filed: 11/03/18 12:22> - Past Medical History Allergies/Adverse Reactions: Allergies Allergy/AdvReac Type Severity Reaction Status Date / Time Iodinated Contrast- Oral and Allergy Severe Difficulty Verified 11/03/18 09:50 IV Dye Breathing [IV Dye, Iodine Containing Contrast ] iodine Allergy Severe Difficulty Verified 11/03/18 09:50 Breathing lactose AdvReac Verified 11/03/18 09:50 Home Medications: Ambulatory Orders Acetaminophen [Tylenol .Extra-Strength -] 500 mg PO Q4H 10/06/18 Aspirin 81 mg PO DAILY 10/06/18 Carvedilol 6.25 mg PO BID 10/06/18 Clonazepam 0.5 mg PO BID 10/06/18 Escitalopram Oxalate [Lexapro -] 10 mg PO DAILY 10/06/18 Furosemide [Lasix] 20 mg PO DAILY 10/06/18 Lipase/Protease/Amylase [Scott Jc 36,000 Units Capsule] 1 each PO DAILY Mirtazapine [Remeron Soltab -] 15 mg PO DAILY 10/06/18 Omeprazole 40 mg PO DAILY 10/06/18 Oxybutynin Chloride [Ditropan Xl] 10 mg PO DAILY 10/06/18 Triamterene/Hydrochlorothiazid [Triamterene-Hctz 37.5-25 mg Cp] 1 each PO DAILY 10/06/18 Lipase/Protease/Amylase [Scott Jc 36,000 Units Capsule] 1 cap PO TIDCM capsule. 10/12/18 Review of Systems - Review of Systems Able to Perform ROS?: Yes Comments:: 11/03/18 12:09 GENERAL/CONSTITUTIONAL: (+)weakness.(+) dizziness. No fever or chills. HEAD, EYES, EARS, NOSE AND THROAT: No change in vision. No ear pain or discharge. No sore throat. CARDIOVASCULAR: No chest pain or shortness of breath. RESPIRATORY: No cough, wheezing, or hemoptysis. GASTROINTESTINAL: (+) nausea, vomiting, diarrhea or constipation. GENITOURINARY: No dysuria, frequency, or change in urination. MUSCULOSKELETAL: No joint or muscle swelling or pain. No neck or back pain. SKIN: No rash NEUROLOGIC: No headache, vertigo, loss of consciousness, or change in strength/ sensation. ENDOCRINE: No increased thirst. No abnormal weight change. HEMATOLOGIC/LYMPHATIC: No anemia, easy bleeding, or history of blood clots. ALLERGIC/IMMUNOLOGIC: No hives or skin allergy. All Other Systems: Reviewed and Negative <Som Ro - Last Filed: 11/03/18 12:07> *Physical Exam - Vital Signs Last Vital Signs Temp Pulse Resp BP Pulse Ox 98.5 F 100 H 16 190/89 H 100 11/03/18 09:56 11/03/18 09:56 11/03/18 09:56 11/03/18 09:56 11/03/18 09:56 <Som Ro - Last Filed: 11/03/18 12:07> - Vital Signs Last Vital Signs Temp Pulse Resp BP Pulse Ox 98.5 F 100 H 16 190/89 H 100 11/03/18 09:56 11/03/18 09:56 11/03/18 09:56 11/03/18 09:56 11/03/18 09:56 - Physical Exam Comments: 11/03/18 12:21 awake alert right nare with active bleeding, anterior septum, lungs clear bilaterally heart rrr no mrg abd soft nt nd. ext wwp. <Mera Sawyer - Last Filed: 11/03/18 12:22> Moderate Sedation - Procedure Monitoring Vital Signs: Procedure Monitoring Vital Signs Temperature 98.5 F 11/03/18 09:56 Pulse Rate 100 H 11/03/18 09:56 Respiratory Rate 16 11/03/18 09:56 Blood Pressure 190/89 H 11/03/18 09:56 O2 Sat by Pulse Oximetry (%) 100 11/03/18 09:56 <Som Ro - Last Filed: 11/03/18 12:07> - Procedure Monitoring Vital Signs: Procedure Monitoring Vital Signs Temperature 98.5 F 11/03/18 09:56 Pulse Rate 100 H 11/03/18 09:56 Respiratory Rate 16 11/03/18 09:56 Blood Pressure 190/89 H 11/03/18 09:56 O2 Sat by Pulse Oximetry (%) 100 11/03/18 09:56 <Mera Sawyer - Last Filed: 11/03/18 12:22> Heart Score/ECG Review #1 General ECG Interpretation: Normal Rate Compared to previous ECG there are: Other 11/03/18 12:19 paced rhythm, rate 76, TWI I, AVL, wide qrs, left axis. <Mera Sawyer - Last Filed: 11/03/18 12:22> ED Treatment Course - LABORATORY CBC & Chemistry Diagram: 11/03/18 11:00 11/03/18 11:00 - ADDITIONAL ORDERS Additional order review: Laboratory Results 11/03/18 11/03/18 11:00 11:00 PT with INR 11.60 INR 0.98 PTT (Actin FS) 27.2 Sodium 139 Potassium 5.2 H Chloride 108 H Carbon Dioxide 24 Anion Gap 7 L BUN 55 H Creatinine 1.8 H Creat Clearance w eGFR 26.68 Random Glucose 140 H Calcium 8.7 Total Bilirubin 0.3 AST 21 ALT 22 Alkaline Phosphatase 73 Total Protein 6.8 Albumin 3.3 L 11/03/18 11:00 RBC 4.02 MCV 92.7 MCHC 34.5 RDW 13.1 MPV 9.7 Neutrophils % 75.3 Lymphocytes % 18.1 Monocytes % 5.8 Eosinophils % 0.4 Basophils % 0.4 - Medications Given in the ED: ED Medications Discontinued Medications Generic Name Dose Route Start Last Admin Trade Name Freq PRN Reason Stop Dose Admin Clonazepam 0.5 mg 11/03/18 11:35 11/03/18 11:56 Klonopin - PO 11/03/18 11:36 0.5 mg ONCE ONE Administration Ondansetron HCl 4 mg 11/03/18 11:24 11/03/18 11:30 Zofran Injection IVPUSH 11/03/18 11:25 4 mg ONCE ONE Administration Sodium Chloride 500 ml 11/03/18 11:25 11/03/18 11:56 Normal Saline - IV 11/03/18 11:26 500 ml ONCE ONE Administration <Som Ro - Last Filed: 11/03/18 12:07> - LABORATORY CBC & Chemistry Diagram: 11/03/18 11:00 11/03/18 11:00 - ADDITIONAL ORDERS Additional order review: Laboratory Results 11/03/18 11:00 PT with INR 11.60 INR 0.98 PTT (Actin FS) 27.2 11/03/18 11:00 RBC 4.02 MCV 92.7 MCHC 34.5 RDW 13.1 MPV 9.7 Neutrophils % 75.3 Lymphocytes % 18.1 Monocytes % 5.8 Eosinophils % 0.4 Basophils % 0.4 - Medications Given in the ED: ED Medications Discontinued Medications Generic Name Dose Route Start Last Admin Trade Name Mayo PRN Reason Stop Dose Admin Ondansetron HCl 4 mg 11/03/18 11:24 11/03/18 11:30 Zofran Injection IVPUSH 11/03/18 11:25 4 mg ONCE ONE Administration <Mera Sawyer - Last Filed: 11/03/18 12:22> Medical Decision Making - Medical Decision Making 11/03/18 11:31 88 yo F h/o HTN CHF, pacer, prior cva, chronic vertigo here with c/o epistaxis right nare, started around 8:30 or 9, bleeding continual . feels nausea, and lightheaded. no cp no sob. no mod factors. pt no relief with pressure. rhinorocket placed bleedign stopped. give zofran for nausea, due to cardiac risk factors pt not feel well, will observe. heavy blood loss prior. ekg labs small fluids, zofran, will give home dose of clonzaepam and antiobiotics. 11/03/18 12:21 pt with continued nausea, feels week. packing in place. given ancef. d/w dr brantley, present in ED will see pt and admit for obs, packing epistaxis, nausea, and hypertension. ekg paced, TWI I, AVL <Mera Sawyer - Last Filed: 11/03/18 12:22> *DC/Admit/Observation/Transfer - Attestations Scribe Attestion: 11/03/18 12:14 Documentation prepared by Som Ro, acting as biomedical scientist for Mera Sawyer MD, MD <Som Ro - Last Filed: 11/03/18 12:07> - Discharge Dispostion Decision to Admit order: Yes <Mera Sawyer - Last Filed: 11/03/18 12:22> Diagnosis at time of Disposition: Epistaxis, Hypertension - Referrals Referrals: Jvai Brock MD [Primary Care Provider] - - Patient Instructions - Post Discharge Activity
[2018-11-03 11:44] LABS: ALBUMIN 3.3 g/dl (3.4-5.0); ALK PHOS 73 U/L (45-117); ANION GAP 7 MMOL/L (8-16); BILIRUBIN,TOTAL 0.3 mg/dL (0.2-1); BLOOD UREA NITROGEN 55 mg/dL (7-18); CALCIUM 8.7 mg/dL (8.5-10.1); CHLORIDE 108 mmol/L (98-107); CO2 24 mmol/L (21-32); CREATININE 1.8 mg/dL (0.55-1.3); GLUCOSE,RANDOM 140 mg/dL (74-106); POTASSIUM 5.2 mmol/L (3.5-5.1); SGOT/AST 21 U/L (15-37); SGPT/ALT 22 U/L (13-61); SODIUM 139 mmol/L (136-145); TOT PROT 6.8 g/dl (6.4-8.2)
[2018-11-03] MEDS ORDERED: clonazePAM 0.5 MG TABLET ONE (11:50)
[2018-11-03] MEDS ORDERED: CEFAZOLIN 1 GM in DEXTROSE 5%-WATER - 50 ML IVPB ONE (12:15)
[2018-11-03] MEDS ORDERED: MECLIZINE HCL 25 MG TABLET (FP) PO ONE (12:17)
--- NOTE | 2018-11-03 12:44 | HP ---
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 The patient notes taking aspirin with no relief and also notes no relief with compression. The patient states she did not take all her medications this morning. Patient notes feeling weak and dizzy. The patient denies chest pain, shortness of breath, headache and dizziness. The patient denies fever, chills, vomit, diarrhea and constipation. The patient denies dysuria, frequency, urgency and hematuria. 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 (chronic bilateral Cerebellar Infarcts) Cardiovascular: Yes: AFIB, Aortic Insufficiency, Aortic Stenosis, CAD, CHF, HTN , Hyperlipdemia Gastrointestinal: Yes: Diverticulitis Renal/: Yes: Renal Inusuff, Other (OAB) Psych: Yes: Depression, Panic - Past Surgical History Past Surgical History: Yes: Permanent Pacemaker, Valve Replacement (bovine) - Smoking History Smoking history: Never smoked Have you smoked in the past 12 months: No Aproximately how many cigarettes per day: 0 - Alcohol/Substance Use Hx Alcohol Use: No History of Substance Use: reports: None - Social History 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[employer]) History of Recent Travel: No Home Medications - Allergies Allergies/Adverse Reactions: Allergies Allergy/AdvReac Type Severity Reaction Status Date / Time Iodinated Contrast- Oral and Allergy Severe Difficulty Verified 11/03/18 09:50 IV Dye Breathing [IV Dye, Iodine Containing Contrast ] iodine Allergy Severe Difficulty Verified 11/03/18 09:50 Breathing lactose AdvReac Verified 11/03/18 09:50 - Home Medications Home Medications: Ambulatory Orders Acetaminophen [Tylenol .Extra-Strength -] 500 mg PO Q4H 10/06/18 Aspirin 81 mg PO DAILY 10/06/18 Carvedilol 6.25 mg PO BID 10/06/18 Clonazepam 0.5 mg PO BID 10/06/18 Escitalopram Oxalate [Lexapro -] 10 mg PO DAILY 10/06/18 Furosemide [Lasix] 20 mg PO DAILY 10/06/18 Lipase/Protease/Amylase [Scott Jc 36,000 Units Capsule] 1 each PO DAILY Mirtazapine [Remeron Soltab -] 15 mg PO DAILY 10/06/18 Omeprazole 40 mg PO DAILY 10/06/18 Oxybutynin Chloride [Ditropan Xl] 10 mg PO DAILY 10/06/18 Triamterene/Hydrochlorothiazid [Triamterene-Hctz 37.5-25 mg Cp] 1 each PO DAILY 10/06/18 Lipase/Protease/Amylase [Scott Jc 36,000 Units Capsule] 1 cap PO TIDCM capsule. 10/12/18 Review of Systems Findings/Remarks: see [facility] Physical Examination Vital Signs: Vital Signs Temperature 98.5 F 11/03/18 09:56 Pulse Rate 100 H 11/03/18 09:56 Respiratory Rate 16 11/03/18 09:56 Blood Pressure 190/89 H 11/03/18 09:56 O2 Sat by Pulse Oximetry (%) 100 11/03/18 09:56 Constitutional: Yes: No Distress, Anxious Eyes: Yes: Conjunctiva Clear HENT: Yes: Other (right nasal cavity -- packing +) Neck: Yes: Supple Respiratory: Yes: Diminished Gastrointestinal: Yes: Soft Edema: No Neurological: Yes: Alert Labs: CBC, BMP 11/03/18 11:00 11/03/18 11:00 Imaging - Results EKG: Pending Problem List - Problems (1) Epistaxis Code(s): R04.0 - EPISTAXIS (2) Hypertension Code(s): I10 - ESSENTIAL (PRIMARY) HYPERTENSION (3) Aortic prosthetic valve regurgitation Code(s): T82.897A - OTH COMPLICATION OF CARDIAC PROSTH DEV/GRFT, INIT (4) CAD (coronary artery disease) Code(s): I25.10 - ATHSCL HEART DISEASE OF [place] CORONARY ARTERY W/O ANG PCTRS (5) CKD (chronic kidney disease) Code(s): N18.9 - CHRONIC KIDNEY DISEASE, UNSPECIFIED (6) Depression Code(s): F32.9 - MAJOR DEPRESSIVE DISORDER, SINGLE EPISODE, UNSPECIFIED (7) Pacemaker Code(s): Z95.0 - PRESENCE OF CARDIAC PACEMAKER Assessment/Plan monitor meds reviewed bp high increase coreg d/c lasix for now as on Diazide and cr 1.8 monitor bp ent consult hold asa dvt prophylaxis with scd continue psych meds abx will follow
[2018-11-03] MEDS ORDERED: ACETAMINOPHEN 325 MG TABLET (FP) ONE (12:49)
[2018-11-03] MEDS ORDERED: MECLIZINE HCL 25 MG TABLET (FP) ONE (12:50)
[2018-11-03] MEDS: ACETAMINOPHEN 500 MG TABLET (FP) PO SCH ×3 (12:53→20:59)
--- NOTE | 2018-11-03 13:02 | EKG ---
Test Reason : Blood Pressure : / mmHG Vent. Rate : 076 BPM Atrial Rate : 076 BPM P-R Int : 254 ms QRS Dur : 178 ms QT Int : 460 ms P-R-T Axes : 052 -62 100 degrees QTc Int : 517 ms Atrial-sensed ventricular-paced rhythm with prolonged AV conduction ABNORMAL ECG WHEN COMPARED WITH ECG OF 06-OCT-2018 17:37, VENT. RATE HAS INCREASED BY 3 BPM Confirmed by JOHN VARMA, CLYDE ([id number]) on 11/03/2018 1:02:29 PM Referred By: Confirmed By:CLYDE LOPEZ MD
[2018-11-03] MEDS: ONDANSETRON 4 MG/2 ML VIAL IVPUSH PRN (13:22)
[2018-11-03] MEDS ORDERED: ACETAMINOPHEN 1000 MG/100 ML VIAL (NON FORMULARY) IVPB ONE (15:51)
[2018-11-03] MEDS ORDERED: ACETAMINOPHEN INJECTION 100 ML IVPB ONE (16:14)
[2018-11-03] MEDS: TRIAMTERENE AND HCTZ - 37.5 MG/25 MG CAPSULE PO SCH (17:06)
[2018-11-03] MEDS: CARVEDILOL 12.5 MG TABLET (FP) PO SCH ×2 (17:06→21:00)
[2018-11-03] MEDS: LIPASE/PROTEASE/AMYLASE 36,000 UNIT CAPSULE PO SCH (19:26)
[2018-11-03 19:49] VITALS: BMI 20.7
[2018-11-03] MEDS: clonazePAM 0.5 MG TABLET PO SCH (21:00)
[2018-11-03] MEDS ORDERED: CARVEDILOL 6.25 MG TABLET (FP) PO SCH (22:00)
[2018-11-03] MEDS ORDERED: CEFAZOLIN 1 GM/D5W 1 GM/50 ML BAG IVPB ONE (22:45)
[2018-11-04] MEDS: ACETAMINOPHEN 500 MG TABLET (FP) PO SCH ×6 (00:49→21:15)
[2018-11-04] MEDS ORDERED: CEFAZOLIN 1 GM/D5W 1 GM/50 ML BAG IVPB ONE (01:00)
[2018-11-04 08:09] LABS: BASO % 0.4 % (0-2.0); EOS % 0.2 % (0-4.5); HEMATOCRIT 31.4 % (32.4-45.2); HEMOGLOBIN 10.7 GM/dL (10.7-15.3); LYMPH % 23.2 % (8-40); MCH 31.2 pg (25.7-33.7); MCHC 33.9 g/dl (32.0-36.0); MEAN CELL VOLUME 91.9 fl (80-96); MEAN PLT VOLUME 9.4 fl (7.5-11.1); MONO % 6.2 % (3.8-10.2); PLATELET COUNT 247 K/MM3 (134-434); RBC 3.42 M/mm3 (3.60-5.2); RDW 13.3 % (11.6-15.6); WHITE BLOOD COUNT 11.7 K/mm3 (4.0-10.0)
[2018-11-04 08:34] LABS: ALBUMIN 3.1 g/dl (3.4-5.0); ALK PHOS 58 U/L (45-117); ANION GAP 6 MMOL/L (8-16); BILIRUBIN,TOTAL 0.4 mg/dL (0.2-1); BLOOD UREA NITROGEN 47 mg/dL (7-18); CALCIUM 8.2 mg/dL (8.5-10.1); CHLORIDE 108 mmol/L (98-107); CO2 26 mmol/L (21-32); CREATININE 1.7 mg/dL (0.55-1.3); GLUCOSE,RANDOM 102 mg/dL (74-106); POTASSIUM 4.8 mmol/L (3.5-5.1); SGOT/AST 20 U/L (15-37); SGPT/ALT 16 U/L (13-61); SODIUM 140 mmol/L (136-145)
[2018-11-04] MEDS: LIPASE/PROTEASE/AMYLASE 36,000 UNIT CAPSULE PO SCH ×3 (08:47→17:55)
[2018-11-04] MEDS: TRIAMTERENE AND HCTZ - 37.5 MG/25 MG CAPSULE PO SCH (10:14)
[2018-11-04] MEDS: ESCITALOPRAM OXALATE 10 MG TABLET (FP) PO SCH (10:14)
[2018-11-04] MEDS: CARVEDILOL 12.5 MG TABLET (FP) PO SCH ×2 (10:14→21:16)
[2018-11-04] MEDS: PANTOPRAZOLE 40 MG TABLET (FP) PO SCH (10:15)
[2018-11-04] MEDS: clonazePAM 0.5 MG TABLET PO SCH ×2 (10:15→21:17)
[2018-11-04] MEDS: SOLIFENACIN SUCCINATE 5 MG TAB (FP) PO SCH (10:15)
[2018-11-04] MEDS ORDERED: MECLIZINE HCL 25 MG TABLET (FP) PO PRN (10:36)
--- NOTE | 2018-11-04 12:34 | PN ---
Progress Note (short form) - Note Progress Note: pt seen/ examined anxious packing in place no further bleeding wants to restart antivert. at bedside. no distress Vital Signs Temp 97.5 F L 11/04/18 06:47 Pulse 72 11/04/18 06:47 Resp 20 11/04/18 06:47 BP 122/60 11/04/18 06:47 Pulse Ox 95 11/04/18 04:00 Intake & Output 11/03/18 11/04/18 11/04/18 23:59 11:59 23:59 Intake Total 250 400 Output Total 200 Balance 50 400 Weight 103 lb Intake: IVPB 50 50 Oral 200 350 Output: Emesis 200 Other: Voiding Method Toilet Toilet # Unmeasured Voids Void 1 Height 4 ft 11 in Body Mass Index (BMI) 20.7 Weight Measurement Method [facility] Active Medications Acetaminophen (Tylenol -) 500 mg PO Q4H [facility] Last Admin: 11/04/18 08:45 Dose: 500 mg Carvedilol (Coreg -) 12.5 mg PO BID [facility] Last Admin: 11/04/18 10:14 Dose: 12.5 mg Clonazepam (Klonopin -) 0.5 mg PO BID [facility] Last Admin: 11/04/18 10:15 Dose: 0.5 mg Escitalopram Oxalate (Lexapro -) 10 mg PO DAILY [facility] Last Admin: 11/04/18 10:14 Dose: 10 mg Cefazolin Sodium (Ancef 1 Gm Premixed Ivpb -) 1 gm in 50 mls @ 100 mls/hr IVPB Q8H-IV [facility] Meclizine HCl (Antivert -) 25 mg PO TID PRN PRN Reason: DIZZINESS Mirtazapine (Remeron -) 15 mg PO HS [facility] Ondansetron HCl (Zofran Injection) 4 mg IVPUSH Q6H PRN PRN Reason: NAUSEA Last Admin: 11/03/18 13:22 Dose: 4 mg Pancrelipase (Creon Dr 36,000 Units Capsule) 1 cap PO TIDCM [facility] Last Admin: 11/04/18 08:47 Dose: Not Given Pantoprazole Sodium (Protonix -) 40 mg PO DAILY [facility] Last Admin: 11/04/18 10:15 Dose: 40 mg Solifenacin (Vesicare -) 5 mg PO DAILY [facility] Last Admin: 11/04/18 10:15 Dose: 5 mg Triamterene/HCTZ (Dyazide 25/37.5mg) 1 cap PO DAILY [facility] Last Admin: 11/04/18 10:14 Dose: 1 cap CBC, BMP 11/04/18 07:21 11/04/18 07:21 Physical Examination Constitutional: Yes: No Distress, Anxious Eyes: Yes: Conjunctiva Clear HENT: Yes: Other (right nasal cavity -- packing +) Neck: Yes: Supple Respiratory: Yes: Diminished Gastrointestinal: Yes: Soft, non tender Edema: No Neurological: Yes: Alert Assessment/Plan monitor bp better ent consult pending hold asa dvt prophylaxis with scd continue psych meds abx daily oob - chair started on antivert -- pt/ says takes for long time will follow Problem List - Problems (1) Epistaxis Code(s): R04.0 - EPISTAXIS (2) Hypertension Code(s): I10 - ESSENTIAL (PRIMARY) HYPERTENSION (3) Aortic prosthetic valve regurgitation Code(s): T82.897A - OTH COMPLICATION OF CARDIAC PROSTH DEV/GRFT, INIT (4) CAD (coronary artery disease) Code(s): I25.10 - ATHSCL HEART DISEASE OF [place] CORONARY ARTERY W/O ANG PCTRS (5) CKD (chronic kidney disease) Code(s): N18.9 - CHRONIC KIDNEY DISEASE, UNSPECIFIED (6) Depression Code(s): F32.9 - MAJOR DEPRESSIVE DISORDER, SINGLE EPISODE, UNSPECIFIED (7) Pacemaker Code(s): Z95.0 - PRESENCE OF CARDIAC PACEMAKER
[2018-11-04] MEDS: CEFAZOLIN 1 GM/D5W 1 GM/50 ML BAG IVPB SCH ×3 (14:56→21:17)
[2018-11-04] MEDS: MECLIZINE HCL 25 MG TABLET (FP) PO SCH ×2 (16:03→21:16)
[2018-11-04] MEDS ORDERED: traMADol HCL 50 MG TABLET PO PRN (18:10)
[2018-11-04] MEDS: ONDANSETRON 4 MG/2 ML VIAL IVPUSH PRN (21:15)
[2018-11-04] MEDS: MIRTAZAPINE 15 MG TABLET (FP) PO SCH (21:16)
[2018-11-05] MEDS: ACETAMINOPHEN 500 MG TABLET (FP) PO SCH ×6 (01:30→22:57)
[2018-11-05] MEDS: MECLIZINE HCL 25 MG TABLET (FP) PO SCH ×3 (05:42→22:57)
--- NOTE | 2018-11-05 10:04 | PN ---
Progress Note (short form) - Note Progress Note: pt seen/ examined better less anxious slept well packing in place no further bleeding no distress Vital Signs Temp 99.4 F 11/05/18 06:40 Pulse 73 11/05/18 06:40 Resp 20 11/05/18 06:40 BP 112/66 11/05/18 06:40 Pulse Ox 96 11/05/18 04:00 Intake & Output 11/04/18 11/04/18 11/05/18 11:59 23:59 11:59 Intake Total 400 575 400 Balance 400 575 400 Intake: IVPB 50 100 Oral 350 475 400 Other: Voiding Method Toilet Toilet Toilet # Unmeasured Voids Void 1 1 2 Bowel Movement No Active Medications Acetaminophen (Tylenol -) 500 mg PO Q4H [facility] Last Admin: 11/04/18 08:45 Dose: 500 mg Carvedilol (Coreg -) 12.5 mg PO BID [facility] Last Admin: 11/04/18 10:14 Dose: 12.5 mg Clonazepam (Klonopin -) 0.5 mg PO BID [facility] Last Admin: 11/04/18 10:15 Dose: 0.5 mg Escitalopram Oxalate (Lexapro -) 10 mg PO DAILY [facility] Last Admin: 11/04/18 10:14 Dose: 10 mg Cefazolin Sodium (Ancef 1 Gm Premixed Ivpb -) 1 gm in 50 mls @ 100 mls/hr IVPB Q8H-IV [facility] Meclizine HCl (Antivert -) 25 mg PO TID PRN PRN Reason: DIZZINESS Mirtazapine (Remeron -) 15 mg PO HS [facility] Ondansetron HCl (Zofran Injection) 4 mg IVPUSH Q6H PRN PRN Reason: NAUSEA Last Admin: 11/03/18 13:22 Dose: 4 mg Pancrelipase (Creon Dr 36,000 Units Capsule) 1 cap PO TIDCM [facility] Last Admin: 11/04/18 08:47 Dose: Not Given Pantoprazole Sodium (Protonix -) 40 mg PO DAILY [facility] Last Admin: 11/04/18 10:15 Dose: 40 mg Solifenacin (Vesicare -) 5 mg PO DAILY [facility] Last Admin: 11/04/18 10:15 Dose: 5 mg Triamterene/HCTZ (Dyazide 25/37.5mg) 1 cap PO DAILY [facility] Last Admin: 11/04/18 10:14 Dose: 1 cap CBC, BMP 11/04/18 07:21 11/04/18 07:21 Physical Examination Constitutional: Yes: No Distress, comfortable Eyes: Yes: Conjunctiva Clear HENT: Yes: Other (right nasal cavity -- packing +) Neck: Yes: Supple Respiratory: Yes: Diminished Gastrointestinal: Yes: Soft, non tender . bs + Edema: No Neurological: Yes: Alert/ awake Assessment/Plan Better monitor bp stable ent consult pending hold asa dvt prophylaxis with scd continue psych meds abx daily oob - chair PT cbc - am if stable -- consider d/c in am or later today after ent eval. will follow Problem List - Problems (1) Epistaxis Code(s): R04.0 - EPISTAXIS (2) Hypertension Code(s): I10 - ESSENTIAL (PRIMARY) HYPERTENSION (3) Aortic prosthetic valve regurgitation Code(s): T82.897A - OTH COMPLICATION OF CARDIAC PROSTH DEV/GRFT, INIT (4) CAD (coronary artery disease) Code(s): I25.10 - ATHSCL HEART DISEASE OF [place] CORONARY ARTERY W/O ANG PCTRS (5) CKD (chronic kidney disease) Code(s): N18.9 - CHRONIC KIDNEY DISEASE, UNSPECIFIED (6) Depression Code(s): F32.9 - MAJOR DEPRESSIVE DISORDER, SINGLE EPISODE, UNSPECIFIED (7) Pacemaker Code(s): Z95.0 - PRESENCE OF CARDIAC PACEMAKER
[2018-11-05] MEDS: LIPASE/PROTEASE/AMYLASE 36,000 UNIT CAPSULE PO SCH ×3 (10:46→16:44)
[2018-11-05] MEDS: CEFAZOLIN 1 GM/D5W 1 GM/50 ML BAG IVPB SCH ×2 (10:46→22:56)
[2018-11-05] MEDS: clonazePAM 0.5 MG TABLET PO SCH ×2 (10:47→22:58)
[2018-11-05] MEDS: CARVEDILOL 12.5 MG TABLET (FP) PO SCH ×2 (10:47→22:58)
[2018-11-05] MEDS: SOLIFENACIN SUCCINATE 5 MG TAB (FP) PO SCH (10:47)
[2018-11-05] MEDS: ESCITALOPRAM OXALATE 10 MG TABLET (FP) PO SCH (10:47)
[2018-11-05] MEDS: PANTOPRAZOLE 40 MG TABLET (FP) PO SCH (10:47)
[2018-11-05] MEDS: TRIAMTERENE AND HCTZ - 37.5 MG/25 MG CAPSULE PO SCH (10:49)
[2018-11-05] MEDS ORDERED: PT OWN MED DRAWER 7, Y5N ONE (10:49)
[2018-11-05] MEDS: MIRTAZAPINE 15 MG TABLET (FP) PO SCH (22:57)
[2018-11-06] MEDS: ACETAMINOPHEN 500 MG TABLET (FP) PO SCH ×6 (00:45→21:43)
[2018-11-06] MEDS: MECLIZINE HCL 25 MG TABLET (FP) PO SCH ×3 (05:37→21:43)
[2018-11-06 08:28] LABS: BASO % 0.4 % (0-2.0); EOS % 1.9 % (0-4.5); HEMATOCRIT 32.5 % (32.4-45.2); HEMOGLOBIN 11.2 GM/dL (10.7-15.3); LYMPH % 24.8 % (8-40); MCH 32.2 pg (25.7-33.7); MCHC 34.5 g/dl (32.0-36.0); MEAN CELL VOLUME 93.5 fl (80-96); MEAN PLT VOLUME 9.7 fl (7.5-11.1); MONO % 7.2 % (3.8-10.2); NEUT % 65.7 % (42.8-82.8); PLATELET COUNT 244 K/MM3 (134-434); RBC 3.48 M/mm3 (3.60-5.2); RDW 12.9 % (11.6-15.6); WHITE BLOOD COUNT 12.5 K/mm3 (4.0-10.0)
[2018-11-06] MEDS ORDERED: PT OWN MED DRAWER 7, Y5N ONE ×2 (09:03→16:53)
[2018-11-06 09:07] LABS: ALBUMIN 3.1 g/dl (3.4-5.0); ALK PHOS 65 U/L (45-117); ANION GAP 6 MMOL/L (8-16); BILIRUBIN,TOTAL 0.3 mg/dL (0.2-1); BLOOD UREA NITROGEN 35 mg/dL (7-18); CALCIUM 8.7 mg/dL (8.5-10.1); CHLORIDE 106 mmol/L (98-107); CO2 28 mmol/L (21-32); CREATININE 1.9 mg/dL (0.55-1.3); GLUCOSE,RANDOM 107 mg/dL (74-106); POTASSIUM 4.7 mmol/L (3.5-5.1); SGOT/AST 21 U/L (15-37); SGPT/ALT 9 U/L (13-61); SODIUM 140 mmol/L (136-145); TOT PROT 6.4 g/dl (6.4-8.2)
[2018-11-06] MEDS: CEFAZOLIN 1 GM/D5W 1 GM/50 ML BAG IVPB SCH (09:07)
[2018-11-06] MEDS: PANTOPRAZOLE 40 MG TABLET (FP) PO SCH (09:08)
[2018-11-06] MEDS: ESCITALOPRAM OXALATE 10 MG TABLET (FP) PO SCH (09:08)
[2018-11-06] MEDS: clonazePAM 0.5 MG TABLET PO SCH ×2 (09:08→21:43)
[2018-11-06] MEDS: CARVEDILOL 12.5 MG TABLET (FP) PO SCH ×2 (09:08→21:43)
[2018-11-06] MEDS: SOLIFENACIN SUCCINATE 5 MG TAB (FP) PO SCH (09:08)
[2018-11-06] MEDS: TRIAMTERENE AND HCTZ - 37.5 MG/25 MG CAPSULE PO SCH (09:09)
[2018-11-06] MEDS: LIPASE/PROTEASE/AMYLASE 36,000 UNIT CAPSULE PO SCH ×3 (09:14→16:54)
--- NOTE | 2018-11-06 13:29 | PN ---
Progress Note (short form) - Note Progress Note: pt seen/ examined feels well slept well packing in place no further bleeding no distress mood better denies pain Vital Signs Temp 98.7 F 11/06/18 10:00 Pulse 88 11/06/18 10:00 Resp 20 11/06/18 10:00 BP 114/60 11/06/18 10:00 Pulse Ox 96 11/05/18 20:00 Intake & Output 11/05/18 11/06/18 11/06/18 23:59 11:59 23:59 Intake Total 700 250 Output Total 200 200 Balance 500 50 Intake: IVPB 100 50 Oral 600 200 Output: Emesis 200 200 Other: Voiding Method Toilet # Unmeasured Voids Void 2 2 Bowel Movement No No # Bowel Movements 1 Active Medications Acetaminophen (Tylenol -) 500 mg PO Q4H [facility] Last Admin: 11/06/18 09:07 Dose: 500 mg Carvedilol (Coreg -) 12.5 mg PO BID [facility] Last Admin: 11/06/18 09:08 Dose: 12.5 mg Clonazepam (Klonopin -) 0.5 mg PO BID [facility] Last Admin: 11/06/18 09:08 Dose: 0.5 mg Escitalopram Oxalate (Lexapro -) 10 mg PO DAILY [facility] Last Admin: 11/06/18 09:08 Dose: 10 mg Cefazolin Sodium (Ancef 1 Gm Premixed Ivpb -) 1 gm in 50 mls @ 100 mls/hr IVPB BID [facility] Last Admin: 11/06/18 09:07 Dose: 100 mls/hr Meclizine HCl (Antivert -) 25 mg PO TID [facility] Last Admin: 11/06/18 05:37 Dose: 25 mg Mirtazapine (Remeron -) 15 mg PO HS [facility] Last Admin: 11/05/18 22:57 Dose: 15 mg Ondansetron HCl (Zofran Injection) 4 mg IVPUSH Q6H PRN PRN Reason: NAUSEA Last Admin: 11/04/18 21:15 Dose: 4 mg Pancrelipase (Creon Dr 36,000 Units Capsule) 1 cap PO TIDCM [facility] Last Admin: 11/06/18 09:14 Dose: 1 cap Pantoprazole Sodium (Protonix -) 40 mg PO DAILY [facility] Last Admin: 11/06/18 09:08 Dose: 40 mg Solifenacin (Vesicare -) 5 mg PO DAILY [facility] Last Admin: 11/06/18 09:08 Dose: 5 mg Tramadol HCl (Ultram -) 50 mg PO Q8H PRN PRN Reason: PAIN LEVEL 4 - 6 Last Admin: 11/04/18 18:14 Dose: 50 mg Triamterene/HCTZ (Dyazide 25/37.5mg) 1 cap PO DAILY [facility] Last Admin: 11/06/18 09:09 Dose: 1 cap CBC, BMP 11/06/18 07:00 11/06/18 07:00 Physical Examination Constitutional: Yes: No Distress, comfortable. Eyes: Yes: Conjunctiva Clear HENT: Yes: Other (right nasal cavity -- packing +) Neck: Yes: Supple Respiratory: Yes: Diminished. Gastrointestinal: Yes: Soft, non tender . bs + Edema: No Neurological: Yes: Alert/ awake. Assessment/Plan Better monitor bp stable ent consult pending hold asa dvt prophylaxis with scd continue psych meds abx slightly elevated wbcs-- no fever. likely reactive can be followed as out pt daily oob - chair PT likely d/c today after ent follow up discussed with nursing staff also. will follow. Problem List - Problems (1) Epistaxis Code(s): R04.0 - EPISTAXIS (2) Hypertension Code(s): I10 - ESSENTIAL (PRIMARY) HYPERTENSION (3) Aortic prosthetic valve regurgitation Code(s): T82.897A - OTH COMPLICATION OF CARDIAC PROSTH DEV/GRFT, INIT (4) CAD (coronary artery disease) Code(s): I25.10 - ATHSCL HEART DISEASE OF [place] CORONARY ARTERY W/O ANG PCTRS (5) CKD (chronic kidney disease) Code(s): N18.9 - CHRONIC KIDNEY DISEASE, UNSPECIFIED (6) Depression Code(s): F32.9 - MAJOR DEPRESSIVE DISORDER, SINGLE EPISODE, UNSPECIFIED (7) Pacemaker Code(s): Z95.0 - PRESENCE OF CARDIAC PACEMAKER
--- NOTE | 2018-11-06 20:14 | CON.ENT ---
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 I received the consult this morning to see the patient. She developed epistaxis for first time middle of last week, that resolved on its own. It recurred and she was admitted at the end of last week from ER after being packed and controlled with a rhinorocket. She has not bled since. No nasal spray use. Takes ASA 81 mg at home. 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: Other (chronic bilateral Cerebellar Infarcts) Cardio/Vascular: Yes: AFIB, Aortic Insufficiency, Aortic Stenosis, CAD, CHF, HTN , Hyperlipdemia Gastrointestinal: Yes: Diverticulitis Renal/: Yes: Renal Inusuff, Other (OAB) Psych: Yes: Depression, Panic - Past Surgical History Past Surgical History: Yes: Permanent Pacemaker, Valve Replacement (bovine) - Alcohol/Substance Use Hx Alcohol Use: No History of Substance Use: reports: None - Smoking History Smoking history: Never smoked Have you smoked in the past 12 months: No Aproximately how many cigarettes per day: 0 - Social History 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[employer]) History of Recent Travel: No Home Medications - Allergies Allergies/Adverse Reactions: Allergies Allergy/AdvReac Type Severity Reaction Status Date / Time Iodinated Contrast- Oral and Allergy Severe Difficulty Verified 11/03/18 09:50 IV Dye Breathing [IV Dye, Iodine Containing Contrast ] iodine Allergy Severe Difficulty Verified 11/03/18 09:50 Breathing lactose AdvReac Verified 11/03/18 09:50 - Home Medications Home Medications: Ambulatory Orders Acetaminophen [Tylenol .Extra-Strength -] 500 mg PO Q4H 10/06/18 Aspirin 81 mg PO DAILY 10/06/18 Carvedilol 6.25 mg PO BID 10/06/18 Clonazepam 0.5 mg PO BID 10/06/18 Escitalopram Oxalate [Lexapro -] 10 mg PO DAILY 10/06/18 Furosemide [Lasix] 20 mg PO DAILY 10/06/18 Lipase/Protease/Amylase [Scott Jc 36,000 Units Capsule] 1 each PO DAILY Mirtazapine [Remeron Soltab -] 15 mg PO DAILY 10/06/18 Omeprazole 40 mg PO DAILY 10/06/18 Oxybutynin Chloride [Ditropan Xl] 10 mg PO DAILY 10/06/18 Triamterene/Hydrochlorothiazid [Triamterene-Hctz 37.5-25 mg Cp] 1 each PO DAILY 10/06/18 Lipase/Protease/Amylase [Scott Jc 36,000 Units Capsule] 1 cap PO TIDCM capsule. 10/12/18 Meclizine HCl 25 mg PO TID 11/04/18 Physical Exam-ENT Vital Signs: Vital Signs Temperature 97.5 F L 11/06/18 18:00 Pulse Rate 58 L 11/06/18 18:00 Respiratory Rate 20 11/06/18 18:00 Blood Pressure 113/62 11/06/18 18:00 O2 Sat by Pulse Oximetry (%) 96 11/05/18 20:00 Constitutional: Yes: Well Nourished, Thin Head: Yes: WNL Face: Yes: WNL Eyes: Yes: WNL Nose: Yes: Other (right rhinorocket mostly inserted. no bleeding. most of the exposed portion is white.) Oral/Pharynx: Yes: WNL, Other (dentures out. post o/p clear. no blood.) Outer Ear: Yes: WNL Ear Canal: Yes: Cerumen Respiratory: Yes: WNL Neurological: Yes: Other (CN3-7,11,12 intact symmetrical grossly) Problem List - Problems (1) Epistaxis Assessment/Plan: Epistaxis, controlled with rhinorocket. - Discussed options with patient. I offered to remove the packing at this time , though without my set of instruments and endoscopes, I would likely have to re -pack her if she begins to bleed. Alternatively, I offered for her to make an appointment to see me tomorrow in my office for removal of the packing; if she bleeds there, I will have more equipment at my disposal to control it. She elects the latter. - I do have availability tomorrow. She can make an appointment with me tomorrow at [address] ([facility] [address] down the street). Phone: . If she is discharged in the morning, we should be able to arrange for her to see me on her way home. Thank you for this consult. Please call with questions. Code(s): R04.0 - EPISTAXIS
[2018-11-06] MEDS: MIRTAZAPINE 15 MG TABLET (FP) PO SCH (21:43)
[2018-11-07] MEDS: ACETAMINOPHEN 500 MG TABLET (FP) PO SCH ×3 (00:40→10:40)
[2018-11-07] MEDS: MECLIZINE HCL 25 MG TABLET (FP) PO SCH (05:42)
[2018-11-07 06:36] VITALS: TEMP 98.1
[2018-11-07] MEDS ORDERED: PT OWN MED DRAWER 7, Y5N ONE (10:27)
[2018-11-07] MEDS: CARVEDILOL 12.5 MG TABLET (FP) PO SCH (10:40)
[2018-11-07] MEDS: ESCITALOPRAM OXALATE 10 MG TABLET (FP) PO SCH (10:40)
[2018-11-07] MEDS: TRIAMTERENE AND HCTZ - 37.5 MG/25 MG CAPSULE PO SCH (10:40)
[2018-11-07] MEDS: PANTOPRAZOLE 40 MG TABLET (FP) PO SCH (10:40)
[2018-11-07] MEDS: clonazePAM 0.5 MG TABLET PO SCH (10:40)
[2018-11-07] MEDS: SOLIFENACIN SUCCINATE 5 MG TAB (FP) PO SCH (10:41)
[2018-11-07] MEDS: LIPASE/PROTEASE/AMYLASE 36,000 UNIT CAPSULE PO SCH ×2 (10:41→11:54)
--- NOTE | 2018-11-07 11:36 | DS ---
Physical Examination Vital Signs: Vital Signs Temperature 98.1 F 11/07/18 06:00 Pulse Rate 68 11/07/18 06:00 Respiratory Rate 18 11/07/18 06:00 Blood Pressure 113/52 L 11/07/18 06:00 O2 Sat by Pulse Oximetry (%) 92 L 11/07/18 04:00 Constitutional: Yes: No Distress, Calm HENT: Yes: Other (rt nasal rhinorocket in place) Cardiovascular: Yes: Regular Rate and Rhythm Respiratory: Yes: CTA Bilaterally Gastrointestinal: Yes: Normal Bowel Sounds, Soft. No: Distention, Tenderness Edema: No Labs: CBC, BMP 11/06/18 07:00 11/06/18 07:00 Discharge Summary Reason For Visit: EPISTAXIS/HYPERTENSION Current Active Problems Epistaxis (Acute) Hypertension (Acute) Hospital Course: Admitted for epistaxis HCT stable did not require transfusions Seen by ENT yesterday stable to dc home,. she will have to go to ENT office today for removal of packing hold off ASA for now till hemostasis achieved Condition: Improved - Instructions Referrals: Javi Brock MD [Primary Care Provider] - Alberto Gilliam MD [Staff Physician] - Disposition: HOME - Home Medications Comprehensive Discharge Medication List: Ambulatory Orders Acetaminophen [Tylenol .Extra-Strength -] 500 mg PO Q4H 10/06/18 Aspirin 81 mg PO DAILY 10/06/18 Carvedilol 6.25 mg PO BID 10/06/18 Clonazepam 0.5 mg PO BID 10/06/18 Escitalopram Oxalate [Lexapro -] 10 mg PO DAILY 10/06/18 Furosemide [Lasix] 20 mg PO DAILY 10/06/18 Lipase/Protease/Amylase [Scott Jc 36,000 Units Capsule] 1 each PO DAILY Mirtazapine [Remeron Soltab -] 15 mg PO DAILY 10/06/18 Omeprazole 40 mg PO DAILY 10/06/18 Oxybutynin Chloride [Ditropan Xl] 10 mg PO DAILY 10/06/18 Triamterene/Hydrochlorothiazid [Triamterene-Hctz 37.5-25 mg Cp] 1 each PO DAILY 10/06/18 Lipase/Protease/Amylase [Scott Jc 36,000 Units Capsule] 1 cap PO TIDCM capsule. 10/12/18 Meclizine HCl 25 mg PO TID 11/04/18
[2018-11-07 11:59] VITALS: BP 110/67; PULSE 87
== END 2018-11-07 13:03 | disposition home or self-care (01) ==
LOC: JER 09:46 → JERBED 12:15 → J6S 17:56
PROVIDERS: ADMIT Internal Medicine; ATTEND Internal Medicine
PROC: 2Y41X5Z Packing of Nasal Region using Packing Material (ICD-10-PCS; principal; 2018-11-03)
PROC: 3E03329 Introduction of Other Anti-infective into Peripheral Vein, Percutaneous Approach (ICD-10-PCS; 2018-11-03)
PROC: 3E0337Z Introduction of Electrolytic and Water Balance Substance into Peripheral Vein, Percutaneous Approach (ICD-10-PCS; 2018-11-03)
PROC: 3E033NZ Introduction of Analgesics, Hypnotics, Sedatives into Peripheral Vein, Percutaneous Approach (ICD-10-PCS; 2018-11-03)
PROC: 3E033GC Introduction of Other Therapeutic Substance into Peripheral Vein, Percutaneous Approach (ICD-10-PCS; 2018-11-03)
DX: R04.0 Epistaxis (principal); I11.0 Hypertensive heart disease with heart failure; R78.5 Finding of other psychotropic drug in blood; I12.9 Hypertensive chronic kidney disease with stage 1 through stage 4 chronic kidney disease, or unspecified chronic kidney disease; N18.9 Chronic kidney disease, unspecified; E78.5 Hyperlipidemia, unspecified; I50.20 Unspecified systolic (congestive) heart failure; I48.2 Chronic atrial fibrillation; I25.10 Atherosclerotic heart disease of native coronary artery without angina pectoris; F32.9 Major depressive disorder, single episode, unspecified; Z86.73 Personal history of transient ischemic attack (TIA), and cerebral infarction without residual deficits; Z79.82 Long term (current) use of aspirin; Z91.011 Allergy to milk products; Z91.041 Radiographic dye allergy status; Z95.0 Presence of cardiac pacemaker; Z95.2 Presence of prosthetic heart valve
CPT/HCPCS: 30905; 36415; 80053; 85025; 85610; 85730; 93005; 93010; 96365; 96367; 96374; 96375; 96376; 97116-GP; 97161-GP; 99283-25; G0378; J0131; J7030

== ENCOUNTER 2020-05-22 13:31 | Emergency (ER) | payer OTHER ==
[2020-05-22 13:43] VITALS: BMI 21.1
[2020-05-22] MEDS ORDERED: DICYCLOMINE HCL 20 MG TABLET PO ONE (14:44)
[2020-05-22] MEDS ORDERED: LACTATED RINGERS SOLUTION 1000 ML INFUS.BAG IV ONE (14:44)
[2020-05-22] MEDS ORDERED: ACETAMINOPHEN 1000 MG/100 ML VIAL (NON FORMULARY) IVPB ONE (14:45)
[2020-05-22] MEDS ORDERED: DICYCLOMINE HCL 10 MG CAPSULE ONE (14:46)
[2020-05-22] MEDS ORDERED: ONDANSETRON 4 MG/2 ML VIAL IVPUSH ONE (14:51)
[2020-05-22 15:06] LABS: HEMATOCRIT 44.3 % (32.4-45.2); HEMOGLOBIN 14.7 GM/dL (10.7-15.3); MCH 29.8 pg (25.7-33.7); MCHC 33.1 g/dl (32.0-36.0); MEAN CELL VOLUME 90.1 fl (80-96); MEAN PLT VOLUME 9.7 fl (7.5-11.1); PLATELET COUNT 271 K/MM3 (134-434); RBC 4.91 M/mm3 (3.60-5.2); RDW 13.4 % (11.6-15.6); WHITE BLOOD COUNT 15.4 K/mm3 (4.0-10.0)
[2020-05-22 15:38] LABS: ALBUMIN 3.4 g/dl (3.4-5.0); BLOOD UREA NITROGEN 47.9 mg/dL (7-18); CALCIUM 9.4 mg/dL (8.5-10.1); CREATININE 1.9 mg/dL (0.55-1.3); POTASSIUM 3.9 mmol/L (3.5-5.1); TOT PROT 6.9 g/dl (6.4-8.2)
--- NOTE | 2020-05-22 15:47 | PDOC ---
History of Present Illness - General Chief Complaint: Pain Stated Complaint: VOMITING Time Seen by Provider: 05/22/20 14:09 - History of Present Illness Initial Comments: 05/22/20 15:42 89yo F w/ multiple comorbidities (AF, IBS, h/o ABD surgery and diverticulitis) presents w/ 2 weeks of bloating and intermittent diarrhea. She was sent here by the GI doctor. She complains of RLQ bloating and tenderness. It is constant and does not radiate. It is made worse by eating, which she states gives her flatus and makes her burp. She also endorses vomiting. She denies recent illness, change to diet or medication. 05/22/20 15:47 Her home health aide stated months ago the pt's IBS started to flair - vomiting and intermittent diarrhea -so the pt was started on a diet of white rice and white bread. 05/25/20 10:05 Past History - Medical History Allergies/Adverse Reactions: Allergies Allergy/AdvReac Type Severity Reaction Status Date / Time Iodinated Contrast Media Allergy Severe Difficulty Verified 05/22/20 13:40 [IV Dye, Iodine Containing Breathing Contrast ] iodine Allergy Severe Difficulty Verified 05/22/20 13:40 Breathing lactose AdvReac Verified 05/22/20 13:40 Home Medications: Ambulatory Orders Acetaminophen [Tylenol .Extra-Strength -] 500 mg PO Q4H 10/06/18 Carvedilol 6.25 mg PO BID 10/06/18 Clonazepam 0.5 mg PO BID 10/06/18 Escitalopram Oxalate [Lexapro -] 10 mg PO DAILY 10/06/18 Lipase/Protease/Amylase [Scott cJ 36,000 Units Capsule] 1 each PO DAILY 10/06/18 Mirtazapine [Remeron Soltab -] 15 mg PO DAILY 10/06/18 Omeprazole 40 mg PO DAILY 10/06/18 Oxybutynin Chloride [Ditropan Xl] 10 mg PO DAILY 10/06/18 Triamterene/Hydrochlorothiazid [Triamterene-Hctz 37.5-25 mg Cp] 1 each PO DAILY 10/06/18 Lipase/Protease/Amylase [Scott Jc 36,000 Units Capsule] 1 cap PO TIDCSalma cochran 10/12/18 Meclizine HCl 25 mg PO TID 02/16/19 Cephalexin [Keflex] 500 mg PO BID 7 Days #14 capsule 05/22/20 Cephalexin [Keflex] 500 mg PO BID 7 Days #14 capsule 05/23/20 Anemia: No Asthma: No Cancer: Yes (Ventricular Pacemaker - 2016, MAV replacement) Cardiac Disorders: Yes (SOB,) CVA: No COPD: No Dementia: No Diabetes: No GI Disorders: No Disorders: No HTN: Yes Hypercholesterolemia: Yes Liver Disease: No Seizures: No Thyroid Disease: No - Surgical History Abdominal Surgery: No Appendectomy: Yes Cardiac Surgery: Yes (MAV replacement, Ventricular Pacemaker) Cholecystectomy: Yes Lung Surgery: No Neurologic Surgery: No - Reproductive History Is Patient Now?: No - Immunization History Immunization Up to Date: No - Psycho-Social/Smoking History Smoking Status: No Smoking History: Former smoker Have you smoked in the past 12 months: No Number of Cigarettes Smoked Daily: 0 Information on smoking cessation initiated: No 'Breaking Loose' booklet given: 10/07/18 - Substance Abuse Hx (Audit-C & DAST Scrn) How often the patient has a drink containing alcohol: Never Score: In Men: 4 or > Positive; In Women: 3 or > Positive: 0 Screen Result (Pos requires Nsg. Audit-10AR): Negative Review of Systems - Review of Systems Able to Perform ROS?: Yes Is the patient limited German proficient: No Constitutional: No: Chills, Diaphoresis, Fever HEENTM: No: Blurred Vision, Nose Congestion, Throat Pain, Difficulty Swallowing Respiratory: No: Cough, Shortness of Breath Cardiac (ROS): No: Chest Pain ABD/GI: Yes: Constipated, Diarrhea, Nausea, Poor Appetite, Poor Fluid Intake, Vomiting, Abdominal cramping. No: Abd. Pain w/ defecation, Blood Streaked Bowels, Difficulty Swallowing, Rectal Bleeding, Tarry Stools : No: Burning, Dysuria, Discharge, Flank Pain, Hematuria Musculoskeletal: No: Back Pain, Muscle Pain Integumentary: No: Rash, Sweating Neurological: No: Headache, Numbness, Dizziness Psychiatric: Yes: Change in Appetite Hematologic/Lymphatic: No: Easy Bruising *Physical Exam - Vital Signs Last Vital Signs Temp Pulse Resp BP Pulse Ox 97.9 F 64 18 151/80 100 05/22/20 13:41 05/22/20 13:41 05/22/20 13:41 05/22/20 13:41 05/22/20 13:41 - Physical Exam General Appearance: Yes: Nourished, Appropriately Dressed, Apparent Distress, Mild Distress HEENT: positive: Normal Voice, Hearing Grossly Normal. negative: Scleral Icterus (R), Scleral Icterus (L), Rhinorrhea Neck: positive: Trachea midline Cardiovascular: positive: Regular Rhythm, Regular Rate, S1, S2 Gastrointestinal/Abdominal: positive: Increased Bowel Sounds, Distended. negative: Protuberent, Rebound, Tenderness, Hernia, Mass Musculoskeletal: positive: Normal Inspection. negative: CVA Tenderness Extremity: positive: Normal Capillary Refill, Normal Inspection Integumentary: positive: Normal Color, Dry, Warm Neurologic: positive: Fully Oriented, Alert, Normal Mood/Affect, Normal Response ED Treatment Course - LABORATORY CBC & Chemistry Diagram: 05/22/20 14:35 05/22/20 14:35 - ADDITIONAL ORDERS Additional order review: Laboratory Results 05/22/20 05/22/20 14:35 14:35 Sodium 142 Potassium 3.9 Chloride 106 Carbon Dioxide 28 Anion Gap 7 L BUN 47.9 H Creatinine 1.9 H Est GFR (CKD-EPI)AfAm 27.00 Est GFR (CKD-EPI)NonAf 23.30 Random Glucose 102 Lactic Acid 1.2 Calcium 9.4 AST 22 ALT 18 Alkaline Phosphatase 57 Total Protein 6.9 Albumin 3.4 05/22/20 14:35 RBC 4.91 MCV 90.1 MCHC 33.1 RDW 13.4 MPV 9.7 - RADIOLOGY Radiology Studies Ordered: Category Date Time Status ABDOMEN & PELVIS CT W/O CONTR [CT] Stat CT Scan 05/22/20 15:40 Ordered - Medications Given in the ED: ED Medications Discontinued Medications Generic Name Dose Route Start Last Admin Trade Name Freq PRN Reason Stop Dose Admin Dicyclomine HCl 20 mg 05/22/20 14:44 05/22/20 15:11 Bentyl - PO 05/22/20 14:45 20 mg ONCE ONE Administration Lactated Ringer's 500 ml 05/22/20 14:44 05/22/20 15:11 Lactated Ringers Solution IV 05/22/20 14:45 500 ml ONCE ONE Administration Medical Decision Making - Medical Decision Making 05/22/20 15:52 89 yo F w/ multiple comorbidities p/w ABD pain in RLQ -> CT scan -> h/o contrast allergy and elevated Cr -> must dry scan Nausea + belly cramping -> bentyl + zofran PRN. Pt reports symptom resolution after bentyl -> will hold zofran until clinically necessary. Pt's WBC = 15.2 -> UA/UC to look for UTI. Pt has had nothing to drink or eat today due to pain -> 500mL NS Discharge - Discharge Information Problems reviewed: Yes Clinical Impression/Diagnosis: UTI (urinary tract infection) Qualifiers: Urinary tract infection type: site unspecified Hematuria presence: without hematuria Qualified Code(s): N39.0 - Urinary tract infection, site not specified Abdominal pain Qualifiers: Abdominal location: right lower quadrant Qualified Code(s): R10.31 - Right lower quadrant pain Disposition: HOME - Admission No - Additional Discharge Information Prescriptions: Cephalexin [Keflex] 500 mg PO BID 7 Days #14 capsule Cephalexin [Keflex] 500 mg PO BID 7 Days #14 capsule - Follow up/Referral Referrals: Javi Brock MD [Primary Care Provider] - - Patient Discharge Instructions Patient Printed Discharge Instructions: DI for Urinary Tract Infection (UTI) Additional Instructions: You came to the ED w/ ABD pain. We evaluated you and found a urinary tract infection. We sent you a prescription for antibiotics. Please follow up with your primary doctor within 48hours. Please come back to the ED if you have any severe symptoms. - Post Discharge Activity
--- NOTE | 2020-05-22 15:52 | PDOC ---
Documentation entered by Steve Kwon SCRIBE, acting as scribe for Liz Maguire MD. Liz Maguire MD: This documentation has been prepared by the Kaylah west inSteve SCRIBE, under my direction and personally reviewed by me in its entirety. I confirm that the documentation accurately reflects all work, treatment, procedures, and medical decision making performed by me. Attending Attestation - Resident Resident Name: Nickolas Oliver - ED Attending Attestation I have performed the following: I have examined & evaluated the patient, The case was reviewed & discussed with the resident, I agree w/resident's findings & plan, Exceptions are as noted - HPI HPI: 05/22/20 14:31 The patient is an 89 year old female with a significant past medical history of Afib, cerebellar strokes, and IBS who presents to the emergency department for evaluation of lower right quadrant abdominal pain and nausea that began two weeks ago. The patient reports she had bloating, burping, and diarrhea begin a f ew months ago which caused her GI to put her on a white bread and rice diet. She now reports these new symptoms even though she has been adherent to this diet. The patient denies melena, hematochezia, chest/back pain, cough, and shortness of breath. Denies fever, chills, vomiting, and/or any symptoms. Denies any other symptoms. Allergies: iodinated contrast media, iodine, lactose Surgical Hx: prior appendectomy PCP: Dr. Cunningham - Physicial Exam PE: 05/22/20 15:43 Agree with resident exam. Patient is alert and oriented and in no acute distress. Abdomen is soft, non distended, with diffuse tenderness worse in the RLQ. - Medical Decision Making 05/22/20 15:46 Pt presents to the ED complaining of gradual worsening of her chronic abdominal cramping, nausea and vomiting. The nature of her symptoms and her normal lactate make mesenteric ischemia unlikely. Differential includes UTI, appendicitis, diverticulitis, less likely SBO. Will check labs and CT abdomen pelvis and reasses. Discharge - Discharge Information Problems reviewed: Yes Clinical Impression/Diagnosis: UTI (urinary tract infection) Qualifiers: Urinary tract infection type: site unspecified Hematuria presence: without hematuria Qualified Code(s): N39.0 - Urinary tract infection, site not specified Abdominal pain Qualifiers: Abdominal location: right lower quadrant Qualified Code(s): R10.31 - Right lower quadrant pain Disposition: HOME - Additional Discharge Information Prescriptions: Cephalexin [Keflex] 500 mg PO BID 7 Days #14 capsule Cephalexin [Keflex] 500 mg PO BID 7 Days #14 capsule - Follow up/Referral Referrals: Javi Brock MD [Primary Care Provider] - - Patient Discharge Instructions Patient Printed Discharge Instructions: DI for Urinary Tract Infection (UTI) Additional Instructions: You came to the ED w/ ABD pain. We evaluated you and found a urinary tract infection. We sent you a prescription for antibiotics. Please follow up with your primary doctor within 48hours. Please come back to the ED if you have any severe symptoms. - Post Discharge Activity
[2020-05-22 15:53] LABS: BILIRUBIN,TOTAL 0.4 mg/dL (0.2-1)
[2020-05-22 17:38] LABS: EPI CELLS 7 /uL (0-25.1); HYALINE CASTS 1 /uL (0-3.1); URINE APPEARANCE CLEAR; URINE BACTERIA 29 /uL (0-1359); URINE BILIRUBIN NEGATIVE (NEGATIVE); URINE COLOR YELLOW; URINE GLUCOSE (UA) NEGATIVE (NEGATIVE); URINE KETONE NEGATIVE (NEGATIVE); URINE LEUK ESTERASE TRACE (NEGATIVE); URINE NITRITE NEGATIVE (NEGATIVE); URINE PROTEIN NEGATIVE (NEGATIVE); URINE RBC 20 /uL (0-23.9); URINE UROBILINOGEN 0.2 mg/dL (0.2-1.0); URINE WBC 23 /uL (0-25.8)
[2020-05-22 19:23] VITALS: BP 148/74; PULSE 72; TEMP 98.2
== END 2020-05-22 19:20 | disposition home or self-care (01) ==
LOC: JER 13:31
PROC: 3E0333Z Introduction of Anti-inflammatory into Peripheral Vein, Percutaneous Approach (ICD-10-PCS; principal; 2020-05-22)
PROC: 3E0337Z Introduction of Electrolytic and Water Balance Substance into Peripheral Vein, Percutaneous Approach (ICD-10-PCS; 2020-05-22)
DX: N39.0 Urinary tract infection, site not specified (principal)
CPT/HCPCS: 36415; 74176-TC; 80053; 81003; 83605; 85027; 87086; 87186; 99285-25; J0131

== ENCOUNTER → 2021-03-04 | Day surgery (SDC) | payer OTHER ==
[2021-03-03 13:30] VITALS: BMI 21.3
[~2021-03-04] MED LIST: BACITRACIN 15 GM TUBE TOPICAL OINTMENT ONE; BACITRACIN 15 GM TUBE TOPICAL OINTMENT TP ONE; BSS (NA/CA/MG/K) BALANCED SALT SOLUTION OPHTH SOLN 15 ML BOTTLE ONE; BSS (NA/CA/MG/K) BALANCED SALT SOLUTION OPHTH SOLN 15 ML BOTTLE OS ONE; BUPIVACAINE HCL/PF 0.75% 10 ML VIAL NR ONE; BUPIVACAINE HCL/PF 0.75% 10 ML VIAL ONE; CHONDROITIN SU A/HYALUR SOD 1 KIT IO ONE; CYCLOPENTOLATE HCL 1% OPHTH SOLN 2 ML BOTTLE ONE; EPINEPHrine/PF 1 MG/1 ML (1:1,000) AMPULE ONE; EPINEPHrine/PF 1 MG/1 ML (1:1,000) AMPULE SQ ONE; KETOROLAC TROMETHAMINE 0.5% EYE DROP 1 DROP DROPS ONE; LIDOCAINE HCL 1% PRESERVATIVE FREE - 30ML VIAL IO ONE; LIDOCAINE HCL 2% (20ML MULTI-DOSE VIAL) ONE; LIDOCAINE HCL 2% (50ML VIAL) INF ONE; LIDOCAINE HCL/PF 1% SDV 5ML VIAL ONE; LIDOCAINE HCL/PF 2% SDV 5ML VIAL INF ONE; OFLOXACIN 0.3% OPHTHALMIC SOLUTION 5 ML BOTTLE ONE; POVIDONE-IODINE 5% OPHTHALMIC PREP 30 ML SOLUTION ONE; POVIDONE-IODINE 5% OPHTHALMIC PREP 30 ML SOLUTION OS ONE; TETRACAINE 0.5% OPHTH SOLN 2 ML BOTTLE ONE; TROPICAMIDE 1% OPHTH SOLN 15 ML BOTTLE OP SCH; TRYPAN BLUE 0.5 ML DISP.SYRIN IO ONE; VANCOMYCIN 500 MG VIAL (RESTRICTED TO ID ONLY) ONE; WATER FOR INJ,STERILE 10 ML ONE
[2021-03-04] MEDS: KETOROLAC TROMETHAMINE 0.5% EYE DROP 1 DROP DROPS OP SCH ×3 (08:45→09:09)
[2021-03-04] MEDS: CYCLOPENTOLATE HCL 1% OPHTH SOLN 2 ML BOTTLE OP SCH ×3 (08:45→09:09)
[2021-03-04] MEDS: TROPICAMIDE 1% OPHTH SOLN 15 ML BOTTLE ONE ×3 (08:45→09:10)
[2021-03-04] MEDS: OFLOXACIN 0.3% OPHTHALMIC SOLUTION 5 ML BOTTLE OP SCH ×4 (08:45→09:10)
[2021-03-04] MEDS: PHENYLEPHRINE 2.5% OPHTH SOLN 15 ML BOTTLE OP SCH ×2 (08:45→09:04)
[2021-03-04 11:47] VITALS: BP 133/75; PULSE 69; TEMP 98
== END | disposition home or self-care (01) ==
LOC: JASU-SURG 04:35
PROVIDERS: ATTEND Ophthalmology
PROC: 08RK3JZ Replacement of Left Lens with Synthetic Substitute, Percutaneous Approach (ICD-10-PCS; principal; 2021-03-04 10:00)
DX: H26.9 Unspecified cataract (principal)

== ENCOUNTER 2021-03-18 05:12 | Day surgery (SDC) | payer OTHER ==
[2021-03-17 16:11] VITALS: BMI 20.9
[2021-03-18] MEDS ORDERED: VANCOMYCIN 500 MG VIAL (RESTRICTED TO ID ONLY) ONE (07:14)
[2021-03-18] MEDS ORDERED: EPINEPHrine/PF 1 MG/1 ML (1:1,000) AMPULE ONE (07:14)
[2021-03-18] MEDS ORDERED: LIDOCAINE HCL/PF 1% SDV 5ML VIAL ONE (07:14)
[2021-03-18] MEDS ORDERED: LIDOCAINE HCL/PF 2% SDV 5ML VIAL ONE (07:14)
[2021-03-18] MEDS ORDERED: BSS (NA/CA/MG/K) BALANCED SALT SOLUTION OPHTH SOLN 15 ML BOTTLE ONE (07:14)
[2021-03-18] MEDS ORDERED: BUPIVACAINE HCL/PF 0.75% 10 ML VIAL ONE (07:14)
[2021-03-18] MEDS ORDERED: TETRACAINE 0.5% OPHTH SOLN 2 ML BOTTLE ONE (07:14)
[2021-03-18] MEDS ORDERED: TRYPAN BLUE 0.5 ML DISP.SYRIN ONE (07:15)
[2021-03-18] MEDS ORDERED: POVIDONE-IODINE 5% OPHTHALMIC PREP 30 ML SOLUTION ONE (07:15)
[2021-03-18] MEDS ORDERED: OFLOXACIN 0.3% OPHTHALMIC SOLUTION 5 ML BOTTLE ONE (08:23)
[2021-03-18] MEDS ORDERED: TROPICAMIDE 1% OPHTH SOLN 15 ML BOTTLE ONE (08:23)
[2021-03-18] MEDS ORDERED: CYCLOPENTOLATE HCL 1% OPHTH SOLN 2 ML BOTTLE ONE (08:24)
[2021-03-18] MEDS ORDERED: KETOROLAC TROMETHAMINE 0.5% EYE DROP 1 DROP DROPS ONE (08:24)
[2021-03-18] MEDS ORDERED: TETRACAINE 0.5% OPHTH SOLN 2 ML BOTTLE TP ONE (08:27)
[2021-03-18] MEDS ORDERED: BSS (NA/CA/MG/K) BALANCED SALT SOLUTION OPHTH SOLN 15 ML BOTTLE OD ONE ×3 (08:27→10:30)
[2021-03-18] MEDS ORDERED: POVIDONE-IODINE 5% OPHTHALMIC PREP 30 ML SOLUTION OD ONE ×2 (08:27→10:21)
[2021-03-18] MEDS ORDERED: EPINEPHrine/PF 1 MG/1 ML (1:1,000) AMPULE SQ ONE ×2 (08:28→10:33)
[2021-03-18] MEDS ORDERED: CHONDROITIN SU A/HYALUR SOD 1 KIT IO ONE ×3 (08:28→10:30)
[2021-03-18] MEDS ORDERED: LIDOCAINE HCL 1% PRESERVATIVE FREE - 30ML VIAL IO ONE ×3 (08:28→10:30)
[2021-03-18] MEDS: CYCLOPENTOLATE HCL 1% OPHTH SOLN 2 ML BOTTLE OP SCH ×3 (08:42→09:00)
[2021-03-18] MEDS: KETOROLAC TROMETHAMINE 0.5% EYE DROP 1 DROP DROPS OP SCH ×3 (08:43→09:00)
[2021-03-18] MEDS: PHENYLEPHRINE 2.5% OPHTH SOLN 15 ML BOTTLE OP SCH ×3 (08:43→09:00)
[2021-03-18] MEDS: TROPICAMIDE 1% OPHTH SOLN 15 ML BOTTLE OP SCH ×3 (08:43→09:00)
[2021-03-18] MEDS: OFLOXACIN 0.3% OPHTHALMIC SOLUTION 5 ML BOTTLE OP SCH ×3 (08:43→09:00)
[2021-03-18] MEDS ORDERED: MIDAZOLAM HCL 2 MG/2 ML SINGLE DOSE VIAL ONE (09:30)
[2021-03-18] MEDS ORDERED: BUPIVACAINE HCL/PF 0.75% 10 ML VIAL RB ONE (10:20)
[2021-03-18] MEDS ORDERED: LIDOCAINE HCL/PF 2% SDV 5ML VIAL SQ ONE (10:20)
[2021-03-18 11:06] VITALS: TEMP 97.1
[2021-03-18 11:41] VITALS: BP 131/72; PULSE 62
== END 2021-03-18 11:20 | disposition home or self-care (01) ==
LOC: JASU-SURG 05:12
PROVIDERS: ATTEND Ophthalmology
PROC: 08RJ3JZ Replacement of Right Lens with Synthetic Substitute, Percutaneous Approach (ICD-10-PCS; principal; 2021-03-18 10:00)
DX: H26.9 Unspecified cataract (principal)

== ENCOUNTER 2021-06-05 13:10 | Inpatient (IN) | payer OTHER ==
[2021-06-05] MEDS ORDERED: SODIUM CHLORIDE 0.9% 500 ML INFUS.BAG IV ONE (13:51)
[2021-06-05] MEDS ORDERED: ACETAMINOPHEN 1000 MG/100 ML VIAL (NON FORMULARY) IVPB ONE (13:52)
[2021-06-05] MEDS ORDERED: MECLIZINE HCL 25 MG TABLET (FP) PO ONE ×2 (13:52→16:08)
[2021-06-05] MEDS ORDERED: METOCLOPRAMIDE HCL INJECTION 10 MG/2 ML VIAL IVPUSH ONE (13:52)
[2021-06-05] MEDS ORDERED: METOCLOPRAMIDE HCL INJECTION 10 MG/2 ML VIAL ONE (13:56)
[2021-06-05] MEDS ORDERED: ACETAMINOPHEN INJECTION 100 ML IVPB ONE (13:56)
[2021-06-05] MEDS ORDERED: MECLIZINE HCL 25 MG TABLET (FP) ONE ×2 (13:56→16:37)
[2021-06-05 15:08] LABS: BASO % 0.4 % (0-2.0); EOS % 0.3 % (0-4.5); HEMATOCRIT 40.4 % (32.4-45.2); HEMOGLOBIN 13.6 GM/dL (10.7-15.3); LYMPH % 15.1 % (8-40); MCH 30.8 pg (25.7-33.7); MCHC 33.8 g/dl (32.0-36.0); MEAN CELL VOLUME 91.1 fl (80-96); MEAN PLT VOLUME 8.6 fl (7.5-11.1); NEUT % 79.2 % (42.8-82.8); PLATELET COUNT 249 10^3/uL (134-434); RBC 4.43 M/mm3 (3.60-5.2); RDW 13.8 % (11.6-15.6); WHITE BLOOD COUNT 10.8 K/mm3 (4.0-10.0)
[2021-06-05 15:23] LABS: CHLORIDE 106 mmol/L (98-107); SODIUM 141 mmol/L (136-145)
[2021-06-05 15:28] LABS: CALCIUM 8.6 mg/dL (8.5-10.1)
[2021-06-05 15:30] LABS: ALBUMIN 3.4 g/dl (3.4-5.0); ANION GAP 6 MMOL/L (8-16); BLOOD UREA NITROGEN 32.4 mg/dL (7-18); CO2 29 mmol/L (21-32); GLUCOSE,RANDOM 116 mg/dL (74-106)
[2021-06-05 15:31] LABS: SGPT/ALT 18 U/L (13-61)
[2021-06-05 15:32] LABS: CREATININE 1.3 mg/dL (0.55-1.3); SGOT/AST 24 U/L (15-37)
[2021-06-05 15:33] LABS: TOT PROT 6.8 g/dl (6.4-8.2)
[2021-06-05 15:34] LABS: ALK PHOS 77 U/L (45-117)
[2021-06-05 15:38] LABS: BILIRUBIN,TOTAL 0.5 mg/dL (0.2-1)
[2021-06-05] MEDS ORDERED: KETOROLAC TROMETHAMINE 30 MG/1 ML VIAL IM ONE (16:09)
[2021-06-05] MEDS ORDERED: KETOROLAC TROMETHAMINE 30 MG/1 ML VIAL ONE (16:37)
[2021-06-05] MEDS ORDERED: LORazepam 2 MG/ML SDV VIAL IVPUSH ONE (17:15)
[2021-06-05] MEDS ORDERED: LORazepam 2 MG/ML SDV VIAL ONE (17:32)
[2021-06-05] MEDS ORDERED: DOCUSATE SODIUM 100 MG CAPSULE (FP) PO PRN (20:59)
[2021-06-05] MEDS ORDERED: POLYETHYLENE GLYCOL (HEALTHYLAX) 3350 17 GM PACKET PO PRN (20:59)
[2021-06-05] MEDS ORDERED: DEXTROSE 5%-NORMAL SALINE 1,000 ML IV SCH (21:00)
[2021-06-05] MEDS ORDERED: PROCHLORPERAZINE INJECTION 10 MG/2 ML VIAL IVPB PRN (21:20)
[2021-06-05] MEDS ORDERED: TRIMETHOBENZAMIDE HCL 200MG/2ML INJ IM PRN (21:37)
[2021-06-05] MEDS ORDERED: ACETAMINOPHEN 500 MG TABLET (FP) PO PRN (23:38)
[2021-06-05] MEDS ORDERED: clonazePAM 0.5 MG ODT TABLETS SL PRN (23:38)
[2021-06-06] MEDS: HEPARIN NA (PORCINE) 5,000 UNITS/ML 1ML VIAL SQ SCH ×3 (05:29→22:26)
[2021-06-06 07:54] LABS: BASO % 0.5 % (0-2.0); EOS % 0.8 % (0-4.5); HEMATOCRIT 37.2 % (32.4-45.2); HEMOGLOBIN 12.5 GM/dL (10.7-15.3); LYMPH % 22.4 % (8-40); MCH 30.4 pg (25.7-33.7); MCHC 33.7 g/dl (32.0-36.0); MEAN CELL VOLUME 90.2 fl (80-96); MEAN PLT VOLUME 8.3 fl (7.5-11.1); MONO % 6.9 % (3.8-10.2); NEUT % 69.4 % (42.8-82.8); PLATELET COUNT 229 10^3/uL (134-434); RBC 4.12 M/mm3 (3.60-5.2); RDW 13.6 % (11.6-15.6); WHITE BLOOD COUNT 7.6 K/mm3 (4.0-10.0)
[2021-06-06 08:11] LABS: INR 0.94 (0.83-1.09); PROTHROMBIN TIME (PATIENT) 11.6 SEC (9.7-13.0)
[2021-06-06 08:14] LABS: ACTIVATED PTT 33.3 SECONDS (25.2-36.5)
[2021-06-06 08:23] LABS: BLOOD UREA NITROGEN 28.8 mg/dL (7-18); CALCIUM 8.4 mg/dL (8.5-10.1)
[2021-06-06 08:26] LABS: CREATININE 1.3 mg/dL (0.55-1.3)
[2021-06-06] MEDS: LIPASE/PROTEASE/AMYLASE 36,000 UNIT CAPSULE PO SCH ×4 (08:50→17:26)
[2021-06-06] MEDS ORDERED: PT OWN MED DRAWER 7, Y5N ONE (09:03)
[2021-06-06] MEDS: ESCITALOPRAM OXALATE 10 MG TABLET PO SCH (09:05)
[2021-06-06] MEDS: ASPIRIN COATED 81 MG TABLET.EC PO SCH (09:05)
[2021-06-06] MEDS: SOLIFENACIN SUCCINATE 5 MG TAB PO SCH (09:05)
[2021-06-06] MEDS: PANTOPRAZOLE 40 MG TABLET PO SCH (09:05)
[2021-06-06] MEDS: CARVEDILOL 6.25 MG TABLET (FP) PO SCH ×2 (09:05→22:25)
[2021-06-06] MEDS: TRIAMTERENE AND HCTZ - 37.5 MG/25 MG CAPSULE PO SCH (10:34)
[2021-06-06] MEDS: clonazePAM 0.5 MG TABLET PO PRN (22:24)
[2021-06-07] MEDS: HEPARIN NA (PORCINE) 5,000 UNITS/ML 1ML VIAL SQ SCH ×3 (06:00→21:55)
[2021-06-07] MEDS: LIPASE/PROTEASE/AMYLASE 36,000 UNIT CAPSULE PO SCH ×3 (10:15→17:27)
[2021-06-07] MEDS: ASPIRIN COATED 81 MG TABLET.EC PO SCH (10:15)
[2021-06-07] MEDS: PANTOPRAZOLE 40 MG TABLET PO SCH (10:15)
[2021-06-07] MEDS: CARVEDILOL 6.25 MG TABLET (FP) PO SCH ×2 (10:15→21:55)
[2021-06-07] MEDS: SOLIFENACIN SUCCINATE 5 MG TAB PO SCH (10:15)
[2021-06-07] MEDS: ESCITALOPRAM OXALATE 10 MG TABLET PO SCH (10:15)
[2021-06-07] MEDS: TRIAMTERENE AND HCTZ - 37.5 MG/25 MG CAPSULE PO SCH (10:16)
[2021-06-07] MEDS: clonazePAM 0.5 MG TABLET PO PRN (21:55)
[2021-06-08] MEDS: HEPARIN NA (PORCINE) 5,000 UNITS/ML 1ML VIAL SQ SCH ×4 (06:22→21:10)
[2021-06-08] MEDS ORDERED: PT OWN MED DRAWER 7, Y5N ONE (09:45)
[2021-06-08] MEDS: LIPASE/PROTEASE/AMYLASE 36,000 UNIT CAPSULE PO SCH ×3 (10:04→17:41)
[2021-06-08] MEDS: CARVEDILOL 6.25 MG TABLET (FP) PO SCH ×2 (10:05→21:10)
[2021-06-08] MEDS: TRIAMTERENE AND HCTZ - 37.5 MG/25 MG CAPSULE PO SCH (10:06)
[2021-06-08] MEDS: SOLIFENACIN SUCCINATE 5 MG TAB PO SCH (10:07)
[2021-06-08] MEDS: PANTOPRAZOLE 40 MG TABLET PO SCH (10:07)
[2021-06-08] MEDS: ESCITALOPRAM OXALATE 10 MG TABLET PO SCH (10:07)
[2021-06-08] MEDS: ASPIRIN COATED 81 MG TABLET.EC PO SCH (10:07)
[2021-06-08] MEDS: clonazePAM 0.5 MG TABLET PO PRN (21:10)
[2021-06-08 23:07] VITALS: BMI 22.1
[2021-06-09 05:16] VITALS: TEMP 98.3
[2021-06-09] MEDS: HEPARIN NA (PORCINE) 5,000 UNITS/ML 1ML VIAL SQ SCH ×2 (06:28→14:46)
[2021-06-09] MEDS ORDERED: AMINO ACIDS/PROTEIN HYDROLYS 30 ML LIQUID.PKT PO SCH (08:00)
[2021-06-09] MEDS ORDERED: PT OWN MED DRAWER 7, Y5N ONE ×3 (08:44→17:44)
[2021-06-09] MEDS: LIPASE/PROTEASE/AMYLASE 36,000 UNIT CAPSULE PO SCH ×3 (08:45→17:46)
[2021-06-09] MEDS ORDERED: MULTIVITAMINS (DAILY MVI) TABLET (FP) PO SCH (10:00)
[2021-06-09] MEDS: PANTOPRAZOLE 40 MG TABLET PO SCH (10:27)
[2021-06-09] MEDS: ASPIRIN COATED 81 MG TABLET.EC PO SCH (10:27)
[2021-06-09] MEDS: CARVEDILOL 6.25 MG TABLET (FP) PO SCH (10:27)
[2021-06-09] MEDS: ESCITALOPRAM OXALATE 10 MG TABLET PO SCH (10:27)
[2021-06-09] MEDS: TRIAMTERENE AND HCTZ - 37.5 MG/25 MG CAPSULE PO SCH (10:28)
[2021-06-09] MEDS: SOLIFENACIN SUCCINATE 5 MG TAB PO SCH (10:28)
[2021-06-09 14:53] VITALS: BP 132/59; PULSE 54
== END 2021-06-09 18:34 | disposition home health service (06) | DRG 149 ==
LOC: JER 13:10 → JERBED 17:17 → J7W 21:46 → OBSVTOIN 06-08 12:00
PROVIDERS: ADMIT Internal Medicine; ATTEND Internal Medicine
DX: H81.10 Benign paroxysmal vertigo, unspecified ear (principal); I13.0 Hypertensive heart and chronic kidney disease with heart failure and stage 1 through stage 4 chronic kidney disease, or unspecified chronic kidney disease; I50.32 Chronic diastolic (congestive) heart failure; N18.9 Chronic kidney disease, unspecified; I25.10 Atherosclerotic heart disease of native coronary artery without angina pectoris; E78.5 Hyperlipidemia, unspecified; I48.0 Paroxysmal atrial fibrillation; J32.9 Chronic sinusitis, unspecified; Z98.61 Coronary angioplasty status; Z95.0 Presence of cardiac pacemaker; F41.8 Other specified anxiety disorders
CPT/HCPCS: 36415; 70450-TC; 80048; 80053; 82550; 82962; 84484; 85025; 85610; 85730; 93005; 93010; 93880-TC; 97116-GP; 97161-GP; 99285-25; C9803; G0378; J0131; J1644; U0003; U0005